=== PATIENT | male | born 1970 | race Caucasian/White ===

== ENCOUNTER 2018-02-18 22:33 | Emergency (ER) | payer OTHER ==
--- NOTE | 2018-02-18 22:45 | PDOC ---
History of Present Illness - General Stated Complaint: SEIZURE Time Seen by Provider: 02/18/18 22:42 - History of Present Illness Initial Comments: 02/18/18 22:45 Mr. Harrington is a 47 yo male w/ pmh of mental retardation, infantile cerebral palsy and diplegia who presents after seizure earlier today. Per staff patient was previously in his normal state of health when they observed him to be "foaming at the mouth" with left eye deviation. This episode lasted over five minutes and prompted evaluation at ER. Patient is no longer on anti-epileptics however has diazepam ordered PRN. Past History - Past Medical History Allergies/Adverse Reactions: Allergies Allergy/AdvReac Type Severity Reaction Status Date / Time No Known Allergies Allergy Verified 02/18/18 23:04 Home Medications: Ambulatory Orders Acetaminophen Oral Solution [Tylenol 160mg/5mL Oral Solution -] 650 mg PO Q4H PRN 05/11/12 Baclofen 15 mg PO BID 05/11/12 Bisacodyl Suppository [Dulcolax Suppository -] 10 mg RC PRN PRN 05/11/12 Calcium Carbonate/Vitamin D3 [Oyster Shell 500-Vit D3 200 Tb] 1 each PO TID 10/16 Carbamazepine [Carbatrol] 400 mg PO HS 05/11/12 Carbamazepine [Carbatrol] 500 mg PO DAILY 05/11/12 Diazepam *Pediatric Rectal* [Diastat *Pediatric Rectal Gel* -] 10 mg RC PRN PRN 05/11/12 Diazepam [Valium] 5 mg PO TID 05/11/12 Na Phos,M-B/Na Phos,Di-Ba [Fleet Enema] ml RC PRN PRN 05/11/12 Polyethylene Glycol 3350 [Miralax 255 gm Btl -] 17 gm PO DAILY 05/11/12 Ranitidine HCl [Zantac] 150 mg PO HS 05/11/12 Simethicone Liquid [Mylicon Liquid -] 80 mg PO QID PRN 05/11/12 Talc/Cellulos/Chloroxy/Aldioxa [Zeasorb Powder] 312 gm TP 05/11/12 Tizanidine HCl [Zanaflex] 2 mg PO TID 05/11/12 Amox-Tr/K Cl [Augmentin 500Mg Tablet] 1 tab PO BID #1 tablet 03/14/13 GI Disorders: Yes (GERD/GT/ESOPHAGITIS) Seizures: Yes (EPILEPSY) - Surgical History Abdominal Surgery: Yes (GT) - Immunization History Immunization Up to Date: Yes - Suicide/Smoking/Psychosocial Hx Smoking Status: No Smoking History: Unknown if ever smoked Have you smoked in the past 12 months: No Number of Cigarettes Smoked Daily: 0 Hx Alcohol Use: No Drug/Substance Use Hx: No Substance Use Type: None Review of Systems - Review of Systems Comments:: 02/18/18 22:52 Unable to obtain further. *Physical Exam - Physical Exam Comments: 02/18/18 22:53 GENERAL: Patient non-verbal, at baseline per aid from [facility]. Awake, in no acute distress HEAD: No signs of trauma, normocephalic, atraumatic EYES: PERRLA, EOMI, sclera anicteric, conjunctiva clear ENT: Auricles normal inspection, nares patent, oropharynx clear without exudates. Moist mucosa NECK: Normal ROM, supple, no lymphadenopathy, JVD, or masses LUNGS: No distress, clear to auscultation bilaterally HEART: Regular rate and rhythm, normal S1 and S2, no murmurs, rubs or gallops, peripheral pulses normal and equal bilaterally. ABDOMEN: Soft, nontender, normoactive bowel sounds. No guarding, no rebound. No masses EXTREMITIES: Normal range of motion, no edema. No clubbing or cyanosis. NEUROLOGICAL: +Unable to assess further. SKIN: Warm, Dry, normal turgor, no rashes or lesions noted. ED Treatment Course - LABORATORY CBC & Chemistry Diagram: 02/18/18 23:25 02/18/18 23:25 Medical Decision Making - Medical Decision Making 02/18/18 23:02 Mr. Harrington is a 47 yo male w/ pmh as described who presents for evaluation of seizure. Patient reportedly had not had seizure since 2012; prompting presentation. Patient was not given any anti-seizure medication following seizure. PCP paged for more information regarding goals of ER evaluation. 02/18/18 23:29 Discussed patient with PCP who reports STAT medications fell off of chart and patient had no ordered anti-seizure medication available. PCP requests r/o seizure trigger and d/c back to facility if not acute findings. Will comply with request. 02/18/18 23:58 Labs grossly wnl as below. CXR negative for acute process. Discharging to home. *DC/Admit/Observation/Transfer Diagnosis at time of Disposition: Seizure - Discharge Dispostion Disposition: HOME - Referrals - Patient Instructions Printed Discharge Instructions: DI for Seizure Disorder -- Adult Additional Instructions: Mr. Harrington was evaluated today in the ER for his seizure. No concerning findings were found on chest xray or laboratory evaluation at this time. Please follow- up with primary care physician for further evaluation. Return to ER if any further seizure, fever, chills, or other concerning symptoms. - Post Discharge Activity
[2018-02-18 23:02] VITALS: BP 119/75; PULSE 80; TEMP 99.5; BMI 21.7
[2018-02-18] MEDS ORDERED: SODIUM CHLORIDE 1,000 ML IV STA (23:05)
--- NOTE | 2018-02-18 23:26 | PDOC ---
Attending Attestation - Resident Resident Name: Owen Gutierrez - ED Attending Attestation I have performed the following: I have examined & evaluated the patient, The case was reviewed & discussed with the resident, I agree w/resident's findings & plan, Exceptions are as noted - HPI HPI: 02/18/18 23:22 I did speak with a physician from [facility] , Dr Rawls and the pt was sent to look for any signs of infection that might have triggered a seizure -the seizure was self limiting and he was at baseline upon arrival -he said there was no stat anti epileptic meds listed but Dr Rawls will placed an order for diastat -his rectal temp was done and he does not have a fever -he takes diazepam 5 mg via G-tube 3 times a day and also Tegretol 400 mg via G- tube every morning to prevent seizures 02/18/18 23:26 - Physicial Exam PE: 02/18/18 23:34 47 yo male presents with arm flapping and bruxism that the attendant states is his baseline head no lacerations,no abrasions oropharynx extensive wear on front teeth no lip injury lungs cta b/l cvs [id number] abd soft ext contracted limbs neuro alert,nonverbal, nonambulatory at baseline skin warm and dry 02/18/18 23:40 - Medical Decision Making 02/18/18 23:[address] Rawls , ([phone]) 02/19/18 00:12 labs reviewed and the cbc and comp are unremarkable pt is afebrile and at baseline imp epilepsy -pt will be discharged back to his facility 02/19/18 00:51
[2018-02-18 23:32] LABS: BASO % 0.5 % (0-2.0); EOS % 0.6 % (0-4.5); HEMATOCRIT 40.8 % (35.4-49); HEMOGLOBIN 14.6 GM/dL (11.7-16.9); LYMPH % 29.3 % (8-40); MCH 34.3 pg (25.7-33.7); MCHC 35.8 g/dl (32.0-35.9); MEAN PLT VOLUME 8.2 fl (7.5-11.1); MONO % 10.2 % (3.8-10.2); NEUT % 59.4 % (42.8-82.8); PLATELET COUNT 260 K/MM3 (134-434); RBC 4.25 M/mm3 (4.00-5.60); RDW 12.5 % (11.9-15.9); WHITE BLOOD COUNT 7.2 K/mm3 (4.0-10.0)
[2018-02-18 23:55] LABS: ALK PHOS 123 U/L (45-117); ANION GAP 8 MMOL/L (8-16); BILIRUBIN,TOTAL 0.4 mg/dL (0.2-1); BLOOD UREA NITROGEN 20 mg/dL (7-18); CHLORIDE 104 mmol/L (98-107); CO2 29 mmol/L (21-32); CREATININE 0.6 mg/dL (0.55-1.3); GLUCOSE,RANDOM 88 mg/dL (74-106); POTASSIUM 3.9 mmol/L (3.5-5.1); SGOT/AST 32 U/L (15-37); SGPT/ALT 38 U/L (13-61); SODIUM 142 mmol/L (136-145); TOT PROT 7.9 g/dl (6.4-8.2)
== END 2018-02-19 01:35 | disposition home or self-care (01) ==
LOC: JER 22:33
PROC: 3E0337Z Introduction of Electrolytic and Water Balance Substance into Peripheral Vein, Percutaneous Approach (ICD-10-PCS; principal; 2018-02-18)
DX: D56.9 Thalassemia, unspecified (principal); F79 Unspecified intellectual disabilities; G80.9 Cerebral palsy, unspecified
CPT/HCPCS: 36415; 71045-TC-FY; 80053; 85025; 99281-25; J7030

== ENCOUNTER 2018-06-29 13:43 | Emergency (ER) | payer OTHER ==
[2018-06-29 13:56] VITALS: BMI 49.4
--- NOTE | 2018-06-29 18:28 | PDOC ---
History of Present Illness - General Chief Complaint: Pain, Acute Stated Complaint: ABD PAIN Time Seen by Provider: 06/29/18 15:53 History Source: Patient Exam Limitations: No Limitations - History of Present Illness Travel History: No Initial Comments: 06/29/18 18:23 47 y/o male brought in by staff for evaluation of no BM x 2 days. As per report when the ENGINE TURNER pushed on his abdomen, pt had winced. Pt otherwise with no vomiting , abd distention, fever, decreased GT or po feeding, irritability or change in urine pattern. pt with hx of CP, spasms, GT, and is wheelchair bound. Pt resides at [facility]. Timing/Duration: reports: other Quality: reports: other Abdominal Pain Onset Location: reports: other Activities at Onset: reports: none Aggravating Factors: improves with: None Alleviating Factors: improves with: None Past History - Travel Traveled outside of the country in the last 30 days: No - Past Medical History Allergies/Adverse Reactions: Allergies Allergy/AdvReac Type Severity Reaction Status Date / Time No Known Allergies Allergy Verified 02/18/18 23:04 Home Medications: Ambulatory Orders Acetaminophen Oral Solution [Tylenol 160mg/5mL Oral Solution -] 650 mg PO Q4H PRN 05/11/12 Baclofen 15 mg PO TID 05/11/12 Bisacodyl Suppository [Dulcolax Suppository -] 10 mg RC PRN PRN 05/11/12 Calcium Carbonate/Vitamin D3 [Oyster Shell 500-Vit D3 200 Tb] 1 each PO TID 10/16 Carbamazepine [Carbatrol] 400 mg PO AM 05/11/12 Carbamazepine [Carbatrol] 600 mg PO HS 05/11/12 Diazepam *Pediatric Rectal* [Diastat *Pediatric Rectal Gel* -] 10 mg RC PRN PRN 05/11/12 Diazepam [Valium] 5 mg PO TID 05/11/12 Na Phos,M-B/Na Phos,Di-Ba [Fleet Enema] 118 ml RC PRN PRN 05/11/12 Polyethylene Glycol 3350 [Miralax 255 gm Btl -] 17 gm PO DAILY 05/11/12 Ranitidine HCl [Zantac] 150 mg PO HS 05/11/12 Simethicone Liquid [Mylicon Liquid -] 80 mg PO QID PRN 05/11/12 Talc/Cellulos/Chloroxy/Aldioxa [Zeasorb Powder] 312 gm TP DAILY 05/11/12 Tizanidine HCl [Zanaflex] 4 mg PO BID 05/11/12 Miconazole Nitrate [Desenex] 45 gm TP BID 02/19/18 Selenium Sulfide/Aloe Vera [Selsun Blue Moist 1% Shampoo] 207 ml TP HS 02/19/18 COPD: No GI Disorders: Yes (GERD/GT/ESOPHAGITIS) Psychiatric Problems: Yes (MR) Seizures: Yes (EPILEPSY) Other medical history: CERBRRAL PALSY - Surgical History Abdominal Surgery: Yes (GT) - Immunization History Immunization Up to Date: Yes - Suicide/Smoking/Psychosocial Hx Smoking Status: No Smoking History: Never smoked Have you smoked in the past 12 months: No Number of Cigarettes Smoked Daily: 0 Hx Alcohol Use: No Drug/Substance Use Hx: No Substance Use Type: None Patient Lives Alone: No Lives with/in: jail Abd/GI Specific PMHX - Complaint Specific PMHX Other History: gt Review of Systems - Review of Systems Able to Perform ROS?: Yes Constitutional: No: Symptoms Reported Respiratory: No: Shortness of Breath ABD/GI: Yes: Constipated (no BM x 2 days). No: Abdominal Distended, Diarrhea, Poor Appetite, Poor Fluid Intake, Vomiting Integumentary: No: Symptoms Reported Neurological: No: Weakness *Physical Exam - Vital Signs Last Vital Signs Temp Pulse Resp BP Pulse Ox 98.1 F 75 20 0/0 L 98 06/29/18 13:45 06/29/18 13:45 06/29/18 13:45 06/29/18 13:45 06/29/18 13:45 - Physical Exam General Appearance: Yes: Nourished, Appropriately Dressed. No: Apparent Distress Respiratory/Chest: positive: Lungs Clear, Normal Breath Sounds. negative: Respiratory Distress, Accessory Muscle Use Cardiovascular: positive: Regular Rhythm, Regular Rate. negative: Murmur Gastrointestinal/Abdominal: positive: Normal Bowel Sounds, Soft, Other (gt to left upper abd intact, ). negative: Distended, Tenderness Integumentary: positive: Normal Color, Warm, Moist Neurologic: positive: Motor Strength 5/5 (ambulatory) ED Treatment Course - RADIOLOGY Radiology Studies Ordered: Category Date Time Status ABDOMEN FLAT & UPRIGHT [RAD] Stat Radiology 04/26/19 16:37 Completed Medical Decision Making - Medical Decision Making 06/29/18 18:29 CC: r/o obstruction, constipation, lbm formed and soft 2 days ago, normally goes daily in am, report states grimacing with abd palpation Exam: no abd distention, no noted discomfort, vss, gt site intact, no feeding aspirated w/ TUMI syringe from GT Plan: Abd FU 06/29/18 18:36 Xray shows minimal stool in distal colon, no acute findings suggestive of obstruction. Will send back to [facility] with staff *DC/Admit/Observation/Transfer Diagnosis at time of Disposition: Decreased frequency of bowel movements - Discharge Dispostion Disposition: HOME Condition at time of disposition: Good - Referrals - Patient Instructions Printed Discharge Instructions: DI for Constipation Additional Instructions: Please continue to monitor bowel movements and if no BM in 48 hrs, may consider enema since stool is seen on xray in distal colon - Post Discharge Activity
[2018-06-29 19:38] VITALS: BP 110/76; PULSE 70; TEMP 97.8
== END 2018-06-29 19:38 | disposition home or self-care (01) ==
LOC: JER 13:43
DX: K59.00 Constipation, unspecified (principal); G80.8 Other cerebral palsy; F79 Unspecified intellectual disabilities; G40.909 Epilepsy, unspecified, not intractable, without status epilepticus; Z93.1 Gastrostomy status
CPT/HCPCS: 74019-TC-FY; 99281-25

== ENCOUNTER 2018-09-04 02:16 | Inpatient (IN) | payer OTHER ==
[2018-09-04] MEDS ORDERED: RAPID SEQUENCE INTUBATION KIT NR ONE (02:27)
[2018-09-04] MEDS ORDERED: MIDAZOLAM HCL 2 MG/2 ML SINGLE DOSE VIAL ONE ×2 (02:27→02:41)
[2018-09-04] MEDS ORDERED: MIDAZOLAM HCL 5 MG/1 ML Single Dose Vial IVPUSH ONE ×2 (03:19)
[2018-09-04] MEDS ORDERED: ACETAMINOPHEN 1000 MG/100 ML VIAL (NON FORMULARY) IVPB ONE (03:29)
[2018-09-04] MEDS ORDERED: PIPERACILLIN/TAZOB 4.5 GM 4.5 GM in DEXTROSE 5%-WATER 100 ML IVPB ONE (03:30)
[2018-09-04] MEDS: VANCOMYCIN 1 GM in D5W (PRE-DOCKED) 1,000 MG/250 ML IVPB ONE ×2 (03:30→03:50)
[2018-09-04] MEDS: MIDAZOLAM IN 0.9 % SOD.CHLORID 100 MG/100 ML PLAST..BAG IVPB SCH ×2 (03:38→14:03)
[2018-09-04 03:44] LABS: BASO % 0.2 % (0-2.0); EOS % 0.1 % (0-4.5); HEMATOCRIT 45.4 % (35.4-49); HEMOGLOBIN 14.8 GM/dL (11.7-16.9); LYMPH % 10.2 % (8-40); MCH 32.7 pg (25.7-33.7); MCHC 32.6 g/dl (32.0-35.9); MEAN CELL VOLUME 100.4 fl (80-96); MONO % 6.2 % (3.8-10.2); NEUT % 83.3 % (42.8-82.8); PLATELET COUNT 365 K/MM3 (134-434); RBC 4.53 M/mm3 (4.00-5.60); RDW 13.1 % (11.9-15.9); WHITE BLOOD COUNT 22.4 K/mm3 (4.0-10.0)
--- NOTE | 2018-09-04 03:49 | PDOC ---
History of Present Illness - General Chief Complaint: Respiratory Distress Stated Complaint: VOMITING History Source: Old Records - History of Present Illness Initial Comments: 09/04/18 03:22 47 year old male with a significant PMH of mental retardation, seizure disorder and infantile cerebral palpasy/diplegia BIBA from [place] for likely aspiration pneumonia. EMS report on route to hospital sig for severely agitated patient vomiting blood and unable to attain vital signs. Pt reported to be completely altered from baseline according to ems. On arrival to the ED, pt found to be very agitated, punching and kicking with noted blood around the mouth and on the sheets. Continue to have difficulty attaining vitals (HR and O2 saturation, BP WNL) while in the ED due to severe agitation with gargling and crackles. Pt not protecting his airway along with vomiting and agitation, decision made to intubate. Multiple attempts to attain IV access failed, place femoral line on the right side. Past History - Past Medical History Allergies/Adverse Reactions: Allergies Allergy/AdvReac Type Severity Reaction Status Date / Time No Known Allergies Allergy Verified 09/04/18 02:53 Home Medications: Ambulatory Orders Acetaminophen Oral Solution [Tylenol 160mg/5mL Oral Solution -] 650 mg PO Q4H PRN 05/11/12 Baclofen 15 mg PO TID 05/11/12 Bisacodyl Suppository [Dulcolax Suppository -] 10 mg RC PRN PRN 05/11/12 Calcium Carbonate/Vitamin D3 [Oyster Shell 500-Vit D3 200 Tb] 1 each PO TID 10/16 Carbamazepine [Carbatrol] 400 mg PO AM 05/11/12 Carbamazepine [Carbatrol] 600 mg PO HS 05/11/12 Diazepam *Pediatric Rectal* [Diastat *Pediatric Rectal Gel* -] 10 mg RC PRN PRN 05/11/12 Diazepam [Valium] 5 mg PO TID 05/11/12 Na Phos,M-B/Na Phos,Di-Ba [Fleet Enema] 118 ml RC PRN PRN 05/11/12 Polyethylene Glycol 3350 [Miralax 255 gm Btl -] 17 gm PO DAILY 05/11/12 Ranitidine HCl [Zantac] 150 mg PO HS 05/11/12 Simethicone Liquid [Mylicon Liquid -] 80 mg PO QID PRN 05/11/12 Talc/Cellulos/Chloroxy/Aldioxa [Zeasorb Powder] 312 gm TP DAILY 05/11/12 Tizanidine HCl [Zanaflex] 4 mg PO BID 05/11/12 Miconazole Nitrate [Desenex] 45 gm TP BID 02/19/18 Selenium Sulfide/Aloe Vera [Selsun Blue Moist 1% Shampoo] 207 ml TP HS 02/19/18 COPD: No GI Disorders: Yes (GERD/GT/ESOPHAGITIS) Psychiatric Problems: Yes (MR) Seizures: Yes (EPILEPSY) - Surgical History Abdominal Surgery: Yes (GT) - Immunization History Immunization Up to Date: Yes - Suicide/Smoking/Psychosocial Hx Smoking Status: No Smoking History: Never smoked Have you smoked in the past 12 months: No Number of Cigarettes Smoked Daily: 0 Hx Alcohol Use: No Drug/Substance Use Hx: No Substance Use Type: None Review of Systems - Review of Systems Able to Perform ROS?: No (altered and agitated) *Physical Exam - Vital Signs Last Vital Signs Temp Pulse Resp BP Pulse Ox 103.6 F H 131 H 20 152/84 74 L 09/04/18 03:09 09/04/18 02:16 09/04/18 02:40 09/04/18 02:16 09/04/18 02:16 - Physical Exam General Appearance: Yes: Nourished, Appropriately Dressed, Apparent Distress HEENT: positive: EOMI, NATALIE, Other (blood and vomit around mouth). negative: Normal Voice (non verbal), Lesions, Paz Neck: positive: Supple. negative: Carotid bruit Respiratory/Chest: positive: Rapid RR, Crackles. negative: Accessory Muscle Use Cardiovascular: positive: Regular Rhythm, S1, S2, Tachycardia. negative: Edema , JVD, Murmur Vascular Pulses: Dorsalis-Pedis (R): 4+, Doralis-Pedis (L): 4+ Gastrointestinal/Abdominal: positive: Flat, Soft. negative: Pulsatile Mass, Distended, Guarding, Rebound Extremity: positive: Normal Capillary Refill. negative: Pedal Edema Integumentary: positive: Normal Color, Dry, Warm Neurologic: positive: Motor Strength 5/5, Confused, Disoriented, Other ( agitated ) Procedures - Central Line Central Line Lumen: triple Central Line Position: femoral (R) Anesthesia: other (4 mg versed) Complications: none Post Central Line Insertion: sutured, good blood return - Intubation Intubation Method: orotracheal Blade used: Mac Tube Size (Fr): 7.0 Medications: Rocuronium, Versed Tube position @ lip (cm): 22 Tube position confirmed by: Direct visualization, CO2 detector, Chest x-ray ( chest CT), Breath sounds Breath Sounds after Intubation: equal Intubation Complications: no complications Post Intubation Xray: Yes (CT) ED Treatment Course - LABORATORY CBC & Chemistry Diagram: 09/04/18 03:15 09/04/18 03:15 Medical Decision Making - Medical Decision Making 09/04/18 06:21 47 year old male with a significant PMH of mental retardation, seizure disorder and infantile cerebral palpasy/diplegia BIBA from [place] for likely aspiration pneumonia. EMS report on route to hospital sig for severely agitated patient vomiting blood and unable to attain vital signs. Pt reported to be completely altered from baseline according to ems. On arrival to the ED, pt found to be very agitated, punching and kicking with noted blood around the mouth and on the sheets. Continue to have difficulty attaining vitals (HR and O2 saturation, BP WNL) while in the ED due to severe agitation with gargling and crackles. Pt not protecting his airway along with vomiting and agitation, decision made to intubate. Multiple attempts to attain IV access failed, place femoral line on the right side. See procedure note for femoral line and intubation Vitals significant for elevated temp, elevated RR and tachycardia Sepsis workup ordered for likely infection Head CT for AMS and agitation Chest/abd/pel CT ordered for fever of unknown cause and likely aspiration PNA Pt given midazolam and jose f for intubation, placed on versed drip Pt required more rocuronium prior to CT due to continued agitation while on full dose versed drip DDX INLT: aspiration pna, infection, seritonin syndrome, seizure, delirium tremens/neuroleptic malignant syndrome Discussed case with ICU and hospitalist, pt accepted to ICU and bed reported available Pt transported to ICU from CT scan *DC/Admit/Observation/Transfer Diagnosis at time of Disposition: Aspiration pneumonia, Altered mental status, Agitation - Discharge Dispostion Condition at time of disposition: Guarded Decision to Admit order: Yes - Referrals - Patient Instructions - Post Discharge Activity
[2018-09-04 03:52] LABS: VENOUS PC02 54.3 mmHg (41-51); VENOUS PH 7.26 (7.31-7.41)
[2018-09-04] MEDS ORDERED: ROCURONIUM BROMIDE 50 MG/5 ML VIAL IVPUSH ONE ×2 (03:56)
[2018-09-04 04:01] LABS: INR 1.23 (0.83-1.09); PROTHROMBIN TIME (PATIENT) 14.6 SEC (9.7-13.0)
[2018-09-04 04:04] LABS: ACTIVATED PTT 33.3 SECONDS (25.2-36.5)
[2018-09-04 04:10] LABS: ALBUMIN 4.4 g/dl (3.4-5.0); BILIRUBIN,TOTAL 0.5 mg/dL (0.2-1); CALCIUM 9.3 mg/dL (8.5-10.1); CREATININE 1.3 mg/dL (0.55-1.3); POTASSIUM 4.2 mmol/L (3.5-5.1); TOT PROT 8.8 g/dl (6.4-8.2)
--- NOTE | 2018-09-04 04:12 | CONSULT ---
Consultation: REQUESTING PROVIDER: Dr. Otero CONSULT REQUEST: We have been asked to medically evaluate this patient for sepsis HISTORY OF PRESENT ILLNESS: 47 year old male with a significant PMH of mental retardation, infantile cerebral palpasy/diplegia, constipation, and seizure disorder was brought to the hospital by ambulance from [facility] for agitation and alleged aspiration pneumonia. Per ED report, patient was extremely agitated on his way from [place] and "vomited blood" from the report given by the EMS. In the ED, patient was found to be febrile to >103 and tachycardic. Because the patient had reportedly vomited blood and was extremely agitated, he was intubated for airway protection and sedated on versed. There was no family or nursing aid at bedside to answer my questions. Patient is not alert or oriented and cannot answer questions about his history. REVIEW OF SYSTEMS: Unable to assess due to mental status PHYSICAL EXAMINATION Vital Signs - 24 hr 09/04/18 09/04/18 09/04/18 02:16 02:40 03:09 Temperature 103.6 F H Pulse Rate 131 H Respiratory 32 H 20 Rate Blood Pressure 152/84 O2 Sat by Pulse 74 L Oximetry (%) GENERAL: A&Ox0, intubated and sedated EYES: pupils equal, reactive to light ENT: dried blood noted around the mouth, no blood noted in the oropharynx NECK: No JVD LUNGS: course breath sounds, no crackles HEART: tachycardic, no murmurs appreciated ABDOMEN: Soft, nontender, BS present, G tube in place, mild erythema noted around the tube without any purulent drainage EXTREMITIES: 2+ pulses, no edema. NEUROLOGICAL: Unable to assess due to mental status Laboratory Results - last 24 hr 09/04/18 09/04/18 09/04/18 03:15 03:15 03:15 WBC 22.4 H RBC 4.53 Hgb 14.8 Hct 45.4 MCV 100.4 H MCH 32.7 MCHC 32.6 RDW 13.1 Plt Count 365 D MPV 9.0 Absolute Neuts (auto) 18.7 H Neutrophils % 83.3 H D Lymphocytes % 10.2 D Monocytes % 6.2 Eosinophils % 0.1 D Basophils % 0.2 Nucleated RBC % 0 PT with INR 14.60 H INR 1.23 H PTT (Actin FS) 33.3 VBG pH 7.26 L POC VBG pCO2 54.3 H POC VBG pO2 108 H VBG HCO3 23.9 VBG O2 Sat (Martha) 96 H VBG Base Excess -3.5 L Sodium Potassium Chloride Carbon Dioxide Anion Gap BUN Creatinine Est GFR (CKD-EPI)AfAm Est GFR (CKD-EPI)NonAf Random Glucose Calcium Total Bilirubin AST ALT Alkaline Phosphatase Total Protein Albumin 09/04/18 03:15 WBC RBC Hgb Hct MCV MCH MCHC RDW Plt Count MPV Absolute Neuts (auto) Neutrophils % Lymphocytes % Monocytes % Eosinophils % Basophils % Nucleated RBC % PT with INR INR PTT (Actin FS) VBG pH POC VBG pCO2 POC VBG pO2 VBG HCO3 VBG O2 Sat (Martha) VBG Base Excess Sodium 146 H Potassium 4.2 Chloride 107 Carbon Dioxide 27 Anion Gap 13 BUN 27.0 H Creatinine 1.3 Est GFR (CKD-EPI)AfAm 75.84 Est GFR (CKD-EPI)NonAf 65.43 Random Glucose 93 Calcium 9.3 Total Bilirubin 0.5 AST 38 H ALT 38 Alkaline Phosphatase 146 H Total Protein 8.8 H Albumin 4.4 Active Medications Current Medications Midazolam HCl (Midazolam 100mg/100ml-0.9%Nacl) 100 mg in 100 mls @ 1 mls/hr IVPB TITR RASHAUN; Protocol Stop: 09/05/18 03:29 Last Admin: 09/04/18 03:38 Dose: 1 mg/hr, 1 mls/hr Lactated Ringer's (Lactated Ringers Solution) 1,000 ml in 1,000 mls @ 125 mls/ hr IV ASDIR RASHAUN Sodium Chloride (Normal Saline -) 1,000 mls @ 1,000 mls/hr IV ASDIR STA Stop: 09/04/18 05:22 Sodium Chloride (Normal Saline -) 1,000 mls @ 1,000 mls/hr IV ASDIR STA Stop: 09/04/18 05:22 Propofol (Diprivan -) 1,000,000 mcg in 100 mls @ 1.837 mls/hr IVPB TITR RASHAUN; Protocol ASSESSMENT/PLAN: 47 year old male with a significant PMH of mental retardation, infantile cerebral palpasy/diplegia, constipation, and seizure disorder was brought to the hospital by ambulance from [facility] for agitation and alleged aspiration pneumonia. Neurologic -patient was brought from ED sedated on versed -will add propofol and watch pressures -continue antiepileptic medications without change -head CT without acute pathology, per prelim report - possible mild sinusitis Cardiovascular -currently hemodynamically stable with a MAP of 94 -not requiring pressors -tachycardic on admission >130, now 92 likely due to sepsis -continue to monitor vitals -troponinemia 0.07 is likely demand ischemia related from sepsis, will repeat troponin until it peaks -EKG noted Pulmonary -Currently intubated and sedated -Chest CT shows atelectasis vs pneumonia in the left lower lobe, could be related to the alleged aspiration -will start vancomycin/zosyn from currently undifferentiated sepsis -ID consulted -ABG showed respiratory acidosis with hypercarbia -will repeat ABG Gastrointestinal -CT abdomen/pelvis diarrheal illness and/or chronic ileus with diffuse small/ large bowel gas, unclear if patient could have GI source causing his sepsis -blood/urine cultures taken -doubt patient has GI bleed given history of "vomiting" per EMS, patient did not have recurrent symptoms. possible patient has bitten tongue -will continue to monitor H&H and vital signs -will likely need suppository to assist with diffuse gaseous dilation of bowel Renal -elevated BUN likely from dehydration Heme/Onc -leukocytosis with a left shift from sepsis/infection Infectious Diseases -patient has sepsis with currently unclear etiology, differentials include aspiration pneumonia (infiltrates on CT), enteritis, UTI -will obtain UA, blood and urine cultures -empirically treat with vancomycin/zosyn -fluid hydration, ordered 2L NS bolus followed by lactated ringers at 125cc/hr -monitor fluid status -ID consultation -CT head/chest/abd/pelvis as described above -Lactic acid elevated to 8, trend lactate FEN -NS boluses followed by LR @ 125cc/hr -replete lytes as necessary in AM -NPO while intubated/sedated Prophylaxis -SCDs Dispo: We will continue to follow the patient. Thank you for this consultative opportunity. Visit type - Emergency Visit Emergency Visit: Yes ED Registration Date: 09/04/18 Care time: The patient presented to the Emergency Department on the above date and was hospitalized for further evaluation of their emergent condition. - New Patient This patient is new to me today: Yes Date on this admission: 09/04/18 - Critical Care Critical Care patient: Yes Total Critical Care Time (in minutes): 35 Critical Care Statement: The care of this patient involved high complexity decision making to prevent further life threatening deterioration of the patient 's condition and/or to evaluate & treat vital organ system(s) failure or risk of failure.
[2018-09-04] MEDS ORDERED: SODIUM CHLORIDE 1,000 ML IV STA ×2 (04:23)
--- NOTE | 2018-09-04 04:23 | PN ---
Teaching Attending Note Name of Resident: Mely Perkins ATTENDING PHYSICIAN STATEMENT I saw and evaluated the patient. I reviewed the resident's note and discussed the case with the resident. I agree with the resident's findings and plan as documented. SUBJECTIVE: Seen and examined; please refer to resident note for further historical information. Briefly, this is a 47 y/o male with a PMH as dscribed presenting from [facility] with sepsis. He is hemodynamically unstable but not requiring pressors and was intubated for suspected hemetemesis. Hb normal, lactate is 8. UA pending, CT with possible atelectesis vs. PNA. Intubated in the ER and CVC inserted and admitted to the ICU. No gastric contents saved for occult blood. No documented GIB in the past; is on zantac a home. No anticoagulation documented. Resident team to update medications. 10 sys ROS couldn't be obtained due to clinical status PMH, PSH, FH, SH reviewed Home Medications Medication Instructions Recorded Acetaminophen Oral Solution 650 mg PO Q4H PRN 05/11/12 [Tylenol 160mg/5mL Oral Solution -] Baclofen 15 mg PO TID 05/11/12 Bisacodyl Suppository [Dulcolax 10 mg RC PRN PRN 05/11/12 Suppository -] Calcium Carbonate/Vitamin D3 1 each PO TID 05/11/12 [Oyster Shell 500-Vit D3 200 Tb] Carbamazepine [Carbatrol] 400 mg PO AM 05/11/12 Carbamazepine [Carbatrol] 600 mg PO HS 05/11/12 Diazepam *Pediatric Rectal* 10 mg RC PRN PRN 05/11/12 [Diastat *Pediatric Rectal Gel* -] Diazepam [Valium] 5 mg PO TID 05/11/12 Na Phos,M-B/Na Phos,Di-Ba [Fleet 118 ml RC PRN PRN 05/11/12 Enema] Polyethylene Glycol 3350 [Miralax 17 gm PO DAILY 05/11/12 255 gm Btl -] Ranitidine HCl [Zantac] 150 mg PO HS 05/11/12 Simethicone Liquid [Mylicon Liquid 80 mg PO QID PRN 05/11/12 -] Talc/Cellulos/Chloroxy/Aldioxa 312 gm TP DAILY 05/11/12 [Zeasorb Powder] Tizanidine HCl [Zanaflex] 4 mg PO BID 05/11/12 Miconazole Nitrate [Desenex] 45 gm TP BID 02/19/18 Selenium Sulfide/Aloe Vera [Selsun 207 ml TP HS 02/19/18 Blue Moist 1% Shampoo] OBJECTIVE: VS, labs, imaging reviewed Moderate distress, intubated and sedated, frail and contorted Tachycardic with regular rhythm, s1/2 Lungs with vent associated breath sounds, w/ sym exp NT ND +BS Responds to painful stimuli, RASS 4 PERRLA, EOMI Not agitated, doesn't appear in pain EKG reviewed CXR reviewed ASSESSMENT AND PLAN: Patient is a 47 y/o male presenting to the ER with hemetemesis, sepsis with unknown source, intubated to protect airway 1) Sepsis of ? origin -VS, lactate, WBC reviewed. UA pending, ? PNA. Given broad spectrum abx. We will start him on fluids and monitor him in ICU. Defer management to critical care team. Consult ID for abx management given choice of agents. Followup CT read. If no source found can check stool, etc. -Not requiring pressors 2) S/p intubation -No recorded desaturation; ABG pending post inutbation. Monitor in unit. Wean from vent per pulmonary 3) Troponemia -Likely subendocardial ischemia 2/2 demand. Checking echo to r/o wma's and trend troponin. Nonspecific changes on EKG; can consider repeating. 4) Suspected hematemesis -NPO and hold feeds; consult GI and PPI push with drip. Q8H h/h. Defer further management to GI. SCDs for DVT px. Normal Hb and no further bleeding. FOBT ordered. Is documented as being agitated; should examine oral cavity once done being set up in ICU for any bites, etc. that may explain this. Type and screen but we don't need blood on hold at this point. 5) Seizures -Continue home medications; seizure precautions. 6) Hx MR/CP -[facility] resident; Full Code.
[2018-09-04] MEDS ORDERED: LACTATED RINGERS SOLUTION 1,000 ML/1,000 ML INFUS.BAG IV SCH ×3 (04:30→18:00)
[2018-09-04 04:43] LABS: MAGNESIUM 3.3 mg/dL (1.8-2.4); PHOSPHOROUS 6.9 mg/dL (2.5-4.9)
[2018-09-04 05:19] LABS: ANISOCYTOSIS 2+; MACROCYTOSIS 0; PLATELET ESTIMATE NORMAL
[2018-09-04] MEDS: PROPOFOL 1,000,000 MCG/100 ML VIAL IVPB SCH ×3 (05:40→20:43)
[2018-09-04] MEDS ORDERED: PANTOPRAZOLE SODIUM 80 MG in SODIUM CHLORIDE 100 ML IVPB SCH (05:45)
[2018-09-04] MEDS ORDERED: PANTOPRAZOLE SODIUM 40 MG VIAL IVPUSH ONE (06:09)
--- NOTE | 2018-09-04 06:23 | HP ---
<CristineMely herring - Last Filed: 09/04/18 07:45> CHIEF COMPLAINT: Febrile with suspected pneumonia PCP: [facility] patient. HISTORY OF PRESENT ILLNESS: Patient is currently sedated and on ventilator. Patient is a 47 M with PMH of infantile cerebral palsy, diplegia, and seizure disorder, was sent from [facility] for fever. Patient was agitated during transport and was reported to have an episode of hematemesis. He was found to be febrile at 103 degrees, tachycardic and tachypneic. Femoral line was placed on the right. He was given 12 mg Midazolam, 4 mg lorazepam and started on midazolam drip before being sent to CT scan. Patient was not alert or oriented. CT scan results showed that patient had atelectasis in lungs, with pneumonia not ruled out, and gas in the small and large bowels with possible diarrheal illness. Recent Travel:None PAST MEDICAL HISTORY: Mental retardation, cerebral palsy/diplegia, seizure disorder PAST SURGICAL HISTORY: Unable to obtain Social History: Unable to obtain Family History: Unable to obtain Allergies No Known Allergies Allergy (Verified 09/04/18 02:53) HOME MEDICATIONS: Home Medications Medication Instructions Recorded Acetaminophen Oral Solution 650 mg PO Q4H PRN 05/11/12 [Tylenol 160mg/5mL Oral Solution -] Baclofen 15 mg PO TID 05/11/12 Bisacodyl Suppository [Dulcolax 10 mg RC PRN PRN 05/11/12 Suppository -] Calcium Carbonate/Vitamin D3 1 each PO TID 05/11/12 [Oyster Shell 500-Vit D3 200 Tb] Carbamazepine [Carbatrol] 400 mg PO AM 05/11/12 Carbamazepine [Carbatrol] 600 mg PO HS 05/11/12 Diazepam *Pediatric Rectal* 10 mg RC PRN PRN 05/11/12 [Diastat *Pediatric Rectal Gel* -] Diazepam [Valium] 5 mg PO TID 05/11/12 Na Phos,M-B/Na Phos,Di-Ba [Fleet 118 ml RC PRN PRN 05/11/12 Enema] Polyethylene Glycol 3350 [Miralax 17 gm PO DAILY 05/11/12 255 gm Btl -] Ranitidine HCl [Zantac] 150 mg PO HS 05/11/12 Simethicone Liquid [Mylicon Liquid 80 mg PO QID PRN 05/11/12 -] Talc/Cellulos/Chloroxy/Aldioxa 312 gm TP DAILY 05/11/12 [Zeasorb Powder] Tizanidine HCl [Zanaflex] 4 mg PO BID 05/11/12 Miconazole Nitrate [Desenex] 45 gm TP BID 02/19/18 Selenium Sulfide/Aloe Vera [Selsun 207 ml TP HS 02/19/18 Blue Moist 1% Shampoo] REVIEW OF SYSTEMS Unable to review systems due to the patient's sedated mental status. PHYSICAL EXAMINATION Vital Signs - 24 hr 09/04/18 09/04/18 09/04/18 02:16 02:40 02:55 Temperature 101 F H Pulse Rate 131 H Pulse Rate [ Left] Respiratory 32 H 20 Rate Blood Pressure 152/84 Blood Pressure [Left Arm] O2 Sat by Pulse 74 L Oximetry (%) 09/04/18 09/04/18 09/04/18 03:00 03:09 03:35 Temperature 103.6 F H Pulse Rate Pulse Rate [ Left] Respiratory Rate Blood Pressure Blood Pressure 152/84 158/84 [Left Arm] O2 Sat by Pulse Oximetry (%) 09/04/18 09/04/18 09/04/18 04:25 04:30 04:49 Temperature Pulse Rate Pulse Rate [ 72 Left] Respiratory 18 17 20 Rate Blood Pressure Blood Pressure 158/82 [Left Arm] O2 Sat by Pulse 98 100 Oximetry (%) 09/04/18 09/04/18 04:50 05:35 Temperature Pulse Rate 98 H 89 Pulse Rate [ Left] Respiratory 17 17 Rate Blood Pressure 126/80 109/73 Blood Pressure [Left Arm] O2 Sat by Pulse Oximetry (%) GENERAL: Sedated. HEAD: Evidence of hematemsis near mouth. No signs of trauma visible on face. LUNGS: Bilateral ronchi heard HEART: Regular rate and rhythm, normal S1 and S2 without murmur, rub or gallop. ABDOMEN: Soft, nontender,normoactive to hypoactive bowel sounds. LOWER EXTREMITIES: 2+ pulses, warm, well-perfused. No peripheral edema. Laboratory Results - last 24 hr 09/04/18 09/04/18 09/04/18 03:15 03:15 03:15 WBC 22.4 H RBC 4.53 Hgb 14.8 Hct 45.4 MCV 100.4 H MCH 32.7 MCHC 32.6 RDW 13.1 Plt Count 365 D MPV 9.0 Absolute Neuts (auto) 18.7 H Neutrophils % 83.3 H D Neutrophils % (Manual) 58.0 Band Neutrophils % 28.0 Lymphocytes % 10.2 D Lymphocytes % (Manual) 10.0 Monocytes % 6.2 Monocytes % (Manual) 3 L Eosinophils % 0.1 D Eosinophils % (Manual) 0.0 Basophils % 0.2 Basophils % (Manual) 0.0 Myelocytes % (Man) 0 Promyelocytes % (Man) 0 Blast Cells % (Manual) 0 Nucleated RBC % 0 Metamyelocytes 0 Hypochromia 0 Platelet Estimate Normal Platelet Comment Present Polychromasia 0 Poikilocytosis 0 Anisocytosis 2+ Microcytosis 1+ Macrocytosis 0 PT with INR 14.60 H INR 1.23 H PTT (Actin FS) 33.3 VBG pH 7.26 L POC VBG pCO2 54.3 H POC VBG pO2 108 H VBG HCO3 23.9 VBG O2 Sat (Martha) 96 H VBG Base Excess -3.5 L Sodium Potassium Chloride Carbon Dioxide Anion Gap BUN Creatinine Est GFR (CKD-EPI)AfAm Est GFR (CKD-EPI)NonAf Random Glucose Lactic Acid Calcium Phosphorus Magnesium Total Bilirubin AST ALT Alkaline Phosphatase Troponin I Total Protein Albumin 09/04/18 09/04/18 09/04/18 03:15 03:15 03:15 WBC RBC Hgb Hct MCV MCH MCHC RDW Plt Count MPV Absolute Neuts (auto) Neutrophils % Neutrophils % (Manual) Band Neutrophils % Lymphocytes % Lymphocytes % (Manual) Monocytes % Monocytes % (Manual) Eosinophils % Eosinophils % (Manual) Basophils % Basophils % (Manual) Myelocytes % (Man) Promyelocytes % (Man) Blast Cells % (Manual) Nucleated RBC % Metamyelocytes Hypochromia Platelet Estimate Platelet Comment Polychromasia Poikilocytosis Anisocytosis Microcytosis Macrocytosis PT with INR INR PTT (Actin FS) VBG pH POC VBG pCO2 POC VBG pO2 VBG HCO3 VBG O2 Sat (Martha) VBG Base Excess Sodium 146 H Potassium 4.2 Chloride 107 Carbon Dioxide 27 Anion Gap 13 BUN 27.0 H Creatinine 1.3 Est GFR (CKD-EPI)AfAm 75.84 Est GFR (CKD-EPI)NonAf 65.43 Random Glucose 93 Lactic Acid 8.6 H* Calcium 9.3 Phosphorus Magnesium Total Bilirubin 0.5 AST 38 H ALT 38 Alkaline Phosphatase 146 H Troponin I 0.07 H Total Protein 8.8 H Albumin 4.4 09/04/18 03:55 WBC RBC Hgb Hct MCV MCH MCHC RDW Plt Count MPV Absolute Neuts (auto) Neutrophils % Neutrophils % (Manual) Band Neutrophils % Lymphocytes % Lymphocytes % (Manual) Monocytes % Monocytes % (Manual) Eosinophils % Eosinophils % (Manual) Basophils % Basophils % (Manual) Myelocytes % (Man) Promyelocytes % (Man) Blast Cells % (Manual) Nucleated RBC % Metamyelocytes Hypochromia Platelet Estimate Platelet Comment Polychromasia Poikilocytosis Anisocytosis Microcytosis Macrocytosis PT with INR INR PTT (Actin FS) VBG pH POC VBG pCO2 POC VBG pO2 VBG HCO3 VBG O2 Sat (Martha) VBG Base Excess Sodium Potassium Chloride Carbon Dioxide Anion Gap BUN Creatinine Est GFR (CKD-EPI)AfAm Est GFR (CKD-EPI)NonAf Random Glucose Lactic Acid Calcium Phosphorus 6.9 H Magnesium 3.3 H Total Bilirubin AST ALT Alkaline Phosphatase Troponin I Total Protein Albumin ASSESSMENT/PLAN: 47 year old M presented to ED agitated and febrile with suspected sepsis of unknown origin. 1) Sepsis Follow up blood, urine cultures, stool culture, sputum culture, U/A Monitor CBC, lactate, CMP Started on zosyn and vancomycin, narrow with culture results LR @100 ml/hr Monitor hemodynamics, access is available if pressors needed in shock. Consult ID ICU rn team leader 2) Suspected hematemsis NPO Hold feeds Protonix Drip at 80 ml/hr Consult GI FOBT 3) S/p Intubation Follow up ABG Continue sedation until decision is made to wean off vent. 4) Troponinemia Check previous echo and follow troponin. Echo ordered 5) Seizure disorder Continue Carbamazepine 600 mg PO HS Continue Carbamazepine 400 mg PO AM Continue Diazepam 5 mg PO TID Continue Diazepam 10 mg RC PRN F: LR @100 ml/hr E: Monitor electrolytes N: NPO Dispo: Admit to ICU, patient is full code. Visit type - Emergency Visit Emergency Visit: Yes ED Registration Date: 09/04/18 Care time: The patient presented to the Emergency Department on the above date and was hospitalized for further evaluation of their emergent condition. - New Patient This patient is new to me today: Yes Date on this admission: 09/04/18 - Critical Care Critical Care patient: Yes Total Critical Care Time (in minutes): 200 Critical Care Statement: The care of this patient involved high complexity decision making to prevent further life threatening deterioration of the patient 's condition and/or to evaluate & treat vital organ system(s) failure or risk of failure. <Kyle Quezada - Last Filed: 10/07/18 21:00> Patient seen and examined; agree with above. Independently verified all vital parts of history and physical and interpreted all labs, etc. Please see my documentation for further discussion. ATTENDING PHYSICIAN STATEMENT I saw and evaluated the patient. I reviewed the resident's note and discussed the case with the resident. I agree with the resident's findings and plan as documented. SUBJECTIVE: OBJECTIVE: ASSESSMENT AND PLAN:
[2018-09-04 06:52] LABS: ARTERIAL BLD GAS O2 SATURATION 99.6 % (95-98); ARTERIAL BLOOD GAS BASE EXCESS -0.1 meq/l (-2-2); ARTERIAL BLOOD GAS PCO2 44.1 mmHg (35-45); ARTERIAL BLOOD GAS PO2 199 mmHg (80-105); ARTERIAL BLOOD GAS pH 7.37 (7.35-7.45)
[2018-09-04 06:56] LABS: ALLENS TEST POSITIVE
--- NOTE | 2018-09-04 07:11 | PDOC ---
Attending Attestation - Resident Resident Name: Amol Otero - ED Attending Attestation I have performed the following: I have examined & evaluated the patient, The case was reviewed & discussed with the resident, I agree w/resident's findings & plan - HPI HPI: The patient is a 47 year old male, with a significant PMH of mental retardation , seizure disorder, and infantile cerebral palsy/diplegia, who presents to the ED [facility] for evaluation of possible aspiration pneumonia. As per EMS, patient was agitated, vomiting blood, and was altered. While in the ED, patient remains agitated, punching and kicking staff. Patient presents with blood on his mouth, and vitals unable to be obtained secondary to patients severe agitation. IV access is unable to be attained. Patient presents risk for aspiration, will intubate. Allergies: NKA, NKDA Surgical History: GT Social History: mental retardation 09/04/18 19:30 - Physicial Exam PE: Agree with resident exam. 09/04/18 19:30 - Critical Care Time Total Critical Care Time: 90 Critical Care Statement: The care of this patient involved high complexity decision making to prevent further life threatening deterioration of the patient 's condition and/or to evaluate & treat vital organ system(s) failure or risk of failure. - Medical Decision Making 09/04/18 19:53 47-year-old male with history of severe cognitive deficit sent in from a [facility] facility with fever and altered mental status Patient was actively aspirating on arrival Central line access established and patient intubated for airway protection CT scan of the brain chest abdomen and pelvis ordered Sepsis protocol initiated in the emergency department Patient transferred to the ICU
[2018-09-04] MEDS ORDERED: PT OWN MED DRAWER 7, Y5N ONE ×2 (07:40→13:59)
[2018-09-04] MEDS ORDERED: PIPERACILLIN/TAZOB 3.375 GM 3.375 GM in DEXTROSE 5%-WATER - 50 ML IVPB SCH ×2 (09:00→10:45)
[2018-09-04] MEDS ORDERED: PIPERACILLIN/TAZOBACTAM 3.375 GM VIAL IVPB ONE ×2 (09:36→17:18)
[2018-09-04] MEDS ORDERED: DEXTROSE 5%-WATER - 50 ML IVPB ONE ×2 (09:36→17:18)
[2018-09-04] MEDS: MUPIROCIN 2% TOPICAL OINTMENT FOR DECOLONIZATION NS SCH ×2 (09:40→21:27)
--- NOTE | 2018-09-04 09:54 | CON.GI ---
Consult Consult Specialty:: GI Referred by:: Dr Mely Naik Reason for Consultation:: Hematemesis - History of Present Illness Chief Complaint: agitation , seizure activity History of Present Illness: 47 year old male with a significant PMH of mental retardation, infantile cerebral palpasy/diplegia, constipation, and seizure disorder was brought to the hospital by ambulance from [facility] for agitation and alleged aspiration pneumonia. Per ED report, patient was extremely agitated on his way from [place] and "vomited blood" from the report given by the EMS. In the ED, patient was found to be febrile to >103 and tachycardic. Because the patient had reportedly vomited blood and was extremely agitated, he was intubated for airway protection and sedated on versed. There was no family or nursing aid at bedside to answer my questions. Patient is not alert or oriented and cannot answer questions about his history. 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 , diplegia , mental retardation ) Pulmonary: Yes: Pneumonia, Other (possible aspirartion PNA ) Gastrointestinal: Yes: Constipation, Gastritis, GERD, GI Bleed (hematemesis ), Other (PEG tube ) Musculoskeletal: Yes: Other (Diplesia) - Alcohol/Substance Use Hx Alcohol Use: No History of Substance Use: reports: None - Smoking History Smoking history: Never smoked Have you smoked in the past 12 months: No Aproximately how many cigarettes per day: 0 - Social History Usual Living Arrangement: Other ([facility]) History of Recent Travel: No <Merritt Beasley - Last Filed: 09/04/18 10:22> Home Medications <Merritt Beasley - Last Filed: 09/04/18 10:22> <Nicole Hernandez - Last Filed: 09/04/18 21:54> - Allergies Allergies/Adverse Reactions: Allergies Allergy/AdvReac Type Severity Reaction Status Date / Time No Known Allergies Allergy Verified 09/04/18 02:53 - Home Medications Home Medications: Ambulatory Orders Acetaminophen Oral Solution [Tylenol 160mg/5mL Oral Solution -] 650 mg PO Q4H PRN 05/11/12 Baclofen 15 mg PO TID 05/11/12 Bisacodyl Suppository [Dulcolax Suppository -] 10 mg RC PRN PRN 05/11/12 Calcium Carbonate/Vitamin D3 [Oyster Shell 500-Vit D3 200 Tb] 1 each PO TID 10/16 Carbamazepine [Carbatrol] 400 mg PO AM 05/11/12 Carbamazepine [Carbatrol] 600 mg PO HS 05/11/12 Diazepam *Pediatric Rectal* [Diastat *Pediatric Rectal Gel* -] 10 mg RC PRN PRN 05/11/12 Diazepam [Valium] 5 mg PO TID 05/11/12 Na Phos,M-B/Na Phos,Di-Ba [Fleet Enema] 118 ml RC PRN PRN 05/11/12 Polyethylene Glycol 3350 [Miralax 255 gm Btl -] 17 gm PO DAILY 05/11/12 Ranitidine HCl [Zantac] 150 mg PO HS 05/11/12 Simethicone Liquid [Mylicon Liquid -] 80 mg PO QID PRN 05/11/12 Talc/Cellulos/Chloroxy/Aldioxa [Zeasorb Powder] 312 gm TP DAILY 05/11/12 Tizanidine HCl [Zanaflex] 4 mg PO BID 05/11/12 Miconazole Nitrate [Desenex] 45 gm TP BID 02/19/18 Selenium Sulfide/Aloe Vera [Selsun Blue Moist 1% Shampoo] 207 ml TP HS 02/19/18 Lactose-Reduced Food/Fiber [Jevity 1.5 Blue Liquid] 1,000 ml PEG ASDIR 09/04/18 Hugoton-3/Dha/Epa/Fish Oil [Fish Oil 1,600 mg/5 ml Liquid] 1,000 mg PEG ASDIR 04/24 Sennosides [Senna] 10 ml PEG ASDIR 09/04/18 Review of Systems - Review of Systems Constitutional: reports: Fever, Lethargy, Loss of Appetite (not able to obtain) <Merritt Beasley - Last Filed: 09/04/18 10:22> Physical Exam-GI Vital Signs: Vital Signs Temperature 98.8 F 07/02/19 07:00 Pulse Rate 85 09/04/18 07:00 Respiratory Rate 17 09/04/18 07:00 Blood Pressure 121/89 09/04/18 07:00 O2 Sat by Pulse Oximetry (%) 98 09/04/18 06:00 Constitutional: Yes: Thin, Other (intubated sedated ,) Eyes: Yes: Conjunctiva Clear HENT: Yes: Atraumatic, Normocephalic, Other (coffe ground blood on lips) Neck: Yes: Supple Cardiovascular: Yes: Regular Rate and Rhythm Respiratory: Yes: CTA Bilaterally Gastrointestinal Inspection: Yes: Scars (epigastric surgical scar). No: Ascites , Distention ...Auscultate: Yes: Normoactive Bowel Sounds ...Palpate: Yes: Soft. No: Firm/Rigid, Guarding ...Rectal Exam: Yes: Sphincter Tone Normal. No: Hemorrhoids/External, Mass Musculoskeletal: Yes: Other (contracted) Edema: No Peripheral Pulses WNL: Yes Neurological: Yes: Unresponsive (intubated sedated) Labs: CBC, [facility] 09/04/18 03:15 09/04/18 03:15 INR, PTT INR 1.23 (0.83-1.09) H 09/04/18 03:15 <Merritt Beasley - Last Filed: 09/04/18 10:22> Vital Signs: Vital Signs Temperature 100.4 F H 09/04/18 21:46 Pulse Rate 89 09/04/18 21:46 Respiratory Rate 19 09/04/18 21:46 Blood Pressure 143/75 09/04/18 21:46 O2 Sat by Pulse Oximetry (%) 100 09/04/18 21:21 Labs: CBC, [facility] 09/04/18 09:40 09/04/18 09:40 INR, PTT INR 1.23 (0.83-1.09) H 09/04/18 03:15 <Nicole Hernandez - Last Filed: 09/04/18 21:54> Imaging - Results Chest X-ray: Report Reviewed (LLL consolidation) Cat Scan: Report Reviewed (Abdomen Pelciv CT scan with Gaseous colon , liquid frederic , no colon wall thickining) EKG: Report Reviewed (Sinus tachy) <Merritt Beasley - Last Filed: 09/04/18 10:22> Problem List - Problems (1) Sepsis Code(s): A41.9 - SEPSIS, UNSPECIFIED ORGANISM (2) PNA (pneumonia) Code(s): J18.9 - PNEUMONIA, UNSPECIFIED ORGANISM (3) Seizure Code(s): R56.9 - UNSPECIFIED CONVULSIONS <Merritt Beasley - Last Filed: 09/04/18 10:22> Assessment/Plan 47 year old male with h/o seizure , mental retardation , presented from [facility] to agitation and seizure activity admitted to ICU for sepsis 2/2 PNA we were consulted due to coffee ground emesis # Coffee ground hematemesis un known etiology for now likely Upper GI bleed as BUN/Cr > 20: 1 , gastritis vs esophagitis , * no history of alcohol or tobacco or NSAIDS abuse * NPO * PPI 40 BID * Monitor H/H * FOBT * rectal exam normal sphincter tone , empty vault, no external hemorrhoids * possible EGD when is hemodynamically stable * 2 Large IV bores * transfusion threshold below 7 #Lactulose intolarance # GE esophagitis #S/P agstrostomy : PEG in place with no signs of infection # constipation : on Dulcolax as needed # GERD : on PPI 40 BID fro now <Merritt Beasley - Last Filed: 09/04/18 10:22> AGREE WITH ABOVE ASSESSMENT AND PLAN PER DR. BEASLEY. - NPO / IVF'S - ABX - SERIAL H/H Q12 - PPI INFUSION - MONITOR ABDOMINAL EXAM - XRAY REVIEWED (NO SIGN OF OBSTRUCTION ) MAY NEED INTERMITTENT RECTAL TUBE FOR DECOMPRESSION. - MICU CARE - NO PLAN FOR ENDOSCOPIC EVALUATION AT THIS TIME - THERE IS NO SIGN OF AN OVERT GI BLEED. <Nicole Hernandez - Last Filed: 09/04/18 21:54>
[2018-09-04] MEDS ORDERED: SODIUM CHLORIDE 1,000 ML IV SCH (10:00)
[2018-09-04] MEDS ORDERED: levETIRAcetam 500 MG/5 ML INJECTION VIAL IVPB SCH (10:00)
[2018-09-04 10:04] LABS: HEMATOCRIT 36.8 % (35.4-49); HEMOGLOBIN 12.4 GM/dL (11.7-16.9); MCH 32.9 pg (25.7-33.7); MCHC 33.6 g/dl (32.0-35.9); MEAN CELL VOLUME 97.7 fl (80-96); PLATELET COUNT 215 K/MM3 (134-434); RBC 3.77 M/mm3 (4.00-5.60); RDW 12.9 % (11.9-15.9)
--- NOTE | 2018-09-04 10:21 | PN ---
Progress Note (short form) - Note Progress Note: ID CONSULT DICTATED RESPIRATORY FAILURE PROBABLE ASP PNEUMONIA R/O SEPSIS SECONDARY TO PNEUMONIA CP/MR PENDING C/S EMPIRIC ZOSYN
[2018-09-04 10:38] LABS: BLOOD UREA NITROGEN 26.1 mg/dL (7-18); CALCIUM 7.8 mg/dL (8.5-10.1); CREATININE 0.9 mg/dL (0.55-1.3); POTASSIUM 3.6 mmol/L (3.5-5.1)
[2018-09-04 10:56] LABS: EPI CELLS 1.7 /HPF (0-5/HPF); HYALINE CASTS 33 /lpf (0-8); PH,URINE 5.5 (5.0-8.0); URINE APPEARANCE CLOUDY; URINE BACTERIA 1.7 /hpf (NEGATIVE); URINE BILIRUBIN NEGATIVE (NEGATIVE); URINE COLOR DK YELLOW; URINE GLUCOSE (UA) NEGATIVE (NEGATIVE); URINE KETONE TRACE (NEGATIVE); URINE LEUK ESTERASE NEGATIVE (NEGATIVE); URINE NITRITE NEGATIVE (NEGATIVE); URINE PROTEIN 1+ (NEGATIVE); URINE RBC 2 /hpf (0-4); URINE UROBILINOGEN 0.2 mg/dL (0.2-1.0); URINE WBC 1 /hpf (0-5)
--- NOTE | 2018-09-04 11:03 | CONS ---
INFECTIOUS DISEASE CONSULTATION DATE OF CONSULTATION: DATE OF DICTATION: 09/04/2018 HISTORY: The patient is a 47-year-old male resident of [facility] who was evaluated for pneumonia. History was obtained from the chart as he cannot give a history. He was admitted to the hospital on September 04, 2018 with altered mental status. According to the notes, the patient had been agitated at the facility and had been vomiting blood. He was brought to the emergency room where he was noted to be agitated. He was in acute respiratory distress with shortness of breath and tachycardia. He was noted to have fever to 103. Patient required intubation. He was transferred to the intensive care unit. A CAT scan of the abdomen and pelvis was performed that showed a left lower lobe consolidation as well as dilated loops of bowel. He was empirically treated with vancomycin and Zosyn. His course was significant for fever to 103.6 and white blood cell count 22,000. At the present time, he is intubated in the intensive care unit. He is in no acute respiratory distress. Cultures are pending. The patient has had no recent hospital admissions, no documented history of resistant respiratory tract pathogens. PAST MEDICAL HISTORY: Positive for mental retardation, cerebral palsy, seizure disorder, gastroesophageal reflux. PAST SURGICAL HISTORY: Status post feeding gastrostomy. ALLERGIES: No known allergies. MEDICATIONS: Include Tylenol, baclofen, Tegretol, Valium, Protonix, vancomycin, Zosyn. SOCIAL HISTORY: As per HPI. He is a resident of [facility]. Dependent in activities of daily living. No active tobacco or alcohol use. SYSTEMS REVIEW: Neurologic: Positive for cerebral palsy, mental retardation, seizure disorder. Cardiac: Negative chest pain or palpitations. Respiratory: As per HPI. Gastrointestinal: As per HPI. Genitourinary: Negative for urinary tract infection. LABORATORY DATA: White count 22.4 with left shift, hematocrit 45.4, platelets 365, BUN 27, creatinine 1.3, lactic acid 8.6. Cultures pending. PHYSICAL EXAMINATION: General: He is lethargic on the ventilator. Vital Signs: Temperature 98.8, blood pressure 121/89, pulse 85 regular, respirations 17 per minute. HEENT: Sclerae anicteric. Patient is orally intubated. Heart: Sounds S1, S2. Lungs: Air entry bilaterally. Abdomen: Soft. No tenderness elicited. Feeding gastrostomy tube is in place. Extremities: Edema 1+. IMPRESSION: 1. Respiratory failure. 2. Probable aspiration left lower lobe pneumonia. 3. Rule out sepsis secondary to pneumonia. 4. Marked leukocytosis. 5. Lactic acidosis. 6. Cerebral palsy, mental retardation. PLAN: Await sepsis workup. Obtain suction sputum culture and sensitivity, Legionella antigen. Empiric antibiotic coverage for presumed aspiration in the setting of long-term facility with Zosyn 3.375 g IV piggyback every 8 hours. Supportive measures. We will follow. Thank you for the kind referral. SANIYA DUGGAN M.D. [id number]
--- NOTE | 2018-09-04 12:34 | PN ---
Physical Exam: SUBJECTIVE: Patient seen and examined. No acute events since admission. OBJECTIVE: Vital Signs Period Temp Pulse Resp BP Sys/Jansen Pulse Ox Last 24 Hr 98.4 F-103.6 F 72-131 16-32 99-158/67-89 74-100 GENERAL: The patient is intubated and sedated . HEAD: Normal with no signs of trauma. EYES: PERRL, sclera anicteric, conjunctiva clear. No ptosis. ENT: Ears normal, nares patent, oropharynx clear without exudates, moist mucous membranes, dried blood at the lips. NECK: Trachea midline, supple, right soft mass, tender to palpation?. LUNGS: Pt. mechanically ventilated, no crackles, or wheezing HEART: Regular rate and rhythm, S1, S2 without murmur ABDOMEN: Soft, nontender, nondistended, normoactive bowel sounds, no guarding EXTREMITIES: 2+ radial pulses, warm, well-perfused, no edema. NEUROLOGICAL: Gait not observed. PSYCH: Agitated SKIN: Warm, dry, normal turgor Laboratory Results - last 24 hr 09/04/18 09/04/18 09/04/18 03:15 03:15 03:15 WBC 22.4 H RBC 4.53 Hgb 14.8 Hct 45.4 MCV 100.4 H MCH 32.7 MCHC 32.6 RDW 13.1 Plt Count 365 D MPV 9.0 Absolute Neuts (auto) 18.7 H Neutrophils % 83.3 H D Neutrophils % (Manual) 58.0 Band Neutrophils % 28.0 Lymphocytes % 10.2 D Lymphocytes % (Manual) 10.0 Monocytes % 6.2 Monocytes % (Manual) 3 L Eosinophils % 0.1 D Eosinophils % (Manual) 0.0 Basophils % 0.2 Basophils % (Manual) 0.0 Myelocytes % (Man) 0 Promyelocytes % (Man) 0 Blast Cells % (Manual) 0 Nucleated RBC % 0 Metamyelocytes 0 Hypochromia 0 Platelet Estimate Normal Platelet Comment Present Polychromasia 0 Poikilocytosis 0 Anisocytosis 2+ Microcytosis 1+ Macrocytosis 0 PT with INR 14.60 H INR 1.23 H PTT (Actin FS) 33.3 Anticoagulation Therapy Puncture Site ABG pH ABG pCO2 at Pt Temp ABG pO2 at Pt Temp ABG HCO3 ABG O2 Sat (Measured) ABG O2 Content ABG Base Excess Jhony Test VBG pH 7.26 L POC VBG pCO2 54.3 H POC VBG pO2 108 H VBG HCO3 23.9 VBG O2 Sat (Martha) 96 H VBG Base Excess -3.5 L O2 Delivery Device Oxygen Flow Rate Vent Mode Vent Rate Mechanical Rate PEEP Pressure Support Vent Sodium Potassium Chloride Carbon Dioxide Anion Gap BUN Creatinine Est GFR (CKD-EPI)AfAm Est GFR (CKD-EPI)NonAf Random Glucose Lactic Acid Calcium Phosphorus Magnesium Total Bilirubin AST ALT Alkaline Phosphatase Troponin I Total Protein Albumin Urine Color Urine Appearance Urine pH Ur Specific [place] Urine Protein Urine Glucose (UA) Urine Ketones Urine Blood Urine Nitrite Urine Bilirubin Urine Urobilinogen Ur Leukocyte Esterase Urine WBC (Auto) Urine RBC (Auto) Urine Casts (Auto) U Pathogenic Cast Auto U Epithel Cells (Auto) Urine Bacteria (Auto) Stool Occult Blood Blood Type Antibody Screen 09/04/18 09/04/18 09/04/18 03:15 03:15 03:15 WBC RBC Hgb Hct MCV MCH MCHC RDW Plt Count MPV Absolute Neuts (auto) Neutrophils % Neutrophils % (Manual) Band Neutrophils % Lymphocytes % Lymphocytes % (Manual) Monocytes % Monocytes % (Manual) Eosinophils % Eosinophils % (Manual) Basophils % Basophils % (Manual) Myelocytes % (Man) Promyelocytes % (Man) Blast Cells % (Manual) Nucleated RBC % Metamyelocytes Hypochromia Platelet Estimate Platelet Comment Polychromasia Poikilocytosis Anisocytosis Microcytosis Macrocytosis PT with INR INR PTT (Actin FS) Anticoagulation Therapy Puncture Site ABG pH ABG pCO2 at Pt Temp ABG pO2 at Pt Temp ABG HCO3 ABG O2 Sat (Measured) ABG O2 Content ABG Base Excess Jhony Test VBG pH POC VBG pCO2 POC VBG pO2 VBG HCO3 VBG O2 Sat (Martha) VBG Base Excess O2 Delivery Device Oxygen Flow Rate Vent Mode Vent Rate Mechanical Rate PEEP Pressure Support Vent Sodium 146 H Potassium 4.2 Chloride 107 Carbon Dioxide 27 Anion Gap 13 BUN 27.0 H Creatinine 1.3 Est GFR (CKD-EPI)AfAm 75.84 Est GFR (CKD-EPI)NonAf 65.43 Random Glucose 93 Lactic Acid 8.6 H* Calcium 9.3 Phosphorus Magnesium Total Bilirubin 0.5 AST 38 H ALT 38 Alkaline Phosphatase 146 H Troponin I 0.07 H Total Protein 8.8 H Albumin 4.4 Urine Color Urine Appearance Urine pH Ur Specific [place] Urine Protein Urine Glucose (UA) Urine Ketones Urine Blood Urine Nitrite Urine Bilirubin Urine Urobilinogen Ur Leukocyte Esterase Urine WBC (Auto) Urine RBC (Auto) Urine Casts (Auto) U Pathogenic Cast Auto U Epithel Cells (Auto) Urine Bacteria (Auto) Stool Occult Blood Blood Type Antibody Screen 09/04/18 09/04/18 09/04/18 03:15 03:55 05:30 WBC RBC Hgb Hct MCV MCH MCHC RDW Plt Count MPV Absolute Neuts (auto) Neutrophils % Neutrophils % (Manual) Band Neutrophils % Lymphocytes % Lymphocytes % (Manual) Monocytes % Monocytes % (Manual) Eosinophils % Eosinophils % (Manual) Basophils % Basophils % (Manual) Myelocytes % (Man) Promyelocytes % (Man) Blast Cells % (Manual) Nucleated RBC % Metamyelocytes Hypochromia Platelet Estimate Platelet Comment Polychromasia Poikilocytosis Anisocytosis Microcytosis Macrocytosis PT with INR INR PTT (Actin FS) Anticoagulation Therapy Puncture Site ABG pH ABG pCO2 at Pt Temp ABG pO2 at Pt Temp ABG HCO3 ABG O2 Sat (Measured) ABG O2 Content ABG Base Excess Jhony Test VBG pH POC VBG pCO2 POC VBG pO2 VBG HCO3 VBG O2 Sat (Martha) VBG Base Excess O2 Delivery Device Oxygen Flow Rate Vent Mode Vent Rate Mechanical Rate PEEP Pressure Support Vent Sodium Potassium Chloride Carbon Dioxide Anion Gap BUN Creatinine Est GFR (CKD-EPI)AfAm Est GFR (CKD-EPI)NonAf Random Glucose Lactic Acid Calcium Phosphorus 6.9 H Magnesium 3.3 H Total Bilirubin AST ALT Alkaline Phosphatase Troponin I Total Protein Albumin Urine Color Dk yellow Urine Appearance Cloudy Urine pH 5.5 Ur Specific [place] 1.035 Urine Protein 1+ H Urine Glucose (UA) Negative Urine Ketones Trace H Urine Blood Negative Urine Nitrite Negative Urine Bilirubin Negative Urine Urobilinogen 0.2 Ur Leukocyte Esterase Negative Urine WBC (Auto) 1 Urine RBC (Auto) 2 Urine Casts (Auto) 33 U Pathogenic Cast Auto None seen U Epithel Cells (Auto) 1.7 Urine Bacteria (Auto) 1.7 Stool Occult Blood Blood Type O POSITIVE Antibody Screen 09/04/18 09/04/18 09/04/18 06:30 09:40 09:40 WBC 11.0 H RBC 3.77 L Hgb 12.4 Hct 36.8 D MCV 97.7 H MCH 32.9 MCHC 33.6 RDW 12.9 Plt Count 215 D MPV 8.0 D Absolute Neuts (auto) Neutrophils % Neutrophils % (Manual) Band Neutrophils % Lymphocytes % Lymphocytes % (Manual) Monocytes % Monocytes % (Manual) Eosinophils % Eosinophils % (Manual) Basophils % Basophils % (Manual) Myelocytes % (Man) Promyelocytes % (Man) Blast Cells % (Manual) Nucleated RBC % Metamyelocytes Hypochromia Platelet Estimate Platelet Comment Polychromasia Poikilocytosis Anisocytosis Microcytosis Macrocytosis PT with INR INR PTT (Actin FS) Anticoagulation Therapy No Result Required. Puncture Site Right radial ABG pH 7.37 ABG pCO2 at Pt Temp 44.1 ABG pO2 at Pt Temp 199 H ABG HCO3 24.8 ABG O2 Sat (Measured) 99.6 H ABG O2 Content 17.8 ABG Base Excess -0.1 Jhony Test Positive VBG pH POC VBG pCO2 POC VBG pO2 VBG HCO3 VBG O2 Sat (Martha) VBG Base Excess O2 Delivery Device Vent Oxygen Flow Rate 50% Vent Mode No Result Required. Vent Rate 14 Mechanical Rate No Result Required. PEEP 5.0 Pressure Support Vent 400 Sodium Potassium Chloride Carbon Dioxide Anion Gap BUN Creatinine Est GFR (CKD-EPI)AfAm Est GFR (CKD-EPI)NonAf Random Glucose Lactic Acid 0.8 Calcium Phosphorus Magnesium Total Bilirubin AST ALT Alkaline Phosphatase Troponin I Total Protein Albumin Urine Color Urine Appearance Urine pH Ur Specific [place] Urine Protein Urine Glucose (UA) Urine Ketones Urine Blood Urine Nitrite Urine Bilirubin Urine Urobilinogen Ur Leukocyte Esterase Urine WBC (Auto) Urine RBC (Auto) Urine Casts (Auto) U Pathogenic Cast Auto U Epithel Cells (Auto) Urine Bacteria (Auto) Stool Occult Blood Blood Type Antibody Screen 09/04/18 09/04/18 09/04/18 09:40 09:40 10:00 WBC RBC Hgb Hct MCV MCH MCHC RDW Plt Count MPV Absolute Neuts (auto) Neutrophils % Neutrophils % (Manual) Band Neutrophils % Lymphocytes % Lymphocytes % (Manual) Monocytes % Monocytes % (Manual) Eosinophils % Eosinophils % (Manual) Basophils % Basophils % (Manual) Myelocytes % (Man) Promyelocytes % (Man) Blast Cells % (Manual) Nucleated RBC % Metamyelocytes Hypochromia Platelet Estimate Platelet Comment Polychromasia Poikilocytosis Anisocytosis Microcytosis Macrocytosis PT with INR INR PTT (Actin FS) Anticoagulation Therapy Puncture Site ABG pH ABG pCO2 at Pt Temp ABG pO2 at Pt Temp ABG HCO3 ABG O2 Sat (Measured) ABG O2 Content ABG Base Excess Jhony Test VBG pH POC VBG pCO2 POC VBG pO2 VBG HCO3 VBG O2 Sat (Martha) VBG Base Excess O2 Delivery Device Oxygen Flow Rate Vent Mode Vent Rate Mechanical Rate PEEP Pressure Support Vent Sodium 146 H Potassium 3.6 Chloride 114 H Carbon Dioxide 26 Anion Gap 7 L BUN 26.1 H Creatinine 0.9 Est GFR (CKD-EPI)AfAm 118.30 Est GFR (CKD-EPI)NonAf 102.07 Random Glucose 99 Lactic Acid Calcium 7.8 L Phosphorus Magnesium Total Bilirubin AST ALT Alkaline Phosphatase Troponin I 0.48 H Total Protein Albumin Urine Color Urine Appearance Urine pH Ur Specific [place] Urine Protein Urine Glucose (UA) Urine Ketones Urine Blood Urine Nitrite Urine Bilirubin Urine Urobilinogen Ur Leukocyte Esterase Urine WBC (Auto) Urine RBC (Auto) Urine Casts (Auto) U Pathogenic Cast Auto U Epithel Cells (Auto) Urine Bacteria (Auto) Stool Occult Blood Positive Blood Type O POSITIVE Antibody Screen Negative Active Medications Current Medications Baclofen (Lioresal -) 15 mg PO TID RASHAUN Carbamazepine (Tegretol -) 400 mg PEG AM RASHAUN Carbamazepine (Tegretol -) 600 mg PEG HS RASHAUN Chlorhexidine Gluconate (Hibiclens For Decolonization -) 1 applic TP HS RASHAUN Diazepam (Valium -) 5 mg PO TID RASHAUN Midazolam HCl (Midazolam 100mg/100ml-0.9%Nacl) 100 mg in 100 mls @ 1 mls/hr IVPB TITR RASHAUN; Protocol Stop: 09/05/18 03:29 Last Infusion: 09/04/18 08:36 Dose: 8 mg/hr, 8 mls/hr Propofol (Diprivan -) 1,000,000 mcg in 100 mls @ 1.837 mls/hr IVPB TITR RASHAUN; Protocol Last Titration: 09/04/18 08:36 Dose: 20 mcg/kg/min, 7.348 mls/hr Sodium Chloride (Normal Saline -) 1,000 mls @ 100 mls/hr IV ASDIR RASHAUN Piperacillin Sod/Tazobactam (Sod 3.375 gm/ Dextrose) 50 mls @ 100 mls/hr IVPB Q8H-IV RASHAUN; Protocol Mupirocin (Bactroban Ointment (For Decolonization) -) 1 applic NS BID [facility] Stop: 09/09/18 09:59 Last Admin: 09/04/18 09:40 Dose: 1 applic Pantoprazole Sodium (Protonix Iv) 80 mg IVPUSH BID [facility] ASSESSMENT/PLAN: Pt. is a 47 y.o. M w/ PMHx. of MR, infantile cerebral palpasy/diplegia, constipation, and seizure disorder was brought to the hospital by ambulance from [facility] for agitation and fever 2/2 alleged aspiration pneumonia. #Neurology patient was brought from ED sedated on versed--> will c/w Versed and Propofol for agitation because patient is intubated continue antiepileptic medications without change: Continue Carbamazepine 600 mg GT HS Continue Carbamazepine 400 mg GT AM Continue Diazepam 5 mg PO TID Continue Diazepam 10 mg RC PRN head CT without acute pathology- possible mild sinusitis #Cardiovascular currently hemodynamically stable with a MAP of 94 not requiring pressors tachycardic on admission >130, now 92 likely due to sepsis continue to monitor vitals troponinemia 0.07-->0.48-->0.7 is likely demand ischemia related from sepsis and from rhabdomyolisis will repeat troponin until it peaks EKG noted c/w IVF trend CK #Pulmonology Currently intubated and sedated Chest CT shows atelectasis vs pneumonia in the left lower lobe, could be related to the alleged aspiration c/w vancomycin/zosyn from currently undifferentiated sepsis ID consulted (Dr. Muniz) ABG showed respiratory acidosis with hypercarbia repeat ABG shows resolution of hypoxia and hypercapnea #Gastrointestinal CT abdomen/pelvis diarrheal illness and/or chronic ileus with diffuse small/ large bowel gas, unclear if patient could have GI source causing his sepsis. 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 does not have focal source of obstruction. This psuedoobstruction likely has caused the aspiration event. f/u BCx. doubt patient has GI bleed given history of "vomiting" per EMS, patient did not have recurrent symptoms. possible patient has bitten tongue will continue to monitor H&H and vital signs Given Protonix, will c/w Protonix 80mg BID f/u FOBT May need suppository to assist with diffuse gaseous dilation of bowel GI Consult (Dr. Bauer) appreciated --> Can place rectal tube 1-2x/ week #Renal Elevated BUN and Cr. is likely due to rhabdomyolisis Cr.: 1.3--> 0.9, last known was 0.8 CK: 9000+ c/w trend of BMP and CK #Heme/Onc Leukocytosis to 22k with a left shift from sepsis/infection #Infectious Diseases patient has sepsis with currently unclear etiology, differentials include aspiration pneumonia (infiltrates on CT), enteritis, UTI will obtain UA, blood and urine cultures empirically treat with vancomycin/zosyn until speciation Given 2L NS bolus followed by NS at 100cc/hr monitor fluid status ID consultation (Dr. Muniz) CT head/chest/abd/pelvis as described above LA: 8.0--> 0.8 #FEN NS boluses followed by NS @ 100cc/hr replete lytes as necessary in AM NPO while intubated/sedated DVT Ppx. SCDs Dispo: We will continue to follow the patient. Thank you for this consultative opportunity. Visit type - Emergency Visit Emergency Visit: Yes ED Registration Date: 09/04/18 Care time: The patient presented to the Emergency Department on the above date and was hospitalized for further evaluation of their emergent condition. - New Patient This patient is new to me today: Yes Date on this admission: 09/04/18 - Critical Care Critical Care patient: Yes Total Critical Care Time (in minutes): 45 Critical Care Statement: The care of this patient involved high complexity decision making to prevent further life threatening deterioration of the patient 's condition and/or to evaluate & treat vital organ system(s) failure or risk of failure. - Discharge Referral Referred to [facility] Med [facility] No
--- NOTE | 2018-09-04 13:10 | PN ---
Teaching Attending Note Name of Resident: Joel Schrader ATTENDING PHYSICIAN STATEMENT I saw and evaluated the patient. I reviewed the resident's note and discussed the case with the resident. I agree with the resident's findings and plan as documented. SUBJECTIVE: Patient seen and examined in the ICU. Intubated and sedated. No pressors. Intake & Output 09/01/18 09/02/18 09/03/18 09/04/18 23:59 23:59 23:59 23:59 Intake Total 2433.6 Output Total 600 Balance 1833.6 Weight 116 lb Last Vital Signs Temp Pulse Resp BP Pulse Ox 98.4 F 70 18 124/89 98 09/04/18 09:58 09/04/18 12:00 09/04/18 12:11 09/04/18 12:00 09/04/18 06:00 Active Medications Baclofen (Lioresal -) 15 mg PO TID RASHAUN Carbamazepine (Tegretol -) 400 mg PEG AM RASHAUN Carbamazepine (Tegretol -) 600 mg PEG HS RASHAUN Chlorhexidine Gluconate (Hibiclens For Decolonization -) 1 applic TP HS RASHAUN Diazepam (Valium -) 5 mg PO TID RASHAUN Midazolam HCl (Midazolam 100mg/100ml-0.9%Nacl) 100 mg in 100 mls @ 1 mls/hr IVPB TITR RASHAUN; Protocol Stop: 09/05/18 03:29 Last Infusion: 09/04/18 08:36 Dose: 8 mg/hr, 8 mls/hr Propofol (Diprivan -) 1,000,000 mcg in 100 mls @ 1.837 mls/hr IVPB TITR RASHAUN; Protocol Last Titration: 09/04/18 08:36 Dose: 20 mcg/kg/min, 7.348 mls/hr Sodium Chloride (Normal Saline -) 1,000 mls @ 100 mls/hr IV ASDIR ARSHAUN Piperacillin Sod/Tazobactam (Sod 3.375 gm/ Dextrose) 50 mls @ 100 mls/hr IVPB Q8H-IV RASHAUN; Protocol Mupirocin (Bactroban Ointment (For Decolonization) -) 1 applic NS BID RASHAUN Stop: 09/09/18 09:59 Last Admin: 09/04/18 09:40 Dose: 1 applic Pantoprazole Sodium (Protonix Iv) 80 mg IVPUSH BID RASHAUN GENERAL: Intubated and sedated EYES: pupils equal, reactive to light ENT: no blood noted in the oropharynx NECK: No JVD LUNGS: bibasilar rhonchi HEART: S1S2, no murmurs appreciated ABDOMEN: Soft, nontender, BS present, G tube in place, mild erythema noted around the tube without any purulent drainage EXTREMITIES: 2+ pulses, no edema. NEUROLOGICAL: sedated, non-focal Laboratory Results - last 24 hr 09/04/18 09/04/18 09/04/18 03:15 03:15 03:15 WBC 22.4 H RBC 4.53 Hgb 14.8 Hct 45.4 MCV 100.4 H MCH 32.7 MCHC 32.6 RDW 13.1 Plt Count 365 D MPV 9.0 Absolute Neuts (auto) 18.7 H Neutrophils % 83.3 H D Lymphocytes % 10.2 D Monocytes % 6.2 Eosinophils % 0.1 D Basophils % 0.2 Nucleated RBC % 0 PT with INR 14.60 H INR 1.23 H PTT (Actin FS) 33.3 VBG pH 7.26 L POC VBG pCO2 54.3 H POC VBG pO2 108 H VBG HCO3 23.9 VBG O2 Sat (Martha) 96 H VBG Base Excess -3.5 L Sodium Potassium Chloride Carbon Dioxide Anion Gap BUN Creatinine Est GFR (CKD-EPI)AfAm Est GFR (CKD-EPI)NonAf Random Glucose Calcium Total Bilirubin AST ALT Alkaline Phosphatase Total Protein Albumin 09/04/18 03:15 WBC RBC Hgb Hct MCV MCH MCHC RDW Plt Count MPV Absolute Neuts (auto) Neutrophils % Lymphocytes % Monocytes % Eosinophils % Basophils % Nucleated RBC % PT with INR INR PTT (Actin FS) VBG pH POC VBG pCO2 POC VBG pO2 VBG HCO3 VBG O2 Sat (Martha) VBG Base Excess Sodium 146 H Potassium 4.2 Chloride 107 Carbon Dioxide 27 Anion Gap 13 BUN 27.0 H Creatinine 1.3 Est GFR (CKD-EPI)AfAm 75.84 Est GFR (CKD-EPI)NonAf 65.43 Random Glucose 93 Calcium 9.3 Total Bilirubin 0.5 AST 38 H ALT 38 Alkaline Phosphatase 146 H Total Protein 8.8 H Albumin 4.4 ASSESSMENT/PLAN: Acute Respiratory Failure LLL PNA: R/O aspiration Mental retardation Infantile cerebral palpasy/diplegia Constipation Seizure disorder ABX per ID Wean trials as tolerated AEDs Remove femoral access and insert peripheral access Follow cultures IVF Flush GT for assess for further bleeding Normal transfusion thresholds Need to discuss with GI if endoscopic evaluation is anticipated Requires ICU monitoring Dr Peralta Critical care time spent in reviewing chart, evaluating patient and formulating plan - 36 minutes.
--- NOTE | 2018-09-04 13:42 | PN ---
Teaching Attending Note Name of Resident: Nicole Veloz ATTENDING PHYSICIAN STATEMENT I saw and evaluated the patient. I reviewed the resident's note and discussed the case with the resident. I agree with the resident's findings and plan as documented. SUBJECTIVE: unable to obtain hx. OBJECTIVE: NAD, intubated, comfortable. round pupils, 1 mm, sluggish reaction to light. dry blood on lips, edematous bruised lower lip and bruised tongue R neck soft tissue bulge, with no bruising. CV: RRr Lungs: rales anteriorly Abd: soft, NL BS, does not wince with palpation Ext : no edema or erythema ASSESSMENT AND PLAN: 47 y/o man with h/o MR, cerebral palsy, diplegia and seizures, who presented with fever. He was found to have severe sepsis due to LLL PNA. 1- Acute resp failure. - vent management 2- Severe sepsis due to LL PNA. possible aspiration - cont zosyn - lactic acid normalized. - check urine legionella - follow blood cx - IVF 3- blood on oral mucosa: suspect trauma to tongue and lips or hemoptysis with PNA . Doubt hematemesis. stool was brown with neg OB - monitor HB - if no witnessed bleeding by tomorrow , might dc PPI gtt, also pending GI opinion 4- Colon dilation: monitor , might be chronic. no previous CT to compare to. bowel regimen . serial abd exam. 5- Elevated trop: possible demand ischemia. EKG with inferior Q waves, but no other signs of ischemia. repeat trop at 3 pm 6- DVT PX: SCDS for now, until actual bleed is r/o. Critical Care Total Critical Care Time (in minutes): 45 Critical Care Statement: The care of this patient involved high complexity decision making to prevent further life threatening deterioration of the patient 's condition and/or to evaluate & treat vital organ system(s) failure or risk of failure.
--- NOTE | 2018-09-04 13:53 | EKG ---
Test Reason : Blood Pressure : / mmHG Vent. Rate : 117 BPM Atrial Rate : 117 BPM P-R Int : 126 ms QRS Dur : 078 ms QT Int : 320 ms P-R-T Axes : 076 055 061 degrees QTc Int : 446 ms SINUS TACHYCARDIA POSSIBLE LEFT ATRIAL ENLARGEMENT LOW VOLTAGE QRS INFERIOR INFARCT , AGE UNDETERMINED ABNORMAL ECG WHEN COMPARED WITH ECG OF 31-JAN-2012 10:54, INFERIOR INFARCT IS NOW PRESENT NONSPECIFIC T WAVE ABNORMALITY HAS REPLACED INVERTED T WAVES IN INFERIOR LEADS Confirmed by MD SONIA, JA ([id number] on 09/04/2018 1:53:13 PM Referred By: Confirmed By:JA SCOTT MD
[2018-09-04] MEDS ORDERED: diazePAM 2.5 MG PEDIATRIC RECTAL APP GEL RC SCH (14:00)
[2018-09-04] MEDS ORDERED: diazePAM 5 MG TABLET PO SCH (14:00)
[2018-09-04] MEDS ORDERED: BACLOFEN 10 MG TABLET (FP) PO SCH (14:00)
--- NOTE | 2018-09-04 14:30 | PN ---
Physical Exam: SUBJECTIVE: Patient seen and examined at bedside. No acute events since admission. Unable to obtain hx as pt is nonverbal and no family was present at bedside. OBJECTIVE: Vital Signs Period Temp Pulse Resp BP Sys/Jansen Pulse Ox Last 24 Hr 98.4 F-103.6 F 70-131 16-32 99-158/67-89 74-100 GENERAL: The patient is intubated and sedated. HEAD: Normal with no signs of trauma. EYES: PERRL, sclera anicteric, conjunctiva clear. No ptosis. ENT: Dried blood around the mouth, no gross bloos noted in the oropharynx. Bruise noted on tongue. membranes. NECK: Trachea midline, supple, soft mass on the right (possible hematoma) LUNGS: Pt mechanically ventilated, no crackles, or wheezes. HEART: Regular rate and rhythm, S1, S2 without murmur, rub or gallop. ABDOMEN: Soft, nontender, nondistended, hypoactive bowel sounds, no guarding, no rebound, no hepatosplenomegaly, no masses. EXTREMITIES: 2+ pulses, warm, well-perfused, no edema. NEUROLOGICAL: Unable to assess due to mental status. PSYCH: Agitated SKIN: Warm, dry, normal turgor Laboratory Results - last 24 hr CBC,CMP WBC 11.0 K/mm3 (4.0-10.0) H 09/04/18 09:40 RBC 3.77 M/mm3 (4.00-5.60) L 09/04/18 09:40 Hgb 12.4 GM/dL (11.7-16.9) 09/04/18 09:40 Hct 36.8 % (35.4-49) D 09/04/18 09:40 MCV 97.7 fl (80-96) H 09/04/18 09:40 MCH 32.9 pg (25.7-33.7) 09/04/18 09:40 MCHC 33.6 g/dl (32.0-35.9) 09/04/18 09:40 RDW 12.9 % (11.9-15.9) 09/04/18 09:40 Plt Count 215 K/MM3 (134-434) D 09/04/18 09:40 MPV 8.0 fl (7.5-11.1) D 09/04/18 09:40 Absolute Neuts (auto) 18.7 K/mm3 (1.5-8.0) H 09/04/18 03:15 Neutrophils % 83.3 % (42.8-82.8) H D 09/04/18 03:15 Neutrophils % (Manual) 58.0 % (42.8-82.8) 09/04/18 03:15 Band Neutrophils % 28.0 % 09/04/18 03:15 Lymphocytes % 10.2 % (8-40) D 09/04/18 03:15 Lymphocytes % (Manual) 10.0 % (8-40) 09/04/18 03:15 Monocytes % 6.2 % (3.8-10.2) 09/04/18 03:15 Monocytes % (Manual) 3 % (3.8-10.2) L 09/04/18 03:15 Eosinophils % 0.1 % (0-4.5) D 09/04/18 03:15 Eosinophils % (Manual) 0.0 % (0-4.5) 09/04/18 03:15 Basophils % 0.2 % (0-2.0) 09/04/18 03:15 Basophils % (Manual) 0.0 % (0-2.0) 09/04/18 03:15 Myelocytes % (Man) 0 % (0-2) 09/04/18 03:15 Promyelocytes % (Man) 0 % (0-2) 09/04/18 03:15 Blast Cells % (Manual) 0 % (0-0) 09/04/18 03:15 Nucleated RBC % 0 % (0-0) 09/04/18 03:15 Metamyelocytes 0 % (0-2) 09/04/18 03:15 Hypochromia 0 09/04/18 03:15 Platelet Estimate Normal 09/04/18 03:15 Platelet Comment Present 09/04/18 03:15 Polychromasia 0 09/04/18 03:15 Poikilocytosis 0 09/04/18 03:15 Anisocytosis 2+ 09/04/18 03:15 Microcytosis 1+ 09/04/18 03:15 Macrocytosis 0 09/04/18 03:15 Sodium 146 mmol/L (136-145) H 09/04/18 09:40 Potassium 3.6 mmol/L (3.5-5.1) 09/04/18 09:40 Chloride 114 mmol/L (98-107) H 09/04/18 09:40 Carbon Dioxide 26 mmol/L (21-32) 09/04/18 09:40 Anion Gap 7 MMOL/L (8-16) L 09/04/18 09:40 BUN 26.1 mg/dL (7-18) H 09/04/18 09:40 Creatinine 0.9 mg/dL (0.55-1.3) 09/04/18 09:40 Est GFR (CKD-EPI)AfAm 118.30 09/04/18 09:40 Est GFR (CKD-EPI)NonAf 102.07 09/04/18 09:40 Random Glucose 99 mg/dL (74-106) 09/04/18 09:40 Lactic Acid 0.8 mmol/L (0.4-2.0) 09/04/18 09:40 Calcium 7.8 mg/dL (8.5-10.1) L 09/04/18 09:40 Phosphorus 6.9 mg/dL (2.5-4.9) H 09/04/18 03:55 Magnesium 3.3 mg/dL (1.8-2.4) H 09/04/18 03:55 Total Bilirubin 0.5 mg/dL (0.2-1) 09/04/18 03:15 AST 38 U/L (15-37) H 09/04/18 03:15 ALT 38 U/L (13-61) 09/04/18 03:15 Alkaline Phosphatase 146 U/L (45-117) H 09/04/18 03:15 Troponin I 0.48 ng/ml (0.00-0.05) H 09/04/18 09:40 Total Protein 8.8 g/dl (6.4-8.2) H 09/04/18 03:15 Albumin 4.4 g/dl (3.4-5.0) 09/04/18 03:15 Active Medications Baclofen (Lioresal -) 15 mg PO TID RASHAUN Carbamazepine (Tegretol -) 400 mg PEG AM RASHAUN Carbamazepine (Tegretol -) 600 mg PEG HS RASHAUN Chlorhexidine Gluconate (Hibiclens For Decolonization -) 1 applic TP HS RASHAUN Diazepam (Valium -) 5 mg PO TID RASHAUN Last Admin: 09/04/18 13:59 Dose: 5 mg Midazolam HCl (Midazolam 100mg/100ml-0.9%Nacl) 100 mg in 100 mls @ 1 mls/hr IVPB TITR RASHAUN; Protocol Stop: 09/05/18 03:29 Last Infusion: 09/04/18 08:36 Dose: 8 mg/hr, 8 mls/hr Propofol (Diprivan -) 1,000,000 mcg in 100 mls @ 1.837 mls/hr IVPB TITR RASHAUN; Protocol Last Titration: 09/04/18 08:36 Dose: 20 mcg/kg/min, 7.348 mls/hr Sodium Chloride (Normal Saline -) 1,000 mls @ 100 mls/hr IV ASDIR RASHAUN Last Admin: 09/04/18 13:57 Dose: 100 mls/hr Piperacillin Sod/Tazobactam (Sod 3.375 gm/ Dextrose) 50 mls @ 100 mls/hr IVPB Q8H-IV RASHAUN; Protocol Mupirocin (Bactroban Ointment (For Decolonization) -) 1 applic NS BID RASHAUN Stop: 09/09/18 09:59 Last Admin: 09/04/18 09:40 Dose: 1 applic Pantoprazole Sodium (Protonix Iv) 80 mg IVPUSH BID [facility] ASSESSMENT/PLAN: 47 year old M presented to ED agitated and febrile with suspected sepsis of unknown origin. #Severe sepsis 2/2 LLL pneumonia and possible aspiration Per ID, empiric Zosyn (day 1) pending culture results Follow up blood, urine cultures, stool culture, sputum culture, U/A, legionella antigen Lactate normalized; continue to monitor CBC, CMP Change LR to NS @100 ml/hr due to acidosis CXR results showed LLL consolidation #Suspected hematemsis (suspect trauma to tongue or hemoptysis with pna) NPO Monitor hemoglobin (12.4) Protonix Drip switched to protonix push FOBT positive GI consult pending #Acute respiratory failure Pt is s/p intubation Monitor ABG and vent management Continue sedation until decision is made to wean off vent. #Troponinemia Possibly due to demand ischemia Serial troponin levels continue to rise (0.07, 0.48, 0.70); if fourth is high , consult cardio EKG with inferior Q waves but no other signs of ischemia #Seizure disorder Continue Carbamazepine 600 mg PO HS Continue Carbamazepine 400 mg PO AM Continue Diazepam 5 mg PO TID Continue Diazepam 10 mg RC PRN #Colonic distension Possibly chronic Monitor with serial abd exams #FEN NS boluses followed by NS @ 100cc/hr Replete electrolytes as necessary in AM NPO while intubated/sedated #DVT Ppx SCDs until actual bleed is ruled out #Dispo We will continue to follow the patient Pt is admitted to ICU and in full code. Visit type - Emergency Visit Emergency Visit: No - New Patient This patient is new to me today: Yes Date on this admission: 09/04/18 - Critical Care Critical Care patient: Yes Total Critical Care Time (in minutes): 35 Critical Care Statement: The care of this patient involved high complexity decision making to prevent further life threatening deterioration of the patient 's condition and/or to evaluate & treat vital organ system(s) failure or risk of failure.
[2018-09-04] MEDS ORDERED: VANCOMYCIN 1 GRAM (PRE-DOCKED) 1,000 MG/250 ML BAG IVPB SCH (15:00)
[2018-09-04] MEDS ORDERED: SIMETHICONE 40 MG/0.6 ML BOTTLE PO PRN (15:41)
[2018-09-04] MEDS ORDERED: SODIUM PHOSPHATE/NA BIPHOS 133 ML ENEMA RC PRN (15:41)
[2018-09-04] MEDS ORDERED: ACETAMINOPHEN 650 MG/20.3 ML ORAL SOLUTION (CUPS) PO PRN (15:41)
[2018-09-04] MEDS ORDERED: BISACODYL 10 MG SUPP.RECT RC PRN (15:41)
[2018-09-04] MEDS ORDERED: EPA PEG SCH (15:45)
[2018-09-04] MEDS ORDERED: [UNRECOGNIZED DRUG - OTHER] PEG SCH (15:45)
[2018-09-04] MEDS ORDERED: OMEGA PEG SCH (15:45)
[2018-09-04] MEDS ORDERED: SENNOSIDES 8.8 MG/5 ML BULK BOTTLE PEG SCH (15:45)
[2018-09-04] MEDS ORDERED: DHA PEG SCH (15:45)
[2018-09-04] MEDS ORDERED: FISH OIL PEG SCH (15:45)
--- NOTE | 2018-09-04 16:12 | ECHO ---
Name: KRET, TIAGO Exam:Adult Echocardiogram Study Date: 09/04/2018 03:14 PM Age: 47 yrs Reason For Study: TROPONEMIA Height: 59 in Weight: 116 lb BSA: 1.5 m2 Procedure Distended gaseous bowel loops blocked all echo windows. Cardiac dimension and function can not be ass essed at this time. Interpretation Summary MD Li Abdi 09/04/2018 04:12 PM
[2018-09-04] MEDS ORDERED: SENNOSIDES 8.8 MG/5 ML BULK BOTTLE PEG PRN (16:23)
[2018-09-04] MEDS ORDERED: SIMETHICONE 40 MG/0.6 ML BOTTLE PEG PRN (16:50)
[2018-09-04] MEDS: PIPERACILLIN/TAZOB 3.375 GM 3.375 GM in DEXTROSE 5%-WATER - 50 ML IVPB SCH (17:20)
[2018-09-04] MEDS: ACETAMINOPHEN 650 MG/20.3 ML ORAL SOLUTION (CUPS) PEG PRN (18:12)
[2018-09-04] MEDS ORDERED: ACETAMINOPHEN 650 MG/20.3 ML ORAL SOLUTION (CUPS) PO ONE (20:23)
[2018-09-04] MEDS: BACLOFEN 10 MG TABLET (FP) PEG SCH (21:25)
[2018-09-04] MEDS: CALCIUM 500MG/VIT-D 200 UNITS COMBO TABLET (FP) PEG SCH (21:25)
[2018-09-04] MEDS: diazePAM 5 MG TABLET PEG SCH (21:25)
[2018-09-04] MEDS: TIZANIDINE HCL 4 MG TABLET NR SCH (21:25)
[2018-09-04] MEDS: RANITIDINE HCL 150 MG/10 ML UNIT-DOSE PEG SCH (21:25)
[2018-09-04] MEDS: CHLORHEXIDINE GLUCONATE 4% CLEANSER FOR DECOLONIZATION TP SCH (21:27)
[2018-09-04] MEDS: carBAMazepine 200 MG TABLET PEG SCH (21:49)
[2018-09-04] MEDS ORDERED: carBAMazepine 200 MG TABLET PO SCH (22:00)
[2018-09-04] MEDS ORDERED: MICONAZOLE NITRATE TP SCH (22:00)
[2018-09-04] MEDS ORDERED: PANTOPRAZOLE SODIUM 40 MG VIAL IVPUSH SCH (22:00)
[2018-09-05 00:38] LABS: HEMOGLOBIN 11.4 GM/dL (11.7-16.9); MCH 33.1 pg (25.7-33.7); MCHC 33.6 g/dl (32.0-35.9); MEAN CELL VOLUME 98.6 fl (80-96); MEAN PLT VOLUME 8.1 fl (7.5-11.1); PLATELET COUNT 213 K/MM3 (134-434); RBC 3.45 M/mm3 (4.00-5.60); RDW 12.8 % (11.9-15.9); WHITE BLOOD COUNT 7.8 K/mm3 (4.0-10.0)
[2018-09-05] MEDS ORDERED: LACTATED RINGERS SOLUTION 1,000 ML/1,000 ML INFUS.BAG IV SCH (01:07)
[2018-09-05] MEDS ORDERED: DEXTROSE 5%-WATER - 50 ML IVPB ONE ×3 (01:12→17:28)
[2018-09-05] MEDS ORDERED: PIPERACILLIN/TAZOBACTAM 3.375 GM VIAL IVPB ONE ×3 (01:12→17:27)
[2018-09-05] MEDS: PIPERACILLIN/TAZOB 3.375 GM 3.375 GM in DEXTROSE 5%-WATER - 50 ML IVPB SCH ×3 (01:23→17:30)
[2018-09-05] MEDS: PROPOFOL 1,000,000 MCG/100 ML VIAL IVPB SCH ×3 (01:30→09:32)
[2018-09-05] MEDS: ACETAMINOPHEN 650 MG/20.3 ML ORAL SOLUTION (CUPS) PEG PRN ×4 (02:32→17:30)
[2018-09-05] MEDS: CALCIUM 500MG/VIT-D 200 UNITS COMBO TABLET (FP) PEG SCH ×3 (05:46→21:07)
[2018-09-05] MEDS: diazePAM 5 MG TABLET PEG SCH ×3 (05:46→21:07)
[2018-09-05] MEDS: BACLOFEN 10 MG TABLET (FP) PEG SCH ×3 (05:48→21:12)
[2018-09-05 06:15] LABS: HEMATOCRIT 32.7 % (35.4-49); MCH 33.3 pg (25.7-33.7); MCHC 33.7 g/dl (32.0-35.9); MEAN PLT VOLUME 8.3 fl (7.5-11.1); PLATELET COUNT 201 K/MM3 (134-434); RDW 13.3 % (11.9-15.9); WHITE BLOOD COUNT 7.5 K/mm3 (4.0-10.0)
[2018-09-05] MEDS: carBAMazepine 200 MG TABLET PEG SCH ×2 (06:23→21:07)
[2018-09-05 06:36] LABS: ALBUMIN 2.8 g/dl (3.4-5.0); BILIRUBIN,TOTAL 0.4 mg/dL (0.2-1); BLOOD UREA NITROGEN 22.8 mg/dL (7-18); CALCIUM 7.8 mg/dL (8.5-10.1); CREATININE 0.7 mg/dL (0.55-1.3); MAGNESIUM 3.5 mg/dL (1.8-2.4); PHOSPHOROUS 3.5 mg/dL (2.5-4.9); POTASSIUM 3.6 mmol/L (3.5-5.1)
[2018-09-05] MEDS ORDERED: carBAMazepine 200 MG TABLET PO SCH (07:00)
[2018-09-05] MEDS: D5-1/2NS+20 MEQ KCL - 20 MEQ/1,000 ML INFUS.BAG IV SCH (08:01)
--- NOTE | 2018-09-05 08:11 | PN ---
Teaching Attending Note Name of Resident: Mei Castro ATTENDING PHYSICIAN STATEMENT I saw and evaluated the patient. I reviewed the resident's note and discussed the case with the resident. I agree with the resident's findings and plan as documented. SUBJECTIVE: Patient is in ICU, intubated & sedated. OBJECTIVE: Vital Signs Temperature 101 F H 09/05/18 06:00 Pulse Rate 68 09/05/18 06:03 Respiratory Rate 16 09/05/18 06:03 Blood Pressure 117/68 09/05/18 06:00 O2 Sat by Pulse Oximetry (%) 99 09/05/18 06:03 GENERAL: The patient is intubated and sedated. HEAD: Normal with no signs of trauma. EYES: PERRL, sclera anicteric, conjunctiva clear. ENT: Dried blood around the mouth, no gross blood noted, Bruise noted on tongue membranes. NECK: Trachea midline, supple, soft mass on the right (possible hematoma) LUNGS: Pt mechanically ventilated, no crackles, or wheezes. HEART: Regular rate and rhythm, S1, S2 without murmur, rub or gallop. ABDOMEN: Soft, ND,NT, hypoactive bowel sounds, no guarding, no rebound, no hepatosplenomegaly. EXTREMITIES: 2+ pulses, warm, well-perfused, no edema. NEUROLOGICAL: Unable to assess due to mental status. PSYCH: unable to access SKIN: Warm, dry, normal turgor CBCD WBC 7.5 K/mm3 (4.0-10.0) 09/05/18 05:15 RBC 3.30 M/mm3 (4.00-5.60) L 09/05/18 05:15 Hgb 11.0 GM/dL (11.7-16.9) L 09/05/18 05:15 Hct 32.7 % (35.4-49) L 09/05/18 05:15 MCV 99.0 fl (80-96) H 09/05/18 05:15 MCHC 33.7 g/dl (32.0-35.9) 09/05/18 05:15 RDW 13.3 % (11.9-15.9) 09/05/18 05:15 Plt Count 201 K/MM3 (134-434) 09/05/18 05:15 MPV 8.3 fl (7.5-11.1) 09/05/18 05:15 CMP Sodium 148 mmol/L (136-145) H 09/05/18 05:15 Potassium 3.6 mmol/L (3.5-5.1) 09/05/18 05:15 Chloride 116 mmol/L (98-107) H 09/05/18 05:15 Carbon Dioxide 27 mmol/L (21-32) 09/05/18 05:15 Anion Gap 6 MMOL/L (8-16) L 09/05/18 05:15 BUN 22.8 mg/dL (7-18) H 09/05/18 05:15 Creatinine 0.7 mg/dL (0.55-1.3) 09/05/18 05:15 Random Glucose 73 mg/dL (74-106) L 09/05/18 05:15 Calcium 7.8 mg/dL (8.5-10.1) L 09/05/18 05:15 Total Bilirubin 0.4 mg/dL (0.2-1) 09/05/18 05:15 AST 230 U/L (15-37) H 09/05/18 05:15 ALT 65 U/L (13-61) H 09/05/18 05:15 Alkaline Phosphatase 77 U/L (45-117) 09/05/18 05:15 Total Protein 6.0 g/dl (6.4-8.2) L 09/05/18 05:15 Albumin 2.8 g/dl (3.4-5.0) L 09/05/18 05:15 CARDIAC ENZYMES Creatine Kinase > 40363 U/L (26-308) H 09/05/18 01:00 Troponin I 0.74 ng/ml (0.00-0.05) H* 09/05/18 01:00 Current Medications Generic Name Dose Route Start Last Admin Trade Name Freq PRN Reason Stop Dose Admin Acetaminophen 650 mg 09/04/18 16:45 09/05/18 06:23 Tylenol Oral Solution - PEG 650 mg Q4H PRN Administration FEVER Baclofen 15 mg 09/04/18 16:46 09/05/18 05:48 Lioresal - PEG 15 mg TID RASHAUN Administration Bisacodyl 10 mg 09/04/18 15:41 Dulcolax Suppository - RC PRN PRN CONSTIPATION Calcium Carbonate/Cholecalciferol 1 tab 07/02/19 22:00 09/05/18 05:46 Os-Blue 500+D - PEG 1 tab TID RASHAUN Administration Carbamazepine 400 mg 09/05/18 07:00 09/05/18 06:23 Tegretol - PEG 400 mg AM RASHAUN Administration Carbamazepine 600 mg 09/04/18 22:00 09/04/18 21:49 Tegretol - PEG 600 mg HS RASHAUN Administration Chlorhexidine Gluconate 1 applic 09/04/18 22:00 09/04/18 21:27 Hibiclens For Decolonization - TP 1 applic HS RASHAUN Administration Diazepam 5 mg 09/04/18 16:47 09/05/18 05:46 Valium - PEG 5 mg TID RASHAUN Administration Propofol 1,000,000 mcg in 100 mls @ 1.837 mls/hr 09/04/18 05:00 09/05/18 03: 20 Diprivan - IVPB 40 mcg/kg/min TITR RASHAUN 14.696 mls/hr Administration Protocol 5 MCG/KG/MIN Piperacillin Sod/Tazobactam 50 mls @ 100 mls/hr 09/04/18 18:00 09/05/18 01:23 Sod 3.375 gm/ Dextrose IVPB 100 mls/hr Q8H-IV RASHAUN Administration Protocol Potassium Chloride 10 meq in 100 mls @ 100 mls/hr 09/05/18 07:30 Potassium Chloride 10 Meq Premix Ivpb - IVPB 09/05/18 10:29 Q60M RASHAUN Potassium Chloride/Dextrose/Sod Cl 20 meq in 1,000 mls @ 100 mls/hr 09/05/18 07:45 09/05/18 08:01 D5-1/2ns+20 Meq Kcl - IV 100 mls/hr ASDIR RASHAUN Administration Mupirocin 1 applic 09/04/18 10:00 09/04/18 21:27 Bactroban Ointment (For Decolonization) - NS 09/09/18 09:59 1 applic BID RASHAUN Administration Bzhze-9-Mmls Ethyl Esters 1 gm 09/05/18 10:00 Lovaza - PO DAILY RASHAUN Pantoprazole Sodium 40 mg 09/04/18 23:59 Protonix Iv IVPUSH BID RASHAUN Polyethylene Glycol 17 gm 09/05/18 10:00 Miralax (For Bowel Prep) - PO DAILY RASHAUN Ranitidine HCl 150 mg 09/04/18 22:00 09/04/18 21:25 Zantac Oral Solution - PEG 150 mg HS [facility] Administration Senna 17.6 mg 09/04/18 16:23 Senna Oral Solution - PEG TID PRN CONSTIPATION Simethicone 80 mg 09/04/18 16:50 Mylicon Liquid - PEG QID PRN gas Sodium Phosphate 118 ml 09/04/18 15:41 Fleet Adult Rectal Enema - RC PRN PRN CONSTIPATION Tizanidine HCl 4 mg 09/04/18 22:00 09/04/18 21:25 Tizanidine Hcl NR 4 mg BID [facility] Administration Home Medications Medication Instructions Recorded Acetaminophen Oral Solution 650 mg PO Q4H PRN 05/11/12 [Tylenol 160mg/5mL Oral Solution -] Baclofen 15 mg PO TID 05/11/12 Bisacodyl Suppository [Dulcolax 10 mg RC PRN PRN 05/11/12 Suppository -] Calcium Carbonate/Vitamin D3 1 each PO TID 05/11/12 [Oyster Shell 500-Vit D3 200 Tb] Carbamazepine [Carbatrol] 400 mg PO AM 05/11/12 Carbamazepine [Carbatrol] 600 mg PO HS 05/11/12 Diazepam *Pediatric Rectal* 10 mg RC PRN PRN 05/11/12 [Diastat *Pediatric Rectal Gel* -] Diazepam [Valium] 5 mg PO TID 05/11/12 Na Phos,M-B/Na Phos,Di-Ba [Fleet 118 ml RC PRN PRN 05/11/12 Enema] Polyethylene Glycol 3350 [Miralax 17 gm PO DAILY 05/11/12 255 gm Btl -] Ranitidine HCl [Zantac] 150 mg PO HS 05/11/12 Simethicone Liquid [Mylicon Liquid 80 mg PO QID PRN 05/11/12 -] Talc/Cellulos/Chloroxy/Aldioxa 312 gm TP DAILY 05/11/12 [Zeasorb Powder] Tizanidine HCl [Zanaflex] 4 mg PO BID 05/11/12 Miconazole Nitrate [Desenex] 45 gm TP BID 02/19/18 Selenium Sulfide/Aloe Vera [Selsun 207 ml TP HS 02/19/18 Blue Moist 1% Shampoo] Lactose-Reduced Food/Fiber [Jevity 1,000 ml PEG ASDIR 09/04/18 1.5 Blue Liquid] [place]-3/Dha/Epa/Fish Oil [Fish Oil 1,000 mg PEG ASDIR 09/04/18 1,600 mg/5 ml Liquid] Sennosides [Senna] 10 ml PEG ASDIR 09/04/18 Microbiology 09/04/18 14:29 Sputum - Endotrachea Suction/Ventilator Gram Stain - Final 09/04/18 14:29 Sputum - Endotrachea Suction/Ventilator Sputum Culture - Preliminary Yeast Like Organism 09/04/18 03:15 Blood - Peripheral Venous Blood Culture - Preliminary NO GROWTH OBTAINED AFTER 48 HOURS, INCUBATION TO CONTINUE FOR 3 DAYS. 09/04/18 03:15 Blood - Peripheral Venous Blood Culture - Preliminary NO GROWTH OBTAINED AFTER 48 HOURS, INCUBATION TO CONTINUE FOR 3 DAYS. 09/04/18 14:29 Urine For Antigen Detection Legionella Antigen - Final 09/04/18 14:29 Urine For Antigen Detection Streptococcus pneumoniae Antigen (M - Final 09/04/18 05:30 Urine - Urine Mckee Urine Culture - Final NO GROWTH OBTAINED ASSESSMENT AND PLAN: Patient is a 47yo male with PMhx of MR, cerebral palsy, diplegia and seizures, who presented with fever. He was found to have severe sepsis due to LLL PNA. # Acute respirTORY failure s/p intubation , further managment per ICU team. # Severe sepsis due to LL PNA. possible aspiration on Zosyn continue #Colon dilation: monitor , might be chronic. no previous CT to compare to. bowel regimen . serial abd exam. # Elevated trop: due to demand ischemia. EKG with inferior Q waves, but no other signs of ischemia. DVT PX: SCDS for now, until actual bleed is r/o.
[2018-09-05] MEDS ORDERED: PIPERACILLIN/TAZOB 3.375 GM 3.375 GM in DEXTROSE 5%-WATER - 50 ML IVPB SCH (09:00)
[2018-09-05] MEDS ORDERED: PT OWN MED DRAWER 7, Y5N ONE (09:30)
[2018-09-05] MEDS: KCL 10 MEQ IVPB 10 MEQ/100 ML INFUS.BAG IVPB SCH ×3 (09:32→13:18)
[2018-09-05] MEDS: OMEGA-3 ACID ETHYL ESTERS (FATTY-ACIDS) 1 GM CAPSULE (FP) PO SCH (09:34)
[2018-09-05] MEDS: PANTOPRAZOLE SODIUM 40 MG VIAL IVPUSH SCH ×2 (09:34→21:07)
[2018-09-05] MEDS: POLYETHYLENE GLYCOL 3350 255 GM BTL PO SCH (09:35)
[2018-09-05] MEDS: MUPIROCIN 2% TOPICAL OINTMENT FOR DECOLONIZATION NS SCH ×2 (09:35→21:06)
[2018-09-05] MEDS: TIZANIDINE HCL 4 MG TABLET NR SCH ×2 (09:36→21:13)
--- NOTE | 2018-09-05 10:43 | EKG ---
Test Reason : Blood Pressure : / mmHG Vent. Rate : 077 BPM Atrial Rate : 077 BPM P-R Int : 120 ms QRS Dur : 072 ms QT Int : 374 ms P-R-T Axes : 071 -15 061 degrees QTc Int : 423 ms NORMAL SINUS RHYTHM INFERIOR INFARCT (CITED ON OR BEFORE 04-SEP-2018) ABNORMAL ECG WHEN COMPARED WITH ECG OF 04-SEP-2018 03:25, VENT. RATE HAS DECREASED BY 40 BPM QUESTIONABLE CHANGE IN QRS AXIS Confirmed by CATIE MORELAND, ROCCO ([id number]) on 09/05/2018 10:42:31 AM Referred By: Confirmed By:ROCCO HADDAD MD
--- NOTE | 2018-09-05 10:53 | PN ---
Progress Note (short form) - Note Progress Note: Sunbjective : still intubated sedated , no more GI bleed , fever over night PE CBC, BMP 09/05/18 05:15 09/05/18 05:15 intubated sedated supple NSR decrease breath sounds at the bases abdomen , soft , GT in place with no erythema or signs of infection # Hematemesis , no more bleeding likely traumatized , unlikely GI source , monitor H/H . 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 Beasley. No overt bleeding, Hb stable. Abdomen exam soft/benign. No urgency for endoscopic intervention. Recommend PPI BID. Continue miralax and enemas if needed. Infectious workup/management per primary team. <Sudha Mcmillan - Last Filed: 09/05/18 16:31> Problem List - Problems (1) Sepsis Code(s): A41.9 - SEPSIS, UNSPECIFIED ORGANISM (2) PNA (pneumonia) Code(s): J18.9 - PNEUMONIA, UNSPECIFIED ORGANISM (3) Seizure Code(s): R56.9 - UNSPECIFIED CONVULSIONS <Merritt Beasley - Last Filed: 09/05/18 13:52>
[2018-09-05 10:57] VITALS: BMI 24.0
--- NOTE | 2018-09-05 12:06 | PN ---
Teaching Attending Note Name of Resident: Natalia Lyons ATTENDING PHYSICIAN STATEMENT I saw and evaluated the patient. I reviewed the resident's note and discussed the case with the resident. I agree with the resident's findings and plan as documented. SUBJECTIVE: Pt seen and examined in the ICU. Remains intubated, sedated. No further bleeding noted. H/H has been stable. Continues to be febrile. OBJECTIVE: Vital Signs Period Temp Pulse Resp BP Sys/Jansen Pulse Ox Last 24 Hr 98.8 F-102.2 F 68-100 16-24 85-129/44-89 99-100 Intake & Output 09/02/18 09/03/18 09/04/18 09/05/18 23:59 23:59 23:59 23:59 Intake Total 3935.6 1747 Output Total 2450 600 Balance 1485.6 1147 Weight 52.617 kg 53.977 kg Gen: intubated, sedated Heart: RRR Lung: decreased breath sounds at the bases Abd: soft, nontender Ext: no edema CBC, BMP 09/05/18 05:15 09/05/18 05:15 Active Medications Acetaminophen (Tylenol Oral Solution -) 650 mg PEG Q4H PRN PRN Reason: FEVER Last Admin: 09/05/18 11:20 Dose: 650 mg Baclofen (Lioresal -) 15 mg PEG TID [facility] Last Admin: 09/05/18 05:48 Dose: 15 mg Bisacodyl (Dulcolax Suppository -) 10 mg RC PRN PRN PRN Reason: CONSTIPATION Calcium Carbonate/Cholecalciferol (Os-Blue 500+D -) 1 tab PEG TID [facility] Last Admin: 09/05/18 05:46 Dose: 1 tab Carbamazepine (Tegretol -) 400 mg PEG AM [facility] Last Admin: 09/05/18 06:23 Dose: 400 mg Carbamazepine (Tegretol -) 600 mg PEG HS [facility] Last Admin: 09/04/18 21:49 Dose: 600 mg Chlorhexidine Gluconate (Hibiclens For Decolonization -) 1 applic TP HS [facility] Last Admin: 09/04/18 21:27 Dose: 1 applic Diazepam (Valium -) 5 mg PEG TID [facility] Last Admin: 09/05/18 05:46 Dose: 5 mg Propofol (Diprivan -) 1,000,000 mcg in 100 mls @ 1.837 mls/hr IVPB TITR RASHAUN; Protocol Last Admin: 09/05/18 09:32 Dose: 40 mcg/kg/min, 14.696 mls/hr Piperacillin Sod/Tazobactam (Sod 3.375 gm/ Dextrose) 50 mls @ 100 mls/hr IVPB Q8H-IV RASHAUN; Protocol Last Admin: 09/05/18 09:31 Dose: 100 mls/hr Potassium Chloride/Dextrose/Sod Cl (D5-1/2ns+20 Meq Kcl -) 20 meq in 1,000 mls @ 100 mls/hr IV ASDIR [facility] Last Admin: 09/05/18 08:01 Dose: 100 mls/hr Mupirocin (Bactroban Ointment (For Decolonization) -) 1 applic NS BID [facility] Stop: 09/09/18 09:59 Last Admin: 09/05/18 09:35 Dose: 1 applic [id number] Ethyl Esters (Lovaza -) 1 gm PO DAILY [facility] Last Admin: 09/05/18 09:34 Dose: 1 gm Pantoprazole Sodium (Protonix Iv) 40 mg IVPUSH BID [facility] Last Admin: 09/05/18 09:34 Dose: 40 mg Polyethylene Glycol (Miralax (For Bowel Prep) -) 17 gm PO DAILY [facility] Last Admin: 09/05/18 09:35 Dose: 17 grams Ranitidine HCl (Zantac Oral Solution -) 150 mg PEG HS [facility] Last Admin: 09/04/18 21:25 Dose: 150 mg Senna (Senna Oral Solution -) 17.6 mg PEG TID PRN PRN Reason: CONSTIPATION Simethicone (Mylicon Liquid -) 80 mg PEG QID PRN PRN Reason: gas Sodium Phosphate (Fleet Adult Rectal Enema -) 118 ml RC PRN PRN PRN Reason: CONSTIPATION Tizanidine HCl (Tizanidine Hcl) 4 mg NR BID [facility] Last Admin: 09/05/18 09:36 Dose: 4 mg ASSESSMENT AND PLAN: Acute Respiratory Failure Pneumonia likely Aspiration Sepsis Rhabdomyolysis Mental retardation Cerebral Palsy Seizure disorder r/o GI Bleed - continue antibiotics - f/u cultures - check urine myoglobin, pH - IVF, add bicarb - monitor CPK, lytes - wean to extubate - aspiration precautions - protonix - monitor H/H - DVT/GI prophylaxis - continue ICU monitoring critical care time spent in reviewing chart, evaluating patient and formulating plan 35 min
--- NOTE | 2018-09-05 12:32 | PN ---
Physical Exam: SUBJECTIVE: Patient seen and examined. No acute events overnight. No family was present at bedside. OBJECTIVE: Vital Signs Period Temp Pulse Resp BP Sys/Jansen Pulse Ox Last 24 Hr 98.8 F-102.2 F 68-100 16-24 85-129/44-72 99-100 GENERAL: The patient is intubated and sedated. HEAD: Normal with no signs of trauma. EYES: PERRL, sclera anicteric, conjunctiva clear. No ptosis. ENT: Dried blood around lips, no gross blood noted in the oropharynx. Bruise noted on tongue. Mucous membranes NECK: Trachea midline, supple, soft mass on the right (possible hematoma). LUNGS: Pt mechanically ventilated, no crackles, or wheezes. Decreased breath sounds. HEART: Regular rate and rhythm, S1, S2 without murmur, rub or gallop. ABDOMEN: Soft, nontender, nondistended, hypoactive bowel sounds, no guarding, no rebound, no hepatosplenomegaly, no masses. G tube in place, no erythema or purulent discharge noted around tube EXTREMITIES: 2+ pulses, warm, well-perfused, no edema. Femoral line in place with no erythema or purulent discharge. NEUROLOGICAL: Unable to assess due to mental status. Gait not observed. PSYCH: Agitated SKIN: Warm, dry, normal turgor CBC, BMP 09/05/18 05:15 09/05/18 05:15 Active Medications Acetaminophen (Tylenol Oral Solution -) 650 mg PEG Q4H PRN PRN Reason: FEVER Last Admin: 09/05/18 11:20 Dose: 650 mg Baclofen (Lioresal -) 15 mg PEG TID [facility] Last Admin: 09/05/18 05:48 Dose: 15 mg Bisacodyl (Dulcolax Suppository -) 10 mg RC PRN PRN PRN Reason: CONSTIPATION Calcium Carbonate/Cholecalciferol (Os-Blue 500+D -) 1 tab PEG TID [facility] Last Admin: 09/05/18 05:46 Dose: 1 tab Carbamazepine (Tegretol -) 400 mg PEG AM [facility] Last Admin: 09/05/18 06:23 Dose: 400 mg Carbamazepine (Tegretol -) 600 mg PEG HS [facility] Last Admin: 09/04/18 21:49 Dose: 600 mg Chlorhexidine Gluconate (Hibiclens For Decolonization -) 1 applic TP HS [facility] Last Admin: 09/04/18 21:27 Dose: 1 applic Diazepam (Valium -) 5 mg PEG TID [facility] Last Admin: 09/05/18 05:46 Dose: 5 mg Propofol (Diprivan -) 1,000,000 mcg in 100 mls @ 1.837 mls/hr IVPB TITR [facility]; Protocol Last Admin: 09/05/18 09:32 Dose: 40 mcg/kg/min, 14.696 mls/hr Piperacillin Sod/Tazobactam (Sod 3.375 gm/ Dextrose) 50 mls @ 100 mls/hr IVPB Q8H-IV [facility]; Protocol Last Admin: 09/05/18 09:31 Dose: 100 mls/hr Potassium Chloride/Dextrose/Sod Cl (D5-1/2ns+20 Meq Kcl -) 20 meq in 1,000 mls @ 100 mls/hr IV ASDIR [facility] Last Admin: 09/05/18 08:01 Dose: 100 mls/hr Mupirocin (Bactroban Ointment (For Decolonization) -) 1 applic NS BID [facility] Stop: 09/09/18 09:59 Last Admin: 09/05/18 09:35 Dose: 1 applic Piohl-8-Vulm Ethyl Esters (Lovaza -) 1 gm PO DAILY [facility] Last Admin: 09/05/18 09:34 Dose: 1 gm Pantoprazole Sodium (Protonix Iv) 40 mg IVPUSH BID [facility] Last Admin: 09/05/18 09:34 Dose: 40 mg Polyethylene Glycol (Miralax (For Bowel Prep) -) 17 gm PO DAILY [facility] Last Admin: 09/05/18 09:35 Dose: 17 grams Ranitidine HCl (Zantac Oral Solution -) [address] [facility] Last Admin: 09/04/18 21:25 Dose: 150 mg Senna (Senna Oral Solution -) 17.6 mg PEG TID PRN PRN Reason: CONSTIPATION Simethicone (Mylicon Liquid -) 80 mg PEG QID PRN PRN Reason: gas Sodium Phosphate (Fleet Adult Rectal Enema -) 118 ml RC PRN PRN PRN Reason: CONSTIPATION Tizanidine HCl (Tizanidine Hcl) 4 mg NR BID [facility] Last Admin: 09/05/18 09:36 Dose: 4 mg ASSESSMENT/PLAN: 47 year old M presented to ED agitated and febrile with suspected sepsis of unknown origin. #Severe sepsis 2/2 LLL pneumonia and possible aspiration Per ID, empiric Zosyn (day 2), pending culture results Follow up blood, urine cultures, stool culture, sputum culture, U/A, legionella antigen Lactate normalized; continue to monitor CBC, CMP CXR results showed LLL consolidation Fem line removed today #Suspected hematemsis (suspect trauma to tongue or hemoptysis with pna) Per GI, advance diet as tolerated, and suggest order KUB. Will consider but difficult with pts status Cont to monitor H&H (.) Protonix push 40mg BID Aspiration precautions, keep head of bed elevated #Acute respiratory failure Pt extubated today as he is protecting own airway, does not appear to be at risk of aspirating at this time #Troponinemia Possibly due to demand ischemia Serial troponin levels plateaued (0.07, 0.48, 0.70, 0.79, 0.74) EKG with inferior Q waves, but no other signs of ischemia #Seizure disorder Continue Carbamazepine 600 mg PO HS Continue Carbamazepine 400 mg PO AM Continue Diazepam 5 mg PO TID Continue Diazepam 10 mg RC PRN #Colonic distension Possibly chronic Per GI recommendation, rectal tubes 1-2 per week. Will consider for constipation. Monitor with serial abd exams #FEN Per ICU, change LR to D5-1/2 NS + 20meq KCl @100 ml/hr due to water deficit Replete electrolytes as necessary in AM Per RD, initiate enteral feeds Jevity 1.5 vol at 1000ml/day. Will titrate these feeds. #DVT Ppx SCDs until actual bleed is ruled out #Dispo We will continue to follow the patient Pt is admitted to ICU and in full code. Visit type - Emergency Visit Emergency Visit: No - New Patient This patient is new to me today: No - Critical Care Critical Care patient: Yes Total Critical Care Time (in minutes): 35 Critical Care Statement: The care of this patient involved high complexity decision making to prevent further life threatening deterioration of the patient 's condition and/or to evaluate & treat vital organ system(s) failure or risk of failure.
[2018-09-05] MEDS ORDERED: VANCOMYCIN 1,000 MG in DEXTROSE 5%-WATER - 250 ML IVPB SCH (15:00)
--- NOTE | 2018-09-05 16:03 | PN ---
Physical Exam: SUBJECTIVE: Patient seen and examined by me on 09/05/2018. No acute events reported overnight. Spoke to patient's mother and father today to update about hospital course. OBJECTIVE: Vital Signs Period Temp Pulse Resp BP Sys/Jansen Pulse Ox Last 24 Hr 98.5 F-102.2 F 68-100 16-24 85-129/44-72 99-100 GENERAL: The patient is intubated and sedated . HEAD: Normal with no signs of trauma. EYES: PERRL, sclera anicteric, conjunctiva clear. ENT: Ears normal, nares patent, oropharynx clear without exudates, moist mucous membranes. NECK: Trachea midline, supple. LUNGS: Pt. mechanically ventilated, no crackles, or wheezing HEART: Regular rate and rhythm, S1, S2 without murmur ABDOMEN: Soft, nontender, nondistended, normoactive bowel sounds, no guarding EXTREMITIES: 2+ radial pulses, warm, well-perfused, no edema. NEUROLOGICAL: Gait not observed. PSYCH: Agitated SKIN: Warm, dry, normal turgor Laboratory Results - last 24 hr 09/04/18 09/04/18 09/04/18 15:40 15:40 21:15 WBC RBC Hgb Hct MCV MCH MCHC RDW Plt Count MPV Sodium Potassium Chloride Carbon Dioxide Anion Gap BUN Creatinine Est GFR (CKD-EPI)AfAm Est GFR (CKD-EPI)NonAf Random Glucose Calcium Phosphorus Magnesium Total Bilirubin AST ALT Alkaline Phosphatase Creatine Kinase 9686 H 55481 H Creatine Kinase Index 0.2 0.1 CK-MB (CK-2) 21.6 H 15.1 H Troponin I 0.73 H* 0.70 H* 0.79 H* Total Protein Albumin 09/05/18 09/05/18 09/05/18 00:20 01:00 05:15 WBC 7.8 7.5 RBC 3.45 L 3.30 L Hgb 11.4 L 11.0 L Hct 34.0 L 32.7 L MCV 98.6 H 99.0 H MCH 33.1 33.3 MCHC 33.6 33.7 RDW 12.8 13.3 Plt Count 213 201 MPV 8.1 8.3 Sodium Potassium Chloride Carbon Dioxide Anion Gap BUN Creatinine Est GFR (CKD-EPI)AfAm Est GFR (CKD-EPI)NonAf Random Glucose Calcium Phosphorus Magnesium Total Bilirubin AST ALT Alkaline Phosphatase Creatine Kinase > 89774 H Creatine Kinase Index 0.0 CK-MB (CK-2) 11.2 H Troponin I 0.74 H* Total Protein Albumin 09/05/18 05:15 WBC RBC Hgb Hct MCV MCH MCHC RDW Plt Count MPV Sodium 148 H Potassium 3.6 Chloride 116 H Carbon Dioxide 27 Anion Gap 6 L BUN 22.8 H Creatinine 0.7 Est GFR (CKD-EPI)AfAm 131.17 Est GFR (CKD-EPI)NonAf 113.17 Random Glucose 73 L Calcium 7.8 L Phosphorus 3.5 Magnesium 3.5 H Total Bilirubin 0.4 AST 230 H ALT 65 H Alkaline Phosphatase 77 Creatine Kinase Creatine Kinase Index CK-MB (CK-2) Troponin I Total Protein 6.0 L Albumin 2.8 L Active Medications Generic Name Dose Route Start Last Admin Trade Name Freq PRN Reason Stop Dose Admin Acetaminophen 650 mg 09/04/18 16:45 09/05/18 11:20 Tylenol Oral Solution - PEG 650 mg Q4H PRN Administration FEVER Baclofen 15 mg 09/04/18 16:46 09/05/18 13:20 Lioresal - PEG 15 mg TID [facility] Administration Bisacodyl 10 mg 09/04/18 15:41 Dulcolax Suppository - RC PRN PRN CONSTIPATION Calcium Carbonate/Cholecalciferol 1 tab 09/04/18 22:00 09/05/18 13:18 Os-Blue 500+D - PEG 1 tab TID [facility] Administration Carbamazepine 400 mg 09/05/18 07:00 09/05/18 06:23 Tegretol - PEG 400 mg AM [facility] Administration Carbamazepine 600 mg 09/04/18 22:00 09/04/18 21:49 Tegretol - PEG 600 mg HS [facility] Administration Chlorhexidine Gluconate 1 applic 09/04/18 22:00 09/04/18 21:27 Hibiclens For Decolonization - TP 1 applic HS [facility] Administration Diazepam 5 mg 09/04/18 16:47 09/05/18 13:18 Valium - PEG 5 mg TID [facility] Administration Enoxaparin Sodium 40 mg 09/06/18 10:00 Lovenox - SQ DAILY [facility] Propofol 1,000,000 mcg in 100 mls @ 1.837 mls/hr 09/04/18 05:00 09/05/18 09: 32 Diprivan - IVPB 40 mcg/kg/min TITR [facility] 14.696 mls/hr Administration Protocol 5 MCG/KG/MIN Piperacillin Sod/Tazobactam 50 mls @ 100 mls/hr 09/04/18 18:00 09/05/18 09:31 Sod 3.375 gm/ Dextrose IVPB 100 mls/hr Q8H-IV [facility] Administration Protocol Potassium Chloride/Dextrose/Sod Cl 20 meq in 1,000 mls @ 100 mls/hr 09/05/18 07:45 09/05/18 08:01 D5-1/2ns+20 Meq Kcl - IV 100 mls/hr ASDIR [facility] Administration Mupirocin 1 applic 09/04/18 10:00 09/05/18 09:35 Bactroban Ointment (For Decolonization) - NS 09/09/18 09:59 1 applic BID [facility] Administration [id number]-[id number] Ethyl Esters 1 gm 09/05/18 10:00 09/05/18 09:34 Lovaza - PO 1 gm DAILY [facility] Administration Pantoprazole Sodium 40 mg 09/04/18 23:59 09/05/18 09:34 Protonix Iv IVPUSH 40 mg BID [facility] Administration Polyethylene Glycol 17 gm 09/05/18 10:00 09/05/18 09:35 Miralax (For Bowel Prep) - PO 17 grams DAILY [facility] Administration Ranitidine HCl 150 mg 09/04/18 22:00 09/04/18 21:25 Zantac Oral Solution - PEG 150 mg HS [facility] Administration Senna 17.6 mg 09/04/18 16:23 Senna Oral Solution - PEG TID PRN CONSTIPATION Simethicone 80 mg 09/04/18 16:50 Mylicon Liquid - PEG QID PRN gas Sodium Phosphate 118 ml 09/04/18 15:41 Fleet Adult Rectal Enema - RC PRN PRN CONSTIPATION Tizanidine HCl 4 mg 09/04/18 22:00 09/05/18 09:36 Tizanidine Hcl NR 4 mg BID [facility] Administration ASSESSMENT/PLAN: Pt. is a 47 y.o. M w/ PMHx. of MR, infantile cerebral palpasy/diplegia, constipation, and seizure disorder was brought to the hospital by ambulance from [facility] for agitation and fever 2/2 alleged aspiration pneumonia. Neurology patient was brought from ED sedated on versed--> will c/w Versed and Propofol for agitation because patient is intubated continue antiepileptic medications without change: Continue Carbamazepine 600 mg GT HS Continue Carbamazepine 400 mg GT AM Continue Diazepam 5 mg PO TID Continue Diazepam 10 mg RC PRN head CT without acute pathology- possible mild sinusitis Cardiovascular currently hemodynamically stable not requiring pressors continue to monitor vitals troponinemia 0.07-->0.48-->0.7 is likely demand ischemia related from sepsis and from rhabdomyolisis, now plateaued @ 0.7, will no longer follow EKG noted Change fluids to D5-1/2 NS + 20meq KCl @100 ml/hr due to water deficit trend CK Pulmonology Currently intubated and sedated Plan to extubate today as patient is protecting their own airway and does not appear to be at risk of aspirating at this time Aspiration precautions Chest CT shows atelectasis vs pneumonia in the left lower lobe, could be related to the alleged aspiration c/w vancomycin/zosyn from currently undifferentiated sepsis F/u cultures Appreciate ID recommendations Gastrointestinal CT abdomen/pelvis diarrheal illness and/or chronic ileus with diffuse small/ large bowel gas, unclear if patient could have GI source causing his sepsis. 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 does not have focal source of obstruction. This psuedoobstruction likely has caused the aspiration event. f/u BCx. continue to monitor H&H and vital signs Given Protonix, will c/w Protonix 80mg BID FOBT positive May need suppository to assist with diffuse gaseous dilation of bowel GI Consult appreciated --> Will place rectal tube 1-2x/ week Renal Elevated BUN and Cr. is likely due to rhabdomyolisis Cr.: 1.3--> 0.9-->0.7 CK: [address]+ c/w trend of BMP and CK F/u urine myoglobin and pH Monitor electrolytes Heme/Onc Leukocytosis to 22k with a left shift from sepsis/infection Infectious Diseases patient has sepsis with currently unclear etiology, differentials include aspiration pneumonia (infiltrates on CT), enteritis, UTI will obtain UA, blood and urine cultures empirically treat with vancomycin/zosyn until speciation F/U cultures Given 2L NS bolus followed by NS at 100cc/hr monitor fluid status ID consultation (Dr. Muniz) CT head/chest/abd/pelvis as described above LA: 8.0--> 0.8 #FEN D5-1/2 NS + 20meq KCl @100 ml/hr replete lytes as necessary in AM NPO while intubated/sedated DVT Ppx. SCDs Dispo: We will continue to follow the patient. Thank you for this consultative opportunity. Visit type - Emergency Visit Emergency Visit: No - New Patient This patient is new to me today: Yes Date on this admission: 09/05/18 - Critical Care Critical Care patient: Yes Total Critical Care Time (in minutes): 36 Critical Care Statement: The care of this patient involved high complexity decision making to prevent further life threatening deterioration of the patient 's condition and/or to evaluate & treat vital organ system(s) failure or risk of failure.
[2018-09-05] MEDS: CHLORHEXIDINE GLUCONATE 4% CLEANSER FOR DECOLONIZATION TP SCH (21:06)
[2018-09-05] MEDS: RANITIDINE HCL 150 MG/10 ML UNIT-DOSE PEG SCH (21:06)
[2018-09-06] MEDS ORDERED: DEXTROSE 5%-WATER - 50 ML IVPB ONE ×3 (01:17→17:27)
[2018-09-06] MEDS ORDERED: PIPERACILLIN/TAZOBACTAM 3.375 GM VIAL IVPB ONE ×3 (01:17→17:27)
[2018-09-06] MEDS: PIPERACILLIN/TAZOB 3.375 GM 3.375 GM in DEXTROSE 5%-WATER - 50 ML IVPB SCH ×3 (01:28→17:31)
[2018-09-06] MEDS: PROPOFOL 1,000,000 MCG/100 ML VIAL IVPB SCH (05:26)
[2018-09-06] MEDS: BACLOFEN 10 MG TABLET (FP) PEG SCH ×3 (05:27→22:27)
[2018-09-06] MEDS: CALCIUM 500MG/VIT-D 200 UNITS COMBO TABLET (FP) PEG SCH ×3 (05:28→22:27)
[2018-09-06] MEDS: diazePAM 5 MG TABLET PEG SCH ×3 (05:28→22:30)
[2018-09-06 05:59] LABS: HEMATOCRIT 35.7 % (35.4-49); MCH 32.9 pg (25.7-33.7); MCHC 33.7 g/dl (32.0-35.9); MEAN CELL VOLUME 97.9 fl (80-96); MEAN PLT VOLUME 7.8 fl (7.5-11.1); PLATELET COUNT 207 K/MM3 (134-434); RBC 3.64 M/mm3 (4.00-5.60); RDW 12.7 % (11.9-15.9); WHITE BLOOD COUNT 8.1 K/mm3 (4.0-10.0)
[2018-09-06] MEDS: carBAMazepine 200 MG TABLET PEG SCH (06:24)
[2018-09-06 07:14] LABS: ANION GAP 2 MMOL/L (8-16); BLOOD UREA NITROGEN 13.6 mg/dL (7-18); CHLORIDE 114 mmol/L (98-107); CO2 29 mmol/L (21-32); CREATININE 0.6 mg/dL (0.55-1.3); GLUCOSE,RANDOM 124 mg/dL (74-106); POTASSIUM 4.2 mmol/L (3.5-5.1); SODIUM 145 mmol/L (136-145)
[2018-09-06] MEDS: D5-1/2NS+20 MEQ KCL - 20 MEQ/1,000 ML INFUS.BAG IV SCH (07:45)
[2018-09-06] MEDS ORDERED: SODIUM CHLORIDE IV SCH (09:00)
[2018-09-06] MEDS ORDERED: SODIUM CHLORIDE 0.45% 1,000 ML with SODIUM BICARBONATE 8.4% - 50 MEQ IV SCH (09:00)
[2018-09-06] MEDS ORDERED: SODIUM BICARBONATE IV SCH (09:00)
--- NOTE | 2018-09-06 09:37 | PN ---
Progress Note, Physician History of Present Illness: AWAKE , NON VERBAL REMAINS EXTUBATED BREATHING NON LABORED TEMPS DOWN AFEBRILE WBC IMPROVED WNL BC (-) SPUTUM C/S YEAST - Current Medication List Current Medications: Active Medications Acetaminophen (Tylenol Oral Solution -) 650 mg PEG Q4H PRN PRN Reason: FEVER Last Admin: 09/05/18 17:30 Dose: 650 mg Baclofen (Lioresal -) 15 mg PEG TID [facility] Last Admin: 09/06/18 05:27 Dose: 15 mg Bisacodyl (Dulcolax Suppository -) 10 mg RC PRN PRN PRN Reason: CONSTIPATION Calcium Carbonate/Cholecalciferol (Os-Blue 500+D -) 1 tab PEG TID [facility] Last Admin: 09/06/18 05:28 Dose: 1 tab Carbamazepine (Tegretol -) 400 mg PEG AM [facility] Last Admin: 09/06/18 06:24 Dose: 400 mg Carbamazepine (Tegretol -) 600 mg PEG HS [facility] Last Admin: 09/05/18 21:07 Dose: 600 mg Chlorhexidine Gluconate (Hibiclens For Decolonization -) 1 applic TP HS [facility] Last Admin: 09/05/18 21:06 Dose: 1 applic Diazepam (Valium -) 5 mg PEG TID [facility] Last Admin: 09/06/18 05:28 Dose: 5 mg Enoxaparin Sodium (Lovenox -) 40 mg SQ DAILY [facility] Piperacillin Sod/Tazobactam (Sod 3.375 gm/ Dextrose) 50 mls @ 100 mls/hr IVPB Q8H-IV [facility]; Protocol Last Admin: 09/06/18 09:10 Dose: 100 mls/hr Potassium Chloride/Dextrose/Sod Cl (D5-1/2ns+20 Meq Kcl -) 20 meq in 1,000 mls @ 100 mls/hr IV ASDIR [facility] Last Admin: 09/06/18 07:45 Dose: 100 mls/hr Sodium Bicarbonate 50 meq/ (Sodium Chloride) 1,050 mls @ 100 mls/hr IV Q10H [facility] Mupirocin (Bactroban Ointment (For Decolonization) -) 1 applic NS BID [facility] Stop: 09/09/18 09:59 Last Admin: 09/05/18 21:06 Dose: 1 applic Vxvby-7-Gfeh Ethyl Esters (Lovaza -) 1 gm PO DAILY [facility] Last Admin: 09/05/18 09:34 Dose: 1 gm Pantoprazole Sodium (Protonix Iv) 40 mg IVPUSH BID [facility] Last Admin: 09/05/18 21:07 Dose: 40 mg Polyethylene Glycol (Miralax (For Bowel Prep) -) 17 gm PO DAILY [facility] Last Admin: 09/05/18 09:35 Dose: 17 grams Ranitidine HCl (Zantac Oral Solution -) 150 mg PEG HS [facility] Last Admin: 09/05/18 21:06 Dose: 150 mg Senna (Senna Oral Solution -) 17.6 mg PEG TID PRN PRN Reason: CONSTIPATION Simethicone (Mylicon Liquid -) 80 mg PEG QID PRN PRN Reason: gas Sodium Phosphate (Fleet Adult Rectal Enema -) 118 ml RC PRN PRN PRN Reason: CONSTIPATION Tizanidine HCl (Tizanidine Hcl) 4 mg NR BID [facility] Last Admin: 09/05/18 21:13 Dose: 4 mg - Objective Vital Signs: Vital Signs Temperature 98.9 F 09/06/18 08:00 Pulse Rate 74 09/06/18 08:00 Respiratory Rate 17 09/06/18 08:00 Blood Pressure 119/84 09/06/18 08:00 O2 Sat by Pulse Oximetry (%) 100 09/06/18 08:00 Constitutional: Yes: No Distress Eyes: Yes: Conjunctiva Clear Cardiovascular: Yes: Regular Rate and Rhythm, S1, S2 Respiratory: Yes: Diminished Gastrointestinal: Yes: Normal Bowel Sounds, Soft. No: Tenderness Edema: No Labs: CBC, BMP 09/06/18 05:41 09/06/18 05:41 INR, PTT INR 1.23 (0.83-1.09) H 09/04/18 03:15 Assessment/Plan S/P RESP FAILURE LLL PNEUMONIA SEIZURE DISORDER LEUKOCYTOSIS RESOLVED LACTIC ACIDOSIS RESOLVED CONTINUE EMPIRIC ZOSYN ASP PRECAUTIONS
[2018-09-06] MEDS ORDERED: PT OWN MED DRAWER 7, Y5N ONE ×6 (09:50→22:59)
[2018-09-06] MEDS: ENOXAPARIN NA (PORCINE) 40 MG/0.4 ML DISP.SYRIN SQ SCH (09:51)
[2018-09-06] MEDS: MUPIROCIN 2% TOPICAL OINTMENT FOR DECOLONIZATION NS SCH ×2 (09:51→22:25)
[2018-09-06] MEDS: PANTOPRAZOLE SODIUM 40 MG VIAL IVPUSH SCH ×2 (09:52→22:27)
--- NOTE | 2018-09-06 10:00 | PN ---
Physical Exam: SUBJECTIVE: Patient seen and examined by me on 09/06/2018. No acute events reported overnight. Patient extubated yesterday and enteral feeds resumed per nutrition's recommendations. OBJECTIVE: Vital Signs Period Temp Pulse Resp BP Sys/Jansen Pulse Ox Last 24 Hr 98.5 F-101.1 F 69-93 16-25 104-144/58-94 97-100 GENERAL: The patient is asleep and comfortable HEAD: Normal with no signs of trauma. EYES: PERRL, sclera anicteric, conjunctiva clear. ENT: Ears normal, nares patent, oropharynx clear without exudates, moist mucous membranes. NECK: Trachea midline, supple. LUNGS: Pt on nasal cannula, lungs CTABL, no wheezes or ronchi noted HEART: Regular rate and rhythm, S1, S2 without murmur ABDOMEN: Soft, nontender, nondistended, normoactive bowel sounds, no guarding EXTREMITIES: 2+ radial pulses, warm, well-perfused, no edema. NEUROLOGICAL: Gait not observed. PSYCH: Not assessed SKIN: Warm, dry, normal turgor Laboratory Results - last 24 hr 09/06/18 09/06/18 05:41 05:41 WBC 8.1 RBC 3.64 L Hgb 12.0 Hct 35.7 MCV 97.9 H MCH 32.9 MCHC 33.7 RDW 12.7 Plt Count 207 MPV 7.8 Sodium 145 Potassium 4.2 Chloride 114 H Carbon Dioxide 29 Anion Gap 2 L BUN 13.6 Creatinine 0.6 Est GFR (CKD-EPI)AfAm 139.75 Est GFR (CKD-EPI)NonAf 120.58 Random Glucose 124 H Calcium 8.0 L Creatine Kinase > 92437 H Creatine Kinase Index 0.0 CK-MB (CK-2) 24.6 H Active Medications Generic Name Dose Route Start Last Admin Trade Name Freq PRN Reason Stop Dose Admin Acetaminophen 650 mg 09/04/18 16:45 09/05/18 17:30 Tylenol Oral Solution - PEG 650 mg Q4H PRN Administration FEVER Baclofen 15 mg 09/04/18 16:46 09/06/18 05:27 Lioresal - PEG 15 mg TID [facility] Administration Bisacodyl 10 mg 09/04/18 15:41 Dulcolax Suppository - RC PRN PRN CONSTIPATION Calcium Carbonate/Cholecalciferol 1 tab 09/04/18 22:00 09/06/18 05:28 Os-Blue 500+D - PEG 1 tab TID [facility] Administration Carbamazepine 400 mg 09/05/18 07:00 09/06/18 06:24 Tegretol - PEG 400 mg AM [facility] Administration Carbamazepine 600 mg 09/04/18 22:00 09/05/18 21:07 Tegretol - PEG 600 mg HS [facility] Administration Chlorhexidine Gluconate 1 applic 09/04/18 22:00 09/05/18 21:06 Hibiclens For Decolonization - TP 1 applic HS [facility] Administration Diazepam 5 mg 09/04/18 16:47 09/06/18 05:28 Valium - PEG 5 mg TID [facility] Administration Enoxaparin Sodium 40 mg 09/06/18 10:00 09/06/18 09:51 Lovenox - SQ 40 mg DAILY [facility] Administration Piperacillin Sod/Tazobactam 50 mls @ 100 mls/hr 09/04/18 18:00 09/06/18 09:10 Sod 3.375 gm/ Dextrose IVPB 100 mls/hr Q8H-IV [facility] Administration Protocol Potassium Chloride/Dextrose/Sod Cl 20 meq in 1,000 mls @ 100 mls/hr 09/05/18 07:45 09/06/18 07:45 D5-1/2ns+20 Meq Kcl - IV 100 mls/hr ASDIR [facility] Administration Sodium Bicarbonate 50 meq/ 1,050 mls @ 100 mls/hr 09/06/18 09:01 Sodium Chloride IV Q10H [facility] Mupirocin 1 applic 09/04/18 10:00 09/06/18 09:51 Bactroban Ointment (For Decolonization) - NS 09/09/18 09:59 1 applic BID [facility] Administration Mvpas-3-Tunn Ethyl Esters 1 gm 09/05/18 10:00 09/05/18 09:34 Lovaza - PO 1 gm DAILY [facility] Administration Pantoprazole Sodium 40 mg 09/04/18 23:59 09/06/18 09:52 Protonix Iv IVPUSH 40 mg BID [facility] Administration Polyethylene Glycol 17 gm 09/05/18 10:00 09/05/18 09:35 Miralax (For Bowel Prep) - PO 17 grams DAILY [facility] Administration Ranitidine HCl 150 mg 09/04/18 22:00 09/05/18 21:06 Zantac Oral Solution - PEG 150 mg HS [facility] Administration Senna 17.6 mg 09/04/18 16:23 Senna Oral Solution - PEG TID PRN CONSTIPATION Simethicone 80 mg 09/04/18 16:50 Mylicon Liquid - PEG QID PRN gas Sodium Phosphate 118 ml 09/04/18 15:41 Fleet Adult Rectal Enema - RC PRN PRN CONSTIPATION Tizanidine HCl 4 mg 09/04/18 22:00 09/05/18 21:13 Tizanidine Hcl NR 4 mg BID [facility] Administration ASSESSMENT/PLAN: Pt. is a 47 y.o. M w/ PMHx. of MR, infantile cerebral palpasy/diplegia, constipation, and seizure disorder was brought to the hospital by ambulance from [facility] for agitation and fever 2/2 alleged aspiration pneumonia. Neurology continue antiepileptic medications without change: Continue Carbamazepine 600 mg GT HS Continue Carbamazepine 400 mg GT AM Continue Diazepam 5 mg PO TID Continue Diazepam 10 mg RC PRN head CT without acute pathology- possible mild sinusitis Cardiovascular currently hemodynamically stable not requiring pressors continue to monitor vitals troponinemia 0.07-->0.48-->0.7 is likely demand ischemia related from sepsis and from rhabdomyolisis, now plateaued @ 0.7, will no longer follow EKG noted Change fluids to sodium bicarb 8.4% 50meq in 1L of 1/2 normal saline trend CK Pulmonology Extubated on 09/05/18, on 2L NC satting well Aspiration precautions Chest CT shows atelectasis vs pneumonia in the left lower lobe, could be related to the alleged aspiration c/w vancomycin/zosyn from currently undifferentiated sepsis F/u cultures Appreciate ID recommendations Gastrointestinal CT abdomen/pelvis diarrheal illness and/or chronic ileus with diffuse small/ large bowel gas, unclear if patient could have GI source causing his sepsis. 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 does not have focal source of obstruction. This psuedoobstruction likely has caused the aspiration event. f/u BCx. continue to monitor H&H and vital signs Given Protonix, will c/w Protonix 80mg BID FOBT positive May need suppository to assist with diffuse gaseous dilation of bowel GI Consult appreciated --> Will place rectal tube 1-2x/ week Renal Elevated BUN and Cr. is likely due to rhabdomyolisis Cr.: 1.3--> 0.9-->0.7 CK: [address]+ c/w trend of BMP and CK F/u urine myoglobin and pH Monitor electrolytes Heme/Onc Leukocytosis to 22k with a left shift from sepsis/infection Infectious Diseases patient has sepsis with currently unclear etiology, differentials include aspiration pneumonia (infiltrates on CT), enteritis, UTI empirically treat with vancomycin/zosyn until speciation Blood and urine cultures currently NGTD monitor fluid status ID consultation (Dr. Muniz) CT head/chest/abd/pelvis as described above LA: 8.0--> 0.8 #FEN sodium bicarb 8.4% 50meq in 1L of 1/2 normal saline @100mls/hr replete lytes as necessary in AM NPO while intubated/sedated DVT Ppx. SCDs Dispo: Patient stable to be transferred to [facility]-surg floor Visit type - Emergency Visit Emergency Visit: Yes ED Registration Date: 09/04/18 Care time: The patient presented to the Emergency Department on the above date and was hospitalized for further evaluation of their emergent condition. - New Patient This patient is new to me today: Yes Date on this admission: 09/06/18 - Critical Care Critical Care patient: Yes Total Critical Care Time (in minutes): 36 Critical Care Statement: The care of this patient involved high complexity decision making to prevent further life threatening deterioration of the patient 's condition and/or to evaluate & treat vital organ system(s) failure or risk of failure.
--- NOTE | 2018-09-06 10:09 | PN ---
Teaching Attending Note Name of Resident: Natalia Lyons ATTENDING PHYSICIAN STATEMENT I saw and evaluated the patient. I reviewed the resident's note and discussed the case with the resident. I agree with the resident's findings and plan as documented. SUBJECTIVE: Patient seen and examined in the ICU. Remains extubated. Awake in NAD. No occult bleeding noted overnight. No pressors. Intake & Output 09/03/18 09/04/18 09/05/18 09/06/18 23:59 23:59 23:59 23:59 Intake Total 3935.6 3247 1300 Output Total 2450 1250 800 Balance 1485.6 1997 500 Weight 116 lb 119 lb 119 lb 9.6 oz Last Vital Signs Temp Pulse Resp BP Pulse Ox 98.9 F 74 17 119/84 100 09/06/18 08:00 09/06/18 08:00 09/06/18 08:00 09/06/18 08:00 09/06/18 08:00 Active Medications Acetaminophen (Tylenol Oral Solution -) 650 mg PEG Q4H PRN PRN Reason: FEVER Last Admin: 09/05/18 17:30 Dose: 650 mg Baclofen (Lioresal -) 15 mg PEG TID [facility] Last Admin: 09/06/18 05:27 Dose: 15 mg Bisacodyl (Dulcolax Suppository -) 10 mg RC PRN PRN PRN Reason: CONSTIPATION Calcium Carbonate/Cholecalciferol (Os-Blue 500+D -) 1 tab PEG TID [facility] Last Admin: 09/06/18 05:28 Dose: 1 tab Carbamazepine (Tegretol -) 400 mg PEG AM [facility] Last Admin: 09/06/18 06:24 Dose: 400 mg Carbamazepine (Tegretol -) 600 mg PEG HS [facility] Last Admin: 09/05/18 21:07 Dose: 600 mg Chlorhexidine Gluconate (Hibiclens For Decolonization -) 1 applic TP HS [facility] Last Admin: 09/05/18 21:06 Dose: 1 applic Diazepam (Valium -) 5 mg PEG TID [facility] Last Admin: 09/06/18 05:28 Dose: 5 mg Enoxaparin Sodium (Lovenox -) 40 mg SQ DAILY [facility] Last Admin: 09/06/18 09:51 Dose: 40 mg Piperacillin Sod/Tazobactam (Sod 3.375 gm/ Dextrose) 50 mls @ 100 mls/hr IVPB Q8H-IV [facility]; Protocol Last Admin: 09/06/18 09:10 Dose: 100 mls/hr Potassium Chloride/Dextrose/Sod Cl (D5-1/2ns+20 Meq Kcl -) 20 meq in 1,000 mls @ 100 mls/hr IV ASDIR [facility] Last Admin: 09/06/18 07:45 Dose: 100 mls/hr Sodium Bicarbonate 50 meq/ (Sodium Chloride) 1,050 mls @ 100 mls/hr IV Q10H [facility] Mupirocin (Bactroban Ointment (For Decolonization) -) 1 applic NS BID [facility] Stop: 09/09/18 09:59 Last Admin: 09/06/18 09:51 Dose: 1 applic [id number]-[id number] Ethyl Esters (Lovaza -) 1 gm PO DAILY [facility] Last Admin: 09/05/18 09:34 Dose: 1 gm Pantoprazole Sodium (Protonix Iv) 40 mg IVPUSH BID [facility] Last Admin: 09/06/18 09:52 Dose: 40 mg Polyethylene Glycol (Miralax (For Bowel Prep) -) 17 gm PO DAILY [facility] Last Admin: 09/05/18 09:35 Dose: 17 grams Ranitidine HCl (Zantac Oral Solution -) 150 mg PEG HS [facility] Last Admin: 09/05/18 21:06 Dose: 150 mg Senna (Senna Oral Solution -) 17.6 mg PEG TID PRN PRN Reason: CONSTIPATION Simethicone (Mylicon Liquid -) 80 mg PEG QID PRN PRN Reason: gas Sodium Phosphate (Fleet Adult Rectal Enema -) 118 ml RC PRN PRN PRN Reason: CONSTIPATION Tizanidine HCl (Tizanidine Hcl) 4 mg NR BID [facility] Last Admin: 09/05/18 21:13 Dose: 4 mg GENERAL: Extubated, NAD EYES: pupils equal, reactive to light ENT: no blood noted in the oropharynx NECK: No JVD LUNGS: Few scattered rhonchi HEART: S1S2, no murmurs appreciated ABDOMEN: Soft, nontender, BS present EXTREMITIES: 2+ pulses, no edema. NEUROLOGICAL: Awake, non-focal Laboratory Results - last 24 hr 09/06/18 09/06/18 05:41 05:41 WBC 8.1 RBC 3.64 L Hgb 12.0 Hct 35.7 MCV 97.9 H MCH 32.9 MCHC 33.7 RDW 12.7 Plt Count 207 MPV 7.8 Sodium 145 Potassium 4.2 Chloride 114 H Carbon Dioxide 29 Anion Gap 2 L BUN 13.6 Creatinine 0.6 Est GFR (CKD-EPI)AfAm 139.75 Est GFR (CKD-EPI)NonAf 120.58 Random Glucose 124 H Calcium 8.0 L Creatine Kinase > 86593 H Creatine Kinase Index 0.0 CK-MB (CK-2) 24.6 H ASSESSMENT/PLAN: Acute Respiratory Failure LLL PNA: suspected aspiration Mental retardation Infantile cerebral palsy/diplegia Constipation Seizure disorder Rhabdomyolysis ABX per ID O2 as needed to maintain saturation AEDs as ordered IVF / Bicarbonate Enteral feeds as tolerated Floor Dr Peralta
[2018-09-06] MEDS: OMEGA-3 ACID ETHYL ESTERS (FATTY-ACIDS) 1 GM CAPSULE (FP) PO SCH (10:29)
[2018-09-06] MEDS ORDERED: carBAMazepine 200 MG/10 ML UNIT-DOSE CUP PEG SCH (10:31)
[2018-09-06] MEDS: POLYETHYLENE GLYCOL 3350 255 GM BTL PO SCH (10:42)
[2018-09-06] MEDS: TIZANIDINE HCL 4 MG TABLET NR SCH ×2 (10:44→22:29)
[2018-09-06] MEDS: SODIUM BICARBONATE 8.4% - 50 MEQ in SODIUM CHLORIDE 0.45% 1,000 ML IV SCH ×2 (10:57→23:16)
--- NOTE | 2018-09-06 18:55 | PN ---
Progress Note (short form) - Note Progress Note: Patient is comfortable, extubated with no acute distress. Vital Signs Temperature 98.1 F 09/06/18 18:00 Pulse Rate 74 09/06/18 18:00 Respiratory Rate 19 09/06/18 18:00 Blood Pressure 126/92 09/06/18 18:00 O2 Sat by Pulse Oximetry (%) 100 09/06/18 08:00 GENERAL: The patient is extubated, NAD. HEAD: Normal with no signs of trauma. ENT: no blood noted in the oropharynx EYES: PERRL, sclera anicteric, conjunctiva clear. NECK: Trachea midline, supple, soft mass on the right (possible hematoma) LUNGS: decreased BS at basis , no crackles, or wheezes. HEART: Regular rate and rhythm, S1, S2 without murmur, rub or gallop. ABDOMEN: Soft, ND,NT, hypoactive bowel sounds, no guarding, no rebound, no hepatosplenomegaly. EXTREMITIES: 2+ pulses, warm, well-perfused, no edema. NEUROLOGICAL: Unable to assess due to mental status. PSYCH: unable to access SKIN: Warm, dry, normal turgor CBCD WBC 8.1 K/mm3 (4.0-10.0) 09/06/18 05:41 RBC 3.64 M/mm3 (4.00-5.60) L 09/06/18 05:41 Hgb 12.0 GM/dL (11.7-16.9) 09/06/18 05:41 Hct 35.7 % (35.4-49) 09/06/18 05:41 MCV 97.9 fl (80-96) H 09/06/18 05:41 MCHC 33.7 g/dl (32.0-35.9) 09/06/18 05:41 RDW 12.7 % (11.9-15.9) 09/06/18 05:41 Plt Count 207 K/MM3 (134-434) 09/06/18 05:41 MPV 7.8 fl (7.5-11.1) 09/06/18 05:41 CMP Sodium 145 mmol/L (136-145) 09/06/18 05:41 Potassium 4.2 mmol/L (3.5-5.1) 09/06/18 05:41 Chloride 114 mmol/L (98-107) H 09/06/18 05:41 Carbon Dioxide 29 mmol/L (21-32) 09/06/18 05:41 Anion Gap 2 MMOL/L (8-16) L 09/06/18 05:41 BUN 13.6 mg/dL (7-18) 09/06/18 05:41 Creatinine 0.6 mg/dL (0.55-1.3) 09/06/18 05:41 Random Glucose 124 mg/dL (74-106) H 09/06/18 05:41 Calcium 8.0 mg/dL (8.5-10.1) L 09/06/18 05:41 Total Bilirubin 0.4 mg/dL (0.2-1) 09/05/18 05:15 AST 230 U/L (15-37) H 09/05/18 05:15 ALT 65 U/L (13-61) H 09/05/18 05:15 Alkaline Phosphatase 77 U/L (45-117) 09/05/18 05:15 Total Protein 6.0 g/dl (6.4-8.2) L 09/05/18 05:15 Albumin 2.8 g/dl (3.4-5.0) L 09/05/18 05:15 CARDIAC ENZYMES Creatine Kinase > 16352 U/L (26-308) H 09/06/18 05:41 Troponin I 0.74 ng/ml (0.00-0.05) H* 09/05/18 01:00 Current Medications Generic Name Dose Route Start Last Admin Trade Name Freq PRN Reason Stop Dose Admin Acetaminophen 650 mg 09/04/18 16:45 09/05/18 17:30 Tylenol Oral Solution - PEG 650 mg Q4H PRN Administration FEVER Baclofen 15 mg 09/04/18 16:46 09/06/18 14:14 Lioresal - PEG 15 mg TID [facility] Administration Bisacodyl 10 mg 09/04/18 15:41 Dulcolax Suppository - RC PRN PRN CONSTIPATION Calcium Carbonate/Cholecalciferol 1 tab 09/04/18 22:00 09/06/18 14:15 Os-Blue 500+D - PEG 1 tab TID [facility] Administration Carbamazepine 600 mg 09/06/18 22:00 Tegretol Oral Suspension - PEG HS [facility] Carbamazepine 400 mg 09/07/18 07:00 Tegretol Oral Suspension - PEG AM [facility] Chlorhexidine Gluconate 1 applic 09/04/18 22:00 09/05/18 21:06 Hibiclens For Decolonization - TP 1 applic HS [facility] Administration Diazepam 5 mg 09/04/18 16:47 09/06/18 14:13 Valium - PEG 5 mg TID [facility] Administration Enoxaparin Sodium 40 mg 09/06/18 10:00 09/06/18 09:51 Lovenox - SQ 40 mg DAILY [facility] Administration Piperacillin Sod/Tazobactam 50 mls @ 100 mls/hr 09/04/18 18:00 09/06/18 17:31 Sod 3.375 gm/ Dextrose IVPB 100 mls/hr Q8H-IV [facility] Administration Protocol Sodium Bicarbonate 50 meq/ 1,050 mls @ 100 mls/hr 09/06/18 09:01 09/06/18 10: 57 Sodium Chloride IV 100 mls/hr Q10H [facility] Administration Mupirocin 1 applic 09/04/18 10:00 09/06/18 09:51 Bactroban Ointment (For Decolonization) - NS 09/09/18 09:59 1 applic BID [facility] Administration [id number]-[id number] Ethyl Esters 1 gm 09/05/18 10:00 09/06/18 10:29 Lovaza - PO Not Given DAILY [facility] Pantoprazole Sodium 40 mg 09/04/18 23:59 09/06/18 09:52 Protonix Iv IVPUSH 40 mg BID [facility] Administration Polyethylene Glycol 17 gm 09/05/18 10:00 09/06/18 10:42 Miralax (For Bowel Prep) - PO 17 grams DAILY [facility] Administration Ranitidine HCl 150 mg 09/04/18 22:00 09/05/18 21:06 Zantac Oral Solution - PEG 150 mg HS [facility] Administration Senna 17.6 mg 09/04/18 16:23 Senna Oral Solution - PEG TID PRN CONSTIPATION Simethicone 80 mg 09/04/18 16:50 Mylicon Liquid - PEG QID PRN gas Sodium Phosphate 118 ml 09/04/18 15:41 Fleet Adult Rectal Enema - RC PRN PRN CONSTIPATION Tizanidine HCl 4 mg 09/04/18 22:00 09/06/18 10:44 Tizanidine Hcl NR 4 mg BID [facility] Administration Home Medications Medication Instructions Recorded Acetaminophen Oral Solution 650 mg PO Q4H PRN 05/11/12 [Tylenol 160mg/5mL Oral Solution -] Baclofen 15 mg PO TID 05/11/12 Bisacodyl Suppository [Dulcolax 10 mg RC PRN PRN 05/11/12 Suppository -] Calcium Carbonate/Vitamin D3 1 each PO TID 05/11/12 [Oyster Shell 500-Vit D3 200 Tb] Carbamazepine [Carbatrol] 400 mg PO AM 05/11/12 Carbamazepine [Carbatrol] 600 mg PO HS 05/11/12 Diazepam *Pediatric Rectal* 10 mg RC PRN PRN 05/11/12 [Diastat *Pediatric Rectal Gel* -] Diazepam [Valium] 5 mg PO TID 05/11/12 Na Phos,M-B/Na Phos,Di-Ba [Fleet 118 ml RC PRN PRN 05/11/12 Enema] Polyethylene Glycol 3350 [Miralax 17 gm PO DAILY 05/11/12 255 gm Btl -] Ranitidine HCl [Zantac] 150 mg PO HS 05/11/12 Simethicone Liquid [Mylicon Liquid 80 mg PO QID PRN 05/11/12 -] Talc/Cellulos/Chloroxy/Aldioxa 312 gm TP DAILY 05/11/12 [Zeasorb Powder] Tizanidine HCl [Zanaflex] 4 mg PO BID 05/11/12 Miconazole Nitrate [Desenex] 45 gm TP BID 02/19/18 Selenium Sulfide/Aloe Vera [Selsun 207 ml TP HS 02/19/18 Blue Moist 1% Shampoo] Lactose-Reduced Food/Fiber [Jevity 1,000 ml PEG ASDIR 09/04/18 1.5 Blue Liquid] Delancey-3/Dha/Epa/Fish Oil [Fish Oil 1,000 mg PEG ASDIR 09/04/18 1,600 mg/5 ml Liquid] Sennosides [Senna] 10 ml PEG ASDIR 09/04/18 Assessment and Plan: Patient is a 47yo male with PMhx of MR, cerebral palsy, diplegia and seizures, who presented with fever. He was found to have severe sepsis due to LLL PNA. # Acute respirTORY failure s/p extubation , no new events overnight, further managment per ICU team. # s/p sepsis due to LL PNA due to aspiration on Zosyn continue #Colon dilation: monitor , might be chronic. no previous CT to compare to. bowel regimen . serial abd exam. # Elevated trop: due to demand ischemia. EKG with inferior Q waves, but no other signs of ischemia. # Mental retardation #Hx of cerebral palsy/diplegia #Seizure disorder continue meds. # Rhabdomyolysis :IVF DVT PX: SCDS for now, until actual bleed is r/o. Visit type - Emergency Visit Emergency Visit: Yes ED Registration Date: 09/04/18 Care time: The patient presented to the Emergency Department on the above date and was hospitalized for further evaluation of their emergent condition. - New Patient This patient is new to me today: No - Critical Care Critical Care patient: No - Discharge Referral Referred to [facility] Med P.C.: No
[2018-09-06] MEDS: ACETAMINOPHEN 650 MG/20.3 ML ORAL SOLUTION (CUPS) PEG PRN (22:08)
[2018-09-06] MEDS: CHLORHEXIDINE GLUCONATE 4% CLEANSER FOR DECOLONIZATION TP SCH (22:25)
[2018-09-06] MEDS: carBAMazepine 200 MG/10 ML UNIT-DOSE CUP PEG SCH (22:29)
[2018-09-06] MEDS: RANITIDINE HCL 150 MG/10 ML UNIT-DOSE PEG SCH (22:30)
[2018-09-07] MEDS ORDERED: PIPERACILLIN/TAZOBACTAM 3.375 GM VIAL IVPB ONE ×3 (01:14→17:33)
[2018-09-07] MEDS ORDERED: DEXTROSE 5%-WATER - 50 ML IVPB ONE ×3 (01:14→17:33)
[2018-09-07] MEDS: PIPERACILLIN/TAZOB 3.375 GM 3.375 GM in DEXTROSE 5%-WATER - 50 ML IVPB SCH ×3 (01:19→17:49)
[2018-09-07] MEDS ORDERED: PT OWN MED DRAWER 7, Y5N ONE ×2 (06:17→09:40)
[2018-09-07] MEDS: BACLOFEN 10 MG TABLET (FP) PEG SCH ×3 (06:18→21:49)
[2018-09-07] MEDS: SODIUM BICARBONATE 8.4% - 50 MEQ in SODIUM CHLORIDE 0.45% 1,000 ML IV SCH (06:18)
[2018-09-07] MEDS: CALCIUM 500MG/VIT-D 200 UNITS COMBO TABLET (FP) PEG SCH ×3 (06:19→21:50)
[2018-09-07] MEDS: diazePAM 5 MG TABLET PEG SCH ×3 (06:19→21:50)
[2018-09-07 08:27] LABS: HEMATOCRIT 34.4 % (35.4-49); HEMOGLOBIN 11.7 GM/dL (11.7-16.9); MCH 33.2 pg (25.7-33.7); MCHC 34.1 g/dl (32.0-35.9); MEAN CELL VOLUME 97.3 fl (80-96); MEAN PLT VOLUME 8.2 fl (7.5-11.1); PLATELET COUNT 199 K/MM3 (134-434); RBC 3.53 M/mm3 (4.00-5.60); RDW 12.5 % (11.9-15.9); WHITE BLOOD COUNT 6.5 K/mm3 (4.0-10.0)
[2018-09-07] MEDS: PANTOPRAZOLE SODIUM 40 MG VIAL IVPUSH SCH (09:43)
[2018-09-07] MEDS: ENOXAPARIN NA (PORCINE) 40 MG/0.4 ML DISP.SYRIN SQ SCH (09:44)
[2018-09-07] MEDS: OMEGA-3 ACID ETHYL ESTERS (FATTY-ACIDS) 1 GM CAPSULE (FP) PO SCH (09:45)
[2018-09-07] MEDS: MUPIROCIN 2% TOPICAL OINTMENT FOR DECOLONIZATION NS SCH ×2 (09:45→21:39)
[2018-09-07] MEDS: carBAMazepine 200 MG/10 ML UNIT-DOSE CUP PEG SCH ×2 (09:46→21:40)
[2018-09-07] MEDS: TIZANIDINE HCL 4 MG TABLET NR SCH ×2 (09:47→21:44)
[2018-09-07] MEDS: POLYETHYLENE GLYCOL 3350 255 GM BTL PO SCH (09:48)
[2018-09-07 09:59] LABS: ALBUMIN 2.8 g/dl (3.4-5.0); BILIRUBIN,TOTAL 0.5 mg/dL (0.2-1); BLOOD UREA NITROGEN 12.6 mg/dL (7-18); CALCIUM 7.8 mg/dL (8.5-10.1); CREATININE 0.4 mg/dL (0.55-1.3); POTASSIUM 3.6 mmol/L (3.5-5.1); TOT PROT 6.3 g/dl (6.4-8.2)
--- NOTE | 2018-09-07 10:14 | PN ---
Physical Exam: SUBJECTIVE: Patient seen and examined. No acute events overnight. Pt noted to have 4 stools with rectal tube. Pt has had low grade temp, TMax: 100.8. No family was present at bedside. OBJECTIVE: Vital Signs Period Temp Pulse Resp BP Sys/Jansen Pulse Ox Last 24 Hr 98.1 F-100.8 F 59-89 13-23 87-133/57-92 98-100 GENERAL: The patient is awake, alert, and in no acute distress. Pt is nonverbal. HEAD: Normal with no signs of trauma. EYES: PERRL, sclera anicteric, conjunctiva clear. No ptosis. ENT: Ears normal, nares patent, oropharynx clear without exudates, moist mucous membranes. NECK: Trachea midline, soft nontender mass on right, possible hematoma LUNGS: Coarse breath sounds diffusely. No wheezes, no crackles, no accessory muscle use. HEART: Regular rate and rhythm, S1, S2 without murmur, rub or gallop. ABDOMEN: Soft, nontender, nondistended, hypoactive bowel sounds, no guarding, no rebound, no hepatosplenomegaly, no masses. EXTREMITIES: 2+ pulses, warm, well-perfused, no edema. NEUROLOGICAL: Muscle tremors. Gait not observed. PSYCH: Calm. Unable to further assess due to mental status SKIN: Warm, dry, normal turgor, no rashes or lesions noted Laboratory Results - last 24 hr 09/07/18 09/07/18 07:40 07:40 WBC 6.5 RBC 3.53 L Hgb 11.7 Hct 34.4 L MCV 97.3 H MCH 33.2 MCHC 34.1 RDW 12.5 Plt Count 199 MPV 8.2 Sodium 140 Potassium 3.6 Chloride 105 Carbon Dioxide 26 Anion Gap 10 BUN 12.6 Creatinine 0.4 L Est GFR (CKD-EPI)AfAm 163.93 Est GFR (CKD-EPI)NonAf 141.44 Random Glucose 114 H Calcium 7.8 L Total Bilirubin 0.5 AST 527 H ALT 168 H Alkaline Phosphatase 77 Total Protein 6.3 L Albumin 2.8 L Active Medications Acetaminophen (Tylenol Oral Solution -) 650 mg PEG Q4H PRN PRN Reason: FEVER Last Admin: 09/06/18 22:08 Dose: 650 mg Baclofen (Lioresal -) 15 mg PEG TID [facility] Last Admin: 09/07/18 06:18 Dose: 15 mg Bisacodyl (Dulcolax Suppository -) 10 mg RC PRN PRN PRN Reason: CONSTIPATION Calcium Carbonate/Cholecalciferol (Os-Blue 500+D -) 1 tab PEG TID [facility] Last Admin: 09/07/18 06:19 Dose: 1 tab Carbamazepine (Tegretol Oral Suspension -) 600 mg PEG HS [facility] Last Admin: 09/06/18 22:29 Dose: 600 mg Carbamazepine (Tegretol Oral Suspension -) 400 mg PEG DAILY [facility] Last Admin: 09/07/18 09:46 Dose: 400 mg Chlorhexidine Gluconate (Hibiclens For Decolonization -) 1 applic TP HS [facility] Last Admin: 09/06/18 22:25 Dose: 1 applic Diazepam (Valium -) 5 mg PEG TID [facility] Last Admin: 09/07/18 06:19 Dose: 5 mg Enoxaparin Sodium (Lovenox -) 40 mg SQ DAILY [facility] Last Admin: 09/07/18 09:44 Dose: 40 mg Piperacillin Sod/Tazobactam (Sod 3.375 gm/ Dextrose) 50 mls @ 100 mls/hr IVPB Q8H-IV [facility]; Protocol Last Admin: 09/07/18 09:43 Dose: 100 mls/hr Sodium Bicarbonate 50 meq/ (Sodium Chloride) 1,050 mls @ 100 mls/hr IV Q10H [facility] Last Admin: 09/07/18 06:18 Dose: Not Given Sodium Bicarbonate 150 meq/ (Dextrose) 1,150 mls @ 100 mls/hr IV .Q10H [facility] Mupirocin (Bactroban Ointment (For Decolonization) -) 1 applic NS BID [facility] Stop: 09/09/18 09:59 Last Admin: 09/07/18 09:45 Dose: 1 applic Ciskn-1-Npis Ethyl Esters (Lovaza -) 1 gm PO DAILY [facility] Last Admin: 09/07/18 09:45 Dose: 1 gm Pantoprazole Sodium (Protonix Iv) 40 mg IVPUSH BID [facility] Last Admin: 09/07/18 09:43 Dose: 40 mg Polyethylene Glycol (Miralax (For Bowel Prep) -) 17 gm PO DAILY [facility] Last Admin: 09/07/18 09:48 Dose: 17 grams Ranitidine HCl (Zantac Oral Solution -) 150 mg PEG HS [facility] Last Admin: 09/06/18 22:30 Dose: 150 mg Senna (Senna Oral Solution -) 17.6 mg PEG TID PRN PRN Reason: CONSTIPATION Simethicone (Mylicon Liquid -) 80 mg PEG QID PRN PRN Reason: gas Sodium Phosphate (Fleet Adult Rectal Enema -) 118 ml RC PRN PRN PRN Reason: CONSTIPATION Tizanidine HCl (Tizanidine Hcl) 4 mg NR BID [facility] Last Admin: 09/07/18 09:47 Dose: 4 mg ASSESSMENT/PLAN: 47 year old M presented to ED agitated and febrile with suspected sepsis of unknown origin. #Severe sepsis 2/2 LLL pneumonia and possible aspiration Sputum cx show some yeasts, however, likely contaminated and will NOT treat at this time Per ID, empiric Zosyn (day 4), pending further culture results Urine culture and legionella antigen negative. 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 Pseudoobstruction likely caused aspiration event. Unlikely pt has GI bleed given hx of vomiting per EMS, pt did not have recurrent symptoms. Possible pt bit tongue Cont to monitor H&H (12, 35.7) Protonix push 40mg BID Protonix push 40mg BID Per GI consult (Dr. Bauer), cont with rectal tube 1-2x/week Consider suppository to assist with diffuse gaseous dilation of bowel Serial abd exams #Acute respiratory failure Pt s/p extubation 2 days ago and is protecting own airway, does not appear to be at risk of aspirating at this time #Troponinemia Likely due to demand ischemia, now resolved #Rhabdomyolysis CK > 14,000 Elevated BUN and Cr likely 2/2 to rhabdo (Cr 1.3-->0.9-->0.6). Last admission was 0.8 Change IVF to D5% and sodium bicarb 8.4% with goal to alkanilize urine Follow BMP, CK, UA, and ABG #Seizure disorder Continue Carbamazepine 600 mg PO HS Continue Carbamazepine 400 mg PO AM Continue Diazepam 5 mg PO TID Continue Diazepam 10 mg RC PRN #FEN Per ICU, change IVF to D5% and sodium bicarb 8.4% to protect kidneys Replete electrolytes as necessary Per RD, initiate enteral feeds Jevity 1.5 vol at 1000ml/day. Will titrate these feeds. #DVT Ppx SCDs until actual bleed is ruled out #Dispo We will continue to follow the patient Pt is admitted to ICU and in full code. Visit type - Emergency Visit Emergency Visit: No - New Patient This patient is new to me today: No - Critical Care Critical Care patient: Yes Total Critical Care Time (in minutes): 35 Critical Care Statement: The care of this patient involved high complexity decision making to prevent further life threatening deterioration of the patient 's condition and/or to evaluate & treat vital organ system(s) failure or risk of failure.
[2018-09-07] MEDS ORDERED: DEXTROSE 5%-WATER - 1,000 ML with SODIUM BICARBONATE 8.4% - 150 MEQ IV SCH (10:15)
[2018-09-07] MEDS ORDERED: SODIUM BICARBONATE 8.4% - 150 MEQ in DEXTROSE 5%-WATER - 1,000 ML IV SCH (10:20)
--- NOTE | 2018-09-07 10:33 | PN ---
Teaching Attending Note Name of Resident: Joel Schrader ATTENDING PHYSICIAN STATEMENT I saw and evaluated the patient. I reviewed the resident's note and discussed the case with the resident. I agree with the resident's findings and plan as documented. SUBJECTIVE: Pt seen and examined in the ICU. Awake, nonverbal. No events overnight. Good urine output. OBJECTIVE: Vital Signs Period Temp Pulse Resp BP Sys/Jansen Pulse Ox Last 24 Hr 98.1 F-100.8 F 59-89 13-23 87-133/57-92 98-100 Intake & Output 09/04/18 09/05/18 09/06/18 09/07/18 23:59 23:59 23:59 23:59 Intake Total 3935.6 3247 2550 1955 Output Total 2450 1250 1750 350 Balance 1485.6 5093 773 5949 Weight 52.617 kg 53.977 kg 54.25 kg 54.114 kg Gen: NAD at rest Heart: RRR Lung: decreased breath sounds at the bases Abd: soft, nontender Ext: no edema CBC, BMP 09/07/18 07:40 09/07/18 07:40 Active Medications Acetaminophen (Tylenol Oral Solution -) 650 mg PEG Q4H PRN PRN Reason: FEVER Last Admin: 09/06/18 22:08 Dose: 650 mg Baclofen (Lioresal -) 15 mg PEG TID [facility] Last Admin: 09/07/18 06:18 Dose: 15 mg Bisacodyl (Dulcolax Suppository -) 10 mg RC PRN PRN PRN Reason: CONSTIPATION Calcium Carbonate/Cholecalciferol (Os-Blue 500+D -) 1 tab PEG TID [facility] Last Admin: 09/07/18 06:19 Dose: 1 tab Carbamazepine (Tegretol Oral Suspension -) 600 mg PEG HS [facility] Last Admin: 09/06/18 22:29 Dose: 600 mg Carbamazepine (Tegretol Oral Suspension -) 400 mg PEG DAILY [facility] Last Admin: 09/07/18 09:46 Dose: 400 mg Chlorhexidine Gluconate (Hibiclens For Decolonization -) 1 applic TP HS [facility] Last Admin: 09/06/18 22:25 Dose: 1 applic Diazepam (Valium -) 5 mg PEG TID [facility] Last Admin: 09/07/18 06:19 Dose: 5 mg Enoxaparin Sodium (Lovenox -) 40 mg SQ DAILY [facility] Last Admin: 09/07/18 09:44 Dose: 40 mg Piperacillin Sod/Tazobactam (Sod 3.375 gm/ Dextrose) 50 mls @ 100 mls/hr IVPB Q8H-IV [facility]; Protocol Last Admin: 09/07/18 09:43 Dose: 100 mls/hr Sodium Bicarbonate 150 meq/ (Dextrose) 1,150 mls @ 100 mls/hr IV .Q10H [facility] Mupirocin (Bactroban Ointment (For Decolonization) -) 1 applic NS BID [facility] Stop: 09/09/18 09:59 Last Admin: 09/07/18 09:45 Dose: 1 applic Wxhzf-8-Fooy Ethyl Esters (Lovaza -) 1 gm PO DAILY [facility] Last Admin: 09/07/18 09:45 Dose: 1 gm Pantoprazole Sodium (Protonix Iv) 40 mg IVPUSH BID [facility] Last Admin: 09/07/18 09:43 Dose: 40 mg Polyethylene Glycol (Miralax (For Bowel Prep) -) 17 gm PO DAILY [facility] Last Admin: 09/07/18 09:48 Dose: 17 grams Ranitidine HCl (Zantac Oral Solution -) 150 mg PEG HS [facility] Last Admin: 09/06/18 22:30 Dose: 150 mg Senna (Senna Oral Solution -) 17.6 mg PEG TID PRN PRN Reason: CONSTIPATION Simethicone (Mylicon Liquid -) 80 mg PEG QID PRN PRN Reason: gas Sodium Phosphate (Fleet Adult Rectal Enema -) 118 ml RC PRN PRN PRN Reason: CONSTIPATION Tizanidine HCl (Tizanidine Hcl) 4 mg NR BID [facility] Last Admin: 09/07/18 09:47 Dose: 4 mg ASSESSMENT AND PLAN: s/p Acute Respiratory Failure Pneumonia likely Aspiration Sepsis Rhabdomyolysis Mental retardation Cerebral Palsy Seizure disorder r/o GI Bleed - continue antibiotics - f/u cultures - f/u urine myoglobin, pH - continue bicarb gtt - monitor CPK, lytes - enteral feeds - aspiration precautions - DVT/GI prophylaxis - can monitor on floor
--- NOTE | 2018-09-07 10:40 | PN ---
Physical Exam: SUBJECTIVE: Patient seen and examined. Pt. noted to have loose stool overnight. Rectal tube inserted in the AM. Pt. continues to have low grade temperature, TMax: 100.8. OBJECTIVE: Vital Signs Period Temp Pulse Resp BP Sys/Jansen Pulse Ox Last 24 Hr 98.1 F-100.8 F 59-89 13-23 87-133/57-92 98-100 GENERAL: The patient is alert and awake, non verbal. HEAD: Normal with no signs of trauma. EYES: PERRL, sclera anicteric, conjunctiva clear. No ptosis. ENT: Ears normal, nares patent, oropharynx clear without exudates, moist mucous membranes NECK: Trachea midline, supple, right soft mass, tender to palpation?. LUNGS: Coarse breath sounds, no crackles, or wheezing HEART: Regular rate and rhythm, S1, S2 without murmur ABDOMEN: Soft, nontender, nondistended, normoactive bowel sounds, no guarding, rectal tube and klein present EXTREMITIES: 2+ radial pulses, warm, well-perfused, no edema. NEUROLOGICAL: Teeth grinding, muscle tremors. PSYCH: Calm SKIN: Warm, dry, normal turgor Laboratory Results - last 24 hr 09/07/18 09/07/18 07:40 07:40 WBC 6.5 RBC 3.53 L Hgb 11.7 Hct 34.4 L MCV 97.3 H MCH 33.2 MCHC 34.1 RDW 12.5 Plt Count 199 MPV 8.2 Sodium 140 Potassium 3.6 Chloride 105 Carbon Dioxide 26 Anion Gap 10 BUN 12.6 Creatinine 0.4 L Est GFR (CKD-EPI)AfAm 163.93 Est GFR (CKD-EPI)NonAf 141.44 Random Glucose 114 H Calcium 7.8 L Total Bilirubin 0.5 AST 527 H ALT 168 H Alkaline Phosphatase 77 Total Protein 6.3 L Albumin 2.8 L Active Medications Current Medications Acetaminophen (Tylenol Oral Solution -) 650 mg PEG Q4H PRN PRN Reason: FEVER Last Admin: 09/06/18 22:08 Dose: 650 mg Baclofen (Lioresal -) 15 mg PEG TID [facility] Last Admin: 09/07/18 06:18 Dose: 15 mg Bisacodyl (Dulcolax Suppository -) 10 mg RC PRN PRN PRN Reason: CONSTIPATION Calcium Carbonate/Cholecalciferol (Os-Blue 500+D -) 1 tab PEG TID [facility] Last Admin: 09/07/18 06:19 Dose: 1 tab Carbamazepine (Tegretol Oral Suspension -) 600 mg PEG HS [facility] Last Admin: 09/06/18 22:29 Dose: 600 mg Carbamazepine (Tegretol Oral Suspension -) 400 mg PEG DAILY [facility] Last Admin: 09/07/18 09:46 Dose: 400 mg Chlorhexidine Gluconate (Hibiclens For Decolonization -) 1 applic TP HS [facility] Last Admin: 09/06/18 22:25 Dose: 1 applic Diazepam (Valium -) 5 mg PEG TID [facility] Last Admin: 09/07/18 06:19 Dose: 5 mg Enoxaparin Sodium (Lovenox -) 40 mg SQ DAILY [facility] Last Admin: 09/07/18 09:44 Dose: 40 mg Piperacillin Sod/Tazobactam (Sod 3.375 gm/ Dextrose) 50 mls @ 100 mls/hr IVPB Q8H-IV [facility]; Protocol Last Admin: 09/07/18 09:43 Dose: 100 mls/hr Sodium Bicarbonate 150 meq/ (Dextrose) 1,150 mls @ 100 mls/hr IV .Q10H [facility] Mupirocin (Bactroban Ointment (For Decolonization) -) 1 applic NS BID [facility] Stop: 09/09/18 09:59 Last Admin: 09/07/18 09:45 Dose: 1 applic Pbvlj-8-Hyox Ethyl Esters (Lovaza -) 1 gm PO DAILY [facility] Last Admin: 09/07/18 09:45 Dose: 1 gm Pantoprazole Sodium (Protonix Iv) 40 mg IVPUSH BID [facility] Last Admin: 09/07/18 09:43 Dose: 40 mg Polyethylene Glycol (Miralax (For Bowel Prep) -) 17 gm PO DAILY [facility] Last Admin: 09/07/18 09:48 Dose: 17 grams Ranitidine HCl (Zantac Oral Solution -) 150 mg PEG [facility] Last Admin: 09/06/18 22:30 Dose: 150 mg Senna (Senna Oral Solution -) 17.6 mg PEG TID PRN PRN Reason: CONSTIPATION Simethicone (Mylicon Liquid -) 80 mg PEG QID PRN PRN Reason: gas Sodium Phosphate (Fleet Adult Rectal Enema -) 118 ml RC PRN PRN PRN Reason: CONSTIPATION Tizanidine HCl (Tizanidine Hcl) 4 mg NR BID [facility] Last Admin: 09/07/18 09:47 Dose: 4 mg ASSESSMENT/PLAN: Pt. is a 47 y.o. M w/ PMHx. of MR, infantile cerebral palpasy/diplegia, constipation, and seizure disorder was brought to the hospital by ambulance from [facility] for agitation and fever 2/2 alleged aspiration pneumonia. #Neurology patient was brought from ED sedated on versed--> will c/w Versed and Propofol for agitation because patient is intubated continue antiepileptic medications without change: Continue Carbamazepine 600 mg GT HS Continue Carbamazepine 400 mg GT AM Continue Diazepam 5 mg PO TID Continue Diazepam 10 mg RC PRN head CT without acute pathology- possible mild sinusitis #Cardiovascular currently hemodynamically stable with a MAP of 89 not requiring pressors tachycardic on admission >130, now 84 continue to monitor vitals troponinemia 0.07-->0.48-->0.7 is likely demand ischemia related from sepsis and from rhabdomyolisis. Troponin plateaued in 0.7's c/w IVF trend CK #Pulmonology Currently intubated and sedated Chest CT shows atelectasis vs pneumonia in the left lower lobe, could be related to the alleged aspiration c/w zosyn from currently undifferentiated sepsis d/c vancomycin ID consulted (Dr. Muniz) ABG showed respiratory acidosis with hypercarbia repeat ABG shows resolution of hypoxia and hypercapnea #Gastrointestinal CT abdomen/pelvis diarrheal illness and/or chronic ileus with diffuse small/ large bowel gas, unclear if patient could have GI source causing his sepsis. 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 does not have focal source of obstruction. This psuedoobstruction likely has caused the aspiration event. f/u BCx. doubt patient has GI bleed given history of "vomiting" per EMS, patient did not have recurrent symptoms. possible patient has bitten tongue will continue to monitor H&H and vital signs Given Protonix, will c/w Protonix 80mg BID FOBT +, however HgB has been stable throughout hospital stay. May need suppository to assist with diffuse gaseous dilation of bowel GI Consult (Dr. Bauer) appreciated --> c/w rectal tube 1-2x/ week Transaminitis likely 2/2 to Rhabo as there is isolate elevations in AST and ALT without elevations in TBili or ALP; will continue to trend #Renal Elevated BUN and Cr. is likely due to rhabdomyolisis Cr.: 1.3--> 0.9---- Now: 0.4, On last admission was 0.8 CK: 14,000+ c/w trend of BMP and CK f/u urine myoglobin and urine pH #Heme/Onc Leukocytosis to 22k with a left shift from sepsis/infection on admission WBCs-6.5k Today-resolved #Infectious Diseases patient has sepsis with currently unclear etiology, differentials include aspiration pneumonia (infiltrates on CT), enteritis, UTI will obtain UA, blood and urine cultures SCx. show some yeasts however likely contaminated, will NOT treat at this time empirically treat with zosyn until speciation c/w IVF monitor fluid status ID consultation (Dr. Muniz) CT head/chest/abd/pelvis as described above LA: 8.0--> 0.8 #FEN Started D5W w/ 3 amps of Bicarb @ 100cc/hr replete lytes as necessary in AM c/w Tube Feeds DVT Ppx. c/w Lovenox 40mg SQ SCDs Dispo: We will continue to follow the patient. Thank you for this consultative opportunity. Visit type - Emergency Visit Emergency Visit: Yes ED Registration Date: 09/04/18 Care time: The patient presented to the Emergency Department on the above date and was hospitalized for further evaluation of their emergent condition. - New Patient This patient is new to me today: No - Critical Care Critical Care patient: Yes Total Critical Care Time (in minutes): 45 Critical Care Statement: The care of this patient involved high complexity decision making to prevent further life threatening deterioration of the patient 's condition and/or to evaluate & treat vital organ system(s) failure or risk of failure. - Discharge Referral Referred to [facility] Med P.C[facility] No
--- NOTE | 2018-09-07 10:52 | PN ---
Progress Note, Physician History of Present Illness: AWAKE , NON VERBAL REMAINS EXTUBATED BREATHING NON LABORED TEMPS LOW GRADE WBC IMPROVED WNL ELEVATED TRANSAMINASES BC (-) SPUTUM C/S YEAST - Current Medication List Current Medications: Active Medications Acetaminophen (Tylenol Oral Solution -) 650 mg PEG Q4H PRN PRN Reason: FEVER Last Admin: 09/06/18 22:08 Dose: 650 mg Baclofen (Lioresal -) 15 mg PEG TID [facility] Last Admin: 09/07/18 06:18 Dose: 15 mg Bisacodyl (Dulcolax Suppository -) 10 mg RC PRN PRN PRN Reason: CONSTIPATION Calcium Carbonate/Cholecalciferol (Os-Blue 500+D -) 1 tab PEG TID [facility] Last Admin: 09/07/18 06:19 Dose: 1 tab Carbamazepine (Tegretol Oral Suspension -) 600 mg PEG HS [facility] Last Admin: 09/06/18 22:29 Dose: 600 mg Carbamazepine (Tegretol Oral Suspension -) 400 mg PEG DAILY [facility] Last Admin: 09/07/18 09:46 Dose: 400 mg Chlorhexidine Gluconate (Hibiclens For Decolonization -) 1 applic TP HS [facility] Last Admin: 09/06/18 22:25 Dose: 1 applic Diazepam (Valium -) 5 mg PEG TID [facility] Last Admin: 09/07/18 06:19 Dose: 5 mg Enoxaparin Sodium (Lovenox -) 40 mg SQ DAILY [facility] Last Admin: 09/07/18 09:44 Dose: 40 mg Piperacillin Sod/Tazobactam (Sod 3.375 gm/ Dextrose) 50 mls @ 100 mls/hr IVPB Q8H-IV [facility]; Protocol Last Admin: 09/07/18 09:43 Dose: 100 mls/hr Sodium Bicarbonate 150 meq/ (Dextrose) 1,150 mls @ 100 mls/hr IV .Q10H [facility] Mupirocin (Bactroban Ointment (For Decolonization) -) 1 applic NS BID [facility] Stop: 09/09/18 09:59 Last Admin: 09/07/18 09:45 Dose: 1 applic Dmkfe-2-Zhar Ethyl Esters (Lovaza -) 1 gm PO DAILY [facility] Last Admin: 09/07/18 09:45 Dose: 1 gm Pantoprazole Sodium (Protonix Iv) 40 mg IVPUSH BID [facility] Last Admin: 09/07/18 09:43 Dose: 40 mg Polyethylene Glycol (Miralax (For Bowel Prep) -) 17 gm PO DAILY [facility] Last Admin: 09/07/18 09:48 Dose: 17 grams Ranitidine HCl (Zantac Oral Solution -) 150 mg PEG HS [facility] Last Admin: 09/06/18 22:30 Dose: 150 mg Senna (Senna Oral Solution -) 17.6 mg PEG TID PRN PRN Reason: CONSTIPATION Simethicone (Mylicon Liquid -) 80 mg PEG QID PRN PRN Reason: gas Sodium Phosphate (Fleet Adult Rectal Enema -) 118 ml RC PRN PRN PRN Reason: CONSTIPATION Tizanidine HCl (Tizanidine Hcl) 4 mg NR BID [facility] Last Admin: 09/07/18 09:47 Dose: 4 mg - Objective Vital Signs: Vital Signs Temperature 99.0 F 09/07/18 10:00 Pulse Rate 88 09/07/18 10:00 Respiratory Rate 15 09/07/18 10:00 Blood Pressure 127/75 09/07/18 10:00 O2 Sat by Pulse Oximetry (%) 98 09/07/18 09:00 Constitutional: Yes: No Distress Eyes: Yes: Conjunctiva Clear Cardiovascular: Yes: Regular Rate and Rhythm, S1, S2 Respiratory: Yes: Diminished Gastrointestinal: Yes: Normal Bowel Sounds, Soft. No: Tenderness Edema: No Labs: CBC, BMP 09/07/18 07:40 09/07/18 07:40 INR, PTT INR 1.23 (0.83-1.09) H 09/04/18 03:15 Assessment/Plan S/P RESP FAILURE LLL PNEUMONIA SEIZURE DISORDER LEUKOCYTOSIS RESOLVED LACTIC ACIDOSIS RESOLVED ELEVATED TRANSAMINASES CONTINUE EMPIRIC ZOSYN DAY#4 ASP PRECAUTIONS
[2018-09-07 11:36] LABS: EPI CELLS 2.4 /HPF (0-5/HPF); HYALINE CASTS 18 /lpf (0-8); PH,URINE 8.5 (5.0-8.0); URINE APPEARANCE CLEAR; URINE BACTERIA 1.2 /hpf (NEGATIVE); URINE BILIRUBIN NEGATIVE (NEGATIVE); URINE COLOR DK YELLOW; URINE GLUCOSE (UA) NEGATIVE (NEGATIVE); URINE KETONE NEGATIVE (NEGATIVE); URINE LEUK ESTERASE 1+ (NEGATIVE); URINE NITRITE NEGATIVE (NEGATIVE); URINE PROTEIN 2+ (NEGATIVE); URINE RBC 332 /hpf (0-4); URINE WBC 7 /hpf (0-5)
[2018-09-07 12:21] LABS: ALLENS TEST POSITIVE; ARTERIAL BLD GAS O2 SATURATION 99.4 % (95-98); ARTERIAL BLOOD GAS BASE EXCESS 7.2 meq/l (-2-2); ARTERIAL BLOOD GAS PCO2 42.4 mmHg (35-45); ARTERIAL BLOOD GAS PO2 150 mmHg (80-105); ARTERIAL BLOOD GAS pH 7.48 (7.35-7.45)
--- NOTE | 2018-09-07 19:00 | PN ---
Teaching Attending Note Name of Resident: Mei Castro ATTENDING PHYSICIAN STATEMENT I saw and evaluated the patient. I reviewed the resident's note and discussed the case with the resident. I agree with the resident's findings and plan as documented. SUBJECTIVE: Patient is in ICU comfortable with no new events overnight. OBJECTIVE: Vital Signs Temperature 98.7 F 09/07/18 18:00 Pulse Rate 90 09/07/18 18:00 Respiratory Rate 14 09/07/18 18:00 Blood Pressure 120/72 09/07/18 16:00 O2 Sat by Pulse Oximetry (%) 98 09/07/18 10:00 GENERAL: The patient is extubated, NAD. HEAD: Normal with no signs of trauma. ENT: no blood noted in the oropharynx EYES: PERRL, sclera anicteric, conjunctiva clear. NECK: Trachea midline, supple LUNGS: decreased BS at basis , no crackles, or wheezes. HEART: Regular rate and rhythm, S1, S2 without murmur, rub or gallop. ABDOMEN: Soft, ND,NT, hypoactive bowel sounds, no guarding, no rebound, no hepatosplenomegaly. EXTREMITIES: 2+ pulses, warm, well-perfused, no edema. NEUROLOGICAL: Unable to assess due to mental status. PSYCH: unable to access SKIN: Warm, dry, normal turgor CBCD WBC 6.5 K/mm3 (4.0-10.0) 09/07/18 07:40 RBC 3.53 M/mm3 (4.00-5.60) L 09/07/18 07:40 Hgb 11.7 GM/dL (11.7-16.9) 09/07/18 07:40 Hct 34.4 % (35.4-49) L 09/07/18 07:40 MCV 97.3 fl (80-96) H 09/07/18 07:40 MCHC 34.1 g/dl (32.0-35.9) 09/07/18 07:40 RDW 12.5 % (11.9-15.9) 09/07/18 07:40 Plt Count 199 K/MM3 (134-434) 09/07/18 07:40 MPV 8.2 fl (7.5-11.1) 09/07/18 07:40 CMP Sodium 140 mmol/L (136-145) 09/07/18 07:40 Potassium 3.6 mmol/L (3.5-5.1) 09/07/18 07:40 Chloride 105 mmol/L (98-107) 09/07/18 07:40 Carbon Dioxide 26 mmol/L (21-32) 09/07/18 07:40 Anion Gap 10 MMOL/L (8-16) 09/07/18 07:40 BUN 12.6 mg/dL (7-18) 09/07/18 07:40 Creatinine 0.4 mg/dL (0.55-1.3) L 09/07/18 07:40 Random Glucose 114 mg/dL (74-106) H 09/07/18 07:40 Calcium 7.8 mg/dL (8.5-10.1) L 09/07/18 07:40 Total Bilirubin 0.5 mg/dL (0.2-1) 09/07/18 07:40 AST 527 U/L (15-37) H 09/07/18 07:40 ALT 168 U/L (13-61) H 09/07/18 07:40 Alkaline Phosphatase 77 U/L (45-117) 09/07/18 07:40 Total Protein 6.3 g/dl (6.4-8.2) L 09/07/18 07:40 Albumin 2.8 g/dl (3.4-5.0) L 09/07/18 07:40 CARDIAC ENZYMES Creatine Kinase > 02080 U/L (26-308) H 09/06/18 05:41 Troponin I 0.74 ng/ml (0.00-0.05) H* 09/05/18 01:00 Current Medications Generic Name Dose Route Start Last Admin Trade Name Freq PRN Reason Stop Dose Admin Acetaminophen 650 mg 09/04/18 16:45 09/06/18 22:08 Tylenol Oral Solution - PEG 650 mg Q4H PRN Administration FEVER Baclofen 15 mg 09/04/18 16:46 09/07/18 13:22 Lioresal - PEG 15 mg TID [facility] Administration Bisacodyl 10 mg 09/04/18 15:41 Dulcolax Suppository - RC PRN PRN CONSTIPATION Calcium Carbonate/Cholecalciferol 1 tab 09/04/18 22:00 09/07/18 13:32 Os-Blue 500+D - PEG 1 tab TID [facility] Administration Carbamazepine 600 mg 09/06/18 22:00 09/06/18 22:29 Tegretol Oral Suspension - PEG 600 mg HS [facility] Administration Carbamazepine 400 mg 09/07/18 10:00 09/07/18 09:46 Tegretol Oral Suspension - PEG 400 mg DAILY [facility] Administration Chlorhexidine Gluconate 1 applic 09/04/18 22:00 09/06/18 22:25 Hibiclens For Decolonization - TP 1 applic HS [facility] Administration Diazepam 5 mg 09/04/18 16:47 09/07/18 13:25 Valium - PEG 5 mg TID [facility] Administration Enoxaparin Sodium 40 mg 09/06/18 10:00 09/07/18 09:44 Lovenox - SQ 40 mg DAILY [facility] Administration Piperacillin Sod/Tazobactam 50 mls @ 100 mls/hr 09/04/18 18:00 09/07/18 17:49 Sod 3.375 gm/ Dextrose IVPB 100 mls/hr Q8H-IV [facility] Administration Protocol Sodium Bicarbonate 150 meq/ 1,150 mls @ 100 mls/hr 09/07/18 10:20 Dextrose IV .Q10H [facility] Mupirocin 1 applic 09/04/18 10:00 09/07/18 09:45 Bactroban Ointment (For Decolonization) - NS 09/09/18 09:59 1 applic BID [facility] Administration Mczjz-1-Mggq Ethyl Esters 1 gm 09/05/18 10:00 09/07/18 09:45 Lovaza - PO 1 gm DAILY [facility] Administration Pantoprazole Sodium 40 mg 09/04/18 23:59 09/07/18 09:43 Protonix Iv IVPUSH 40 mg BID [facility] Administration Polyethylene Glycol 17 gm 09/05/18 10:00 09/07/18 09:48 Miralax (For Bowel Prep) - PO 17 grams DAILY [facility] Administration Ranitidine HCl 150 mg 09/04/18 22:00 09/06/18 22:30 Zantac Oral Solution - PEG 150 mg HS [facility] Administration Senna 17.6 mg 09/04/18 16:23 Senna Oral Solution - PEG TID PRN CONSTIPATION Simethicone 80 mg 09/04/18 16:50 Mylicon Liquid - PEG QID PRN gas Sodium Phosphate 118 ml 09/04/18 15:41 Fleet Adult Rectal Enema - RC PRN PRN CONSTIPATION Tizanidine HCl 4 mg 09/04/18 22:00 09/07/18 09:47 Tizanidine Hcl NR 4 mg BID [facility] Administration Home Medications Medication Instructions Recorded Acetaminophen Oral Solution 650 mg PO Q4H PRN 05/11/12 [Tylenol 160mg/5mL Oral Solution -] Baclofen 15 mg PO TID 05/11/12 Bisacodyl Suppository [Dulcolax 10 mg RC PRN PRN 05/11/12 Suppository -] Calcium Carbonate/Vitamin D3 1 each PO TID 05/11/12 [Oyster Shell 500-Vit D3 200 Tb] Carbamazepine [Carbatrol] 400 mg PO AM 05/11/12 Carbamazepine [Carbatrol] 600 mg PO HS 05/11/12 Diazepam *Pediatric Rectal* 10 mg RC PRN PRN 05/11/12 [Diastat *Pediatric Rectal Gel* -] Diazepam [Valium] 5 mg PO TID 05/11/12 Na Phos,M-B/Na Phos,Di-Ba [Fleet 118 ml RC PRN PRN 05/11/12 Enema] Polyethylene Glycol 3350 [Miralax 17 gm PO DAILY 05/11/12 255 gm Btl -] Ranitidine HCl [Zantac] 150 mg PO HS 05/11/12 Simethicone Liquid [Mylicon Liquid 80 mg PO QID PRN 05/11/12 -] Talc/Cellulos/Chloroxy/Aldioxa 312 gm TP DAILY 05/11/12 [Zeasorb Powder] Tizanidine HCl [Zanaflex] 4 mg PO BID 05/11/12 Miconazole Nitrate [Desenex] 45 gm TP BID 02/19/18 Selenium Sulfide/Aloe Vera [Selsun 207 ml TP HS 02/19/18 Blue Moist 1% Shampoo] Lactose-Reduced Food/Fiber [Jevity 1,000 ml PEG ASDIR 09/04/18 1.5 Blue Liquid] [place]-3/Dha/Epa/Fish Oil [Fish Oil 1,000 mg PEG ASDIR 09/04/18 1,600 mg/5 ml Liquid] Sennosides [Senna] 10 ml PEG ASDIR 09/04/18 Laboratory Tests 09/05/18 09/06/18 01:00 05:41 Creatine Kinase > 05568 H > 95195 H ASSESSMENT AND PLAN: Patient is a 47yo male with PMhx of MR, cerebral palsy, diplegia and seizures, who presented with fever. He was found to have severe sepsis due to LLL PNA. # Acute respirTORY failure s/p extubation , no new events overnight, further managment per ICU team. will tx the patient to the floor # s/p sepsis due to LL PNA due to aspiration on Zosyn continue # Rhabdomyolysis :IVF cpk is 14K , continue IVF #Colon dilation: monitor , might be chronic. no previous CT to compare to. bowel regimen . serial abd exam. # Elevated trop: due to demand ischemia. EKG with inferior Q waves, but no other signs of ischemia. # Mental retardation #Hx of cerebral palsy/diplegia #Seizure disorder continue meds. DVT PX: SCDS for now.
--- NOTE | 2018-09-07 19:25 | PN.GI ---
GI Progress Note Subjective: No acute events CPK remains elevated No overt bleeding - Objective Vital Signs: Vital Signs Temperature 98.7 F 09/07/18 18:00 Pulse Rate 90 09/07/18 18:00 Respiratory Rate 14 09/07/18 18:00 Blood Pressure 120/72 09/07/18 16:00 O2 Sat by Pulse Oximetry (%) 98 09/07/18 10:00 Constitutional: Calm Eyes: No: Sclera Icterus Cardiovascular: Yes: Tachycardia Respiratory: Yes: Diminished (at bases however with poor insp effort) Gastrointestinal Inspection: Yes: Scars (mideline vertical surgical scar in upper abdomen.), Other (G Tube in LUQ). No: Distention ...Auscultate: Yes: Normoactive Bowel Sounds ...Palpate: Yes: Soft. No: Tenderness (No grimacing upon palpation) Edema: No (No LE edema) Neurological: Yes: Alert Labs: CBC, BMP 09/07/18 07:40 09/07/18 07:40 INR, PTT INR 1.23 (0.83-1.09) H 09/04/18 03:15 Hepatic Panel Total Bilirubin 0.5 mg/dL (0.2-1) 09/07/18 07:40 AST 527 U/L (15-37) H 09/07/18 07:40 ALT 168 U/L (13-61) H 09/07/18 07:40 Alkaline Phosphatase 77 U/L (45-117) 09/07/18 07:40 Albumin 2.8 g/dl (3.4-5.0) L 09/07/18 07:40 Problem List - Problems (1) GI bleed Assessment/Plan: No overt bleeding Monitor Ranitidine 150mg HS Protonix 40mg IV daily Code(s): K92.2 - GASTROINTESTINAL HEMORRHAGE, UNSPECIFIED (2) Abnormal liver function tests Assessment/Plan: Transaminitis suspect secondary to rhabdo Treatment of rhabdo Code(s): R94.5 - ABNORMAL RESULTS OF LIVER FUNCTION STUDIES
[2018-09-07] MEDS ORDERED: SENNOSIDES 8.8 MG/5 ML BULK BOTTLE PEG PRN (20:30)
[2018-09-07] MEDS ORDERED: SIMETHICONE 40 MG/0.6 ML BOTTLE PEG PRN (20:30)
[2018-09-07] MEDS ORDERED: SODIUM PHOSPHATE/NA BIPHOS 133 ML ENEMA RC PRN (20:30)
[2018-09-07] MEDS ORDERED: BISACODYL 10 MG SUPP.RECT RC PRN (20:30)
[2018-09-07] MEDS ORDERED: ACETAMINOPHEN 650 MG/20.3 ML ORAL SOLUTION (CUPS) PEG PRN (20:30)
[2018-09-07] MEDS ORDERED: PIPERACILLIN/TAZOB 3.375 GM 3.375 GM in DEXTROSE 5%-WATER - 50 ML IVPB SCH (21:00)
[2018-09-07] MEDS: CHLORHEXIDINE GLUCONATE 4% CLEANSER FOR DECOLONIZATION TP SCH (21:39)
[2018-09-07] MEDS: RANITIDINE HCL 150 MG/10 ML UNIT-DOSE PEG SCH (21:50)
[2018-09-08] MEDS ORDERED: PIPERACILLIN/TAZOBACTAM 3.375 GM VIAL IVPB ONE ×3 (00:14→16:54)
[2018-09-08] MEDS ORDERED: DEXTROSE 5%-WATER - 50 ML IVPB ONE ×3 (00:14→16:54)
[2018-09-08] MEDS: PIPERACILLIN/TAZOB 3.375 GM 3.375 GM in DEXTROSE 5%-WATER - 50 ML IVPB SCH ×3 (01:32→17:01)
[2018-09-08] MEDS: CALCIUM 500MG/VIT-D 200 UNITS COMBO TABLET (FP) PEG SCH ×3 (06:00→21:31)
[2018-09-08] MEDS: BACLOFEN 10 MG TABLET (FP) PEG SCH ×3 (06:00→21:29)
[2018-09-08] MEDS: diazePAM 5 MG TABLET PEG SCH ×3 (06:00→21:31)
--- NOTE | 2018-09-08 09:57 | PN ---
Progress Note (short form) - Note Progress Note: PULMONARY Chart reviewed Gen: NAD at rest Heart: RRR Lung: decreased breath sounds at the bases Abd: soft, nontender Ext: no edema Active Medications noted ASSESSMENT AND PLAN: s/p Acute Respiratory Failure Pneumonia likely Aspiration Sepsis Rhabdomyolysis Mental retardation Cerebral Palsy Seizure disorder r/o GI Bleed - continue antibiotics - f/u cultures - f/u urine myoglobin, pH - continue bicarb gtt - monitor CPK, lytes - enteral feeds - aspiration precautions - DVT/GI prophylaxis Netta CELESTIN MD
[2018-09-08] MEDS ORDERED: PT OWN MED DRAWER 7, Y5N ONE ×2 (11:11→20:58)
[2018-09-08] MEDS: PANTOPRAZOLE SODIUM 40 MG VIAL IVPUSH SCH (11:16)
[2018-09-08] MEDS: TIZANIDINE HCL 4 MG TABLET NR SCH ×2 (11:16→21:31)
[2018-09-08] MEDS: carBAMazepine 200 MG/10 ML UNIT-DOSE CUP PEG SCH ×2 (11:16→21:29)
[2018-09-08] MEDS: ENOXAPARIN NA (PORCINE) 40 MG/0.4 ML DISP.SYRIN SQ SCH (11:17)
[2018-09-08] MEDS: MUPIROCIN 2% TOPICAL OINTMENT FOR DECOLONIZATION NS SCH ×2 (11:17→22:30)
[2018-09-08] MEDS: OMEGA-3 ACID ETHYL ESTERS (FATTY-ACIDS) 1 GM CAPSULE (FP) PO SCH (11:17)
[2018-09-08] MEDS: POLYETHYLENE GLYCOL 3350 255 GM BTL PO SCH ×2 (11:47→12:07)
[2018-09-08] MEDS ORDERED: SODIUM BICARBONATE 8.4% - 150 MEQ in DEXTROSE 5%-WATER - 1,000 ML IV SCH (14:00)
--- NOTE | 2018-09-08 17:00 | PN ---
Progress Note (short form) - Note Progress Note: Patient is comfortable with no acute distress. Vital Signs Temperature 97.7 F 09/08/18 14:00 Pulse Rate 87 09/08/18 14:00 Respiratory Rate 20 09/08/18 14:00 Blood Pressure 131/73 09/08/18 14:00 O2 Sat by Pulse Oximetry (%) 98 09/08/18 09:00 GENERAL: The patient is extubated, NAD. HEAD: Normal with no signs of trauma. ENT: no blood noted in the oropharynx EYES: PERRL, sclera anicteric, conjunctiva clear. NECK: Trachea midline, supple, soft mass on the right (possible hematoma) LUNGS: decreased BS at basis , no crackles, or wheezes. HEART: Regular rate and rhythm, S1, S2 without murmur, rub or gallop. ABDOMEN: Soft, ND,NT, hypoactive bowel sounds, no guarding, no rebound, no hepatosplenomegaly. EXTREMITIES: 2+ pulses, warm, well-perfused, no edema. NEUROLOGICAL: Unable to assess due to mental status. PSYCH: unable to access SKIN: Warm, dry, normal turgor Current Medications Generic Name Dose Route Start Last Admin Trade Name Freq PRN Reason Stop Dose Admin Acetaminophen 650 mg 09/07/18 20:30 Tylenol Oral Solution - PEG Q4H PRN FEVER Baclofen 15 mg 09/07/18 22:00 09/08/18 13:41 Lioresal - PEG 15 mg TID [facility] Administration Bisacodyl 10 mg 09/07/18 20:30 Dulcolax Suppository - RC PRN PRN CONSTIPATION Calcium Carbonate/Cholecalciferol 1 tab 09/07/18 22:00 09/08/18 13:42 Os-Blue 500+D - PEG 1 tab TID [facility] Administration Carbamazepine 600 mg 09/06/18 22:00 09/07/18 21:40 Tegretol Oral Suspension - PEG 600 mg HS [facility] Administration Carbamazepine 400 mg 09/07/18 10:00 09/08/18 11:16 Tegretol Oral Suspension - PEG 400 mg DAILY [facility] Administration Chlorhexidine Gluconate 1 applic 09/07/18 22:00 09/07/18 21:39 Hibiclens For Decolonization - TP Not Given HS [facility] Diazepam 5 mg 09/07/18 22:00 09/08/18 13:42 Valium - PEG 5 mg TID [facility] Administration Enoxaparin Sodium 40 mg 09/08/18 10:00 09/08/18 11:17 Lovenox - SQ 40 mg DAILY [facility] Administration Piperacillin Sod/Tazobactam 50 mls @ 100 mls/hr 09/08/18 02:00 09/08/18 11:16 Sod 3.375 gm/ Dextrose IVPB 100 mls/hr Q8H-IV [facility] Administration Protocol Sodium Bicarbonate 150 meq/ 1,150 mls @ 100 mls/hr 09/08/18 14:00 Dextrose IV 09/09/18 00:59 Q11H [facility] Mupirocin 1 applic 09/07/18 22:00 09/08/18 11:17 Bactroban Ointment (For Decolonization) - NS 09/09/18 09:59 Not Given BID [facility] Kysdw-9-Trtu Ethyl Esters 1 gm 09/08/18 10:00 09/08/18 11:17 Lovaza - PO Not Given DAILY [facility] Pantoprazole Sodium 40 mg 09/08/18 10:00 09/08/18 11:16 Protonix Iv IVPUSH 40 mg DAILY [facility] Administration Polyethylene Glycol 17 gm 09/08/18 10:00 09/08/18 12:07 Miralax (For Bowel Prep) - PO Not Given DAILY [facility] Ranitidine HCl 150 mg 09/07/18 22:00 09/07/18 21:50 Zantac Oral Solution - PEG 150 mg HS [facility] Administration Senna 17.6 mg 09/07/18 20:30 Senna Oral Solution - PEG TID PRN CONSTIPATION Simethicone 80 mg 09/07/18 20:30 Mylicon Liquid - PEG QID PRN gas Sodium Phosphate 118 ml 09/07/18 20:30 Fleet Adult Rectal Enema - RC PRN PRN CONSTIPATION Tizanidine HCl 4 mg 09/07/18 22:00 09/08/18 11:16 Tizanidine Hcl NR 4 mg BID [facility] Administration Laboratory Tests 09/05/18 09/06/18 01:00 05:41 Creatine Kinase > 01925 H > 31054 H Assessment and plan: Patient is a 47yo male with PMhx of MR, cerebral palsy, diplegia and seizures, who presented with fever. He was found to have severe sepsis due to LLL PNA. # Acute respirTORY failure s/p extubation , no new events overnight, further management per ICU team. # s/p sepsis due to LL PNA due to aspiration on Zosyn continue #Colon dilation: monitor, no previous CT to compare to bowel regimen . serial abd exam. # Elevated trop: due to demand ischemia. EKG with inferior Q waves, but no other signs of ischemia. # Mental retardation #Hx of cerebral palsy/diplegia #Seizure disorder continue meds. # Rhabdomyolysis :IVF cpk over 140K DVT PX: SCDS for now. Visit type - Emergency Visit Emergency Visit: Yes ED Registration Date: 09/04/18 Care time: The patient presented to the Emergency Department on the above date and was hospitalized for further evaluation of their emergent condition. - New Patient This patient is new to me today: No - Critical Care Critical Care patient: No - Discharge Referral Referred to [facility] Med [facility] No
[2018-09-08] MEDS: RANITIDINE HCL 150 MG/10 ML UNIT-DOSE PEG SCH (21:32)
[2018-09-08] MEDS: CHLORHEXIDINE GLUCONATE 4% CLEANSER FOR DECOLONIZATION TP SCH (22:35)
[2018-09-09] MEDS ORDERED: DEXTROSE 5%-WATER - 50 ML IVPB ONE ×3 (01:05→17:21)
[2018-09-09] MEDS ORDERED: PIPERACILLIN/TAZOBACTAM 3.375 GM VIAL IVPB ONE ×3 (01:05→17:20)
[2018-09-09] MEDS: PIPERACILLIN/TAZOB 3.375 GM 3.375 GM in DEXTROSE 5%-WATER - 50 ML IVPB SCH ×3 (01:24→18:11)
[2018-09-09] MEDS: BACLOFEN 10 MG TABLET (FP) PEG SCH ×3 (05:48→22:10)
[2018-09-09] MEDS: CALCIUM 500MG/VIT-D 200 UNITS COMBO TABLET (FP) PEG SCH ×3 (05:49→22:10)
[2018-09-09] MEDS: diazePAM 5 MG TABLET PEG SCH ×3 (05:50→22:11)
[2018-09-09 06:46] LABS: BASO % 0.4 % (0-2.0); EOS % 2.5 % (0-4.5); HEMATOCRIT 37.7 % (35.4-49); HEMOGLOBIN 12.7 GM/dL (11.7-16.9); MCH 32.7 pg (25.7-33.7); MCHC 33.7 g/dl (32.0-35.9); MEAN CELL VOLUME 97.1 fl (80-96); MEAN PLT VOLUME 8.5 fl (7.5-11.1); MONO % 8.5 % (3.8-10.2); NEUT % 54.6 % (42.8-82.8); PLATELET COUNT 236 K/MM3 (134-434); RBC 3.88 M/mm3 (4.00-5.60); RDW 12.2 % (11.9-15.9); WHITE BLOOD COUNT 4.7 K/mm3 (4.0-10.0)
[2018-09-09 07:09] LABS: ALBUMIN 2.9 g/dl (3.4-5.0); BILIRUBIN,TOTAL 0.4 mg/dL (0.2-1); BLOOD UREA NITROGEN 10.3 mg/dL (7-18); CALCIUM 8.6 mg/dL (8.5-10.1); CREATININE 0.5 mg/dL (0.55-1.3); POTASSIUM 3.8 mmol/L (3.5-5.1); TOT PROT 6.4 g/dl (6.4-8.2)
[2018-09-09] MEDS ORDERED: SODIUM CHLORIDE 1,000 ML IV SCH (10:15)
--- NOTE | 2018-09-09 10:16 | PN ---
Progress Note (short form) - Note Progress Note: PULMONARY Chart reviewed Gen: NAD at rest Heart: RRR Lung: decreased breath sounds at the bases Abd: soft, nontender Ext: no edema Active Medications noted ASSESSMENT AND PLAN: s/p Acute Respiratory Failure Pneumonia likely Aspiration Sepsis Rhabdomyolysis Mental retardation Cerebral Palsy Seizure disorder r/o GI Bleed - continue antibiotics/o2 supplementation - enteral feeds - aspiration precautions - DVT/GI prophylaxis Netta CELESTIN MD
[2018-09-09] MEDS ORDERED: PT OWN MED DRAWER 7, Y5N ONE ×2 (11:11→20:53)
[2018-09-09] MEDS: PANTOPRAZOLE SODIUM 40 MG VIAL IVPUSH SCH (11:15)
[2018-09-09] MEDS: ENOXAPARIN NA (PORCINE) 40 MG/0.4 ML DISP.SYRIN SQ SCH (11:15)
[2018-09-09] MEDS: POLYETHYLENE GLYCOL 3350 255 GM BTL PO SCH (11:16)
[2018-09-09] MEDS: carBAMazepine 200 MG/10 ML UNIT-DOSE CUP PEG SCH ×2 (11:17→22:11)
[2018-09-09] MEDS: TIZANIDINE HCL 4 MG TABLET NR SCH ×2 (11:18→22:11)
[2018-09-09] MEDS: OMEGA-3 ACID ETHYL ESTERS (FATTY-ACIDS) 1 GM CAPSULE (FP) PO SCH (11:57)
--- NOTE | 2018-09-09 12:37 | PN ---
Physical Exam: SUBJECTIVE: Patient seen this morning, no acute events overnight. OBJECTIVE: Vital Signs Temperature 98.1 F 09/09/18 06:00 Pulse Rate 66 09/09/18 06:00 Respiratory Rate 20 09/09/18 06:00 Blood Pressure 106/57 L 09/09/18 06:00 O2 Sat by Pulse Oximetry (%) 98 09/08/18 21:00 GENERAL: The patient is awake, alert, and fully oriented, in no acute distress. HEAD: Normal with no signs of trauma. EYES: PERRL, extraocular movements intact, ENT: moist mucous membranes. LUNGS: Breath sounds equal, clear to auscultation bilaterally HEART: Regular rate and rhythm, S1, S2 without murmur, rub or gallop. ABDOMEN: Soft, nontender, nondistended, normoactive bowel sounds EXTREMITIES: arms and legs contracted SKIN: Warm, dry, normal turgor, no rashes or lesions noted CBC, BMP 09/09/18 05:48 09/09/18 05:48 Active Medications Acetaminophen (Tylenol Oral Solution -) 650 mg PEG Q4H PRN PRN Reason: FEVER Baclofen (Lioresal -) 15 mg PEG TID [facility] Last Admin: 09/09/18 05:48 Dose: 15 mg Bisacodyl (Dulcolax Suppository -) 10 mg RC PRN PRN PRN Reason: CONSTIPATION Calcium Carbonate/Cholecalciferol (Os-Blue 500+D -) 1 tab PEG TID [facility] Last Admin: 09/09/18 05:49 Dose: 1 tab Carbamazepine (Tegretol Oral Suspension -) 600 mg PEG HS [facility] Last Admin: 09/08/18 21:29 Dose: 600 mg Carbamazepine (Tegretol Oral Suspension -) 400 mg PEG DAILY [facility] Last Admin: 09/09/18 11:17 Dose: 400 mg Chlorhexidine Gluconate (Hibiclens For Decolonization -) 1 applic TP HS [facility] Last Admin: 09/08/18 22:35 Dose: Not Given Diazepam (Valium -) 5 mg PEG TID [facility] Last Admin: 09/09/18 05:50 Dose: 5 mg Enoxaparin Sodium (Lovenox -) 40 mg SQ DAILY [facility] Last Admin: 09/09/18 11:15 Dose: 40 mg Piperacillin Sod/Tazobactam (Sod 3.375 gm/ Dextrose) 50 mls @ 100 mls/hr IVPB Q8H-IV RASHA[facility]; Protocol Last Admin: 09/09/18 11:18 Dose: 100 mls/hr Sodium Chloride (Normal Saline -) 1,000 mls @ 75 mls/hr IV ASDIR [facility] Last Admin: 09/09/18 11:58 Dose: 75 mls/hr Mjyyw-2-Yoyo Ethyl Esters (Lovaza -) 1 gm PO DAILY [facility] Last Admin: 09/09/18 11:57 Dose: Not Given Pantoprazole Sodium (Protonix Iv) 40 mg IVPUSH DAILY [facility] Last Admin: 09/09/18 11:15 Dose: 40 mg Polyethylene Glycol (Miralax (For Bowel Prep) -) 17 gm PO DAILY [facility] Last Admin: 09/09/18 11:16 Dose: 17 gm Ranitidine HCl (Zantac Oral Solution -) 150 mg PEG HS [facility] Last Admin: 09/08/18 21:32 Dose: 150 mg Senna (Senna Oral Solution -) 17.6 mg PEG TID PRN PRN Reason: CONSTIPATION Simethicone (Mylicon Liquid -) 80 mg PEG QID PRN PRN Reason: gas Sodium Phosphate (Fleet Adult Rectal Enema -) 118 ml RC PRN PRN PRN Reason: CONSTIPATION Tizanidine HCl (Tizanidine Hcl) 4 mg NR BID [facility] Last Admin: 09/09/18 11:18 Dose: 4 mg ASSESSMENT/PLAN: Patient is a 47 y/o male with a history of cerebral palsy, diplegia, and seizures who is admitted for PNA and rhabdomyolysis. #PNA - likely 2/2 to aspiration PNA, keep head of bed elevate above 45 - patient completed abx treatment - afebrile, no evidence of leukocytosis - monitor off O2, keep saturation > 90 #rhabdomyolysis - CPK down to 5000 - will continue fluids - UA 3+ blood - repeat CPK tomorrow - transaminitis 2/2 to rhabdo, continue to trend #? GI bleed, likely blood from orophyarynx - no evidence of bleeding since admission - continue protonix 40 sq as per GI, ranitidine 150 hs - continue to monitor H/H #seizure hx - continue home medications #DVT ppx - lovenox 40 sq daily FEN - NS @ 75 - Vital tube feeds Dispo: monitor on med surg, once CPK resolved can go back to [place] Visit type - Emergency Visit Emergency Visit: No - New Patient This patient is new to me today: No - Critical Care Critical Care patient: No
--- NOTE | 2018-09-09 18:51 | PN ---
Teaching Attending Note Name of Resident: Nicole Veloz ATTENDING PHYSICIAN STATEMENT I saw and evaluated the patient. I reviewed the resident's note and discussed the case with the resident. I agree with the resident's findings and plan as documented. SUBJECTIVE: Patient is comfortable with no acute distress. OBJECTIVE: Vital Signs Temperature 99.5 F 09/09/18 15:03 Pulse Rate 90 09/09/18 15:03 Respiratory Rate 18 09/09/18 15:03 Blood Pressure 141/70 09/09/18 15:03 O2 Sat by Pulse Oximetry (%) 98 09/08/18 21:00 GENERAL: The patient is extubated, NAD. HEAD: Normal with no signs of trauma. ENT: no blood noted in the oropharynx EYES: PERRL, sclera anicteric, conjunctiva clear. NECK: Trachea midline, supple. LUNGS: decreased BS at basis , no crackles, or wheezes. HEART: Regular rate and rhythm, S1, S2 without murmur, rub or gallop. ABDOMEN: Soft, ND,NT, hypoactive bowel sounds, no guarding, no rebound, no hepatosplenomegaly. EXTREMITIES: 2+ pulses, warm, well-perfused, no edema. NEUROLOGICAL: Unable to assess due to mental status. PSYCH: unable to access SKIN: Warm, dry, normal turgor CBCD WBC 4.7 K/mm3 (4.0-10.0) 09/09/18 05:48 RBC 3.88 M/mm3 (4.00-5.60) L 09/09/18 05:48 Hgb 12.7 GM/dL (11.7-16.9) 09/09/18 05:48 Hct 37.7 % (35.4-49) 09/09/18 05:48 MCV 97.1 fl (80-96) H 09/09/18 05:48 MCHC 33.7 g/dl (32.0-35.9) 09/09/18 05:48 RDW 12.2 % (11.9-15.9) 09/09/18 05:48 Plt Count 236 K/MM3 (134-434) 09/09/18 05:48 MPV 8.5 fl (7.5-11.1) 09/09/18 05:48 CMP Sodium 139 mmol/L (136-145) 09/09/18 05:48 Potassium 3.8 mmol/L (3.5-5.1) 09/09/18 05:48 Chloride 100 mmol/L (98-107) 09/09/18 05:48 Carbon Dioxide 35 mmol/L (21-32) H 09/09/18 05:48 Anion Gap 4 MMOL/L (8-16) L 09/09/18 05:48 BUN 10.3 mg/dL (7-18) 09/09/18 05:48 Creatinine 0.5 mg/dL (0.55-1.3) L 09/09/18 05:48 Random Glucose 101 mg/dL (74-106) 09/09/18 05:48 Calcium 8.6 mg/dL (8.5-10.1) 09/09/18 05:48 Total Bilirubin 0.4 mg/dL (0.2-1) 09/09/18 05:48 AST 419 U/L (15-37) H 09/09/18 05:48 ALT 270 U/L (13-61) H 09/09/18 05:48 Alkaline Phosphatase 83 U/L (45-117) 09/09/18 05:48 Total Protein 6.4 g/dl (6.4-8.2) 09/09/18 05:48 Albumin 2.9 g/dl (3.4-5.0) L 09/09/18 05:48 CARDIAC ENZYMES Creatine Kinase 5076 U/L (26-308) H 09/09/18 05:48 Troponin I 0.74 ng/ml (0.00-0.05) H* 09/05/18 01:00 Current Medications Generic Name Dose Route Start Last Admin Trade Name Freq PRN Reason Stop Dose Admin Acetaminophen 650 mg 09/07/18 20:30 Tylenol Oral Solution - PEG Q4H PRN FEVER Baclofen 15 mg 09/07/18 22:00 09/09/18 13:48 Lioresal - PEG 15 mg TID RASHAUN Administration Bisacodyl 10 mg 09/07/18 20:30 Dulcolax Suppository - RC PRN PRN CONSTIPATION Calcium Carbonate/Cholecalciferol 1 tab 09/07/18 22:00 09/09/18 13:51 Os-Blue 500+D - PEG 1 tab TID RASHAUN Administration Carbamazepine 600 mg 09/06/18 22:00 09/08/18 21:29 Tegretol Oral Suspension - PEG 600 mg HS [facility] Administration Carbamazepine 400 mg 09/07/18 10:00 09/09/18 11:17 Tegretol Oral Suspension - PEG 400 mg DAILY [facility] Administration Chlorhexidine Gluconate 1 applic 09/07/18 22:00 09/08/18 22:35 Hibiclens For Decolonization - TP Not Given HS RASHA[facility] Diazepam 5 mg 09/07/18 22:00 09/09/18 13:51 Valium - PEG 5 mg TID [facility] Administration Enoxaparin Sodium 40 mg 09/08/18 10:00 09/09/18 11:15 Lovenox - SQ 40 mg DAILY [facility] Administration Piperacillin Sod/Tazobactam 50 mls @ 100 mls/hr 09/08/18 02:00 09/09/18 18:11 Sod 3.375 gm/ Dextrose IVPB 100 mls/hr Q8H-IV RASHA[facility] Administration Protocol Sodium Chloride 1,000 mls @ 75 mls/hr 09/09/18 10:15 09/09/18 11:58 Normal Saline - IV 75 mls/hr ASDIR RASHA[facility] Administration [id number]-[id number] Ethyl Esters 1 gm 09/08/18 10:00 09/09/18 11:57 Lovaza - PO Not Given DAILY [facility] Pantoprazole Sodium 40 mg 09/08/18 10:00 09/09/18 11:15 Protonix Iv IVPUSH 40 mg DAILY [facility] Administration Polyethylene Glycol 17 gm 09/08/18 10:00 09/09/18 11:16 Miralax (For Bowel Prep) - PO 17 gm DAILY [facility] Administration Ranitidine HCl 150 mg 09/07/18 22:00 09/08/18 21:32 Zantac Oral Solution - PEG 150 mg HS [facility] Administration Senna 17.6 mg 09/07/18 20:30 Senna Oral Solution - PEG TID PRN CONSTIPATION Simethicone 80 mg 09/07/18 20:30 Mylicon Liquid - PEG QID PRN gas Sodium Phosphate 118 ml 09/07/18 20:30 Fleet Adult Rectal Enema - RC PRN PRN CONSTIPATION Tizanidine HCl 4 mg 09/07/18 22:00 09/09/18 11:18 Tizanidine Hcl NR 4 mg BID [facility] Administration Home Medications Medication Instructions Recorded Acetaminophen Oral Solution 650 mg PO Q4H PRN 05/11/12 [Tylenol 160mg/5mL Oral Solution -] Baclofen 15 mg PO TID 05/11/12 Bisacodyl Suppository [Dulcolax 10 mg RC PRN PRN 05/11/12 Suppository -] Calcium Carbonate/Vitamin D3 1 each PO TID 05/11/12 [Oyster Shell 500-Vit D3 200 Tb] Carbamazepine [Carbatrol] 400 mg PO AM 05/11/12 Carbamazepine [Carbatrol] 600 mg PO HS 05/11/12 Diazepam *Pediatric Rectal* 10 mg RC PRN PRN 05/11/12 [Diastat *Pediatric Rectal Gel* -] Diazepam [Valium] 5 mg PO TID 05/11/12 Na Phos,M-B/Na Phos,Di-Ba [Fleet 118 ml RC PRN PRN 05/11/12 Enema] Polyethylene Glycol 3350 [Miralax 17 gm PO DAILY 05/11/12 255 gm Btl -] Ranitidine HCl [Zantac] 150 mg PO HS 05/11/12 Simethicone Liquid [Mylicon Liquid 80 mg PO QID PRN 05/11/12 -] Talc/Cellulos/Chloroxy/Aldioxa 312 gm TP DAILY 05/11/12 [Zeasorb Powder] Tizanidine HCl [Zanaflex] 4 mg PO BID 05/11/12 Miconazole Nitrate [Desenex] 45 gm TP BID 02/19/18 Selenium Sulfide/Aloe Vera [Selsun 207 ml TP HS 02/19/18 Blue Moist 1% Shampoo] Lactose-Reduced Food/Fiber [Jevity 1,000 ml PEG ASDIR 09/04/18 1.5 Blue Liquid] [place]-3/Dha/Epa/Fish Oil [Fish Oil 1,000 mg PEG ASDIR 09/04/18 1,600 mg/5 ml Liquid] Sennosides [Senna] 10 ml PEG ASDIR 09/04/18 Laboratory Tests 09/05/18 09/06/18 09/09/18 01:00 05:41 05:48 Creatine Kinase > 23624 H > 00652 H 5076 H ASSESSMENT AND PLAN: Patient is a 47yo male with PMhx of MR, cerebral palsy, diplegia and seizures, who presented with fever. He was found to have severe sepsis due to LLL PNA. # Acute respirTORY failure s/p extubation , no new events overnight, further managment per ICU team. # s/p sepsis due to LL PNA due to aspiration on Zosyn continue #Colon dilation: monitor. no previous CT to compare to bowel regimen . serial abd exam. # Elevated trop: due to demand ischemia. EKG with inferior Q waves, but no other signs of ischemia. # Mental retardation #Hx of cerebral palsy/diplegia #Seizure disorder continue meds. # Rhabdomyolysis :IVF CPK is 5k will monitor DVT PX: SCDS for now.
[2018-09-09] MEDS: CHLORHEXIDINE GLUCONATE 4% CLEANSER FOR DECOLONIZATION TP SCH (22:09)
[2018-09-09] MEDS: RANITIDINE HCL 150 MG/10 ML UNIT-DOSE PEG SCH (22:11)
[2018-09-10] MEDS ORDERED: PIPERACILLIN/TAZOBACTAM 3.375 GM VIAL IVPB ONE ×2 (03:06→09:24)
[2018-09-10] MEDS ORDERED: DEXTROSE 5%-WATER - 50 ML IVPB ONE ×2 (03:06→09:24)
[2018-09-10] MEDS: PIPERACILLIN/TAZOB 3.375 GM 3.375 GM in DEXTROSE 5%-WATER - 50 ML IVPB SCH ×2 (03:18→11:37)
[2018-09-10] MEDS: BACLOFEN 10 MG TABLET (FP) PEG SCH ×3 (06:05→21:10)
[2018-09-10] MEDS: diazePAM 5 MG TABLET PEG SCH ×3 (06:05→21:10)
[2018-09-10] MEDS: CALCIUM 500MG/VIT-D 200 UNITS COMBO TABLET (FP) PEG SCH ×3 (06:05→21:09)
[2018-09-10 07:45] LABS: HEMATOCRIT 37.3 % (35.4-49); HEMOGLOBIN 12.7 GM/dL (11.7-16.9); MCH 33.1 pg (25.7-33.7); MCHC 34.1 g/dl (32.0-35.9); MEAN CELL VOLUME 97.1 fl (80-96); MEAN PLT VOLUME 9.2 fl (7.5-11.1); PLATELET COUNT 208 K/MM3 (134-434); RBC 3.84 M/mm3 (4.00-5.60); RDW 12.4 % (11.9-15.9); WHITE BLOOD COUNT 6.9 K/mm3 (4.0-10.0)
[2018-09-10 08:08] LABS: BILIRUBIN,TOTAL 0.4 mg/dL (0.2-1); BLOOD UREA NITROGEN 13.1 mg/dL (7-18); CALCIUM 8.4 mg/dL (8.5-10.1); CREATININE 0.5 mg/dL (0.55-1.3); TOT PROT 6.8 g/dl (6.4-8.2)
[2018-09-10] MEDS: SODIUM CHLORIDE 1,000 ML IV SCH (10:00)
--- NOTE | 2018-09-10 10:14 | PN ---
Physical Exam: SUBJECTIVE: Patient seen and examined this morning and at baseline. No acute events overnight. OBJECTIVE: Vital Signs Period Temp Pulse Resp BP Sys/Jansen Pulse Ox Last 24 Hr 97.8 F-99.5 F 72-90 16-18 106-141/61-76 96 GENERAL: The patient is awake, alert, and in no acute distress. Pt is nonverbal. HEAD: Normal with no signs of trauma. EYES: PERRL, sclera anicteric, conjunctiva clear. No ptosis. ENT: Ears normal, nares patent, oropharynx clear without exudates, moist mucous membranes. NECK: Trachea midline, soft nontender mass on right, possible hematoma LUNGS: Coarse breath sounds diffusely. No wheezes, no crackles, no accessory muscle use. HEART: Regular rate and rhythm, S1, S2 without murmur, rub or gallop. ABDOMEN: Soft, nontender, nondistended, hypoactive bowel sounds, no guarding, no rebound, no hepatosplenomegaly, no masses. EXTREMITIES: 2+ pulses, warm, well-perfused, no edema. NEUROLOGICAL: Muscle tremors. Gait not observed. PSYCH: Calm. Unable to further assess due to mental status SKIN: Warm, dry, normal turgor, no rashes or lesions noted Laboratory Results - last 24 hr CBC, BMP 09/10/18 06:36 09/10/18 06:36 Active Medications Acetaminophen (Tylenol Oral Solution -) 650 mg PEG Q4H PRN PRN Reason: FEVER Baclofen (Lioresal -) 15 mg PEG TID [facility] Last Admin: 09/10/18 06:05 Dose: 15 mg Bisacodyl (Dulcolax Suppository -) 10 mg RC PRN PRN PRN Reason: CONSTIPATION Calcium Carbonate/Cholecalciferol (Os-Blue 500+D -) 1 tab PEG TID [facility] Last Admin: 09/10/18 06:05 Dose: 1 tab Carbamazepine (Tegretol Oral Suspension -) 600 mg PEG HS [facility] Last Admin: 09/09/18 22:11 Dose: 600 mg Carbamazepine (Tegretol Oral Suspension -) 400 mg PEG DAILY [facility] Last Admin: 09/10/18 11:39 Dose: 400 mg Chlorhexidine Gluconate (Hibiclens For Decolonization -) 1 applic TP [facility] Last Admin: 09/09/18 22:09 Dose: Not Given Diazepam (Valium -) 5 mg PEG TID [facility] Last Admin: 09/10/18 06:05 Dose: 5 mg Enoxaparin Sodium (Lovenox -) 40 mg SQ DAILY [facility] Last Admin: 09/10/18 11:08 Dose: 40 mg Piperacillin Sod/Tazobactam (Sod 3.375 gm/ Dextrose) 50 mls @ 100 mls/hr IVPB Q8H-IV [facility]; Protocol Last Admin: 09/10/18 11:37 Dose: 100 mls/hr Sodium Chloride (Normal Saline -) 1,000 mls @ 100 mls/hr IV ASDIR [facility] Last Admin: 09/10/18 10:00 Dose: 100 mls/hr [id number]-[id number] Ethyl Esters (Lovaza -) 1 gm PO DAILY [facility] Last Admin: 09/10/18 11:32 Dose: Not Given Pantoprazole Sodium (Protonix Iv) 40 mg IVPUSH DAILY [facility] Last Admin: 09/10/18 11:40 Dose: 40 mg Polyethylene Glycol (Miralax (For Bowel Prep) -) 17 gm PO DAILY [facility] Last Admin: 09/10/18 11:59 Dose: 17 gm Ranitidine HCl (Zantac Oral Solution -) 150 mg PEG HS [facility] Last Admin: 09/09/18 22:11 Dose: 150 mg Senna (Senna Oral Solution -) 17.6 mg PEG TID PRN PRN Reason: CONSTIPATION Simethicone (Mylicon Liquid -) 80 mg PEG QID PRN PRN Reason: gas Sodium Phosphate (Fleet Adult Rectal Enema -) 118 ml RC PRN PRN PRN Reason: CONSTIPATION Tizanidine HCl (Tizanidine Hcl) 4 mg NR BID [facility] Last Admin: 09/10/18 11:39 Dose: 4 mg ASSESSMENT/PLAN: Patient is a 47 y/o male with a history of cerebral palsy, diplegia, and seizures who is admitted for PNA and rhabdomyolysis. #PNA - Likely 2/2 to aspiration PNA, keep head of bed elevate above 45, aspiration precautions - Patient completing Zosyn course (day 7) - Afebrile, no evidence of leukocytosis - Monitor off O2, keep saturation > 90 #rhabdomyolysis - CPK down to 2180 (14,000-->5,000-->2,180) - Increase fluid to NS 100 ml/hr - UA 3+ blood - Repeat CPK tomorrow - Transaminitis 2/2 to rhabdo plateauing, continue to trend #? GI bleed, likely blood from orophyarynx - No evidence of bleeding since admission - Continue protonix 40 sq as per GI, ranitidine 150 hs - Continue to monitor H/H #Seizure hx - Continue home medications #DVT ppx - Lovenox 40 sq daily #FEN - Increase NS to 100 ML/HR - Vital tube feeds Dispo: monitor on med surg, once CPK resolved can go back to [place] Visit type - Emergency Visit Emergency Visit: No - New Patient This patient is new to me today: No - Critical Care Critical Care patient: No ATTENDING PHYSICIAN STATEMENT I saw and evaluated the patient. I reviewed the resident's note and discussed the case with the resident. I agree with the resident's findings and plan as documented. SUBJECTIVE: OBJECTIVE: ASSESSMENT AND PLAN:
--- NOTE | 2018-09-10 10:30 | PN ---
Progress Note (short form) - Note Progress Note: Resting in NAD on RA. No reported acute events overnight. Intake & Output 09/07/18 09/08/18 09/09/18 09/10/18 23:59 23:59 23:59 23:59 Intake Total 4400 1640 100 575 Output Total 0135 413 0484 500 Balance 3150 940 -1000 75 Weight 119 lb 4.8 oz 121 lb 121 lb 8 oz Last Vital Signs Temp Pulse Resp BP Pulse Ox 98.8 F 89 18 130/76 96 09/10/18 05:44 09/10/18 05:44 09/10/18 05:44 09/10/18 05:44 09/09/18 21:00 Active Medications Acetaminophen (Tylenol Oral Solution -) 650 mg PEG Q4H PRN PRN Reason: FEVER Baclofen (Lioresal -) 15 mg PEG TID [facility] Last Admin: 09/10/18 06:05 Dose: 15 mg Bisacodyl (Dulcolax Suppository -) 10 mg RC PRN PRN PRN Reason: CONSTIPATION Calcium Carbonate/Cholecalciferol (Os-Blue 500+D -) 1 tab PEG TID [facility] Last Admin: 09/10/18 06:05 Dose: 1 tab Carbamazepine (Tegretol Oral Suspension -) 600 mg PEG HS [facility] Last Admin: 09/09/18 22:11 Dose: 600 mg Carbamazepine (Tegretol Oral Suspension -) 400 mg PEG DAILY [facility] Last Admin: 09/09/18 11:17 Dose: 400 mg Chlorhexidine Gluconate (Hibiclens For Decolonization -) 1 applic TP HS [facility] Last Admin: 09/09/18 22:09 Dose: Not Given Diazepam (Valium -) 5 mg PEG TID [facility] Last Admin: 09/10/18 06:05 Dose: 5 mg Enoxaparin Sodium (Lovenox -) 40 mg SQ DAILY [facility] Last Admin: 09/09/18 11:15 Dose: 40 mg Piperacillin Sod/Tazobactam (Sod 3.375 gm/ Dextrose) 50 mls @ 100 mls/hr IVPB Q8H-IV [facility]; Protocol Last Admin: 09/10/18 03:18 Dose: 100 mls/hr Sodium Chloride (Normal Saline -) 1,000 mls @ 100 mls/hr IV ASDIR RASHAUN [id number] Ethyl Esters (Lovaza -) 1 gm PO DAILY [facility] Last Admin: 09/09/18 11:57 Dose: Not Given Pantoprazole Sodium (Protonix Iv) 40 mg IVPUSH DAILY [facility] Last Admin: 09/09/18 11:15 Dose: 40 mg Polyethylene Glycol (Miralax (For Bowel Prep) -) 17 gm PO DAILY [facility] Last Admin: 09/09/18 11:16 Dose: 17 gm Ranitidine HCl (Zantac Oral Solution -) 150 mg PEG HS [facility] Last Admin: 09/09/18 22:11 Dose: 150 mg Senna (Senna Oral Solution -) 17.6 mg PEG TID PRN PRN Reason: CONSTIPATION Simethicone (Mylicon Liquid -) 80 mg PEG QID PRN PRN Reason: gas Sodium Phosphate (Fleet Adult Rectal Enema -) 118 ml RC PRN PRN PRN Reason: CONSTIPATION Tizanidine HCl (Tizanidine Hcl) 4 mg NR BID [facility] Last Admin: 09/09/18 22:11 Dose: 4 mg GENERAL: NAD EYES: (-) Icterus NECK: No JVD LUNGS: Few scattered rhonchi HEART: S1S2, no murmurs appreciated ABDOMEN: Soft, nontender, BS present EXTREMITIES: 2+ pulses, no edema. NEUROLOGICAL: Awake, non-focal Laboratory Results - last 24 hr 09/09/18 09/10/18 09/10/18 05:48 06:36 06:36 WBC 6.9 RBC 3.84 L Hgb 12.7 Hct 37.3 MCV 97.1 H MCH 33.1 MCHC 34.1 RDW 12.4 Plt Count 208 MPV 9.2 Sodium 139 139 Potassium 3.8 4.0 Chloride 100 103 Carbon Dioxide 35 H 31 Anion Gap 4 L 5 L BUN 10.3 13.1 Creatinine 0.5 L 0.5 L Est GFR (CKD-EPI)AfAm 149.57 149.57 Est GFR (CKD-EPI)NonAf 129.05 129.05 Random Glucose 101 114 H Calcium 8.6 8.4 L Total Bilirubin 0.4 0.4 AST 419 H 392 H ALT 270 H 353 H Alkaline Phosphatase 83 91 Creatine Kinase 5076 H 2180 H Creatine Kinase Index 0.1 0.1 CK-MB (CK-2) 6.1 H 3.6 Total Protein 6.4 6.8 Albumin 2.9 L 3.0 L ASSESSMENT/PLAN: Acute Respiratory Failure LLL PNA: suspected aspiration Mental retardation Infantile cerebral palsy/diplegia Constipation Seizure disorder Rhabdomyolysis ABX per ID: consider change to oral therapy O2 PRN AEDs as ordered Aspiration precautions Dr Peralta
[2018-09-10] MEDS: ENOXAPARIN NA (PORCINE) 40 MG/0.4 ML DISP.SYRIN SQ SCH (11:08)
[2018-09-10] MEDS: OMEGA-3 ACID ETHYL ESTERS (FATTY-ACIDS) 1 GM CAPSULE (FP) PO SCH (11:32)
[2018-09-10] MEDS: TIZANIDINE HCL 4 MG TABLET NR SCH ×2 (11:39→21:10)
[2018-09-10] MEDS: carBAMazepine 200 MG/10 ML UNIT-DOSE CUP PEG SCH ×2 (11:39→21:11)
[2018-09-10] MEDS: PANTOPRAZOLE SODIUM 40 MG VIAL IVPUSH SCH (11:40)
[2018-09-10] MEDS: POLYETHYLENE GLYCOL 3350 255 GM BTL PO SCH (11:59)
--- NOTE | 2018-09-10 16:11 | PN ---
Progress Note, Physician History of Present Illness: AWAKE , NON VERBAL BREATHING NON LABORED LOW GRADE TEMP NOTED WBC WNL BC (-) SPUTUM C/S YEAST - Current Medication List Current Medications: Active Medications Acetaminophen (Tylenol Oral Solution -) 650 mg PEG Q4H PRN PRN Reason: FEVER Baclofen (Lioresal -) 15 mg PEG TID [facility] Last Admin: 09/10/18 14:37 Dose: 15 mg Bisacodyl (Dulcolax Suppository -) 10 mg RC PRN PRN PRN Reason: CONSTIPATION Calcium Carbonate/Cholecalciferol (Os-Blue 500+D -) 1 tab PEG TID [facility] Last Admin: 09/10/18 14:38 Dose: 1 tab Carbamazepine (Tegretol Oral Suspension -) 600 mg PEG HS [facility] Last Admin: 09/09/18 22:11 Dose: 600 mg Carbamazepine (Tegretol Oral Suspension -) 400 mg PEG DAILY [facility] Last Admin: 09/10/18 11:39 Dose: 400 mg Chlorhexidine Gluconate (Hibiclens For Decolonization -) 1 applic TP [facility] Last Admin: 09/09/18 22:09 Dose: Not Given Diazepam (Valium -) 5 mg PEG TID [facility] Last Admin: 09/10/18 14:36 Dose: 5 mg Enoxaparin Sodium (Lovenox -) 40 mg SQ DAILY [facility] Last Admin: 09/10/18 11:08 Dose: 40 mg Piperacillin Sod/Tazobactam (Sod 3.375 gm/ Dextrose) 50 mls @ 100 mls/hr IVPB Q8H-IV [facility]; Protocol Last Admin: 09/10/18 11:37 Dose: 100 mls/hr Sodium Chloride (Normal Saline -) 1,000 mls @ 100 mls/hr IV ASDIR [facility] Last Admin: 09/10/18 10:00 Dose: 100 mls/hr [id number] Ethyl Esters (Lovaza -) 1 gm PO DAILY [facility] Last Admin: 09/10/18 11:32 Dose: Not Given Pantoprazole Sodium (Protonix Iv) 40 mg IVPUSH DAILY [facility] Last Admin: 09/10/18 11:40 Dose: 40 mg Polyethylene Glycol (Miralax (For Bowel Prep) -) 17 gm PO DAILY [facility] Last Admin: 09/10/18 11:59 Dose: 17 gm Ranitidine HCl (Zantac Oral Solution -) 150 mg PEG HS [facility] Last Admin: 09/09/18 22:11 Dose: 150 mg Senna (Senna Oral Solution -) 17.6 mg PEG TID PRN PRN Reason: CONSTIPATION Simethicone (Mylicon Liquid -) 80 mg PEG QID PRN PRN Reason: gas Sodium Phosphate (Fleet Adult Rectal Enema -) 118 ml RC PRN PRN PRN Reason: CONSTIPATION Tizanidine HCl (Tizanidine Hcl) 4 mg NR BID [facility] Last Admin: 09/10/18 11:39 Dose: 4 mg - Objective Vital Signs: Vital Signs Temperature 98.8 F 09/10/18 13:52 Pulse Rate 96 H 09/10/18 13:52 Respiratory Rate 20 09/10/18 13:52 Blood Pressure 165/77 09/10/18 13:52 O2 Sat by Pulse Oximetry (%) 96 09/10/18 09:00 Constitutional: Yes: No Distress Eyes: Yes: Conjunctiva Clear Cardiovascular: Yes: Regular Rate and Rhythm Respiratory: Yes: CTA Bilaterally Gastrointestinal: Yes: Normal Bowel Sounds, Soft. No: Tenderness Edema: No Labs: CBC, BMP 09/10/18 06:36 09/10/18 06:36 INR, PTT INR 1.23 (0.83-1.09) H 09/04/18 03:15 Assessment/Plan S/P RESP FAILURE LLL PNEUMONIA SEIZURE DISORDER LEUKOCYTOSIS RESOLVED LACTIC ACIDOSIS RESOLVED ELEVATED TRANSAMINASES SUBSTITUTE PO AUGMENTIN 3D ASP PRECAUTIONS
[2018-09-10] MEDS: AMOX TR/POTASSIUM CLAVULANATE 600 MG/5 ML PEG SCH (17:49)
--- NOTE | 2018-09-10 18:25 | PN ---
Teaching Attending Note Name of Resident: Mei Castro ATTENDING PHYSICIAN STATEMENT I saw and evaluated the patient. I reviewed the resident's note and discussed the case with the resident. I agree with the resident's findings and plan as documented. SUBJECTIVE: patient is comfortable with no acute distress. OBJECTIVE: Vital Signs Temperature 98.8 F 09/10/18 13:52 Pulse Rate 96 H 09/10/18 13:52 Respiratory Rate 20 09/10/18 13:52 Blood Pressure 165/77 09/10/18 13:52 O2 Sat by Pulse Oximetry (%) 96 09/10/18 09:00 GENERAL: The patient is extubated, NAD. HEAD: Normal with no signs of trauma. ENT: no blood noted in the oropharynx EYES: PERRL, sclera anicteric, conjunctiva clear. NECK: Trachea midline, supple, soft mass on the right (possible hematoma) LUNGS: decreased BS at basis , no crackles, or wheezes. HEART: Regular rate and rhythm, S1, S2 without murmur, rub or gallop. ABDOMEN: Soft, ND,NT, hypoactive bowel sounds, no guarding, no rebound, no hepatosplenomegaly. EXTREMITIES: 2+ pulses, warm, well-perfused, no edema. NEUROLOGICAL: Unable to assess due to mental status. PSYCH: unable to access SKIN: Warm, dry, normal turgor CBCD WBC 6.9 K/mm3 (4.0-10.0) 09/10/18 06:36 RBC 3.84 M/mm3 (4.00-5.60) L 09/10/18 06:36 Hgb 12.7 GM/dL (11.7-16.9) 09/10/18 06:36 Hct 37.3 % (35.4-49) 09/10/18 06:36 MCV 97.1 fl (80-96) H 09/10/18 06:36 MCHC 34.1 g/dl (32.0-35.9) 09/10/18 06:36 RDW 12.4 % (11.9-15.9) 09/10/18 06:36 Plt Count 208 K/MM3 (134-434) 09/10/18 06:36 MPV 9.2 fl (7.5-11.1) 09/10/18 06:36 CMP Sodium 139 mmol/L (136-145) 09/10/18 06:36 Potassium 4.0 mmol/L (3.5-5.1) 09/10/18 06:36 Chloride 103 mmol/L (98-107) 09/10/18 06:36 Carbon Dioxide 31 mmol/L (21-32) 09/10/18 06:36 Anion Gap 5 MMOL/L (8-16) L 09/10/18 06:36 BUN 13.1 mg/dL (7-18) 09/10/18 06:36 Creatinine 0.5 mg/dL (0.55-1.3) L 09/10/18 06:36 Random Glucose 114 mg/dL (74-106) H 09/10/18 06:36 Calcium 8.4 mg/dL (8.5-10.1) L 09/10/18 06:36 Total Bilirubin 0.4 mg/dL (0.2-1) 09/10/18 06:36 AST 392 U/L (15-37) H 09/10/18 06:36 ALT 353 U/L (13-61) H 09/10/18 06:36 Alkaline Phosphatase 91 U/L (45-117) 09/10/18 06:36 Total Protein 6.8 g/dl (6.4-8.2) 09/10/18 06:36 Albumin 3.0 g/dl (3.4-5.0) L 09/10/18 06:36 CARDIAC ENZYMES Creatine Kinase 2180 U/L (26-308) H 09/10/18 06:36 Troponin I 0.74 ng/ml (0.00-0.05) H* 09/05/18 01:00 Current Medications Generic Name Dose Route Start Last Admin Trade Name Freq PRN Reason Stop Dose Admin Acetaminophen 650 mg 09/07/18 20:30 Tylenol Oral Solution - PEG Q4H PRN FEVER Amoxicillin/Clavulanate Potassium 600 mg 09/10/18 17:30 09/10/18 17:49 Augmentin 600 Mg/5 Ml Oral Suspension - PEG 600 mg BID@0800,1730 RASHAUN Administration Baclofen 15 mg 09/07/18 22:00 09/10/18 14:37 Lioresal - PEG 15 mg TID RASHAUN Administration Bisacodyl 10 mg 09/07/18 20:30 Dulcolax Suppository - RC PRN PRN CONSTIPATION Calcium Carbonate/Cholecalciferol 1 tab 09/07/18 22:00 09/10/18 14:38 Os-Blue 500+D - PEG 1 tab TID RASHAUN Administration Carbamazepine 600 mg 09/06/18 22:00 09/09/18 22:11 Tegretol Oral Suspension - PEG 600 mg HS RASHAUN Administration Carbamazepine 400 mg 09/07/18 10:00 09/10/18 11:39 Tegretol Oral Suspension - PEG 400 mg DAILY RASHAUN Administration Chlorhexidine Gluconate 1 applic 09/07/18 22:00 09/09/18 22:09 Hibiclens For Decolonization - TP Not Given HS RASHAUN Diazepam 5 mg 09/07/18 22:00 09/10/18 14:36 Valium - PEG 5 mg TID RASHAUN Administration Enoxaparin Sodium 40 mg 09/08/18 10:00 09/10/18 11:08 Lovenox - SQ 40 mg DAILY RASHAUN Administration Sodium Chloride 1,000 mls @ 100 mls/hr 09/10/18 09:53 09/10/18 10:00 Normal Saline - IV 100 mls/hr ASDIR RASHAUN Administration Upiti-6-Ctbp Ethyl Esters 1 gm 09/08/18 10:00 09/10/18 11:32 Lovaza - PO Not Given DAILY RASHAUN Pantoprazole Sodium 40 mg 09/08/18 10:00 09/10/18 11:40 Protonix Iv IVPUSH 40 mg DAILY RASHAUN Administration Polyethylene Glycol 17 gm 09/08/18 10:00 09/10/18 11:59 Miralax (For Bowel Prep) - PO 17 gm DAILY RASHAUN Administration Ranitidine HCl 150 mg 09/07/18 22:00 09/09/18 22:11 Zantac Oral Solution - PEG 150 mg HS RASHAUN Administration Senna 17.6 mg 09/07/18 20:30 Senna Oral Solution - PEG TID PRN CONSTIPATION Simethicone 80 mg 09/07/18 20:30 Mylicon Liquid - PEG QID PRN gas Sodium Phosphate 118 ml 09/07/18 20:30 Fleet Adult Rectal Enema - RC PRN PRN CONSTIPATION Tizanidine HCl 4 mg 09/07/18 22:00 09/10/18 11:39 Tizanidine Hcl NR 4 mg BID RASHAUN Administration Home Medications Medication Instructions Recorded Acetaminophen Oral Solution 650 mg PO Q4H PRN 05/11/12 [Tylenol 160mg/5mL Oral Solution -] Baclofen 15 mg PO TID 05/11/12 Bisacodyl Suppository [Dulcolax 10 mg RC PRN PRN 05/11/12 Suppository -] Calcium Carbonate/Vitamin D3 1 each PO TID 05/11/12 [Oyster Shell 500-Vit D3 200 Tb] Carbamazepine [Carbatrol] 400 mg PO AM 05/11/12 Carbamazepine [Carbatrol] 600 mg PO HS 05/11/12 Diazepam *Pediatric Rectal* 10 mg RC PRN PRN 05/11/12 [Diastat *Pediatric Rectal Gel* -] Diazepam [Valium] 5 mg PO TID 05/11/12 Na Phos,M-B/Na Phos,Di-Ba [Fleet 118 ml RC PRN PRN 05/11/12 Enema] Polyethylene Glycol 3350 [Miralax 17 gm PO DAILY 05/11/12 255 gm Btl -] Ranitidine HCl [Zantac] 150 mg PO HS 05/11/12 Simethicone Liquid [Mylicon Liquid 80 mg PO QID PRN 05/11/12 -] Talc/Cellulos/Chloroxy/Aldioxa 312 gm TP DAILY 05/11/12 [Zeasorb Powder] Tizanidine HCl [Zanaflex] 4 mg PO BID 05/11/12 Miconazole Nitrate [Desenex] 45 gm TP BID 02/19/18 Selenium Sulfide/Aloe Vera [Selsun 207 ml TP HS 02/19/18 Blue Moist 1% Shampoo] Lactose-Reduced Food/Fiber [Jevity 1,000 ml PEG ASDIR 09/04/18 1.5 Blue Liquid] [place]-3/Dha/Epa/Fish Oil [Fish Oil 1,000 mg PEG ASDIR 09/04/18 1,600 mg/5 ml Liquid] Sennosides [Senna] 10 ml PEG ASDIR 09/04/18 ASSESSMENT AND PLAN: Patient is a 47yo male with PMhx of MR, cerebral palsy, diplegia and seizures, who presented with fever. He was found to have severe sepsis due to LLL PNA. # Acute respirTORY failure s/p extubation , no new events overnight. # s/p sepsis due to LL PNA due to aspiration ,s/p Zosyn . now on Augmentin orally . #Colon dilation: monitor , might be chronic. no previous CT to compare to. bowel regimen . serial abd exam. # Elevated trop: due to demand ischemia. EKG with inferior Q waves, but no other signs of ischemia. # Mental retardation #Hx of cerebral palsy/diplegia #Seizure disorder continue meds. # Rhabdomyolysis :continue IVF, Now around 2K DVT PX: SCDS for now. possible discharge in am
[2018-09-10] MEDS: CHLORHEXIDINE GLUCONATE 4% CLEANSER FOR DECOLONIZATION TP SCH (21:09)
[2018-09-10] MEDS: RANITIDINE HCL 150 MG/10 ML UNIT-DOSE PEG SCH (21:09)
[2018-09-11] MEDS: CALCIUM 500MG/VIT-D 200 UNITS COMBO TABLET (FP) PEG SCH (06:00)
[2018-09-11] MEDS: diazePAM 5 MG TABLET PEG SCH (06:00)
[2018-09-11] MEDS: BACLOFEN 10 MG TABLET (FP) PEG SCH (06:00)
--- NOTE | 2018-09-11 07:50 | PN ---
Physical Exam: SUBJECTIVE: Patient seen and examined this morning. No acute events overnight, pt at baseline. OBJECTIVE: Vital Signs Period Temp Pulse Resp BP Sys/Jansen Pulse Ox Last 24 Hr 97.9 F-98.8 F 85-100 20-20 108-165/67-90 95-96 GENERAL: The patient is awake, alert, and in no acute distress. Pt is nonverbal. HEAD: Normal with no signs of trauma. EYES: PERRL, sclera anicteric, conjunctiva clear. No ptosis. ENT: Ears normal, nares patent, oropharynx clear without exudates, moist mucous membranes. NECK: Trachea midline, soft nontender mass on right, possible hematoma LUNGS: Coarse breath sounds diffusely. No wheezes, no crackles, no accessory muscle use. HEART: Regular rate and rhythm, S1, S2 without murmur, rub or gallop. ABDOMEN: Soft, nontender, nondistended, hypoactive bowel sounds, no guarding, no rebound, no hepatosplenomegaly, no masses. EXTREMITIES: 2+ pulses, warm, well-perfused, no edema. NEUROLOGICAL: Muscle tremors. Gait not observed. PSYCH: Calm. Unable to further assess due to mental status SKIN: Warm, dry, normal turgor, no rashes or lesions noted Laboratory Results - last 24 hr CBC, BMP 09/11/18 08:08 09/11/18 08:08 Active Medications Acetaminophen (Tylenol Oral Solution -) 650 mg PEG Q4H PRN PRN Reason: FEVER Amoxicillin/Clavulanate Potassium (Augmentin 600 Mg/5 Ml Oral Suspension -) 600 mg PEG BID@0800,1730 [facility] Last Admin: 09/10/18 17:49 Dose: 600 mg Baclofen (Lioresal -) 15 mg PEG TID [facility] Last Admin: 09/11/18 06:00 Dose: 15 mg Bisacodyl (Dulcolax Suppository -) 10 mg RC PRN PRN PRN Reason: CONSTIPATION Calcium Carbonate/Cholecalciferol (Os-Blue 500+D -) 1 tab PEG TID [facility] Last Admin: 09/11/18 06:00 Dose: 1 tab Carbamazepine (Tegretol Oral Suspension -) 600 mg PEG HS [facility] Last Admin: 09/10/18 21:11 Dose: 600 mg Carbamazepine (Tegretol Oral Suspension -) 400 mg PEG DAILY [facility] Last Admin: 09/10/18 11:39 Dose: 400 mg Chlorhexidine Gluconate (Hibiclens For Decolonization -) 1 applic TP HS [facility] Last Admin: 09/10/18 21:09 Dose: Not Given Diazepam (Valium -) 5 mg PEG TID [facility] Last Admin: 09/11/18 06:00 Dose: 5 mg Enoxaparin Sodium (Lovenox -) 40 mg SQ DAILY [facility] Last Admin: 09/10/18 11:08 Dose: 40 mg Sodium Chloride (Normal Saline -) 1,000 mls @ 100 mls/hr IV ASDIR [facility] Last Admin: 09/10/18 10:00 Dose: 100 mls/hr Gblvw-2-Sieq Ethyl Esters (Lovaza -) 1 gm PO DAILY [facility] Last Admin: 09/10/18 11:32 Dose: Not Given Pantoprazole Sodium (Protonix Iv) 40 mg IVPUSH DAILY [facility] Last Admin: 09/10/18 11:40 Dose: 40 mg Polyethylene Glycol (Miralax (For Bowel Prep) -) 17 gm PO DAILY [facility] Last Admin: 09/10/18 11:59 Dose: 17 gm Ranitidine HCl (Zantac Oral Solution -) 150 mg PEG [facility] Last Admin: 09/10/18 21:09 Dose: 150 mg Senna (Senna Oral Solution -) 17.6 mg PEG TID PRN PRN Reason: CONSTIPATION Simethicone (Mylicon Liquid -) 80 mg PEG QID PRN PRN Reason: gas Sodium Phosphate (Fleet Adult Rectal Enema -) 118 ml RC PRN PRN PRN Reason: CONSTIPATION Tizanidine HCl (Tizanidine Hcl) 4 mg NR BID [facility] Last Admin: 09/10/18 21:10 Dose: 4 mg ASSESSMENT/PLAN: Patient is a 47 y/o male with a history of cerebral palsy, diplegia, and seizures who is admitted for PNA and rhabdomyolysis. #Aspiration PNA - Pt completed 7 day course of IV Zosyn, per ID change to 3 day po augmentin - Keep head of bed elevate above 45, aspiration precautions - Afebrile, no evidence of leukocytosis - Monitor off O2, keep saturation > 90 #Rhabdomyolysis - CPK down to 966 (14,000-->5,000-->2,180-->966) - Increase fluid to NS 100 ml/hr - UA 3+ blood - Transaminitis 2/2 to rhabdo plateauing, continue to trend #? GI bleed, likely blood from orophyarynx - No evidence of bleeding since admission - Continue protonix 40 sq as per GI, ranitidine 150 hs - Continue to monitor H/H #Seizure hx - Continue home medications #DVT ppx - Lovenox 40 sq daily #FEN - Increase NS to 100 ML/HR - Vital tube feeds, increase free water to 50ml/hr Dispo: monitor on med surg, CPK resolving, pt can go back to Chloride Visit type - Emergency Visit Emergency Visit: No - New Patient This patient is new to me today: No - Critical Care Critical Care patient: No ATTENDING PHYSICIAN STATEMENT I saw and evaluated the patient. I reviewed the resident's note and discussed the case with the resident. I agree with the resident's findings and plan as documented. SUBJECTIVE: OBJECTIVE: ASSESSMENT AND PLAN:
[2018-09-11 08:17] LABS: HEMATOCRIT 34.1 % (35.4-49); HEMOGLOBIN 11.4 GM/dL (11.7-16.9); MCH 32.7 pg (25.7-33.7); MCHC 33.5 g/dl (32.0-35.9); MEAN CELL VOLUME 97.4 fl (80-96); MEAN PLT VOLUME 8.1 fl (7.5-11.1); PLATELET COUNT 222 K/MM3 (134-434); RDW 12.6 % (11.9-15.9)
[2018-09-11 08:49] LABS: ALBUMIN 2.9 g/dl (3.4-5.0); BILIRUBIN,TOTAL 0.3 mg/dL (0.2-1); BLOOD UREA NITROGEN 11.3 mg/dL (7-18); CALCIUM 8.3 mg/dL (8.5-10.1); CREATININE 0.4 mg/dL (0.55-1.3); POTASSIUM 4.1 mmol/L (3.5-5.1); TOT PROT 6.4 g/dl (6.4-8.2)
[2018-09-11] MEDS: AMOX TR/POTASSIUM CLAVULANATE 600 MG/5 ML PEG SCH (09:59)
[2018-09-11] MEDS: SODIUM CHLORIDE 1,000 ML IV SCH (09:59)
--- NOTE | 2018-09-11 09:59 | PN ---
Teaching Attending Note Name of Resident: Mei Castro ATTENDING PHYSICIAN STATEMENT I saw and evaluated the patient. I reviewed the resident's note and discussed the case with the resident. I agree with the resident's findings and plan as documented. SUBJECTIVE: Patient is lying in bed with no acute distress. OBJECTIVE: Vital Signs Temperature 98.4 F 09/11/18 06:00 Pulse Rate 85 09/11/18 06:00 Respiratory Rate 20 09/11/18 06:00 Blood Pressure 108/69 09/11/18 06:00 O2 Sat by Pulse Oximetry (%) 95 09/10/18 21:00 GENERAL: The patient is extubated, NAD. HEAD: Normal with no signs of trauma. ENT: no blood noted in the oropharynx EYES: PERRL, sclera anicteric, conjunctiva clear. NECK: Trachea midline, supple, soft mass on the right (possible hematoma) LUNGS: decreased BS at basis , no crackles, or wheezes. HEART: Regular rate and rhythm, S1, S2 without murmur, rub or gallop. ABDOMEN: Soft, ND,NT, hypoactive bowel sounds, no guarding, no rebound, no hepatosplenomegaly. EXTREMITIES: 2+ pulses, warm, well-perfused, no edema. NEUROLOGICAL: Unable to assess due to mental status. PSYCH: unable to access SKIN: Warm, dry, normal turgor CBCD WBC 5.0 K/mm3 (4.0-10.0) 09/11/18 08:08 RBC 3.50 M/mm3 (4.00-5.60) L 09/11/18 08:08 Hgb 11.4 GM/dL (11.7-16.9) L 09/11/18 08:08 Hct 34.1 % (35.4-49) L 09/11/18 08:08 MCV 97.4 fl (80-96) H 09/11/18 08:08 MCHC 33.5 g/dl (32.0-35.9) 09/11/18 08:08 RDW 12.6 % (11.9-15.9) 09/11/18 08:08 Plt Count 222 K/MM3 (134-434) 09/11/18 08:08 MPV 8.1 fl (7.5-11.1) D 09/11/18 08:08 CMP Sodium 142 mmol/L (136-145) 09/11/18 08:08 Potassium 4.1 mmol/L (3.5-5.1) 09/11/18 08:08 Chloride 110 mmol/L (98-107) H 09/11/18 08:08 Carbon Dioxide 27 mmol/L (21-32) 09/11/18 08:08 Anion Gap 5 MMOL/L (8-16) L 09/11/18 08:08 BUN 11.3 mg/dL (7-18) 09/11/18 08:08 Creatinine 0.4 mg/dL (0.55-1.3) L 09/11/18 08:08 Random Glucose 90 mg/dL (74-106) 09/11/18 08:08 Calcium 8.3 mg/dL (8.5-10.1) L 09/11/18 08:08 Total Bilirubin 0.3 mg/dL (0.2-1) 09/11/18 08:08 AST 249 U/L (15-37) H 09/11/18 08:08 ALT 300 U/L (13-61) H 09/11/18 08:08 Alkaline Phosphatase 82 U/L (45-117) 09/11/18 08:08 Total Protein 6.4 g/dl (6.4-8.2) 09/11/18 08:08 Albumin 2.9 g/dl (3.4-5.0) L 09/11/18 08:08 CARDIAC ENZYMES Creatine Kinase 966 U/L (26-308) H 09/11/18 08:08 Troponin I 0.74 ng/ml (0.00-0.05) H* 09/05/18 01:00 Current Medications Generic Name Dose Route Start Last Admin Trade Name Freq PRN Reason Stop Dose Admin Acetaminophen 650 mg 09/07/18 20:30 Tylenol Oral Solution - PEG Q4H PRN FEVER Amoxicillin/Clavulanate Potassium 600 mg 09/10/18 17:30 09/10/18 17:49 Augmentin 600 Mg/5 Ml Oral Suspension - PEG 600 mg BID@0800,1730 [facility] Administration Baclofen 15 mg 09/07/18 22:00 09/11/18 06:00 Lioresal - PEG 15 mg TID RASHAUN Administration Bisacodyl 10 mg 09/07/18 20:30 Dulcolax Suppository - RC PRN PRN CONSTIPATION Calcium Carbonate/Cholecalciferol 1 tab 09/07/18 22:00 09/11/18 06:00 Os-Blue 500+D - PEG 1 tab TID RASHAUN Administration Carbamazepine 600 mg 09/06/18 22:00 09/10/18 21:11 Tegretol Oral Suspension - PEG 600 mg HS RASHAUN Administration Carbamazepine 400 mg 09/07/18 10:00 09/10/18 11:39 Tegretol Oral Suspension - PEG 400 mg DAILY RASHAUN Administration Chlorhexidine Gluconate 1 applic 09/07/18 22:00 09/10/18 21:09 Hibiclens For Decolonization - TP Not Given HS RASHAUN Diazepam 5 mg 09/07/18 22:00 09/11/18 06:00 Valium - PEG 5 mg TID RASHAUN Administration Enoxaparin Sodium 40 mg 09/08/18 10:00 09/10/18 11:08 Lovenox - SQ 40 mg DAILY RASHAUN Administration Sodium Chloride 1,000 mls @ 100 mls/hr 09/10/18 09:53 09/10/18 10:00 Normal Saline - IV 100 mls/hr ASDIR RASHAUN Administration Llozc-7-Neun Ethyl Esters 1 gm 09/08/18 10:00 09/10/18 11:32 Lovaza - PO Not Given DAILY RASHAUN Pantoprazole Sodium 40 mg 09/08/18 10:00 09/10/18 11:40 Protonix Iv IVPUSH 40 mg DAILY RASHAUN Administration Polyethylene Glycol 17 gm 09/08/18 10:00 09/10/18 11:59 Miralax (For Bowel Prep) - PO 17 gm DAILY RASHAUN Administration Ranitidine HCl 150 mg 09/07/18 22:00 09/10/18 21:09 Zantac Oral Solution - PEG 150 mg HS RASHAUN Administration Senna 17.6 mg 09/07/18 20:30 Senna Oral Solution - PEG TID PRN CONSTIPATION Simethicone 80 mg 09/07/18 20:30 Mylicon Liquid - PEG QID PRN gas Sodium Phosphate 118 ml 09/07/18 20:30 Fleet Adult Rectal Enema - RC PRN PRN CONSTIPATION Tizanidine HCl 4 mg 09/07/18 22:00 09/10/18 21:10 Tizanidine Hcl NR 4 mg BID RASHAUN Administration Home Medications Medication Instructions Recorded Acetaminophen Oral Solution 650 mg PO Q4H PRN 05/11/12 [Tylenol 160mg/5mL Oral Solution -] Baclofen 15 mg PO TID 05/11/12 Bisacodyl Suppository [Dulcolax 10 mg RC PRN PRN 05/11/12 Suppository -] Calcium Carbonate/Vitamin D3 1 each PO TID 05/11/12 [Oyster Shell 500-Vit D3 200 Tb] Carbamazepine [Carbatrol] 400 mg PO AM 05/11/12 Carbamazepine [Carbatrol] 600 mg PO HS 05/11/12 Diazepam *Pediatric Rectal* 10 mg RC PRN PRN 05/11/12 [Diastat *Pediatric Rectal Gel* -] Diazepam [Valium] 5 mg PO TID 05/11/12 Na Phos,M-B/Na Phos,Di-Ba [Fleet 118 ml RC PRN PRN 05/11/12 Enema] Polyethylene Glycol 3350 [Miralax 17 gm PO DAILY 05/11/12 255 gm Btl -] Ranitidine HCl [Zantac] 150 mg PO HS 05/11/12 Simethicone Liquid [Mylicon Liquid 80 mg PO QID PRN 05/11/12 -] Tizanidine HCl [Zanaflex] 4 mg PO BID 05/11/12 Selenium Sulfide/Aloe Vera [Selsun 207 ml TP HS 02/19/18 Blue Moist 1% Shampoo] Lactose-Reduced Food/Fiber [Jevity 1,000 ml PEG ASDIR 09/04/18 1.5 Blue Liquid] [place]-3/Dha/Epa/Fish Oil [Fish Oil 1,000 mg PEG ASDIR 09/04/18 1,600 mg/5 ml Liquid] Sennosides [Senna] 10 ml PEG ASDIR 09/04/18 Laboratory Tests 09/05/18 09/05/18 09/06/18 01:00 05:15 05:41 AST 230 H ALT 65 H Creatine Kinase > 64097 H > 40604 H 09/07/18 09/09/18 09/10/18 07:40 05:48 06:36 AST 527 H 419 H 392 H ALT 168 H 270 H 353 H Creatine Kinase 5076 H 2180 H 09/11/18 08:08 AST 249 H ALT 300 H Creatine Kinase 966 H ASSESSMENT AND PLAN: Patient is a 47yo male with PMhx of MR, cerebral palsy, diplegia and seizures, who presented with fever. He was found to have severe sepsis due to LLL PNA. # Rhabdomyolysis :will continue with Free water , will increase to 50cc/hr , Now around 2K-->966 today ,luci continue with free water and repeat the level in 2 days. # Acute transaminitis: improving, repeat the level in2 days. # Acute respirTORY failure s/p extubation , no new events overnight. # s/p sepsis due to LL PNA due to aspiration ,s/p Zosyn . now on Augmentin orallyx 2 more days . #Colon dilation: monitor , might be chronic. no previous CT to compare # Elevated trop: due to demand ischemia. EKG with inferior Q waves, but no other signs of ischemia. # Mental retardation #Hx of cerebral palsy/diplegia #Seizure disorder continue meds. DC klein catheter today discharge patient to [facility] [place].
[2018-09-11] MEDS: PANTOPRAZOLE SODIUM 40 MG VIAL IVPUSH SCH (10:00)
[2018-09-11] MEDS: ENOXAPARIN NA (PORCINE) 40 MG/0.4 ML DISP.SYRIN SQ SCH (10:00)
[2018-09-11] MEDS: OMEGA-3 ACID ETHYL ESTERS (FATTY-ACIDS) 1 GM CAPSULE (FP) PO SCH (10:00)
[2018-09-11] MEDS: carBAMazepine 200 MG/10 ML UNIT-DOSE CUP PEG SCH (10:04)
[2018-09-11] MEDS: TIZANIDINE HCL 4 MG TABLET NR SCH (10:04)
--- NOTE | 2018-09-11 10:15 | PN ---
Progress Note (short form) - Note Progress Note: Resting in NAD on RA. No reported acute events overnight. Intake & Output 09/08/18 09/09/18 09/10/18 09/11/18 23:59 23:59 23:59 23:59 Intake Total 4075 187 8739 Output Total 700 1100 2050 250 Balance 940 -1000 -915 -250 Weight 121 lb 121 lb 8 oz 122 lb 3.2 oz Last Vital Signs Temp Pulse Resp BP Pulse Ox 98.4 F 85 20 108/69 95 09/11/18 06:00 09/11/18 06:00 09/11/18 06:00 09/11/18 06:00 09/10/18 21:00 Active Medications Acetaminophen (Tylenol Oral Solution -) 650 mg PEG Q4H PRN PRN Reason: FEVER Amoxicillin/Clavulanate Potassium (Augmentin 600 Mg/5 Ml Oral Suspension -) 600 mg PEG BID@0800,1730 [facility] Last Admin: 09/11/18 09:59 Dose: 600 mg Baclofen (Lioresal -) 15 mg PEG TID [facility] Last Admin: 09/11/18 06:00 Dose: 15 mg Bisacodyl (Dulcolax Suppository -) 10 mg RC PRN PRN PRN Reason: CONSTIPATION Calcium Carbonate/Cholecalciferol (Os-Blue 500+D -) 1 tab PEG TID [facility] Last Admin: 09/11/18 06:00 Dose: 1 tab Carbamazepine (Tegretol Oral Suspension -) 600 mg PEG HS [facility] Last Admin: 09/10/18 21:11 Dose: 600 mg Carbamazepine (Tegretol Oral Suspension -) 400 mg PEG DAILY [facility] Last Admin: 09/11/18 10:04 Dose: 400 mg Chlorhexidine Gluconate (Hibiclens For Decolonization -) 1 applic TP HS [facility] Last Admin: 09/10/18 21:09 Dose: Not Given Diazepam (Valium -) 5 mg PEG TID [facility] Last Admin: 09/11/18 06:00 Dose: 5 mg Enoxaparin Sodium (Lovenox -) 40 mg SQ DAILY [facility] Last Admin: 09/11/18 10:00 Dose: 40 mg Sodium Chloride (Normal Saline -) 1,000 mls @ 100 mls/hr IV ASDIR [facility] Last Admin: 09/11/18 09:59 Dose: Not Given Cjohm-0-Gprq Ethyl Esters (Lovaza -) 1 gm PO DAILY [facility] Last Admin: 09/11/18 10:00 Dose: 1 gm Pantoprazole Sodium (Protonix Iv) 40 mg IVPUSH DAILY [facility] Last Admin: 09/11/18 10:00 Dose: 40 mg Polyethylene Glycol (Miralax (For Bowel Prep) -) 17 gm PO DAILY [facility] Last Admin: 09/10/18 11:59 Dose: 17 gm Ranitidine HCl (Zantac Oral Solution -) 150 mg PEG HS [facility] Last Admin: 09/10/18 21:09 Dose: 150 mg Senna (Senna Oral Solution -) 17.6 mg PEG TID PRN PRN Reason: CONSTIPATION Simethicone (Mylicon Liquid -) 80 mg PEG QID PRN PRN Reason: gas Sodium Phosphate (Fleet Adult Rectal Enema -) 118 ml RC PRN PRN PRN Reason: CONSTIPATION Tizanidine HCl (Tizanidine Hcl) 4 mg NR BID [facility] Last Admin: 09/11/18 10:04 Dose: 4 mg GENERAL: NAD EYES: (-) Icterus NECK: No JVD LUNGS: Few scattered rhonchi HEART: S1S2, no murmurs appreciated ABDOMEN: Soft, nontender, BS present EXTREMITIES: 2+ pulses, no edema. NEUROLOGICAL: Awake, non-focal Laboratory Results - last 24 hr 09/11/18 09/11/18 08:08 08:08 WBC 5.0 RBC 3.50 L Hgb 11.4 L Hct 34.1 L MCV 97.4 H MCH 32.7 MCHC 33.5 RDW 12.6 Plt Count 222 MPV 8.1 D Sodium 142 Potassium 4.1 Chloride 110 H Carbon Dioxide 27 Anion Gap 5 L BUN 11.3 Creatinine 0.4 L Est GFR (CKD-EPI)AfAm 163.93 Est GFR (CKD-EPI)NonAf 141.44 Random Glucose 90 Calcium 8.3 L Total Bilirubin 0.3 AST 249 H ALT 300 H Alkaline Phosphatase 82 Creatine Kinase 966 H Creatine Kinase Index 0.3 CK-MB (CK-2) 3.0 Total Protein 6.4 Albumin 2.9 L ASSESSMENT/PLAN: Acute Respiratory Failure LLL PNA: suspected aspiration Mental retardation Infantile cerebral palsy/diplegia Constipation Seizure disorder Rhabdomyolysis ABX per ID: Augmentin O2 PRN AEDs as ordered Aspiration precautions D/C planning Dr Peralta
[2018-09-11] MEDS: POLYETHYLENE GLYCOL 3350 255 GM BTL PO SCH (10:19)
--- NOTE | 2018-09-11 11:12 | DS ---
Physical Exam: SUBJECTIVE: Patient seen and examined this morning. No acute events overnight, pt at baseline. OBJECTIVE: Vital Signs Period Temp Pulse Resp BP Sys/Jansen Pulse Ox Last 24 Hr 97.9 F-98.8 F 85-96 20-20 108-165/67-77 95 PHYSICAL EXAM GENERAL: The patient is awake, alert, and in no acute distress. Pt is nonverbal. HEAD: Normal with no signs of trauma. EYES: PERRL, sclera anicteric, conjunctiva clear. No ptosis. ENT: Ears normal, nares patent, oropharynx clear without exudates, moist mucous membranes. NECK: Trachea midline, soft nontender mass on right, possible hematoma LUNGS: Coarse breath sounds diffusely. No wheezes, no crackles, no accessory muscle use. HEART: Regular rate and rhythm, S1, S2 without murmur, rub or gallop. ABDOMEN: Soft, nontender, nondistended, hypoactive bowel sounds, no guarding, no rebound, no hepatosplenomegaly, no masses. EXTREMITIES: 2+ pulses, warm, well-perfused, no edema. NEUROLOGICAL: Muscle tremors. Gait not observed. PSYCH: Calm. Unable to further assess due to mental status SKIN: Warm, dry, normal turgor, no rashes or lesions noted LABS Laboratory Results - last 24 hr 09/11/18 09/11/18 08:08 08:08 WBC 5.0 RBC 3.50 L Hgb 11.4 L Hct 34.1 L MCV 97.4 H MCH 32.7 MCHC 33.5 RDW 12.6 Plt Count 222 MPV 8.1 D Sodium 142 Potassium 4.1 Chloride 110 H Carbon Dioxide 27 Anion Gap 5 L BUN 11.3 Creatinine 0.4 L Est GFR (CKD-EPI)AfAm 163.93 Est GFR (CKD-EPI)NonAf 141.44 Random Glucose 90 Calcium 8.3 L Total Bilirubin 0.3 AST 249 H ALT 300 H Alkaline Phosphatase 82 Creatine Kinase 966 H Creatine Kinase Index 0.3 CK-MB (CK-2) 3.0 Total Protein 6.4 Albumin 2.9 L HOSPITAL COURSE: Date of Admission:09/04/18 The patient is a 48 y/o male who was admitted to the hospital for aspiration pneumonia. He was initially admitted to the ICU and intubated. Pt was successfully extubated after 48 hours. He was treated empirically with Zosyn and completed a 7 day course. During admission, pt was also diagnosed with rhabdomyolysis (CK >14,000). He was treated with IVF and his CK levels are resolving. Pt had troponinemia likely due to ischemic demand. Troponin levels trended and plateaued. Pt also had transaminitis 2/2 to rhabdomyolysis, levels trended and plateaued. Pt had extensive gaseous distension. Per GI, recommended rectal tubes 1-2x/week. Pt received rectal tubes, releasing multiple well- formed stools and his abd distension improved. Pt has been afebrile with normal WBC for >5 days. Vitals are all stable, pt has clinically improved to baseline and he is clinically stable to be discharged back to [place]. CT abd: gaseous distension, suggestive of colitis CT head: no signs of intracranial disease CT chest: LLL consolidation EKG: inferior Q waves, no other signs of ischemia CXR: LLL infintrate and atelectasis Abd CXR: scoliosis, abd distension, pelvic phlebolith Blood cx: neg Urine cx: neg Urine legionella antigen: neg Sputum cx: gram neg bacilli, gram pos cocci in clusters; yeast like organism ( per ID, determined to be a contamination) Date of Discharge: 09/11/18 Minutes to complete discharge: 45 Discharge Summary Reason For Visit: ASPIRATION PNEUMONIA, AGITATION, AMS Current Active Problems Agitation (Chronic) Altered mental status (Chronic) Condition: Improved - Instructions Diet, Activity, Other Instructions: You were admitted to the hospital and found to have a pneumonia. While you were here we treated you with antibiotics and the pneumonia resolved. You were also found to have a high levels of muscle breakdown ( rhabdomyolysis ) and we gave you fluids to treat this. Your muscle breakdown has been resolving. PLEASE repeat the level of CPK in 2 days and CMP in 2 days. You should complete your antibiotic medications at home as follows: - Augmentin 600mg twice a day for 3 days. You should increase the free water in your tube feeding to 50ml/hr Please resume all your home medications as ordered. Please follow up with Dr. Rawls. Return to the hospital if you have fever, chills, nausea, vomiting, chest pain, or shortness of breath. Referrals: Jose Eduardo Rawls Jr [Non Staff, Medical] - Disposition: HALF-WAY FACILITY - Home Medications Comprehensive Discharge Medication List: Ambulatory Orders Baclofen 15 mg PO TID 03/08/13 Bisacodyl Suppository [Dulcolax Suppository -] 10 mg RC PRN PRN 05/11/12 Calcium Carbonate/Vitamin D3 [Oyster Shell 500-Vit D3 200 Tb] 1 each PO TID 10/16 Carbamazepine [Carbatrol] 400 mg PO AM 05/11/12 Carbamazepine [Carbatrol] 600 mg PO HS 05/11/12 Diazepam *Pediatric Rectal* [Diastat *Pediatric Rectal Gel* -] 10 mg RC PRN PRN 05/11/12 Diazepam [Valium] 5 mg PO TID 05/11/12 Polyethylene Glycol 3350 [Miralax 255 gm Btl -] 17 gm PO DAILY 05/11/12 Ranitidine HCl [Zantac] 150 mg PO HS 05/11/12 Simethicone Liquid [Mylicon Liquid -] 80 mg PO QID PRN 05/11/12 Tizanidine HCl [Zanaflex] 4 mg PO BID 05/11/12 Selenium Sulfide/Aloe Vera [Selsun Blue Moist 1% Shampoo] 207 ml TP HS 02/19/18 Lactose-Reduced Food/Fiber [Jevity 1.5 Blue Liquid] 1,000 ml PEG ASDIR 09/04/18 [place]-3/Dha/Epa/Fish Oil [Fish Oil 1,600 mg/5 ml Liquid] 1,000 mg PEG ASDIR 04/24 Amoxicillin/Potassium Clav [Augmentin ES Suspension] 600 mg PO BID 3 Days #1 bottle 09/11/18 This patient is new to me today: No Emergency Visit: No Critical Care patient: No - Discharge Referral Referred to [facility] No ATTENDING PHYSICIAN STATEMENT I saw and evaluated the patient. I reviewed the resident's note and discussed the case with the resident. I agree with the resident's findings and plan as documented. SUBJECTIVE: OBJECTIVE: ASSESSMENT AND PLAN:
[2018-09-11 11:42] VITALS: BP 100/60; PULSE 77; TEMP 98
== END 2018-09-11 12:29 | disposition home or self-care (01) | DRG 871 ==
LOC: JER 02:16 → JERBED 03:52 → JICU 05:03 → J7W 09-07 21:01
PROVIDERS: ADMIT Internal Medicine; ATTEND Internal Medicine
PROC: 5A1945Z Respiratory Ventilation, 24-96 Consecutive Hours (ICD-10-PCS; principal; 2018-09-04)
PROC: 0BH17EZ Insertion of Endotracheal Airway into Trachea, Via Natural or Artificial Opening (ICD-10-PCS; 2018-09-04)
DX: A41.9 Sepsis, unspecified organism (principal); J69.0 Pneumonitis due to inhalation of food and vomit; J96.00 Acute respiratory failure, unspecified whether with hypoxia or hypercapnia; M62.82 Rhabdomyolysis; E87.2 Acidosis; R41.82 Altered mental status, unspecified; F79 Unspecified intellectual disabilities; K59.00 Constipation, unspecified; G40.909 Epilepsy, unspecified, not intractable, without status epilepticus; R74.0 Nonspecific elevation of levels of transaminase and lactic acid dehydrogenase [LDH]; G80.9 Cerebral palsy, unspecified; D72.829 Elevated white blood cell count, unspecified
CPT/HCPCS: 31500; 36415; 36600; 70450-TC; 71045-TC-FY; 71250-TC; 74018-TC-FY; 74176-TC; 80048; 80053; 81003; 82272; 82550; 82553; 82803; 83605; 83735; 83874; 83986; 84100; 84484; 85025; 85027; 85610; 85730; 86850; 86900; 86901; 87040; 87070; 87077; 87086; 87205; 87899; 93005; 93010; 93306-TC; 94002; 99285-25; J0131; J0475; J7030

== ENCOUNTER 2018-09-13 09:51 | Emergency (ER) | payer OTHER ==
[2018-09-13 10:04] VITALS: PULSE 62; TEMP 98.2; BMI 23.0
--- NOTE | 2018-09-13 10:26 | PDOC ---
History of Present Illness - General Chief Complaint: Revisit, Lab Variance Stated Complaint: SENT BY PCP Time Seen by Provider: 09/13/18 10:18 - History of Present Illness Initial Comments: 09/13/18 11:30 48yo M h/o epilepsy, spastic diplegic cerebral palsy, and intellectual disability on tube and mouth feeding sent from [place] to check CMP and CK as instructed when d/c from here 2 days ago. No new complaints. Pt is not verbal but aide denies any changes from baseline, fever, vomiting, D/C, SOB, or indications of pain. Pt was admitted on 09/04/18 for aspiration PNA and AMS, intubated for 2 days, dx w/rhabdomyolysis with CK>14k, troponinemia likely 2/2 ischemic demand, transaminitis 2/2 rhabdo, and gaseous distension. Pt given IVF and labs plateaued/improved. Pt d/c on 09/11 on Augmentin x3 days and tube feeding H2O 50ml/hr. 09/11 AST 249, ALT 300, CK 966. Past History - Past Medical History Allergies/Adverse Reactions: Allergies Allergy/AdvReac Type Severity Reaction Status Date / Time No Known Allergies Allergy Verified 09/13/18 10:04 Home Medications: Ambulatory Orders Baclofen 15 mg PO TID 05/11/12 Bisacodyl Suppository [Dulcolax Suppository -] 10 mg RC PRN PRN 05/11/12 Calcium Carbonate/Vitamin D3 [Oyster Shell 500-Vit D3 200 Tb] 1 each PO TID 10/16 Carbamazepine [Carbatrol] 400 mg PO AM 05/11/12 Carbamazepine [Carbatrol] 600 mg PO HS 05/11/12 Diazepam *Pediatric Rectal* [Diastat *Pediatric Rectal Gel* -] 10 mg RC PRN PRN 05/11/12 Diazepam [Valium] 5 mg PO TID 05/11/12 Polyethylene Glycol 3350 [Miralax 255 gm Btl -] 17 gm PO DAILY 05/11/12 Ranitidine HCl [Zantac] 150 mg PO HS 05/11/12 Simethicone Liquid [Mylicon Liquid -] 80 mg PO QID PRN 05/11/12 Tizanidine HCl [Zanaflex] 4 mg PO BID 05/11/12 Selenium Sulfide/Aloe Vera [Selsun Blue Moist 1% Shampoo] 207 ml TP HS 02/19/18 Lactose-Reduced Food/Fiber [Jevity 1.5 Blue Liquid] 1,000 ml PEG ASDIR 09/04/18 [place]-3/Dha/Epa/Fish Oil [Fish Oil 1,600 mg/5 ml Liquid] 1,000 mg PEG ASDIR 04/24 Amoxicillin/Potassium Clav [Augmentin ES Suspension] 600 mg PO BID 3 Days #1 bottle 09/11/18 COPD: No GI Disorders: Yes (GERD/GT/ESOPHAGITIS) Psychiatric Problems: Yes (MR) Seizures: Yes (EPILEPSY) Other medical history: non-verbal, non-ambulatory - Surgical History Abdominal Surgery: Yes (GT) - Immunization History Immunization Up to Date: Yes - Suicide/Smoking/Psychosocial Hx Smoking Status: No Smoking History: Never smoked Have you smoked in the past 12 months: No Number of Cigarettes Smoked Daily: 0 Information on smoking cessation initiated: No Hx Alcohol Use: No Drug/Substance Use Hx: No Substance Use Type: None Review of Systems - Review of Systems Able to Perform ROS?: No (Baseline unable to speak.) *Physical Exam - Vital Signs Last Vital Signs Temp Pulse Resp BP Pulse Ox 98.2 F 62 19 0/0 L 95 09/13/18 10:02 09/13/18 10:02 09/13/18 10:02 09/13/18 10:02 09/13/18 10:02 - Physical Exam Comments: 09/13/18 11:44 Gen: Alert, grunting but comfortable (baseline per aide) HEENT: PERRL, MMM, NCAT. No conjunctival pallor. Sclera are non-icteric. CV: Regular rate and rhythm. No murmurs, rubs, or gallops. PULM: No resp distress. CTAB, no wheezes, rales, or rhonchi. ABD: soft, NT/ND MSK: No bony deformities. 2+ pulses in all extremities. NEURO: Unable to speak, only grunting (baseline per aide). PERRL. Strength and sensation grossly intact throughout. EXTREMITIES: No cyanosis. No clubbing. No edema. PSYCH: Unable to communicate (baseline). SKIN: Warm and dry. Normal capillary refill. No rashes. No jaundice. ED Treatment Course - LABORATORY CBC & Chemistry Diagram: 09/13/18 11:10 09/13/18 11:10 Medical Decision Making - Medical Decision Making 09/13/18 11:35 48yo M h/o epilepsy, spastic diplegic cerebral palsy, and intellectual disability on tube and mouth feeding sent from [place] to check CMP and CK as instructed when d/c from here 2 days ago with aspiration pneumonia and rhabdomyolysis. No new complaints, hemodynamically stable. D/c 09/11 AST 249, ALT 300, CK 966. - CBC, CMP, cardiac panel - Call [facility] - Dispo: pending workup 09/13/18 11:51 Called and spoke with nurse Gray at [facility] [place], . Confirmed that there are no new complaints or changes and pt was just sent for follow-up labs as instructed. 09/13/18 12:12 Labs returned and improved since 09/13 09/11 AST 249, ALT 300, CK 966 Now AST 90, ALT 207, CK 433 Pt has no complaints. D/c back to [facility] [place] *DC/Admit/Observation/Transfer Diagnosis at time of Disposition: Alteration in lab values - Discharge Dispostion Disposition: LONG-TERM FACILITY Condition at time of disposition: Good Decision to Admit order: No - Referrals - Patient Instructions Additional Instructions: You have been seen in the ED for a lab check after your discharge on 09/11/18. Your labs have improved since discharge. AST 90, ALT 207, CK 433, Trop <0.02. Follow-up with your primary care doctor within 1 week. Return to the ED immediately if you experience chest pain, difficulty breathing, dizziness, seizures, or any other new or worsening symptom. - Post Discharge Activity
[2018-09-13 11:19] LABS: BASO % 0.6 % (0-2.0); EOS % 2.5 % (0-4.5); HEMATOCRIT 35.7 % (35.4-49); HEMOGLOBIN 12.2 GM/dL (11.7-16.9); LYMPH % 33.6 % (8-40); MCH 32.9 pg (25.7-33.7); MCHC 34.2 g/dl (32.0-35.9); MEAN CELL VOLUME 96.4 fl (80-96); MEAN PLT VOLUME 7.9 fl (7.5-11.1); NEUT % 53.3 % (42.8-82.8); RDW 12.9 % (11.9-15.9); WHITE BLOOD COUNT 6.8 K/mm3 (4.0-10.0)
[2018-09-13 11:28] LABS: PLATELET COUNT 322 K/MM3 (134-434)
[2018-09-13 11:59] LABS: ALBUMIN 3.3 g/dl (3.4-5.0); ALK PHOS 90 U/L (45-117); ANION GAP 7 MMOL/L (8-16); BILIRUBIN,TOTAL 0.2 mg/dL (0.2-1); BLOOD UREA NITROGEN 10.9 mg/dL (7-18); CALCIUM 8.6 mg/dL (8.5-10.1); CHLORIDE 104 mmol/L (98-107); CO2 28 mmol/L (21-32); CREATININE 0.4 mg/dL (0.55-1.3); GLUCOSE,RANDOM 64 mg/dL (74-106); POTASSIUM 4.6 mmol/L (3.5-5.1); SGOT/AST 90 U/L (15-37); SGPT/ALT 207 U/L (13-61); SODIUM 139 mmol/L (136-145)
[2018-09-13 12:06] VITALS: BP 98/73
--- NOTE | 2018-09-13 12:08 | PDOC ---
Documentation entered by Cody Felder SCRIBE, acting as scribe for Mary Price MD. Mary Price MD: This documentation has been prepared by the Emerita obrien Elijah, SCRIBE, under my direction and personally reviewed by me in its entirety. I confirm that the documentation accurately reflects all work, treatment, procedures, and medical decision making performed by me. Attending Attestation - Resident Resident Name: Jeanne Adhikari - ED Attending Attestation I have performed the following: I have examined & evaluated the patient, The case was reviewed & discussed with the resident, I agree w/resident's findings & plan - HPI HPI: 09/13/18 12:04 agree with resident HPI - Physicial Exam PE: 09/13/18 12:04 agree with resident exam - pt is well appearing, non verbal, non toxic - Medical Decision Making 09/13/18 12:05 48yo M presents to the ED from [facility] for rpt labs. Pt had recent admission for rhabdo with trop leak and LFT bump, improved, was discharged 2 days ago. He was sent to the ED today for repeat labs to ensure levels were trending down CPK, LFTs indeed are trending down Trop negative today Per aide at bedside and per staff at [facility], pt has been well at his baseline and was sent only for labs as they do not check labs at [facility]. Pt is clinically stable for OK home I discussed the physical exam findings, ancillary test results and final diagnoses with the patient. I answered all of the patient's questions. The patient was satisfied with the care received and felt comfortable with the discharge plan and treatment plan. The patient will call their primary care physician within 24 hours to arrange follow-up and will return to the Emergency Department with any new, persistent or worsening symptoms.
== END 2018-09-13 12:45 ==
LOC: JER 09:51
DX: R94.5 Abnormal results of liver function studies (principal); F79 Unspecified intellectual disabilities; G80.0 Spastic quadriplegic cerebral palsy; G40.909 Epilepsy, unspecified, not intractable, without status epilepticus; K21.0 Gastro-esophageal reflux disease with esophagitis; Z93.1 Gastrostomy status; Z74.01 Bed confinement status
CPT/HCPCS: 36415; 80053; 82550; 82553; 84484; 85025; 99281-25

== ENCOUNTER 2018-09-15 23:00 | Emergency (ER) | payer OTHER ==
[2018-09-15 23:30] VITALS: BMI 31.1
--- NOTE | 2018-09-16 01:05 | PDOC ---
History of Present Illness - General Chief Complaint: Nausea/Vomiting Stated Complaint: ASPERATION/GTUBE DISCOLORTATION Time Seen by Provider: 09/16/18 01:04 - History of Present Illness Initial Comments: 48yo M h/o epilepsy, spastic diplegic cerebral palsy, and intellectual disability on tube and mouth feeding sent from [place] for evaluation of vomiting brown which was also seen in the G tube. Patient unable to follow commands or contribute history. Aide at the bedside is not knowledgeable on patient's medical history or current status. Past History - Past Medical History Allergies/Adverse Reactions: Allergies Allergy/AdvReac Type Severity Reaction Status Date / Time No Known Allergies Allergy Verified 09/13/18 10:04 Home Medications: Ambulatory Orders Baclofen 15 mg PO TID 05/11/12 Bisacodyl Suppository [Dulcolax Suppository -] 10 mg RC PRN PRN 05/11/12 Calcium Carbonate/Vitamin D3 [Oyster Shell 500-Vit D3 200 Tb] 1 each PO TID 10/16 Carbamazepine [Carbatrol] 400 mg PO AM 05/11/12 Carbamazepine [Carbatrol] 600 mg PO HS 05/11/12 Diazepam *Pediatric Rectal* [Diastat *Pediatric Rectal Gel* -] 10 mg RC PRN PRN 05/11/12 Diazepam [Valium] 5 mg PO TID 05/11/12 Polyethylene Glycol 3350 [Miralax 255 gm Btl -] 17 gm PO DAILY 05/11/12 Ranitidine HCl [Zantac] 150 mg PO HS 05/11/12 Simethicone Liquid [Mylicon Liquid -] 80 mg PO QID PRN 05/11/12 Tizanidine HCl [Zanaflex] 4 mg PO BID 05/11/12 Selenium Sulfide/Aloe Vera [Selsun Blue Moist 1% Shampoo] 207 ml TP HS 02/19/18 Lactose-Reduced Food/Fiber [Jevity 1.5 Blue Liquid] 1,000 ml PEG ASDIR 09/04/18 [place]-3/Dha/Epa/Fish Oil [Fish Oil 1,600 mg/5 ml Liquid] 1,000 mg PEG ASDIR 04/24 Amoxicillin/Potassium Clav [Augmentin ES Suspension] 600 mg PO BID 3 Days #1 bottle 09/11/18 Amox-Tr/K Cl [Augmentin 250 mg/5 ml Oral Suspension -] 10 ml PO TID #300 ml Polyethylene Glycol 3350 [Miralax (For Daily Use) -] 17 gm PO DAILY 7 Days #1 bottle 09/16/18 COPD: No GI Disorders: Yes (GERD/GT/ESOPHAGITIS) Psychiatric Problems: Yes (MR) Seizures: Yes (EPILEPSY) - Surgical History Abdominal Surgery: Yes (GT) - Immunization History Immunization Up to Date: Yes - Suicide/Smoking/Psychosocial Hx Smoking Status: No Smoking History: Never smoked Have you smoked in the past 12 months: No Number of Cigarettes Smoked Daily: 0 Hx Alcohol Use: No Drug/Substance Use Hx: No Substance Use Type: None Review of Systems - Review of Systems Able to Perform ROS?: No (MR) *Physical Exam - Vital Signs Last Vital Signs Temp Pulse Resp BP Pulse Ox 0 F L 88 20 98/59 L 96 09/15/18 23:27 09/15/18 23:27 09/15/18 23:27 09/15/18 23:27 09/15/18 23:27 - Physical Exam Comments: General: Awake, alert, in no acute distress Head: No signs of trauma Eyes: EOMI, sclera anicteric ENT: Moist mucus membranes Neck: Normal ROM, supple Lungs: Lungs clear, Normal breath sounds Cardio: Regular rhythm, S1 and S2 present Abdomen: Distended and tympanic diffusely. G tube in place. No grimacing noted upon palpation. No guarding, no rebound, no masses Extremities: Contracted, Distal pulses present SKIN: Warm, Dry, normal turgor Neurologic: Unable to communicate or follow commands ED Treatment Course - LABORATORY CBC & Chemistry Diagram: 09/16/18 02:18 09/16/18 02:18 Medical Decision Making - Medical Decision Making 48yo M h/o epilepsy, spastic diplegic cerebral palsy, and intellectual disability on tube and mouth feeding sent from [place] for evaluation of vomiting brown which was also seen in the G tube. Patient unable to follow commands or contribute history. Aide at the bedside is not knowledgeable on patient's medical history or current status. T=100.1, other vitals WNL. Though patient is not clinically febrile, due to recent admission for aspiration pneumonia, will initiate septic workup CTAP for distended abdomen 09/16/18 01:05 Call to [facility]: went unanswered 09/16/18 01:21 CBC WBC 15.1 K/mm3 (4.0-10.0) H 09/16/18 02:18 RBC 3.71 M/mm3 (4.00-5.60) L 09/16/18 02:18 Hgb 12.4 GM/dL (11.7-16.9) 09/16/18 02:18 Hct 36.2 % (35.4-49) 09/16/18 02:18 MCV 97.7 fl (80-96) H 09/16/18 02:18 MCH 33.4 pg (25.7-33.7) 09/16/18 02:18 MCHC 34.2 g/dl (32.0-35.9) 09/16/18 02:18 RDW 13.3 % (11.9-15.9) 09/16/18 02:18 Plt Count 402 K/MM3 (134-434) D 09/16/18 02:18 MPV 8.0 fl (7.5-11.1) 09/16/18 02:18 Absolute Neuts (auto) 12.4 K/mm3 (1.5-8.0) H 09/16/18 02:18 Neutrophils % 82.5 % (42.8-82.8) D 09/16/18 02:18 Lymphocytes % 13.6 % (8-40) D 09/16/18 02:18 Monocytes % 3.1 % (3.8-10.2) L 09/16/18 02:18 Eosinophils % 0.5 % (0-4.5) 09/16/18 02:18 Basophils % 0.3 % (0-2.0) 09/16/18 02:18 Nucleated RBC % 0 % (0-0) 09/16/18 02:18 Leukocytosis No anemia CMP Sodium 140 mmol/L (136-145) 09/16/18 02:18 Potassium 4.2 mmol/L (3.5-5.1) 09/16/18 02:18 Chloride 102 mmol/L (98-107) 09/16/18 02:18 Carbon Dioxide 30 mmol/L (21-32) 09/16/18 02:18 Anion Gap 8 MMOL/L (8-16) 09/16/18 02:18 BUN 11.8 mg/dL (7-18) 09/16/18 02:18 Creatinine 0.6 mg/dL (0.55-1.3) 09/16/18 02:18 Est GFR (CKD-EPI)AfAm 138.77 09/16/18 02:18 Est GFR (CKD-EPI)NonAf 119.73 09/16/18 02:18 Random Glucose 93 mg/dL (74-106) 09/16/18 02:18 Lactic Acid 1.2 mmol/L (0.4-2.0) 09/16/18 01:35 Calcium 8.6 mg/dL (8.5-10.1) 09/16/18 02:18 Total Bilirubin 0.4 mg/dL (0.2-1) 09/16/18 02:18 AST 46 U/L (15-37) H 09/16/18 02:18 ALT 123 U/L (13-61) H 09/16/18 02:18 Alkaline Phosphatase 105 U/L (45-117) 09/16/18 02:18 Troponin I < 0.02 ng/ml (0.00-0.05) 09/16/18 02:18 Total Protein 7.6 g/dl (6.4-8.2) 09/16/18 02:18 Albumin 3.6 g/dl (3.4-5.0) 09/16/18 02:18 Electrolytes unremarkable Normal Lactate Liver enzymes at baseline Tpn undetectable CT: "Percutaneous gastrostomy tube in satisfactory position. Moderate to large feces colon. Redundant air-filled sigmoid colon extending into right upper quadrant. Top normal diameter small bowel left upper quadrant, suspect transient dilatation more likely than partial/early small bowel obstruction. No colitis, free fluid or free air. Normal appendix. Unremarkable pancreas, kidneys and gallbladder. Minimal splenomegaly. Small bilateral inguinal region hernias containing fat. Dextroscoliosis. Improved aeration left lower lobe compared to 09/04/18. Exam limited by motion artifact. One or more of the following dose reduction techniques were used: automated exposure control, adjustment of the mA and/or kV according to patient size, use of iterative reconstructive technique 09/16/18 05:54 Distended abdomen likely due to constipation at there is moderate to large feces seen on CT. Patient without any vomiting here. Unknown why he had the episode of vomiting at [place]. G tube is in appropriate position. Augmentin given for coverage given elevated WBC Plan for discharge Outpatient augmentin and miralax sent to pharmacy 09/16/18 06:12 Ezra Bustamante at [facility] He will arrange transport for the patient back to [facility] 09/16/18 06:17 *DC/Admit/Observation/Transfer Diagnosis at time of Disposition: Constipation Qualifiers: Constipation type: unspecified constipation type Qualified Code(s): K59.00 - Constipation, unspecified - Discharge Dispostion Disposition: HOME Condition at time of disposition: Improved - Prescriptions Prescriptions: Amox-Tr/K Cl [Augmentin 250 mg/5 ml Oral Suspension -] 10 ml PO TID #300 ml Polyethylene Glycol 3350 [Miralax (For Daily Use) -] 17 gm PO DAILY 7 Days #1 bottle - Referrals - Patient Instructions Printed Discharge Instructions: DI for Vomiting -- Adult Additional Instructions: You were sent to the ED for evaluation of vomiting. CT scan did show constipation, but no other acute pathology. While you were here we treated you with antibiotics. Prescription for antibiotics and miralax sent to your pharmacy. Follow-up with your primary care physician in the next 2-3 days to discuss this ED visit and to further evaluate your symptoms. Call and make an appointment. Your workup is not complete until you do so. RETURN if: pain persists or gets worse, your child has high fevers, persistent nausea, vomiting, or any new or concerning symptoms. - Post Discharge Activity
[2018-09-16] MEDS ORDERED: SODIUM CHLORIDE 2,000 ML IV STA (01:36)
[2018-09-16] MEDS ORDERED: ACETAMINOPHEN 1000 MG/100 ML VIAL (NON FORMULARY) IVPB ONE (01:39)
[2018-09-16] MEDS ORDERED: ACETAMINOPHEN INJECTION 100 ML IVPB ONE (01:46)
[2018-09-16 02:27] LABS: VENOUS PC02 51.1 mmHg (41-51); VENOUS PH 7.37 (7.31-7.41); VENOUS PO2 35.2 mmHg (30-40)
[2018-09-16 02:36] LABS: BASO % 0.3 % (0-2.0); EOS % 0.5 % (0-4.5); HEMATOCRIT 36.2 % (35.4-49); HEMOGLOBIN 12.4 GM/dL (11.7-16.9); LYMPH % 13.6 % (8-40); MCH 33.4 pg (25.7-33.7); MCHC 34.2 g/dl (32.0-35.9); MEAN CELL VOLUME 97.7 fl (80-96); MONO % 3.1 % (3.8-10.2); NEUT % 82.5 % (42.8-82.8); PLATELET COUNT 402 K/MM3 (134-434); RBC 3.71 M/mm3 (4.00-5.60); RDW 13.3 % (11.9-15.9); WHITE BLOOD COUNT 15.1 K/mm3 (4.0-10.0)
[2018-09-16 02:47] LABS: INR 1.12 (0.83-1.09); PROTHROMBIN TIME (PATIENT) 13.2 SEC (9.7-13.0)
[2018-09-16 02:50] LABS: ACTIVATED PTT 35.9 SECONDS (25.2-36.5)
--- NOTE | 2018-09-16 02:55 | PDOC ---
Attending Attestation - Resident Resident Name: Jeanne Cortez - ED Attending Attestation I have performed the following: I have examined & evaluated the patient, The case was reviewed & discussed with the resident, I agree w/resident's findings & plan - HPI HPI: 09/16/18 05:13 Pt was sent to the ER for brownish vomitus and brownish stuff from PEG tube. Pt is non-verbal and has developmental disorder. - Physicial Exam PE: 09/16/18 05:14 Agree with resident exam. Pt is afebrile. Pt has distended abdomen. He has no rashes and no focal site of infection. Pt has clear lung mcdonough.. Pt has no extremity swelling. Pt has non tender abdomen. - Medical Decision Making 09/16/18 05:16 Pt had labs which demonstrate elevated WBC count. Pt has abd distension. Pt has fever which is rising now. His pulsox is 97% on RA. We are awaiting CT scan result to make sure that pt has no colitis or obstruction. 09/16/18 05:23 Patient Name: TIAGO TAYLOR THIS IS A PRELIMINARY REPORT FROM [facility] DATE OF SERVICE: 2018-09-16 03:49:05 IMAGES: [id number] EXAM: CT ABDOMEN AND PELVIS WITH CONTRAST Percutaneous gastrostomy tube in satisfactory position. Moderate to large feces colon. Redundant air-filled sigmoid colon extending into right upper quadrant. Top normal diameter small bowel left upper quadrant, suspect transient dilatation more likely than partial/early small bowel obstruction. No colitis, free fluid or free air. Normal appendix. Unremarkable pancreas, kidneys and gallbladder. Minimal splenomegaly. Small bilateral inguinal region hernias containing fat. Dextroscoliosis. Improved aeration left lower lobe compared to 09/04/18. Exam limited by motion artifact 09/16/18 05:57 Pt will return to his assist[facility] facility
[2018-09-16 03:02] LABS: ALBUMIN 3.6 g/dl (3.4-5.0); BILIRUBIN,TOTAL 0.4 mg/dL (0.2-1); BLOOD UREA NITROGEN 11.8 mg/dL (7-18); CALCIUM 8.6 mg/dL (8.5-10.1); CREATININE 0.6 mg/dL (0.55-1.3); POTASSIUM 4.2 mmol/L (3.5-5.1); TOT PROT 7.6 g/dl (6.4-8.2)
[2018-09-16] MEDS ORDERED: POLYETHYLENE GLYCOL 3350 119 GM BTL PO ONE (03:25)
[2018-09-16 05:25] VITALS: TEMP 99.2
[2018-09-16 06:19] VITALS: BP 116/80; PULSE 93
--- NOTE | 2018-09-16 11:54 | EKG ---
Test Reason : Blood Pressure : / mmHG Vent. Rate : 109 BPM Atrial Rate : 102 BPM P-R Int : 128 ms QRS Dur : 060 ms QT Int : 356 ms P-R-T Axes : 058 021 049 degrees QTc Int : 479 ms POOR DATA QUALITY, INTERPRETATION MAY BE ADVERSELY AFFECTED NORMAL SINUS RHYTHM Confirmed by CATIE MORELAND, ROCCO ([id number]) on 09/16/2018 11:53:40 AM Referred By: Confirmed By:ROCCO HADDAD MD
== END 2018-09-16 06:47 | disposition home or self-care (01) ==
LOC: JER 23:00
DX: K59.00 Constipation, unspecified (principal); G40.909 Epilepsy, unspecified, not intractable, without status epilepticus; G80.1 Spastic diplegic cerebral palsy; F78 Other intellectual disabilities; Z93.1 Gastrostomy status
CPT/HCPCS: 36415; 71045-TC-FY; 74177-TC; 80053; 82803; 83605; 84484; 85025; 85610; 85730; 87040; 93005; 93010; 99283-25; J0131; J7030

== ENCOUNTER 2018-10-17 20:32 | Emergency (ER) | payer OTHER ==
--- NOTE | 2018-10-17 20:44 | PDOC ---
Rapid Medical Evaluation Time Seen by Provider: 10/17/18 20:42 Medical Evaluation: Allergies Allergy/AdvReac Type Severity Reaction Status Date / Time No Known Allergies Allergy Verified 09/13/18 10:04 10/17/18 20:43 HPI: Change in behavior from facility, pt became uncooperative PE: Pt in wheel chair grunting (grunting is normal as per care provider with pt) ORDERS: Nothing Discharge Disposition - Diagnosis Agitation - Referrals - Patient Instructions - Post Discharge Activity
[2018-10-17 21:13] VITALS: BP 00/00; PULSE 89; TEMP 98.9; BMI 22.2
--- NOTE | 2018-10-18 02:06 | PDOC ---
Attending Attestation - Resident Resident Name: Kerwin Bell - ED Attending Attestation I have performed the following: I have examined & evaluated the patient, The case was reviewed & discussed with the resident, I agree w/resident's findings & plan - HPI HPI: 10/18/18 02:26 48-year-old male sent in for an episode of agitation now resolved. [facility] and has a history of spastic quadriplegia. Is no associated trauma by history. - Physicial Exam PE: 10/18/18 02:27 agree with resident exam - Medical Decision Making 10/18/18 02:28 48-year-old male with an episode of agitation now resolved Patient is afebrile, they will be discharged back to his facility Call placed to the facility by the emergency department resident to confirm history
--- NOTE | 2018-10-18 02:20 | PDOC ---
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 halfway reports that he became upset at his home, grabbing at sheets and acting out. At baseline he is spastic. Patient now at baseline. Concern from longterm was patient had an infection for cause of agitation. Past History - Past Medical History Allergies/Adverse Reactions: Allergies Allergy/AdvReac Type Severity Reaction Status Date / Time No Known Allergies Allergy Verified 10/17/18 20:56 Home Medications: Ambulatory Orders Baclofen 15 mg PO TID 05/11/12 Bisacodyl Suppository [Dulcolax Suppository -] 10 mg RC PRN PRN 05/11/12 Calcium Carbonate/Vitamin D3 [Oyster Shell 500-Vit D3 200 Tb] 1 each PO TID 10/16 Carbamazepine [Carbatrol] 400 mg PO AM 05/11/12 Carbamazepine [Carbatrol] 600 mg PO HS 05/11/12 Diazepam *Pediatric Rectal* [Diastat *Pediatric Rectal Gel* -] 10 mg RC PRN PRN 05/11/12 Diazepam [Valium] 5 mg PO TID 05/11/12 Polyethylene Glycol 3350 [Miralax 255 gm Btl -] 17 gm PO DAILY 05/11/12 Ranitidine HCl [Zantac] 150 mg PO HS 05/11/12 Simethicone Liquid [Mylicon Liquid -] 80 mg PO QID PRN 05/11/12 Tizanidine HCl [Zanaflex] 4 mg PO BID 05/11/12 Selenium Sulfide/Aloe Vera [Selsun Blue Moist 1% Shampoo] 207 ml TP HS 02/19/18 Lactose-Reduced Food/Fiber [Jevity 1.5 Blue Liquid] 1,000 ml PEG ASDIR 09/04/18 [place]-3/Dha/Epa/Fish Oil [Fish Oil 1,600 mg/5 ml Liquid] 1,000 mg PEG ASDIR 04/24 Amoxicillin/Potassium Clav [Augmentin ES Suspension] 600 mg PO BID 3 Days #1 bottle 09/11/18 Amox-Tr/K Cl [Augmentin 250 mg/5 ml Oral Suspension -] 10 ml PO TID #300 ml Polyethylene Glycol 3350 [Miralax (For Daily Use) -] 17 gm PO DAILY 7 Days #1 bottle 09/16/18 COPD: No GI Disorders: Yes (GERD/GT/ESOPHAGITIS) Psychiatric Problems: Yes (MR) Seizures: Yes (EPILEPSY) - Surgical History Abdominal Surgery: Yes (GT) - Immunization History Immunization Up to Date: Yes - Suicide/Smoking/Psychosocial Hx Smoking Status: No Smoking History: Never smoked Have you smoked in the past 12 months: No Number of Cigarettes Smoked Daily: 0 Information on smoking cessation initiated: No Hx Alcohol Use: No Drug/Substance Use Hx: No Substance Use Type: None Review of Systems - Review of Systems Able to Perform ROS?: No (2/2 clinical condition) *Physical Exam - Vital Signs Last Vital Signs Temp Pulse Resp BP Pulse Ox 98.9 F 89 17 00/00 L 100 10/17/18 20:49 10/17/18 20:49 10/17/18 20:49 10/17/18 20:49 10/17/18 20:49 - Physical Exam Comments: 10/18/18 02:20 GENERAL: Awake, alert, in no acute distress HEAD: No signs of trauma, normocephalic, atraumatic EYES: PERRLA, EOMI, sclera anicteric, conjunctiva clear ENT: Auricles normal inspection, hearing grossly normal, nares patent, oropharynx clear without exudates. Moist mucosa NECK: Normal ROM, supple, no lymphadenopathy, JVD, or masses LUNGS: No distress, clear to auscultation bilaterally HEART: Regular rate and rhythm, normal S1 and S2, no murmurs, rubs or gallops, peripheral pulses normal and equal bilaterally. ABDOMEN: Soft, nontender, normoactive bowel sounds. No guarding, no rebound. No masses EXTREMITIES: Normal inspection, Normal range of motion, no edema. No clubbing or cyanosis. NEUROLOGICAL: Cranial nerves II through XII grossly intact. Several spasms, no hyperreflexia, does not respond to commands. Moving all extremities. SKIN: Warm, Dry, normal turgor, no rashes or lesions noted. Medical Decision Making - Medical Decision Making 10/18/18 02:24 Patient is 48M with history of spastic paralysis, CP, seizures here today with agitation. Vitals normal and stable. Patient observed for several hours, no signs of infection. At baseline. Do not believe further workup is necessary at this time. Vitals repeated, normal. Will discharge home. *DC/Admit/Observation/Transfer Diagnosis at time of Disposition: Agitation - Discharge Dispostion Disposition: HOME Condition at time of disposition: Good Decision to Admit order: No - Referrals - Patient Instructions Additional Instructions: Johann was seen in the ED today for agitation. It was resolved and does not seem to be caused by an infection. Please return to the ED if he has any new, worsening or concerning symptoms, especially fever, signs of pain and vomiting. - Post Discharge Activity
== END 2018-10-18 02:51 ==
LOC: JER 20:32 → JERFT 20:32 → JER 10-18 02:51
DX: R45.1 Restlessness and agitation (principal); F73 Profound intellectual disabilities; G40.909 Epilepsy, unspecified, not intractable, without status epilepticus; K21.9 Gastro-esophageal reflux disease without esophagitis
CPT/HCPCS: 99281-25

== ENCOUNTER 2019-12-09 06:27 | Inpatient (IN) | payer OTHER ==
[2019-12-09 07:30] LABS: INR 1.04 (0.83-1.09); PROTHROMBIN TIME (PATIENT) 12.3 SEC (9.7-13.0)
--- NOTE | 2019-12-09 07:32 | PDOC ---
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 At baseline he is spastic and nonverbal. Patient is currently at baseline. Aid states they decided to bring him in due to increased agitation and distended abdomen. 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, and profound mental disability Meds: In Chart Allergies: NKDA 12/09/19 07:40 12/09/19 10:38 Past History - Medical History Allergies/Adverse Reactions: Allergies Allergy/AdvReac Type Severity Reaction Status Date / Time No Known Allergies Allergy Verified 12/09/19 06:56 Home Medications: Ambulatory Orders Baclofen 15 mg PO TID 05/11/12 Bisacodyl Suppository [Dulcolax Suppository -] 10 mg RC PRN PRN 05/11/12 Calcium Carbonate/Vitamin D3 [Oyster Shell 500-Vit D3 200 Tb] 1 each PO TID 05/11/12 Carbamazepine [Carbatrol] 400 mg PO AM 05/11/12 Carbamazepine [Carbatrol] 600 mg PO HS 05/11/12 Diazepam *Pediatric Rectal* [Diastat *Pediatric Rectal Gel* -] 10 mg RC PRN PRN 05/11/12 Diazepam [Valium] 5 mg PO TID 05/11/12 Polyethylene Glycol 3350 [Miralax 255 gm Btl -] 17 gm PO DAILY 05/11/12 Ranitidine HCl [Zantac] 150 mg PO HS 05/11/12 Simethicone Liquid [Mylicon Liquid -] 80 mg PO QID PRN 05/11/12 Tizanidine HCl [Zanaflex] 4 mg PO BID 05/11/12 Selenium Sulfide/Aloe Vera [Selsun Blue Moist 1% Shampoo] 207 ml TP HS 02/19/18 Lactose-Reduced Food/Fiber [Jevity 1.5 Blue Liquid] 1,000 ml PEG ASDIR 09/04/18 [place]-3/Dha/Epa/Fish Oil [Fish Oil 1,600 mg/5 ml Liquid] 1,000 mg PEG ASDIR 09/04/18 Amoxicillin/Potassium Clav [Augmentin ES Suspension] 600 mg PO BID 3 Days #1 bottle 09/11/18 Amox-Tr/K Cl [Augmentin 250 mg/5 ml Oral Suspension -] 10 ml PO TID #300 ml 09/16/18 Polyethylene Glycol 3350 [Miralax (For Daily Use) -] 17 gm PO DAILY 7 Days #1 bottle 09/16/18 COPD: No GI Disorders: Yes (GERD/GT/ESOPHAGITIS) Psychiatric Problems: Yes (MR) Seizures: Yes (EPILEPSY) - Surgical History Abdominal Surgery: Yes (GT) - Immunization History Immunization Up to Date: Yes - Psycho-Social/Smoking History Smoking Status: No Smoking History: Never smoked Have you smoked in the past 12 months: No Number of Cigarettes Smoked Daily: 0 - Substance Abuse Hx (Audit-C & DAST Scrn) How often the patient has a drink containing alcohol: Never Score: In Men: 4 or > Positive; In Women: 3 or > Positive: 0 Screen Result (Pos requires Nsg. Audit-10AR): Negative Review of Systems - Review of Systems Able to Perform ROS?: No Is the patient limited Japanese proficient: Yes *Physical Exam - Vital Signs Last Vital Signs Temp Pulse Resp BP Pulse Ox 121 H 20 156/95 100 12/09/19 06:39 12/09/19 06:39 12/09/19 06:39 12/09/19 06:39 - Physical Exam General Appearance: Yes: Nourished. No: Appropriately Dressed, Apparent Distress Respiratory/Chest: positive: Lungs Clear, Normal Breath Sounds. negative: Chest Tender, Respiratory Distress, Accessory Muscle Use, Crackles, Rales, Stridor, Wh eezing Cardiovascular: positive: Regular Rhythm, Tachycardia. negative: Regular Rate, Edema, JVD, Murmur Gastrointestinal/Abdominal: positive: Normal Bowel Sounds, Protuberent, Distended. negative: Tender, Flat, Soft, Guarding, Rebound, Tenderness Musculoskeletal: positive: Normal Inspection. negative: CVA Tenderness Extremity: positive: Normal Inspection. negative: Tender, Swelling, Calf Tend erness Integumentary: positive: Normal Color, Dry, Warm Neurologic: positive: Alert, Normal Mood/Affect, Respond to painful stimul. 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 DDx: Volvulus, SBO Labs: WBC 13.7, Cr 0.6, Alk Phos 132 CT: Gaseous distension of the large intestine up to the mid sigmoid colon with dimished caliber distally. No evidence of free air. EKG: Sinus tachy, QTc 455ms, rate 128 UA: 1+ Blood, 1+ proteins, trace ketones - 5mg Halodol and 2mg versed given in the ED. - IV infiltrated during contrast injection, IV was removed and warm compress was applied. Dispo: Admission to Med/surg 12/09/19 10:26 Discharge - Discharge Information Problems reviewed: Yes Clinical Impression/Diagnosis: Volvulus - Admission Yes - Follow up/Referral - Patient Discharge Instructions - Post Discharge Activity
[2019-12-09] MEDS ORDERED: HALOPERIDOL LACTATE 5 MG/ML IM ONE (07:35)
[2019-12-09] MEDS ORDERED: HALOPERIDOL LACTATE 5 MG/ML ONE (07:38)
[2019-12-09 07:45] LABS: BASO % 0.1 % (0-2.0); HEMATOCRIT 41.1 % (35.4-49); HEMOGLOBIN 13.8 GM/dL (11.7-16.9); LYMPH % 5.5 % (8-40); MCH 32.8 pg (25.7-33.7); MCHC 33.6 g/dl (32.0-35.9); MEAN CELL VOLUME 97.5 fl (80-96); MEAN PLT VOLUME 8.5 fl (7.5-11.1); MONO % 4.6 % (3.8-10.2); NEUT % 89.8 % (42.8-82.8); PLATELET COUNT 314 K/MM3 (134-434); RBC 4.22 M/mm3 (4.00-5.60); RDW 12.9 % (11.9-15.9); WHITE BLOOD COUNT 13.7 K/mm3 (4.0-10.0)
[2019-12-09 08:03] LABS: ALBUMIN 4.3 g/dl (3.4-5.0); BILIRUBIN,TOTAL 0.3 mg/dL (0.2-1); CALCIUM 9.6 mg/dL (8.5-10.1); CREATININE 0.6 mg/dL (0.55-1.3); POTASSIUM 3.7 mmol/L (3.5-5.1); TOT PROT 8.6 g/dl (6.4-8.2)
[2019-12-09 08:30] LABS: EPI CELLS 19 /uL (0-25.1); HYALINE CASTS 6 /uL (0-3.1); PH,URINE 5.5 (5.0-8.0); URINE APPEARANCE CLEAR; URINE BACTERIA 13 /uL (0-1359); URINE BILIRUBIN NEGATIVE (NEGATIVE); URINE COLOR DK YELLOW; URINE GLUCOSE (UA) NEGATIVE (NEGATIVE); URINE KETONE TRACE (NEGATIVE); URINE LEUK ESTERASE NEGATIVE (NEGATIVE); URINE NITRITE NEGATIVE (NEGATIVE); URINE PROTEIN 1+ (NEGATIVE); URINE RBC 182 /uL (0-23.9); URINE WBC 8 /uL (0-25.8)
[2019-12-09] MEDS ORDERED: MIDAZOLAM HCL 2 MG/2 ML SINGLE DOSE VIAL IVPUSH ONE (08:36)
[2019-12-09] MEDS ORDERED: MIDAZOLAM HCL 2 MG/2 ML SINGLE DOSE VIAL ONE (08:39)
[2019-12-09] MEDS ORDERED: PIPERACILLIN/TAZOB 3.375 GM 3.375 GM in DEXTROSE 5%-WATER - 50 ML IVPB ONE (09:18)
--- NOTE | 2019-12-09 09:18 | PDOC ---
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 Patient has a midline abdominal scar per patient's parents who live in [place] his only abdominal surgery was the placement of a G-tube. History limited by profound mental disability. - Physicial Exam PE: 12/09/19 09:12 Vitals: Triage Vital signs reviewed General Appearance: Mild distress Cardiac: Tachycardic Lungs: Clear to auscultation bilateral, good air movement bilaterally, Abdomen: Firm distended tympanitic Extremities: Full range of motion to all extremities, no cyanosis, clubbing, or edema Skin: Warm and dry, no rashes or lesions, no rash, no petechiae Neuro: Moving all extremities - Critical Care Time Total Critical Care Time: 65 Critical Care Statement: The care of this patient involved high complexity decision making to prevent further life threatening deterioration of the patient's condition and/or to evaluate & treat vital organ system(s) failure or risk of failure. - Medical Decision Making 12/09/19 15:57 KUB concerning for volvulus CT ordered Patient agitated requiring medication for agitation EKG demonstrates normal QTC patient given Haldol prior to CAT scan Patient still agitated Versed given CT confirms volvulus Given low-grade temperature and elevated white blood cell count patient given Zosyn for possible aspiration pneumonia Surgery and gastroenterology have both been consulted Family has been informed of findings and results Patient to be admitted for surgical and GI management of acute sigmoid volvulus Discharge - Discharge Information Problems reviewed: Yes Clinical Impression/Diagnosis: Volvulus - Follow up/Referral - Patient Discharge Instructions - Post Discharge Activity
[2019-12-09] MEDS ORDERED: PIPERACILLIN/TAZOB 3.375 GM 3.375 GM/50 ML BAG IVPB ONE (09:25)
--- NOTE | 2019-12-09 10:36 | CONSULT ---
- Consultation REQUESTING PROVIDER: Perez MORELAND CONSULT REQUEST: We have been asked to surgically evaluate this patient for a bdominal distention. Hospitalist: HISTORY OF PRESENT ILLNESS: JERILYN who is a 49 y/o male who was xferred from [facility] for increased agitation and distended abdomen. At baseline he is spastic and nonverbal. PMHx: seizures/CP and spastic paralysis/profound mental delay PSHx: open G-tube Home Medications Medication Instructions Recorded Baclofen 15 mg PO TID 05/11/12 Bisacodyl Suppository [Dulcolax 10 mg RC PRN PRN 05/11/12 Suppository -] Calcium Carbonate/Vitamin D3 1 each PO TID 05/11/12 [Oyster Shell 500-Vit D3 200 Tb] Carbamazepine [Carbatrol] 400 mg PO AM 05/11/12 Carbamazepine [Carbatrol] 600 mg PO HS 05/11/12 Diazepam *Pediatric Rectal* 10 mg RC PRN PRN 05/11/12 [Diastat *Pediatric Rectal Gel* -] Diazepam [Valium] 5 mg PO TID 05/11/12 Polyethylene Glycol 3350 [Miralax 17 gm PO DAILY 05/11/12 255 gm Btl -] Ranitidine HCl [Zantac] 150 mg PO HS 05/11/12 Simethicone Liquid [Mylicon Liquid 80 mg PO QID PRN 05/11/12 -] Tizanidine HCl [Zanaflex] 4 mg PO BID 05/11/12 Selenium Sulfide/Aloe Vera [Selsun 207 ml TP HS 02/19/18 Blue Moist 1% Shampoo] Lactose-Reduced Food/Fiber [Jevity 1,000 ml PEG ASDIR 09/04/18 1.5 Blue Liquid] [place]-3/Dha/Epa/Fish Oil [Fish Oil 1,000 mg PEG ASDIR 09/04/18 1,600 mg/5 ml Liquid] Amoxicillin/Potassium Clav 600 mg PO BID 3 Days #1 bottle 09/11/18 [Augmentin ES Suspension] Amox-Tr/K Cl [Augmentin 250 mg/5 10 ml PO TID #300 ml 09/16/18 ml Oral Suspension -] Polyethylene Glycol 3350 [Miralax 17 gm PO DAILY 7 Days #1 bottle 09/16/18 (For Daily Use) -] Allergies Allergy/AdvReac Type Severity Reaction Status Date / Time No Known Allergies Allergy Verified 12/09/19 06:56 REVIEW OF SYSTEMS: not obtainable from the patient; all info from previous charts PHYSICAL EXAM: GENERAL: Awake, alert, and not fully oriented, in no acute distress. HEAD: Normal with no signs of trauma. EYES: sclera anicteric, conjunctiva clear. NECK: Normal ROM, supple without lymphadenopathy, JVD, or masses. ABDOMEN: Soft, nontender, distended, hypooactive bowel sounds, no guarding, no rebound, no masses. No organomegaly. No hernias MUSCULOSKELETAL: Contracted UPPER EXTREMITIES: 2+ pulses, warm, well-perfused. No cyanosis. Cap refill <2 seconds. No peripheral edema. LOWER EXTREMITIES: 2+ pulses, warm, well-perfused. No calf tenderness. No peripheral edema. NEUROLOGICAL: Non verbal and non ambulatory PSYCH: Uncooperative. SKIN: Warm, dry, normal turgor, no rashes or lesions noted. Vital Signs Temperature Pulse Rate 121 H 12/09/19 06:39 Respiratory Rate 20 12/09/19 06:39 Blood Pressure 156/95 12/09/19 06:39 O2 Sat by Pulse Oximetry (%) 100 12/09/19 06:39 Lab Results WBC 13.7 K/mm3 (4.0-10.0) H 12/09/19 07:00 RBC 4.22 M/mm3 (4.00-5.60) 12/09/19 07:00 Hgb 13.8 GM/dL (11.7-16.9) 12/09/19 07:00 Hct 41.1 % (35.4-49) 12/09/19 07:00 MCV 97.5 fl (80-96) H 12/09/19 07:00 MCHC 33.6 g/dl (32.0-35.9) 12/09/19 07:00 RDW 12.9 % (11.9-15.9) 12/09/19 07:00 Plt Count 314 K/MM3 (134-434) D 12/09/19 07:00 INR 1.04 (0.83-1.09) 12/09/19 07:00 Sodium 137 mmol/L (136-145) 12/09/19 06:59 Potassium 3.7 mmol/L (3.5-5.1) 12/09/19 06:59 Chloride 96 mmol/L (98-107) L 12/09/19 06:59 Carbon Dioxide 34 mmol/L (21-32) H 12/09/19 06:59 Anion Gap 8 MMOL/L (8-16) 12/09/19 06:59 BUN 18.0 mg/dL (7-18) 12/09/19 06:59 Creatinine 0.6 mg/dL (0.55-1.3) 12/09/19 06:59 Random Glucose 120 mg/dL (74-106) H 12/09/19 06:59 Calcium 9.6 mg/dL (8.5-10.1) 12/09/19 06:59 Blood Type O POSITIVE 12/09/19 07:00 Antibody Screen Negative 12/09/19 07:[address] scan a/p c/w sigmoid volvulus IMP: sigmoid volvulus PLAN: Suggest GI evaluation for flex sig and decompression and rectal tube placement; possible sigmoid resection if fails decompression and/or recurs. Betty Nieves MD FACS
[2019-12-09] MEDS ORDERED: ACETAMINOPHEN 1000 MG/100 ML VIAL (NON FORMULARY) IVPB ONE ×2 (10:37→23:23)
[2019-12-09] MEDS ORDERED: SODIUM CHLORIDE 0.9% 1000 ML INFUS.BAG IV ONE (10:54)
--- NOTE | 2019-12-09 10:54 | HP ---
CHIEF COMPLAINT: abdominal distension, agitation PCP: Dr. Rawls HISTORY OF PRESENT ILLNESS: Patient is a 49 year old male with history of cerebral palsy, spastic paralysis, seizure disorder, constipation, presents from [facility] for abdominal distention. Noted by the aid that patient had become more agitated, with increasing abdominal distension over the past day. Two episodes of vomiting reported, however without hematemesis per aide at bedside. Denies any recent changes in medications. Denies fevers, chills, shortness of breath, coughing, diarrhea, melena, hematochezia. Denies prior occurrence of these symptoms. ER course was notable for: (1) CT abdomen pelvis revealed sigmoid volvulus, without free air. (2) (3) Recent Travel: denies PAST MEDICAL HISTORY: cerebral palsy, spastic paralysis, seizure disorder, constipation, PAST SURGICAL HISTORY: G tube placement Social History: Resident of [facility]. Dependent on aide in activities of daily living. Smoking: Denies Alcohol: Denies Drugs: Denies FAMILY HISTORY: Noncontributory Allergies No Known Allergies Allergy (Verified 12/09/19 06:56) HOME MEDICATIONS: Home Medications Medication Instructions Recorded Baclofen 15 mg PO TID 05/11/12 Bisacodyl Suppository [Dulcolax 10 mg RC PRN PRN 05/11/12 Suppository -] Calcium Carbonate/Vitamin D3 1 each PO TID 05/11/12 [[place]yster [place] 500-Vit D3 200 Tb] Carbamazepine [Carbatrol] 400 mg PO AM 05/11/12 Carbamazepine [Carbatrol] 600 mg PO HS 05/11/12 Diazepam *Pediatric Rectal* 10 mg RC PRN PRN 05/11/12 [Diastat *Pediatric Rectal Gel* -] Diazepam [Valium] 5 mg PO TID 05/11/12 Polyethylene Glycol 3350 [Miralax 17 gm PO DAILY 05/11/12 255 gm Btl -] Ranitidine HCl [Zantac] 150 mg PO HS 05/11/12 Simethicone Liquid [Mylicon Liquid 80 mg PO QID PRN 05/11/12 -] Tizanidine HCl [Zanaflex] 4 mg PO BID 05/11/12 Selenium Sulfide/Aloe Vera [Selsun 207 ml TP HS 02/19/18 Blue Moist 1% Shampoo] Lactose-Reduced Food/Fiber [Jevity 1,000 ml PEG ASDIR 09/04/18 1.5 Blue Liquid] [place]-3/Dha/Epa/Fish Oil [Fish Oil 1,000 mg PEG ASDIR 09/04/18 1,600 mg/5 ml Liquid] Amoxicillin/Potassium Clav 600 mg PO BID 3 Days #1 bottle 09/11/18 [Augmentin ES Suspension] Amox-Tr/K Cl [Augmentin 250 mg/5 10 ml PO TID #300 ml 09/16/18 ml Oral Suspension -] Polyethylene Glycol 3350 [Miralax 17 gm PO DAILY 7 Days #1 bottle 09/16/18 (For Daily Use) -] REVIEW OF SYSTEMS As per HPI. Unable to obtain further given patient's clinical condition. PHYSICAL EXAMINATION Vital Signs - 24 hr 12/09/19 06:39 Pulse Rate 121 H Respiratory 20 Rate Blood Pressure 156/95 O2 Sat by Pulse 100 Oximetry (%) GENERAL: The patient is awake, alert, and agitated. HEAD: Normocephalic, atraumatic. EYES: PERRL, extraocular movements intact, sclera anicteric, conjunctiva clear. ENT: Oropharynx clear, without erythema or exudates. Moist mucous membranes. NECK: Trachea midline. Supple without lymphadenopathy. LUNGS: Breath sounds equal, clear to auscultation bilaterally. No wheezes, no crackles. No accessory muscle use. HEART: Regular rate and rhythm. S1, S2 without murmur, rub or gallop. ABDOMEN: Distended abdomen. No increased grimacing to palpation appreciated. Hypoactive bowel sounds x4 quadrants. Tympanic to percussion. G tube in situ, without erythema. Midline vertical surgical scar at upper abdomen well healed. RECTAL: Negative external or internal hemorrhids palpated. Negative stool in rectal vault. Light streak brown stool without nighat blood upon gloved finger. Sample sent for occult testing. EXTREMITIES: Contracted extremities. 2+ radial, dorsalis pedis pulses bilaterally. Warm, well-perfused. No lower extremity edema bilaterally. NEUROLOGICAL: Moving all four extremities equally. Unable to cooperate with full neurologic examination. SKIN: Warm, dry. Midline vertical surgical scar at upper abdomen, well healed. Laboratory Results - last 24 hr 12/09/19 12/09/19 12/09/19 06:59 07:00 07:00 WBC 13.7 H RBC 4.22 Hgb 13.8 Hct 41.1 MCV 97.5 H MCH 32.8 MCHC 33.6 RDW 12.9 Plt Count 314 D MPV 8.5 Absolute Neuts (auto) 12.3 H Neutrophils % 89.8 H Lymphocytes % 5.5 L D Monocytes % 4.6 Eosinophils % 0.0 D Basophils % 0.1 Nucleated RBC % 0 PT with INR 12.30 INR 1.04 Sodium 137 Potassium 3.7 Chloride 96 L Carbon Dioxide 34 H Anion Gap 8 BUN 18.0 Creatinine 0.6 Est GFR (CKD-EPI)AfAm 137.80 Est GFR (CKD-EPI)NonAf 118.89 Random Glucose 120 H Calcium 9.6 Total Bilirubin 0.3 AST 24 ALT 35 Alkaline Phosphatase 132 H Creatine Kinase 124 Total Protein 8.6 H Albumin 4.3 Urine Color Urine Appearance Urine pH Ur Specific [place] Urine Protein Urine Glucose (UA) Urine Ketones Urine Blood Urine Nitrite Urine Bilirubin Urine Urobilinogen Ur Leukocyte Esterase Urine WBC (Auto) Urine RBC (Auto) Urine Casts (Auto) U Epithel Cells (Auto) Urine Bacteria (Auto) Blood Type Antibody Screen 12/09/19 12/09/19 07:00 07:21 WBC RBC Hgb Hct MCV MCH MCHC RDW Plt Count MPV Absolute Neuts (auto) Neutrophils % Lymphocytes % Monocytes % Eosinophils % Basophils % Nucleated RBC % PT with INR INR Sodium Potassium Chloride Carbon Dioxide Anion Gap BUN Creatinine Est GFR (CKD-EPI)AfAm Est GFR (CKD-EPI)NonAf Random Glucose Calcium Total Bilirubin AST ALT Alkaline Phosphatase Creatine Kinase Total Protein Albumin Urine Color Dk yellow Urine Appearance Clear Urine pH 5.5 D Ur Specific [place] 1.037 H Urine Protein 1+ H Urine Glucose (UA) Negative Urine Ketones Trace H Urine Blood 1+ H Urine Nitrite Negative Urine Bilirubin Negative Urine Urobilinogen 1.0 Ur Leukocyte Esterase Negative Urine WBC (Auto) 8 Urine RBC (Auto) 182 Urine Casts (Auto) 6 U Epithel Cells (Auto) 19 Urine Bacteria (Auto) 13 Blood Type O POSITIVE Antibody Screen Negative ASSESSMENT/PLAN: Patient is a 49 year old male with history of cerebral palsy, spastic paralysis, seizure disorder, constipation, presents from [facility] for abdominal distention. Sigmoid volvulus -CT abdomen pelvis confirms sigmoid volvulus without free air. -Received Zosyn for anaerobic coverage. Will continue in setting of elevated WBC count. -Maintain NPO -NG tube with approx 1000nL drainage. Follow outputs -Gentle hydration while NPO -Gastroenterology evaluation (Dr. Lion) appreciated. Patient may require flexible sigmoidoscopy -General surgery evaluation (Dr. Nieves) appreciated -Obtain PT, PTT, type and cross History of cerebral palsy -Holding home Valium, Baclofen while NPO. -Fall precautions Seizure disorder - Will convent Carbamazepine to IV equivalents (Keppra 1000mg IV BID), while NPO. Dosed with Pharmacy. FEN -Gentle hydration with -Follow BMP -NPO Prophylaxis -Holding chemical anticoagulation in anticipation of GI/ General surgery procedure. SCDs bilateral lower extremities for now. Disposition -Admit to medical- surgical floor Case discussed with Father ([phone]) Family Medical History Family History: As Documented Visit type - Emergency Visit Emergency Visit: Yes ED Registration Date: 12/09/19 Care time: The patient presented to the Emergency Department on the above date and was hospitalized for further evaluation of their emergent condition. - New Patient This patient is new to me today: Yes Date on this admission: 12/09/19 - Critical Care Critical Care patient: No ATTENDING PHYSICIAN STATEMENT I saw and evaluated the patient. I reviewed the resident's note and discussed the case with the resident. I agree with the resident's findings and plan as documented. SUBJECTIVE: OBJECTIVE: ASSESSMENT AND PLAN:
[2019-12-09] MEDS ORDERED: ACETAMINOPHEN INJECTION 100 ML IVPB ONE (11:13)
[2019-12-09] MEDS ORDERED: diazePAM 2.5 MG PEDIATRIC RECTAL APP GEL RC PRN (11:39)
--- NOTE | 2019-12-09 11:47 | CON.GI ---
Consult Consult Specialty:: GI Referred by:: Hospitalist Service Reason for Consultation:: Sigmoid volvulus - History of Present Illness Chief Complaint: Abdominal distention History of Present Illness: 49M from [facility] admitted through ER for evaluation of abdominal distention and agitation. CT scan A/P revealed sigmoid volvulus. His health aid believes that he just noticed the distention this morning. 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 (cerebral palsy , diplegia , mental retardation ) Pulmonary: Yes: Pneumonia, Other (possible aspirartion PNA ) Gastrointestinal: Yes: Constipation, Gastritis, GERD, GI Bleed (hematemesis ), Other (PEG tube ) Musculoskeletal: Yes: Other (Diplesia) - Alcohol/Substance Use Hx Alcohol Use: No History of Substance Use: reports: None - Smoking History Smoking history: Never smoked Have you smoked in the past 12 months: No Aproximately how many cigarettes per day: 0 - Social History Usual Living Arrangement: Other ([facility]) ADL: Support Services History of Recent Travel: No Home Medications - Allergies Allergies/Adverse Reactions: Allergies Allergy/AdvReac Type Severity Reaction Status Date / Time No Known Allergies Allergy Verified 12/09/19 06:56 - Home Medications Home Medications: Ambulatory Orders Baclofen 15 mg PO TID 05/11/12 Bisacodyl Suppository [Dulcolax Suppository -] 10 mg RC PRN PRN 05/11/12 Calcium Carbonate/Vitamin D3 [Oyster Shell 500-Vit D3 200 Tb] 1 each PO TID 0 05/11/12 Carbamazepine [Carbatrol] 400 mg PO AM 05/11/12 Carbamazepine [Carbatrol] 600 mg PO HS 05/11/12 Diazepam *Pediatric Rectal* [Diastat *Pediatric Rectal Gel* -] 10 mg RC PRN PRN 05/11/12 Diazepam [Valium] 5 mg PO TID 05/11/12 Polyethylene Glycol 3350 [Miralax 255 gm Btl -] 17 gm PO DAILY 05/11/12 Ranitidine HCl [Zantac] 150 mg PO HS 05/11/12 Simethicone Liquid [Mylicon Liquid -] 80 mg PO QID PRN 05/11/12 Tizanidine HCl [Zanaflex] 4 mg PO BID 05/11/12 Selenium Sulfide/Aloe Vera [Selsun Blue Moist 1% Shampoo] 207 ml TP HS 02/19/18 Lactose-Reduced Food/Fiber [Jevity 1.5 Blue Liquid] 1,000 ml PEG ASDIR 09/04/18 [place]-3/Dha/Epa/Fish Oil [Fish Oil 1,600 mg/5 ml Liquid] 1,000 mg PEG ASDIR 09/04/18 Amoxicillin/Potassium Clav [Augmentin ES Suspension] 600 mg PO BID 3 Days #1 bottle 09/11/18 Amox-Tr/K Cl [Augmentin 250 mg/5 ml Oral Suspension -] 10 ml PO TID #300 ml 09/16/18 Polyethylene Glycol 3350 [Miralax (For Daily Use) -] 17 gm PO DAILY 7 Days #1 bottle 09/16/18 Review of Systems - Review of Systems Gastrointestinal: reports: Constipation Physical Exam-GI Vital Signs: Vital Signs Temperature 100.5 F H 12/09/19 11:40 Pulse Rate 106 H 12/09/19 11:40 Respiratory Rate 19 12/09/19 11:40 Blood Pressure 155/96 12/09/19 11:40 O2 Sat by Pulse Oximetry (%) 99 12/09/19 11:40 Constitutional: Yes: Calm Eyes: No: Sclera Icterus Cardiovascular: Yes: Regular Rate and Rhythm Respiratory: Yes: Diminished (at bases bilaterally) Gastrointestinal Inspection: Yes: Distention, Scars ...Auscultate: Yes: Hypoactive Bowel Sounds ...Palpate: Yes: Firm/Rigid ...Percussion: Yes: Tympanitic ...Rectal Exam: Yes: Other (red rubber rectal tube passed into colon with significant air released. The tube was flushed with sterile water and more air/liquid stool was released. Abdominal distention resolved and tympany improved.) Extremities: Yes: Other (contractures B/L UE/LE) Edema: No (No LE ederma) Neurological: Yes: Alert Labs: CBC, BMP 12/09/19 07:00 12/09/19 06:59 INR, PTT INR 1.04 (0.83-1.09) 12/09/19 07:00 Imaging - Results X-ray: Report Reviewed, Image Reviewed Problem List - Problems (1) Volvulus Assessment/Plan: By description, acute sigmoid volvulus Repeat AXR after rectal tube decompression was reviewed with Dr. Joya. The tube seemed to traverse the area of sigmoid torsion and there was improvement in colonic distention. Had discussed clinical situation with patient's parents via telephone today. Explained that colonic volvulus is a medical emergency with high risk of perforation of the colon. Explained that if decompression by rectal tube was unsuccessful, decompression via limited colonoscopy would be needed. Discussed potential risks of the procedure like but not limited to bleeding, perforation requiring surgery to repair, infection,sedation medication effects all of which could be potentially life threatening. Also explained that sigmoid volvulus has high risk of recurrence and that surgical correction following detorsion will need to be considered. Keep rectal tube in place. Flush with 30cc sterile water twice per shift IV hydration, monitor lytes Surgical follow-up. D/W Dr. Nieves regarding clinical improvement s/p rectal tube placement Code(s): K56.2 - VOLVULUS
[2019-12-09] MEDS: SODIUM CHLORIDE 1,000 ML IV SCH (11:51)
[2019-12-09] MEDS ORDERED: FLU VACCINE (FLULAVAL) PF 60 MCG/0.5 ML SYRINGE 2020-2021 IM ONE (12:30)
[2019-12-09] MEDS: levETIRAcetam 500 MG/5 ML INJECTION VIAL IVPB SCH ×2 (12:51→21:55)
--- NOTE | 2019-12-09 17:01 | EKG ---
Test Reason : Blood Pressure : / mmHG Vent. Rate : 128 BPM Atrial Rate : 128 BPM P-R Int : 126 ms QRS Dur : 082 ms QT Int : 312 ms P-R-T Axes : 045 043 004 degrees QTc Int : 455 ms SINUS TACHYCARDIA INFERIOR INFARCT , AGE UNDETERMINED POOR R WAVE PROGRESSION BASELINE ARTIFACT ABNORMAL ECG WHEN COMPARED WITH ECG OF 16-SEP-2018 01:47, LIKELY NO SIGNIFICANT CHANGES Confirmed by JOCY ADKINS MD ([id number]) on 12/09/2019 5:01:02 PM Referred By: Confirmed By:JOCY ADKINS MD
[2019-12-09] MEDS ORDERED: DEXTROSE 5%-WATER - 50 ML IVPB ONE (20:26)
[2019-12-09] MEDS ORDERED: PIPERACILLIN/TAZOBACTAM 3.375 GM VIAL IVPB ONE (20:26)
[2019-12-09] MEDS: PIPERACILLIN/TAZOB 3.375 GM 3.375 GM in DEXTROSE 5%-WATER - 50 ML IVPB SCH (20:41)
--- NOTE | 2019-12-09 21:21 | PN ---
Teaching Attending Note Name of Resident: Bon Cordero ATTENDING PHYSICIAN STATEMENT I saw and evaluated the patient. I reviewed the resident's note and discussed the case with the resident. I agree with the resident's findings and plan as documented. SUBJECTIVE: Patient seen and examined at bedside, admitted for sigmoid volvulous, GI will attempt to decompress in AM. VSS. OBJECTIVE: GA non-communicative, non-verbal, contracted, slightly tachypneic HEENT no gargling, protecting airways Chest decreased BS at bases, poor inspiratory effort Abd thin habitus, firm, no guarding, decreased BS Ext contracted ext., no le EDEMA Vital Signs (72 hours) 12/09/19 12/09/19 12/09/19 06:39 11:40 12:18 Temperature 100.5 F H 98.8 F Pulse Rate 121 H 100 H Pulse Rate [ 106 H Apical] Respiratory 20 19 18 Rate Blood Pressure 156/95 128/52 L Blood Pressure 155/96 [Right Arm] O2 Sat by Pulse 100 99 98 Oximetry (%) 12/09/19 12/09/19 13:36 18:56 Temperature 98.6 F 97.7 F Pulse Rate 118 H 123 H Pulse Rate [ Apical] Respiratory 18 Rate Blood Pressure 110/57 L 151/78 Blood Pressure [Right Arm] O2 Sat by Pulse 97 Oximetry (%) Laboratory Results - last 24 hr 12/09/19 12/09/19 12/09/19 06:59 07:00 07:00 WBC 13.7 H RBC 4.22 Hgb 13.8 Hct 41.1 MCV 97.5 H MCH 32.8 MCHC 33.6 RDW 12.9 Plt Count 314 D MPV 8.5 Absolute Neuts (auto) 12.3 H Neutrophils % 89.8 H Lymphocytes % 5.5 L D Monocytes % 4.6 Eosinophils % 0.0 D Basophils % 0.1 Nucleated RBC % 0 PT with INR 12.30 INR 1.04 PTT (Actin FS) Sodium 137 Potassium 3.7 Chloride 96 L Carbon Dioxide 34 H Anion Gap 8 BUN 18.0 Creatinine 0.6 Est GFR (CKD-EPI)AfAm 137.80 Est GFR (CKD-EPI)NonAf 118.89 Random Glucose 120 H Lactic Acid Calcium 9.6 Total Bilirubin 0.3 AST 24 ALT 35 Alkaline Phosphatase 132 H Creatine Kinase 124 Total Protein 8.6 H Albumin 4.3 Urine Color Urine Appearance Urine pH Ur Specific [place] Urine Protein Urine Glucose (UA) Urine Ketones Urine Blood Urine Nitrite Urine Bilirubin Urine Urobilinogen Ur Leukocyte Esterase Urine WBC (Auto) Urine RBC (Auto) Urine Casts (Auto) U Epithel Cells (Auto) Urine Bacteria (Auto) Stool Occult Blood COVID-19 (LEONEL) SARS-CoV-2 (PCR) Blood Type Antibody Screen 12/09/19 12/09/19 12/09/19 07:00 07:21 09:44 WBC RBC Hgb Hct MCV MCH MCHC RDW Plt Count MPV Absolute Neuts (auto) Neutrophils % Lymphocytes % Monocytes % Eosinophils % Basophils % Nucleated RBC % PT with INR INR PTT (Actin FS) Sodium Potassium Chloride Carbon Dioxide Anion Gap BUN Creatinine Est GFR (CKD-EPI)AfAm Est GFR (CKD-EPI)NonAf Random Glucose Lactic Acid 2.6 H* Calcium Total Bilirubin AST ALT Alkaline Phosphatase Creatine Kinase Total Protein Albumin Urine Color Dk yellow Urine Appearance Clear Urine pH 5.5 D Ur Specific [place] 1.037 H Urine Protein 1+ H Urine Glucose (UA) Negative Urine Ketones Trace H Urine Blood 1+ H Urine Nitrite Negative Urine Bilirubin Negative Urine Urobilinogen 1.0 Ur Leukocyte Esterase Negative Urine WBC (Auto) 8 Urine RBC (Auto) 182 Urine Casts (Auto) 6 U Epithel Cells (Auto) 19 Urine Bacteria (Auto) 13 Stool Occult Blood COVID-19 (LEONEL) SARS-CoV-2 (PCR) Blood Type O POSITIVE Antibody Screen Negative 12/09/19 12/09/19 12/09/19 09:44 09:44 10:40 WBC RBC Hgb Hct MCV MCH MCHC RDW Plt Count MPV Absolute Neuts (auto) Neutrophils % Lymphocytes % Monocytes % Eosinophils % Basophils % Nucleated RBC % PT with INR INR PTT (Actin FS) Sodium Potassium Chloride Carbon Dioxide Anion Gap BUN Creatinine Est GFR (CKD-EPI)AfAm Est GFR (CKD-EPI)NonAf Random Glucose Lactic Acid Calcium Total Bilirubin AST ALT Alkaline Phosphatase Creatine Kinase Total Protein Albumin Urine Color Urine Appearance Urine pH Ur Specific [place] Urine Protein Urine Glucose (UA) Urine Ketones Urine Blood Urine Nitrite Urine Bilirubin Urine Urobilinogen Ur Leukocyte Esterase Urine WBC (Auto) Urine RBC (Auto) Urine Casts (Auto) U Epithel Cells (Auto) Urine Bacteria (Auto) Stool Occult Blood Negative COVID-19 (LEONEL) Cancelled SARS-CoV-2 (PCR) Negative Blood Type Antibody Screen 12/09/19 15:40 WBC RBC Hgb Hct MCV MCH MCHC RDW Plt Count MPV Absolute Neuts (auto) Neutrophils % Lymphocytes % Monocytes % Eosinophils % Basophils % Nucleated RBC % PT with INR INR PTT (Actin FS) 27.9 Sodium Potassium Chloride Carbon Dioxide Anion Gap BUN Creatinine Est GFR (CKD-EPI)AfAm Est GFR (CKD-EPI)NonAf Random Glucose Lactic Acid Calcium Total Bilirubin AST ALT Alkaline Phosphatase Creatine Kinase Total Protein Albumin Urine Color Urine Appearance Urine pH Ur Specific [place] Urine Protein Urine Glucose (UA) Urine Ketones Urine Blood Urine Nitrite Urine Bilirubin Urine Urobilinogen Ur Leukocyte Esterase Urine WBC (Auto) Urine RBC (Auto) Urine Casts (Auto) U Epithel Cells (Auto) Urine Bacteria (Auto) Stool Occult Blood COVID-19 (LEONEL) SARS-CoV-2 (PCR) Blood Type Antibody Screen Home Medications Medication Instructions Recorded Baclofen 15 mg PO TID 05/11/12 Bisacodyl Suppository [Dulcolax 10 mg RC PRN PRN 05/11/12 Suppository -] Calcium Carbonate/Vitamin D3 1 each PO TID 05/11/12 [Oyster Shell 500-Vit D3 200 Tb] Carbamazepine [Carbatrol] 400 mg PO AM 05/11/12 Carbamazepine [Carbatrol] 600 mg PO HS 05/11/12 Diazepam *Pediatric Rectal* 10 mg RC PRN PRN 05/11/12 [Diastat *Pediatric Rectal Gel* -] Diazepam [Valium] 5 mg PO TID 05/11/12 Polyethylene Glycol 3350 [Miralax 17 gm PO DAILY 05/11/12 255 gm Btl -] Ranitidine HCl [Zantac] 150 mg PO HS 05/11/12 Simethicone Liquid [Mylicon Liquid 80 mg PO QID PRN 05/11/12 -] Tizanidine HCl [Zanaflex] 4 mg PO BID 05/11/12 Selenium Sulfide/Aloe Vera [Selsun 207 ml TP HS 02/19/18 Blue Moist 1% Shampoo] Lactose-Reduced Food/Fiber [Jevity 1,000 ml PEG ASDIR 09/04/18 1.5 Blue Liquid] [place]-3/Dha/Epa/Fish Oil [Fish Oil 1,000 mg PEG ASDIR 09/04/18 1,600 mg/5 ml Liquid] Amoxicillin/Potassium Clav 600 mg PO BID 3 Days #1 bottle 09/11/18 [Augmentin ES Suspension] Amox-Tr/K Cl [Augmentin 250 mg/5 10 ml PO TID #300 ml 09/16/18 ml Oral Suspension -] Polyethylene Glycol 3350 [Miralax 17 gm PO DAILY 7 Days #1 bottle 09/16/18 (For Daily Use) -] Current Medications Generic Name Dose Route Start Last Admin Trade Name Erinn PRN Reason Stop Dose Admin Sodium Chloride 1,000 mls @ 75 mls/hr 12/09/19 11:30 12/09/19 11:51 Normal Saline - IV 75 mls/hr ASDIR RASHAUN Administration Famotidine/Sodium Chloride 20 mg in 50 mls @ 100 mls/hr 12/09/19 22:00 Pepcid 20 Mg Premixed Ivpb - IVPB BID RASHAUN Piperacillin Sod/Tazobactam 50 mls @ 100 mls/hr 12/09/19 19:15 12/09/19 20:41 Sod 3.375 gm/ Dextrose IVPB 100 mls/hr Q8H-IV RASHAUN Administration Protocol Levetiracetam 1,000 mg 12/09/19 11:45 12/09/19 12:51 Keppra Injection - IVPB 1,000 mg BID RASHAUN Administration ASSESSMENT AND PLAN: 49 M Sigmoid volvulus Cerebral palsy Non-communicative Non-verbal MR Seizure disorder Plan: IV hydration, cont. Zosyn due to high WBC count Rectal tube placed by Surgery for decompression, if fail GI will attempt colonoscopy Restart seizure meds IV, obtain appropriate levels in AM DVT ppx: SCD Strict NPO/hold feeds, D5NS for hypoglycemia
[2019-12-09] MEDS: FAMOTIDINE 20 MG/50 ML IVPB 20 MG/50 ML MG IVPB SCH (21:54)
[2019-12-10] MEDS ORDERED: DEXTROSE 5%-WATER - 50 ML IVPB ONE ×3 (02:07→17:20)
[2019-12-10] MEDS ORDERED: PIPERACILLIN/TAZOBACTAM 3.375 GM VIAL IVPB ONE ×2 (02:07→10:16)
[2019-12-10] MEDS: PIPERACILLIN/TAZOB 3.375 GM 3.375 GM in DEXTROSE 5%-WATER - 50 ML IVPB SCH ×2 (02:52→10:47)
[2019-12-10 08:23] LABS: HEMATOCRIT 37.3 % (35.4-49); HEMOGLOBIN 12.9 GM/dL (11.7-16.9); MCHC 34.5 g/dl (32.0-35.9); MEAN CELL VOLUME 95.7 fl (80-96); MEAN PLT VOLUME 8.2 fl (7.5-11.1); PLATELET COUNT 229 K/MM3 (134-434); RBC 3.89 M/mm3 (4.00-5.60); RDW 12.7 % (11.9-15.9); WHITE BLOOD COUNT 6.7 K/mm3 (4.0-10.0)
[2019-12-10 08:38] LABS: ALBUMIN 3.7 g/dl (3.4-5.0); BILIRUBIN,TOTAL 0.7 mg/dL (0.2-1); BLOOD UREA NITROGEN 26.2 mg/dL (7-18); CALCIUM 8.6 mg/dL (8.5-10.1); CREATININE 0.6 mg/dL (0.55-1.3); MAGNESIUM 2.8 mg/dL (1.8-2.4); PHOSPHOROUS 4.2 mg/dL (2.5-4.9); POTASSIUM 3.7 mmol/L (3.5-5.1); TOT PROT 7.3 g/dl (6.4-8.2)
--- NOTE | 2019-12-10 09:05 | PN.GI ---
GI Progress Note Subjective: No acute events - Objective Vital Signs: Vital Signs Temperature 98.8 F 12/10/19 06:25 Pulse Rate 84 12/10/19 06:25 Respiratory Rate 18 12/10/19 06:25 Blood Pressure 135/74 12/10/19 06:25 O2 Sat by Pulse Oximetry (%) 98 12/10/19 06:25 Constitutional: Calm Cardiovascular: Yes: Regular Rate and Rhythm, Other (heart sounds obscured by his verbalization) Respiratory: Yes: Diminished (at bases) Gastrointestinal Inspection: Yes: Other (G-Tube in upper abdomen). No: Distention ...Auscultate: Yes: Normoactive Bowel Sounds ...Rectal Exam: Yes: Other (rectal tube in place, flushed) Edema: No (No LE edema) Neurological: Yes: Alert Labs: CBC, BMP 12/10/19 07:33 12/10/19 07:33 INR, PTT INR 1.04 (0.83-1.09) 12/09/19 07:00 Problem List - Problems (1) Volvulus Assessment/Plan: S/P rectal tube decompression - 1st episode acute sigmoid volvulus - Rectal tube - Repeat AXCR ordered - Surgery following - High risk for recurrence given limited mobility and neurologic regimen that can negatively impact GI motility Code(s): K56.2 - VOLVULUS
[2019-12-10] MEDS ORDERED: FAMOTIDINE 20 MG TABLET PO SCH (10:00)
--- NOTE | 2019-12-10 10:45 | PN ---
Progress Note (short form) - Note Progress Note: Pt seen and examined. Attending Dr Ellis adjusting rectal tube bedside. No issues overnight per RN. Had BM this morning. Vital Signs Temp 98.8 F 12/10/19 06:25 Pulse 84 12/10/19 06:25 Resp 18 12/10/19 06:25 BP 135/74 12/10/19 06:25 Pulse Ox 98 12/10/19 06:25 Intake & Output 12/09/19 12/09/19 12/10/19 11:59 23:59 11:59 Intake Total 1100 1075 Output Total 50 50 Balance 1050 1025 Weight 116 lb 111 lb 9.6 oz Intake: IV 1000 825 Normal Saline - 1,000 ml 1000 825 @ 75 mls/hr IV ASDIR RASHAUN Rx#:[id number] IVPB 100 250 Output: Gastric Drainage 50 50 Other: Voiding Method Incontinent Incontinent Bowel Movement No Yes Height 4 ft 4 in 4 ft 4 in Body Mass Index (BMI) 30.1 29.0 Weight Measurement Method Built in [facility] Weight Measurement Method Estimated by Staff CBC, BMP 12/10/19 07:33 12/10/19 07:33 Gen: awake, in nad Resp: unlabored on ra Abdo: soft, nd, does not appear to be tender A/P: 49 y/o M w/ PMHx of cerebral palsy, spastic paralysis, seizure disorder, constipation, sent from [facility] for abdominal distention found to have sigmoid volvulus (first episode), now s/p rectal tube decompression. -rectal tube/diet per GI -no plans for surgical intervention this admission -please call with questions/concerns d/w attending Dr Nieves <Eveline Ramos - Last Filed: 12/10/19 10:53> - Note Progress Note: Attending Surgeon: I personally saw and examined the patient. My examination reveals a patient with sigmoid volvulus. I discussed the case with the surgical PA and agree with their findings and plan of care with any exceptions as noted. ~ Bryant Nieves MD, FACS <Bryant Nieves - Last Filed: 12/13/19 16:16>
[2019-12-10] MEDS: FAMOTIDINE 20 MG/50 ML IVPB 20 MG/50 ML MG IVPB SCH ×2 (10:47→21:25)
[2019-12-10] MEDS: levETIRAcetam 500 MG/5 ML INJECTION VIAL IVPB SCH ×2 (10:47→21:12)
[2019-12-10] MEDS: SODIUM CHLORIDE 1,000 ML IV SCH (10:48)
[2019-12-10 12:20] VITALS: BMI 28.8
--- NOTE | 2019-12-10 13:06 | PN ---
Progress Note (short form) - Note Progress Note: Repeat AXR = Decompressed sigmoid volvulus. Will plan to D/C rectal tube in AM. Begin bowel regimen in the interim. As previous conversation, high risk for recurrence of the sigmoid volvulus. If so, may need sigmoidoscopy for decompression / evaluation of sigmoid mucosa and surgical intervention as rectal tube / sigmoidoscopy are only temporizing measures to this anatomical issue. Problem List - Problems (1) Volvulus Code(s): K56.2 - VOLVULUS
--- NOTE | 2019-12-10 13:07 | PN ---
Progress Note (short form) - Note Progress Note: ID CONSULT DICTATED SIGMOID VOLVULUS/ PARTIAL BOWEL OBSTRUCTION FEVER/LEUKOCYTOSIS R/O ASPIRATION IN SETTING OF VOMITING AWAIT C/S CONTINUE EMPIRIC ZOSYN
--- NOTE | 2019-12-10 14:09 | CONS ---
INFECTIOUS DISEASE CONSULTATION DATE OF CONSULTATION: DATE OF DICTATION: 12/10/2019 HISTORY: The patient is a 49-year-old male who is evaluated for fever, leukocytosis. History is obtained from the chart as he cannot give a history secondary to profound mental retardation. He is a resident of [facility]. He suffers from profound mental retardation, cerebral palsy, seizure disorder. He has a feeding gastrostomy. At the facility he had developed worsening abdominal distention and agitation 1 day prior to admission. He had apparently vomited on 2 occasions. He presented to the emergency room where he was noted to have a distended abdomen. CAT scan of the abdomen and pelvis shows a markedly distended sigmoid colon with some retained stool consistent with a sigmoid volvulus with partial bowel obstruction. An NG tube was placed as well as a rectal tube. His course was complicated by fever to 100.5 and white blood cell count 13.7. He was also noted to have a lactic acidosis. Cultures were obtained. He was empirically treated with Zosyn for possible aspiration. At the present time the NG tube has been removed and he has a rectal tube in place passing feces. PAST MEDICAL HISTORY: As above. PAST SURGICAL HISTORY: Status post feeding gastrostomy. ALLERGIES: No known allergies. MEDICATIONS: Include Zosyn, Keppra, Pepcid. SOCIAL HISTORY: Patient resides in a fdc facility, is totally dependent in activities of daily living. No active tobacco or alcohol use. SYSTEMS REVIEW: Neurologic: Positive for cerebral palsy, mental retardation, seizure disorder. Cardiac: Negative chest pain or palpitations. Respiratory: Possible aspiration pneumonia. Gastrointestinal: As per HPI. Genitourinary: Negative for urinary tract infection. LABORATORY DATA: White count on admission 13.7, presently 6.7; hematocrit 37.3, platelets 235. Creatinine 0.6. Urine analysis 8 white cells. Blood and urine cultures are pending. CAT scan of the abdomen and pelvis shows a markedly distended bowel. The lung bases show possible atelectasis versus early infiltrate. PHYSICAL EXAMINATION: General: He is awake. He is agitated. Vital Signs: Temperature 98, T-max 100.5, blood pressure 128/70, pulse 118 regular, respiration 18 per minute. HEENT: Sclerae are anicteric. Heart: Sounds S1, S2. Lungs: Clear. Abdomen: Slightly distended, soft. No tenderness elicited. Feeding gastrostomy tube is in place. Rectal: There is a rectal tube in place. Extremities: Negative for edema. IMPRESSION: 1. Sigmoid volvulus/partial bowel obstruction. 2. Fever, leukocytosis, rule out sepsis. 3. Rule out aspiration in the setting of vomiting. 4. Lactic acidosis. Await cultures. Continue empiric Zosyn. Aspiration precautions. Surgical and GI followup. Thank you for the kind referral. SANIYA DUGGAN M.D. PAM/[id number]
--- NOTE | 2019-12-10 15:13 | PN ---
Teaching Attending Note Name of Resident: Ariane Ocampo ATTENDING PHYSICIAN STATEMENT I saw and evaluated the patient. I reviewed the resident's note and discussed the case with the resident. I agree with the resident's findings and plan as documented. SUBJECTIVE: Non-verbal, unable to participate in medical interview. OBJECTIVE: Tmax 100.3, Hemodynamically stable. Last Vital Signs Temp Pulse Resp BP Pulse Ox 99.9 F H 122 H 20 135/68 95 12/10/19 14:10 12/10/19 14:10 12/10/19 14:10 12/10/19 14:10 12/10/19 14:10 Heart - S1, S2, RRR Lungs - clear to auscultation Abdomen - Soft, non-tender. PEG in-situ Extremities - contractures, wasting Neuro - non-verbal, unable to follow commands. Laboratory Results - last 24 hr 12/09/19 12/09/19 12/10/19 15:40 19:08 07:33 WBC 6.7 RBC 3.89 L Hgb 12.9 Hct 37.3 MCV 95.7 MCH 33.0 MCHC 34.5 RDW 12.7 Plt Count 229 D MPV 8.2 PTT (Actin FS) 27.9 Sodium Potassium Chloride Carbon Dioxide Anion Gap BUN Creatinine Est GFR (CKD-EPI)AfAm Est GFR (CKD-EPI)NonAf Random Glucose Lactic Acid 1.3 Calcium Phosphorus Magnesium Total Bilirubin AST ALT Alkaline Phosphatase Total Protein Albumin 12/10/19 07:33 WBC RBC Hgb Hct MCV MCH MCHC RDW Plt Count MPV PTT (Actin FS) Sodium 149 H Potassium 3.7 Chloride 113 H Carbon Dioxide 27 Anion Gap 8 BUN 26.2 H Creatinine 0.6 Est GFR (CKD-EPI)AfAm 137.80 Est GFR (CKD-EPI)NonAf 118.89 Random Glucose 77 Lactic Acid Calcium 8.6 Phosphorus 4.2 Magnesium 2.8 H Total Bilirubin 0.7 AST 40 H ALT 32 Alkaline Phosphatase 104 Total Protein 7.3 Albumin 3.7 Current Medications Generic Name Dose Route Start Last Admin Trade Name Freq PRN Reason Stop Dose Admin Sodium Chloride 1,000 mls @ 75 mls/hr 12/09/19 11:30 12/10/19 10:48 Normal Saline - IV 75 mls/hr ASDIR RASHAUN Administration Famotidine/Sodium Chloride 20 mg in 50 mls @ 100 mls/hr 12/09/19 22:00 12/10/19 10:47 Pepcid 20 Mg Premixed Ivpb - IVPB 100 mls/hr BID RASHAUN Administration Piperacillin Sod/Tazobactam 50 mls @ 100 mls/hr 12/10/19 18:00 Sod 2.25 gm/ Dextrose IVPB Q8H-IV RASHAUN Protocol Levetiracetam 1,000 mg 12/09/19 11:45 12/10/19 10:47 Keppra Injection - IVPB 1,000 mg BID RASHAUN Administration Polyethylene Glycol 17 gm 12/10/19 22:00 Miralax (For Daily Use) - GT BID [facility] Home Medications Medication Instructions Recorded Baclofen 15 mg PO TID 05/11/12 Bisacodyl Suppository [Dulcolax 10 mg RC PRN PRN 05/11/12 Suppository -] Calcium Carbonate/Vitamin D3 1 each PO TID 05/11/12 [[place]yster Shell 500-Vit D3 200 Tb] Carbamazepine [Carbatrol] 300 mg PO BID 05/11/12 Carbamazepine [Carbatrol] 400 mg PO AM 05/11/12 Diazepam *Pediatric Rectal* 10 mg RC PRN PRN 05/11/12 [Diastat *Pediatric Rectal Gel* -] Diazepam [Valium] 5 mg PO TID 05/11/12 Polyethylene Glycol 3350 [Miralax 17 gm PO DAILY 05/11/12 255 gm Btl -] Ranitidine HCl [Zantac] 150 mg PO HS 05/11/12 Simethicone Liquid [Mylicon Liquid 80 mg PO QID PRN 05/11/12 -] Tizanidine HCl [Zanaflex] 2 mg PO TID 05/11/12 Selenium Sulfide/Aloe Vera [Selsun 207 ml TP HS 02/19/18 Blue Moist 1% Shampoo] Lactose-Reduced Food/Fiber [Jevity 1,000 ml PEG ASDIR 09/04/18 1.5 Blue Liquid] [place]-3/Dha/Epa/Fish Oil [Fish Oil 1,000 mg PEG ASDIR 09/04/18 1,600 mg/5 ml Liquid] Amoxicillin/Potassium Clav 600 mg PO BID 3 Days #1 bottle 09/11/18 [Augmentin ES Suspension] Amox-Tr/K Cl [Augmentin 250 mg/5 10 ml PO TID #300 ml 09/16/18 ml Oral Suspension -] Polyethylene Glycol 3350 [Miralax 17 gm PO DAILY 7 Days #1 bottle 09/16/18 (For Daily Use) -] Famotidine 20 mg PO DAILY 12/10/19 Lactose-Reduced Food/Fiber [Jevity 1,000 ml PO ASDIR 12/10/19 1.5 Blue Liquid] Lactulose 30 ml PO ASDIR 12/10/19 Sennosides [Senna] 8.8 mg PO ASDIR 12/10/19 ASSESSMENT AND PLAN: 49 year old male with history of cerebral palsy, spastic paralysis, functional quadriplegia, seizure disorder, constipation, presents from [facility] for abdominal distention, vomiting, found to have sigmoid volvulus. CT A/P - sigmoid volvulus, without free air. 1. Acute Sigmoid Volvulus s/p Rectal Tube decompression by GI Repeat AXR shows resolution of volvulus s/p rectal tube insertion Empiric Zosyn as per ID - low grade fever, leukocytosis resolved. For Rectal Tube removal in AM as per GI Bowel regimen as per GI No surgical intervention as per Surgery. 2. History of cerebral palsy, spastic paralysis, functional quadriplegia - on Baclofen, Diazepam, Tizanidine 3. Seizure Disorder - Continue Keppra. Once feeds resume, can resume Carbamazepine. GI Px - H2 sarkis
[2019-12-10] MEDS ORDERED: BISACODYL 10 MG SUPP.RECT RC PRN (15:19)
[2019-12-10] MEDS ORDERED: OMEGA PEG SCH (15:30)
[2019-12-10] MEDS ORDERED: PATIENT'S OWN MEDICATION (NON-FORMULARY) (Lactulose [Lactulose] 30 ML) PO SCH (15:30)
[2019-12-10] MEDS ORDERED: CALCIUM 500MG/VIT-D 200 UNITS COMBO TABLET (FP) PO SCH (15:30)
[2019-12-10] MEDS ORDERED: PATIENT'S OWN MEDICATION (NON-FORMULARY) (Lactose-Reduced Food/Fiber [Jevity 1.5 Cal Liqui PO SCH (15:30)
[2019-12-10] MEDS ORDERED: PATIENT'S OWN MEDICATION (NON-FORMULARY) (Lactose-Reduced Food/Fiber [Jevity 1.5 Cal Liqui PEG SCH ×2 (15:30→16:13)
[2019-12-10] MEDS ORDERED: FISH OIL PEG SCH (15:30)
[2019-12-10] MEDS ORDERED: DHA PEG SCH (15:30)
[2019-12-10] MEDS ORDERED: SENNOSIDES 8.8 MG/5 ML BULK BOTTLE PO SCH (15:30)
[2019-12-10] MEDS ORDERED: [UNRECOGNIZED DRUG - OTHER] PEG SCH (15:30)
[2019-12-10] MEDS ORDERED: EPA PEG SCH (15:30)
[2019-12-10] MEDS ORDERED: FAMOTIDINE 20 MG TABLET PEG SCH (16:13)
[2019-12-10] MEDS ORDERED: SENNOSIDES 8.8 MG/5 ML BULK BOTTLE PEG SCH ×2 (16:13→16:45)
[2019-12-10] MEDS ORDERED: PIPERACILLIN/TAZOBACTAM 2.25 GM VIAL IVPB ONE (17:20)
--- NOTE | 2019-12-10 17:21 | PN ---
Physical Exam: SUBJECTIVE: Patient seen and examined. Tmax 100.3. OBJECTIVE: Vital Signs Period Temp Pulse Resp BP Sys/Jansen Pulse Ox Last 24 Hr 97.7 F-100.3 F 84-123 18-20 119-151/68-78 95-98 GENERAL: The patient is awake, alert, and agitated. HEAD: Normocephalic, atraumatic. EYES: PERRL, extraocular movements intact, sclera anicteric, conjunctiva clear. ENT: Oropharynx clear, without erythema or exudates. Moist mucous membranes. NECK: Trachea midline. Supple without lymphadenopathy. LUNGS: Breath sounds equal, clear to auscultation bilaterally. No wheezes, no crackles. No accessory muscle use. HEART: Regular rate and rhythm. S1, S2 without murmur, rub or gallop. ABDOMEN: Distended abdomen. No increased grimacing to palpation appreciated. Hypoactive bowel sounds x4 quadrants. Tympanic to percussion. G tube in situ, without erythema. Midline vertical surgical scar at upper abdomen well healed. RECTAL: Negative external or internal hemorrhids palpated. Negative stool in rectal vault. Light streak brown stool without nighat blood upon gloved finger. Sample sent for occult testing. EXTREMITIES: Contracted extremities. 2+ radial, dorsalis pedis pulses bilaterally. Warm, well-perfused. No lower extremity edema bilaterally. NEUROLOGICAL: Moving all four extremities equally. Unable to cooperate with full neurologic examination. SKIN: Warm, dry. Midline vertical surgical scar at upper abdomen, well healed. Laboratory Results - last 24 hr 12/09/19 12/10/19 12/10/19 19:08 07:33 07:33 WBC 6.7 RBC 3.89 L Hgb 12.9 Hct 37.3 MCV 95.7 MCH 33.0 MCHC 34.5 RDW 12.7 Plt Count 229 D MPV 8.2 Sodium 149 H Potassium 3.7 Chloride 113 H Carbon Dioxide 27 Anion Gap 8 BUN 26.2 H Creatinine 0.6 Est GFR (CKD-EPI)AfAm 137.80 Est GFR (CKD-EPI)NonAf 118.89 Random Glucose 77 Lactic Acid 1.3 Calcium 8.6 Phosphorus 4.2 Magnesium 2.8 H Total Bilirubin 0.7 AST 40 H ALT 32 Alkaline Phosphatase 104 Total Protein 7.3 Albumin 3.7 Active Medications Generic Name Dose Route Start Last Admin Trade Name Freq PRN Reason Stop Dose Admin Acetaminophen 1,000 mg 12/10/19 15:13 Ofirmev Injection - IVPB 12/11/19 15:13 Q6H PRN FEVER Bisacodyl 10 mg 12/10/19 15:19 Dulcolax Suppository - RC PRN PRN CONSTIPATION Calcium Carbonate/Cholecalciferol 1 tab 12/10/19 16:13 Os-Blue 500+D - PEG TID RASHAUN Famotidine 20 mg 12/10/19 16:13 Pepcid - PEG DAILY RASHAUN Sodium Chloride 1,000 mls @ 75 mls/hr 12/09/19 11:30 12/10/19 10:48 Normal Saline - IV 75 mls/hr ASDIR RASHAUN Administration Famotidine/Sodium Chloride 20 mg in 50 mls @ 100 mls/hr 12/09/19 22:00 12/10/19 10:47 Pepcid 20 Mg Premixed Ivpb - IVPB 100 mls/hr BID RASHAUN Administration Piperacillin Sod/Tazobactam 50 mls @ 100 mls/hr 12/10/19 18:00 Sod 2.25 gm/ Dextrose IVPB Q8H-IV RASHAUN Protocol Levetiracetam 1,000 mg 12/09/19 11:45 12/10/19 10:47 Keppra Injection - IVPB 1,000 mg BID RASHAUN Administration Non-Formulary Medication 1,000 mg 12/10/19 15:30 [place]-3/Dha/Epa/Fish Oil [Fish Oil 1,600 Mg/5 Ml Liquid] PEG ASDIR RASHAUN Non-Formulary Medication 1,000 ml 12/10/19 15:30 Lactose-Reduced Food/Fiber [Jevity 1.5 Blue Liquid] PEG ASDIR RASHAUN Non-Formulary Medication 30 ml 12/10/19 15:30 Lactulose [Lactulose] PO ASDIR RASHAUN Polyethylene Glycol 17 gm 12/10/19 22:00 Miralax (For Daily Use) - GT BID RASHAUN Senna 8.8 mg 12/10/19 16:45 Senna Oral Solution - PEG ASDIR RASHAUN Tizanidine HCl 2 mg 12/10/19 22:00 Tizanidine Hcl GT TID RASHAUN ASSESSMENT/PLAN: Pt is a 49 year old male with PMHx of cerebral palsy, spastic paralysis, functional quadriplegia, seizure disorder, constipation presenting from [facility] for abdominal distension and vomiting admitted for sigmoid volvulus #Acute sigmoid volvulus -NPO except for meds through G tube -Rectal tube decompression, removal in AM per GI -AXR showing resolution of volvulus s/p rectal tube insertion -Bowel regimen -surgery consulted; no surgical intervention #Hx of cerebral palsy/spastic paralysis/seizure disorder -restarted baclofen, diazepam, tizanidine -Keppra -resume Carbamazepine once feeds resume PPx SCD FEN NPO, per GI and surg Monitor electrolytes NS 75cc/hr Dispo Admit to med surg. Rectal tube decompression, removal tomorrow AM. resolution of sigmoid volvulus on repeat AXR. ATTENDING PHYSICIAN STATEMENT I saw and evaluated the patient. I reviewed the resident's note and discussed the case with the resident. I agree with the resident's findings and plan as documented. SUBJECTIVE: OBJECTIVE: ASSESSMENT AND PLAN:
[2019-12-10] MEDS: ACETAMINOPHEN 1000 MG/100 ML VIAL (NON FORMULARY) IVPB PRN ×2 (17:36→23:24)
[2019-12-10] MEDS: PIPERACILLIN/TAZOB 2.25 GM 2.25 GM in DEXTROSE 5%-WATER - 50 ML IVPB SCH (17:36)
[2019-12-10] MEDS: BACLOFEN 10 MG TABLET (FP) PEG SCH (21:19)
[2019-12-10] MEDS: CALCIUM 500MG/VIT-D 200 UNITS COMBO TABLET (FP) PEG SCH (21:23)
[2019-12-10] MEDS: TIZANIDINE HCL 2 MG TABLET GT SCH (21:24)
[2019-12-10] MEDS: diazePAM 5 MG TABLET PEG SCH (21:24)
[2019-12-10] MEDS: POLYETHYLENE GLYCOL 3350 119 GM BTL GT SCH (21:41)
[2019-12-10] MEDS ORDERED: CARBAMAZEPINE 300 MG PEG SCH (22:00)
[2019-12-10] MEDS ORDERED: PATIENT'S OWN MEDICATION (NON-FORMULARY) (Tizanidine Hcl [Zanaflex] 2 MG) PO SCH (22:00)
[2019-12-11] MEDS ORDERED: DEXTROSE 5%-WATER - 50 ML IVPB ONE ×2 (02:16→17:17)
[2019-12-11] MEDS ORDERED: PIPERACILLIN/TAZOBACTAM 2.25 GM VIAL IVPB ONE ×2 (02:16→17:17)
[2019-12-11] MEDS: PIPERACILLIN/TAZOB 2.25 GM 2.25 GM in DEXTROSE 5%-WATER - 50 ML IVPB SCH ×3 (02:19→17:23)
[2019-12-11] MEDS: TIZANIDINE HCL 2 MG TABLET GT SCH ×3 (05:23→21:25)
[2019-12-11] MEDS: CALCIUM 500MG/VIT-D 200 UNITS COMBO TABLET (FP) PEG SCH ×3 (05:23→21:22)
[2019-12-11] MEDS: BACLOFEN 10 MG TABLET (FP) PEG SCH ×3 (05:24→21:22)
[2019-12-11] MEDS: diazePAM 5 MG TABLET PEG SCH ×3 (05:24→21:24)
--- NOTE | 2019-12-11 06:58 | PN.GI ---
GI Progress Note Subjective: no fever today no change in status as per RN - Objective Vital Signs: Vital Signs Temperature 98.8 F 12/11/19 05:53 Pulse Rate 108 H 12/11/19 05:53 Respiratory Rate 20 12/11/19 05:53 Blood Pressure 146/57 L 12/11/19 05:53 O2 Sat by Pulse Oximetry (%) 95 12/11/19 05:53 Constitutional: No Distress, Calm Neck: Yes: WNL Cardiovascular: Yes: WNL, Regular Rate and Rhythm Respiratory: Yes: WNL, Regular, CTA Bilaterally Gastrointestinal Inspection: Yes: WNL ...Auscultate: Yes: Normoactive Bowel Sounds, Other (soft , not distended ; not tender rectal tube in place) Extremities: Yes: WNL Edema: No Labs: CBC, BMP 12/10/19 07:33 12/10/19 07:33 INR, PTT INR 1.04 (0.83-1.09) 12/09/19 07:00 Problem List - Problems (1) Fever Assessment/Plan: discussed case with Dr. Nieves -- plan to leave in the rectal tube for now; reassess - if failed decompression will likely require surgical intervention further work up of fever as per primary medical team npo / ivf Code(s): R50.9 - FEVER, UNSPECIFIED (2) Volvulus Code(s): K56.2 - VOLVULUS (3) Constipation Code(s): K59.00 - CONSTIPATION, UNSPECIFIED Qualifiers: Constipation type: unspecified constipation type Qualified Code(s): K59.00 - Constipation, unspecified
[2019-12-11] MEDS ORDERED: CARBAMAZEPINE 400 MG PEG SCH (07:00)
[2019-12-11] MEDS ORDERED: SODIUM CHLORIDE 0.45% 1,000 ML IV SCH (08:30)
[2019-12-11 08:40] LABS: BASO % 0.1 % (0-2.0); HEMATOCRIT 38.4 % (35.4-49); HEMOGLOBIN 12.5 GM/dL (11.7-16.9); LYMPH % 23.9 % (8-40); MCH 32.3 pg (25.7-33.7); MCHC 32.5 g/dl (32.0-35.9); MEAN CELL VOLUME 99.2 fl (80-96); MEAN PLT VOLUME 8.1 fl (7.5-11.1); PLATELET COUNT 225 K/MM3 (134-434); RBC 3.87 M/mm3 (4.00-5.60); RDW 12.8 % (11.9-15.9); WHITE BLOOD COUNT 4.3 K/mm3 (4.0-10.0)
[2019-12-11 09:19] LABS: ALBUMIN 3.4 g/dl (3.4-5.0); BILIRUBIN,TOTAL 0.6 mg/dL (0.2-1); BLOOD UREA NITROGEN 33.8 mg/dL (7-18); CALCIUM 8.5 mg/dL (8.5-10.1); CREATININE 0.7 mg/dL (0.55-1.3); MAGNESIUM 3.4 mg/dL (1.8-2.4); PHOSPHOROUS 5.1 mg/dL (2.5-4.9); POTASSIUM 3.6 mmol/L (3.5-5.1); TOT PROT 7.1 g/dl (6.4-8.2)
[2019-12-11] MEDS ORDERED: DEXTROSE 5%-WATER - 1,000 ML IV SCH ×2 (09:30→10:15)
[2019-12-11] MEDS ORDERED: PT OWN MED DRAWER 7, Y5N ONE (10:01)
[2019-12-11] MEDS: levETIRAcetam 500 MG/5 ML INJECTION VIAL IVPB SCH ×3 (10:11→21:16)
[2019-12-11] MEDS: ACETAMINOPHEN 1000 MG/100 ML VIAL (NON FORMULARY) IVPB PRN (10:44)
[2019-12-11] MEDS: POLYETHYLENE GLYCOL 3350 119 GM BTL GT SCH ×2 (10:54→21:25)
[2019-12-11] MEDS: FAMOTIDINE 20 MG/50 ML IVPB 20 MG/50 ML MG IVPB SCH ×2 (11:00→21:22)
--- NOTE | 2019-12-11 11:23 | CONSULT ---
Consultation: REQUESTING PROVIDER: Dr. Patel CONSULT REQUEST: We have been asked to medically evaluate this patient for Hypernatremia . HISTORY OF PRESENT ILLNESS: Pt. is a 49 y.o. M w/ PMHx. of Cerebral Palsy, Seizure disorder, constipation presents from [place] [facility] for abdominal distention and increased agitation. We were called to assess for Pt. found to be hypernatremic today. Pt. has recevied Zosyn given leukocytosis, cough, and fever because of vomiting from volvulus for suspicion of aspiration pneumonia. CT a bdomen pelvis revealed sigmoid volvulus, without free air. Abdominal X-ray after rectal tube shows resolution of volvulus. Per GI Pt. is to remain NPO. Pt. is not a surgical candidate at this time per surgery. Pt. did not have any acute events overnight however Sodium is noted to be elevated today to 162 from 149 yesterday which increased from 137 the day before. REVIEW OF SYSTEMS: Unable to assess given Mental status PHYSICAL EXAMINATION Vital Signs - 24 hr 12/10/19 12/10/19 12/10/19 14:10 18:52 20:52 Temperature 99.9 F H 100.4 F H Pulse Rate 122 H 122 H Respiratory 20 20 Rate Blood Pressure 135/68 134/76 O2 Sat by Pulse 95 98 Oximetry (%) 12/10/19 12/11/19 12/11/19 23:20 00:00 05:53 Temperature 101.2 F H 98.7 F 98.8 F Pulse Rate 109 H 108 H Respiratory 20 20 Rate Blood Pressure 152/59 L 146/57 L O2 Sat by Pulse 95 95 Oximetry (%) GENERAL: Awake, eye open, with arms shaking HEAD: Normal with no signs of trauma. EYES: Sclera anicteric, conjunctiva clear. EARS, NOSE, THROAT: Ears normal, nares patent, oropharynx clear without exudates. Moist mucous membranes. LUNGS: CTAB anteriorly. No wheezes, and no crackles. No accessory muscle use. HEART: Regular rate and rhythm, normal S1 and S2 without murmur ABDOMEN: Soft, nontender, not distended, normoactive bowel sounds, no guarding, no rebound, no masses. Rectal tube in place without any drainage. Mckee in place, PEG in place. UPPER EXTREMITIES: 2+ radial pulses, warm, well-perfused. No cyanosis. No clubbing. No peripheral edema. LOWER EXTREMITIES: 2+ dorsal pedal pulses, warm, well-perfused. No calf tenderness. No peripheral edema. NEUROLOGICAL: Moves upper extremities PSYCHIATRIC: Cerebral palsy, MR SKIN: Warm, diaphoretic, slight bruising on LUE Laboratory Results - last 24 hr 12/11/19 12/11/19 07:55 07:55 WBC 4.3 RBC 3.87 L Hgb 12.5 Hct 38.4 MCV 99.2 H MCH 32.3 MCHC 32.5 RDW 12.8 Plt Count 225 MPV 8.1 Absolute Neuts (auto) 2.9 Neutrophils % 67.0 D Lymphocytes % 23.9 D Monocytes % 9.0 D Eosinophils % 0.0 Basophils % 0.1 Nucleated RBC % 0 Sodium 162 H* Potassium 3.6 Chloride 127 H Carbon Dioxide 27 Anion Gap 8 BUN 33.8 H Creatinine 0.7 Est GFR (CKD-EPI)AfAm 129.34 Est GFR (CKD-EPI)NonAf 111.59 Random Glucose 90 Calcium 8.5 Phosphorus 5.1 H Magnesium 3.4 H Total Bilirubin 0.6 AST 67 H ALT 41 Alkaline Phosphatase 87 Total Protein 7.1 Albumin 3.4 Active Medications Generic Name Dose Route Start Last Admin Trade Name Freq PRN Reason Stop Dose Admin Acetaminophen 1,000 mg 12/10/19 15:13 12/11/19 10:44 Ofirmev Injection - IVPB 12/11/19 15:13 1,000 mg Q6H PRN Administration FEVER Baclofen 15 mg 12/10/19 22:00 12/11/19 05:24 Lioresal - PEG 15 mg TID RASHAUN Administration Bisacodyl 10 mg 12/10/19 15:19 Dulcolax Suppository - RC PRN PRN CONSTIPATION Calcium Carbonate/Cholecalciferol 1 tab 12/10/19 16:13 12/11/19 05:23 Os-Blue 500+D - PEG 1 tab TID RASHAUN Administration Diazepam 5 mg 12/10/19 22:00 12/11/19 05:24 Valium - PEG 5 mg TID RASHAUN Administration Famotidine/Sodium Chloride 20 mg in 50 mls @ 100 mls/hr 12/09/19 22:00 12/10/19 21:25 Pepcid 20 Mg Premixed Ivpb - IVPB 100 mls/hr BID RASHAUN Administration Piperacillin Sod/Tazobactam 50 mls @ 100 mls/hr 12/10/19 18:00 12/11/19 10:49 Sod 2.25 gm/ Dextrose IVPB 100 mls/hr Q8H-IV RASHAUN Administration Protocol Dextrose 1,000 mls @ 100 mls/hr 12/11/19 10:15 12/11/19 10:18 D5w - IV 100 mls/hr ASDIR RASHAUN Administration Levetiracetam 1,000 mg 12/09/19 11:45 12/11/19 10:11 Keppra Injection - IVPB 1,000 mg BID RASHAUN Administration Non-Formulary Medication 1,000 mg 12/10/19 15:30 [place]-3/Dha/Epa/Fish Oil [Fish Oil 1,600 Mg/5 Ml Liquid] PEG ASDIR RASHAUN Polyethylene Glycol 17 gm 12/10/19 22:00 12/11/19 10:54 Miralax (For Daily Use) - GT 17 gm BID RASHAUN Administration Senna 8.8 mg 12/10/19 16:45 Senna Oral Solution - PEG ASDIR RASHANU Tizanidine HCl 2 mg 12/10/19 22:00 12/11/19 05:23 Tizanidine Hcl GT 2 mg TID RASHAUN Administration ASSESSMENT/PLAN: Pt. is a 49 y.o. M w/ PMHx. of Cerebral Palsy, Seizure disorder, constipation presents from [place] [facility] for abdominal distention and increased agitation. We were called to assess for Pt. found to be hypernatremic today. #Hypernatremia likely 2/2 to GI losses, diaphoresis and presenting with vomiting. Pt. has been NPO because of volvulus. Pt. has been febrile throughout hospital course f/u urine electrolytes, serum and urine osmolality Urine in [place] is yasmeen colored, no evidence of polyruia which eliminates DI and osmotic diuresis c/w measuring Urine output as Pt. has documented only 100cc output through external catheter even though Pt. has received 3L + of NS Free water deficit for Na of 162 to correct to 154 over the next 24 hours is 1.6L will increase D5W to 125ml/hr while Pt. is still NPO recommend BMP Q6H to decreased Sodium by 8 within 24 hours Can give free water (500cc-1L) Q6H through PEG if acceptable by GI and titrate as per repeat BMP when tolerating G-tube feeds Visit type - Emergency Visit Emergency Visit: Yes ED Registration Date: 12/09/19 Care time: The patient presented to the Emergency Department on the above date and was hospitalized for further evaluation of their emergent condition. - New Patient This patient is new to me today: Yes Date on this admission: 12/11/19 - Critical Care Critical Care patient: No ATTENDING PHYSICIAN STATEMENT I saw and evaluated the patient. I reviewed the resident's note and discussed the case with the resident. I agree with the resident's findings and plan as documented. SUBJECTIVE: OBJECTIVE: ASSESSMENT AND PLAN:
[2019-12-11 11:53] LABS: SODIUM 162 mmol/L (136-145)
[2019-12-11 12:58] LABS: OSMOLALITY,SERUM 341 mosm/kg (278-305)
[2019-12-11] MEDS: DEXTROSE 5%-WATER - 1,000 ML IV SCH (14:12)
--- NOTE | 2019-12-11 14:27 | PN ---
Progress Note, Physician History of Present Illness: AGITATED\TEMP NOTED MINIMAL OUTPUT, RECTAL TUBE NO VOMITING WBC WNL - Current Medication List Current Medications: Active Medications Acetaminophen (Ofirmev Injection -) 1,000 mg IVPB Q6H PRN PRN Reason: FEVER Stop: 12/11/19 15:13 Last Admin: 12/11/19 10:44 Dose: 1,000 mg Documented by: Baclofen (Lioresal -) 15 mg PEG TID RASHAUN Last Admin: 12/11/19 05:24 Dose: 15 mg Documented by: Bisacodyl (Dulcolax Suppository -) 10 mg RC PRN PRN PRN Reason: CONSTIPATION Calcium Carbonate/Cholecalciferol (Os-Blue 500+D -) 1 tab PEG TID RASHAUN Last Admin: 12/11/19 05:23 Dose: 1 tab Documented by: Diazepam (Valium -) 5 mg PEG TID RASHAUN Last Admin: 12/11/19 05:24 Dose: 5 mg Documented by: Famotidine/Sodium Chloride (Pepcid 20 Mg Premixed Ivpb -) 20 mg in 50 mls @ 100 mls/hr IVPB BID [facility] Last Admin: 12/11/19 11:00 Dose: 100 mls/hr Documented by: Piperacillin Sod/Tazobactam (Sod 2.25 gm/ Dextrose) 50 mls @ 100 mls/hr IVPB Q8H-IV RASHAUN; Protocol Last Admin: 12/11/19 10:49 Dose: 100 mls/hr Documented by: Dextrose (D5w -) 1,000 mls @ 125 mls/hr IV ASDIR RASHAUN Last Admin: 12/11/19 14:12 Dose: 125 mls/hr Documented by: Levetiracetam (Keppra Injection -) 1,000 mg IVPB BID [facility] Last Admin: 12/11/19 10:11 Dose: 1,000 mg Documented by: Non-Formulary Medication ([place]-3/Dha/Epa/Fish Oil [Fish Oil 1,600 Mg/5 Ml Liquid]) 1,000 mg PEG ASDIR RASHAUN Polyethylene Glycol (Miralax (For Daily Use) -) 17 gm GT BID [facility] Last Admin: 12/11/19 10:54 Dose: 17 gm Documented by: Senna (Senna Oral Solution -) 8.8 mg PEG ASDIR RASHAUN Tizanidine HCl (Tizanidine Hcl) 2 mg GT TID [facility] Last Admin: 12/11/19 05:23 Dose: 2 mg Documented by: - Objective Vital Signs: Vital Signs Temperature 101.2 F H 12/11/19 11:31 Pulse Rate 108 H 12/11/19 05:53 Respiratory Rate 20 12/11/19 05:53 Blood Pressure 141/64 12/11/19 11:31 O2 Sat by Pulse Oximetry (%) 94 L 12/11/19 11:31 Constitutional: Yes: No Distress, Cachectic Cardiovascular: Yes: Regular Rate and Rhythm, S1, S2, Other Respiratory: Yes: CTA Bilaterally Gastrointestinal: Yes: Normal Bowel Sounds, Soft. No: Tenderness Labs: CBC, BMP 12/11/19 07:55 12/11/19 10:15 INR, PTT INR 1.04 (0.83-1.09) 12/09/19 07:00 Assessment/Plan SIGMOID VOLVULUS/PARTIAL BOWEL OBSTRUCTION FEVER/LEUKOCYTOSIS R/O ASP PNEUMONIA CP/MR CONTINUE EMPIRIC ZOSYN SURGICAL GI F/U
--- NOTE | 2019-12-11 14:33 | PN ---
Teaching Attending Note Name of Resident: Ariane Ocampo ATTENDING PHYSICIAN STATEMENT I saw and evaluated the patient. I reviewed the resident's note and discussed the case with the resident. I agree with the resident's findings and plan as documented. SUBJECTIVE: Non-verbal, unable to participate in medical interview. OBJECTIVE: Tmax 101.2, Hemodynamically stable. Last Vital Signs Temp Pulse Resp BP Pulse Ox 101.2 F H 108 H 20 141/64 94 L 12/11/19 11:31 12/11/19 05:53 12/11/19 05:53 12/11/19 11:31 12/11/19 11:31 Heart - S1, S2, RRR Lungs - clear to auscultation Abdomen - Soft, non-tender. PEG in-situ Extremities - contractures, wasting Neuro - non-verbal, unable to follow commands. Laboratory Results - last 24 hr 12/11/19 12/11/19 12/11/19 07:55 07:55 10:15 WBC 4.3 RBC 3.87 L Hgb 12.5 Hct 38.4 MCV 99.2 H MCH 32.3 MCHC 32.5 RDW 12.8 Plt Count 225 MPV 8.1 Absolute Neuts (auto) 2.9 Neutrophils % 67.0 D Lymphocytes % 23.9 D Monocytes % 9.0 D Eosinophils % 0.0 Basophils % 0.1 Nucleated RBC % 0 Sodium 162 H* 162 H* Potassium 3.6 Chloride 127 H Carbon Dioxide 27 Anion Gap 8 BUN 33.8 H Creatinine 0.7 Est GFR (CKD-EPI)AfAm 129.34 Est GFR (CKD-EPI)NonAf 111.59 Random Glucose 90 Serum Osmolality 341 H Calcium 8.5 Phosphorus 5.1 H Magnesium 3.4 H Total Bilirubin 0.6 AST 67 H ALT 41 Alkaline Phosphatase 87 Total Protein 7.1 Albumin 3.4 Current Medications Generic Name Dose Route Start Last Admin Trade Name Freq PRN Reason Stop Dose Admin Acetaminophen 1,000 mg 12/10/19 15:13 12/11/19 10:44 Ofirmev Injection - IVPB 12/11/19 15:13 1,000 mg Q6H PRN Administration FEVER Baclofen 15 mg 12/10/19 22:00 12/11/19 05:24 Lioresal - PEG 15 mg TID RASHAUN Administration Bisacodyl 10 mg 12/10/19 15:19 Dulcolax Suppository - RC PRN PRN CONSTIPATION Calcium Carbonate/Cholecalciferol 1 tab 12/10/19 16:13 12/11/19 14:24 Os-Blue 500+D - PEG 1 tab TID RASHAUN Administration Diazepam 5 mg 12/10/19 22:00 12/11/19 14:23 Valium - PEG 5 mg TID RASHAUN Administration Famotidine/Sodium Chloride 20 mg in 50 mls @ 100 mls/hr 12/09/19 22:00 12/11/19 11:00 Pepcid 20 Mg Premixed Ivpb - IVPB 100 mls/hr BID RASHAUN Administration Piperacillin Sod/Tazobactam 50 mls @ 100 mls/hr 12/10/19 18:00 12/11/19 10:49 Sod 2.25 gm/ Dextrose IVPB 100 mls/hr Q8H-IV RASHAUN Administration Protocol Dextrose 1,000 mls @ 125 mls/hr 12/11/19 12:26 12/11/19 14:12 D5w - IV 125 mls/hr ASDIR RASHAUN Administration Levetiracetam 1,000 mg 12/09/19 11:45 12/11/19 10:11 Keppra Injection - IVPB 1,000 mg BID RASHAUN Administration Non-Formulary Medication 1,000 mg 12/10/19 15:30 [place]-3/Dha/Epa/Fish Oil [Fish Oil 1,600 Mg/5 Ml Liquid] PEG ASDIR RASHAUN Polyethylene Glycol 17 gm 12/10/19 22:00 12/11/19 10:54 Miralax (For Daily Use) - GT 17 gm BID RASHAUN Administration Senna 8.8 mg 12/10/19 16:45 Senna Oral Solution - PEG ASDIR RASHAUN Tizanidine HCl 2 mg 12/10/19 22:00 12/11/19 14:24 Tizanidine Hcl GT 2 mg TID RASHAUN Administration Home Medications Medication Instructions Recorded Baclofen 15 mg PO TID 05/11/12 Bisacodyl Suppository [Dulcolax 10 mg RC PRN PRN 05/11/12 Suppository -] Calcium Carbonate/Vitamin D3 1 each PO TID 05/11/12 [[place] 500-Vit D3 200 Tb] Carbamazepine [Carbatrol] 300 mg PO BID 05/11/12 Carbamazepine [Carbatrol] 400 mg PO AM 05/11/12 Diazepam *Pediatric Rectal* 10 mg RC PRN PRN 05/11/12 [Diastat *Pediatric Rectal Gel* -] Diazepam [Valium] 5 mg PO TID 05/11/12 Simethicone Liquid [Mylicon Liquid 80 mg PO QID PRN 05/11/12 -] Tizanidine HCl [Zanaflex] 2 mg PO TID 05/11/12 Lactose-Reduced Food/Fiber [Jevity 1,000 ml PEG ASDIR 09/04/18 1.5 Blue Liquid] [place]-3/Dha/Epa/Fish Oil [Fish Oil 1,000 mg PEG ASDIR 09/04/18 1,600 mg/5 ml Liquid] Polyethylene Glycol 3350 [Miralax 17 gm PO DAILY 7 Days #1 bottle 09/16/18 (For Daily Use) -] Famotidine 20 mg PO DAILY 12/10/19 Lactose-Reduced Food/Fiber [Jevity 1,000 ml PO ASDIR 12/10/19 1.5 Blue Liquid] Lactulose 30 ml PO ASDIR 12/10/19 Sennosides [Senna] 8.8 mg PO ASDIR 12/10/19 ASSESSMENT AND PLAN: 49 year old male with history of cerebral palsy, spastic paralysis, functional quadriplegia, seizure disorder, constipation, presents from [facility] for abdominal distention, vomiting, found to have sigmoid volvulus. CT A/P - sigmoid volvulus, without free air. 1. Acute Sigmoid Volvulus s/p Rectal Tube decompression by GI Repeat AXR shows resolution of volvulus s/p rectal tube insertion Empiric Zosyn as per ID - ongoing fever, leukocytosis resolved. Seen by GI - recommend leaving Rectal Tube in - possible Surgical intervention if no improvement. Bowel regimen as per GI No surgical intervention currently as per Surgery. 2. History of cerebral palsy, spastic paralysis, functional quadriplegia - on Baclofen, Diazepam, Tizanidine 3. Seizure Disorder - Continue Keppra. Once feeds resume, can resume Carbamazepine. 4. Hypernatremia - secondary to dehydration/NS IV. Needs free water. Can give via PEG once GI clears, rate of D5W IV fluids increased. Will monitor closely. DVT Px - Heparin SQ GI Px - H2 sarkis
--- NOTE | 2019-12-11 15:48 | PN ---
Physical Exam: SUBJECTIVE: Patient seen and examined. OBJECTIVE: Vital Signs Period Temp Pulse Resp BP Sys/Jansen Pulse Ox Last 24 Hr 98.7 F-101.2 F 84-122 18-20 125-152/52-76 94-98 GENERAL: The patient is awake, alert, and agitated. HEAD: Normocephalic, atraumatic. EYES: PERRL, extraocular movements intact, sclera anicteric, conjunctiva clear. ENT: Oropharynx clear, without erythema or exudates. Moist mucous membranes. NECK: Trachea midline. Supple without lymphadenopathy. LUNGS: Breath sounds equal, clear to auscultation bilaterally. No wheezes, no crackles. No accessory muscle use. HEART: Regular rate and rhythm. S1, S2 without murmur, rub or gallop. ABDOMEN: Distended abdomen. No increased grimacing to palpation appreciated. Hypoactive bowel sounds x4 quadrants. Tympanic to percussion. G tube in situ, without erythema. Midline vertical surgical scar at upper abdomen well healed. RECTAL: Negative external or internal hemorrhids palpated. Negative stool in rectal vault. Light streak brown stool without nighat blood upon gloved finger. Sample sent for occult testing. EXTREMITIES: Contracted extremities. 2+ radial, dorsalis pedis pulses bilaterally. Warm, well-perfused. No lower extremity edema bilaterally. NEUROLOGICAL: Moving all four extremities equally. Unable to cooperate with full neurologic examination. SKIN: Warm, dry. Midline vertical surgical scar at upper abdomen, well healed. Laboratory Results - last 24 hr 12/11/19 12/11/19 12/11/19 07:55 07:55 10:15 WBC 4.3 RBC 3.87 L Hgb 12.5 Hct 38.4 MCV 99.2 H MCH 32.3 MCHC 32.5 RDW 12.8 Plt Count 225 MPV 8.1 Absolute Neuts (auto) 2.9 Neutrophils % 67.0 D Lymphocytes % 23.9 D Monocytes % 9.0 D Eosinophils % 0.0 Basophils % 0.1 Nucleated RBC % 0 Sodium 162 H* 162 H* Potassium 3.6 Chloride 127 H Carbon Dioxide 27 Anion Gap 8 BUN 33.8 H Creatinine 0.7 Est GFR (CKD-EPI)AfAm 129.34 Est GFR (CKD-EPI)NonAf 111.59 Random Glucose 90 Serum Osmolality 341 H Calcium 8.5 Phosphorus 5.1 H Magnesium 3.4 H Total Bilirubin 0.6 AST 67 H ALT 41 Alkaline Phosphatase 87 Total Protein 7.1 Albumin 3.4 Urine Osmolality Ur Random Sodium Ur Random Potassium Ur Random Chloride 12/11/19 14:18 WBC RBC Hgb Hct MCV MCH MCHC RDW Plt Count MPV Absolute Neuts (auto) Neutrophils % Lymphocytes % Monocytes % Eosinophils % Basophils % Nucleated RBC % Sodium Potassium Chloride Carbon Dioxide Anion Gap BUN Creatinine Est GFR (CKD-EPI)AfAm Est GFR (CKD-EPI)NonAf Random Glucose Serum Osmolality Calcium Phosphorus Magnesium Total Bilirubin AST ALT Alkaline Phosphatase Total Protein Albumin Urine Osmolality 1218 H Ur Random Sodium 61 Ur Random Potassium 108.0 Ur Random Chloride 95 L Active Medications Generic Name Dose Route Start Last Admin Trade Name Freq PRN Reason Stop Dose Admin Baclofen 15 mg 12/10/19 22:00 12/11/19 05:24 Lioresal - PEG 15 mg TID RASHAUN Administration Bisacodyl 10 mg 12/10/19 15:19 Dulcolax Suppository - RC PRN PRN CONSTIPATION Calcium Carbonate/Cholecalciferol 1 tab 12/10/19 16:13 12/11/19 14:24 Os-Blue 500+D - PEG 1 tab TID RASHAUN Administration Diazepam 5 mg 12/10/19 22:00 12/11/19 14:23 Valium - PEG 5 mg TID RASHAUN Administration Heparin Sodium (Porcine) 5,000 unit 12/11/19 22:00 Heparin - SQ TID RASHAUN Famotidine/Sodium Chloride 20 mg in 50 mls @ 100 mls/hr 12/09/19 22:00 12/11/19 11:00 Pepcid 20 Mg Premixed Ivpb - IVPB 100 mls/hr BID RASHAUN Administration Piperacillin Sod/Tazobactam 50 mls @ 100 mls/hr 12/10/19 18:00 12/11/19 10:49 Sod 2.25 gm/ Dextrose IVPB 100 mls/hr Q8H-IV RASHAUN Administration Protocol Dextrose 1,000 mls @ 125 mls/hr 12/11/19 12:26 12/11/19 14:12 D5w - IV 125 mls/hr ASDIR RASHAUN Administration Levetiracetam 1,000 mg 12/09/19 11:45 12/11/19 10:11 Keppra Injection - IVPB 1,000 mg BID RAHSAUN Administration Non-Formulary Medication 1,000 mg 12/10/19 15:30 [place]-3/Dha/Epa/Fish Oil [Fish Oil 1,600 Mg/5 Ml Liquid] PEG ASDIR RASHAUN Polyethylene Glycol 17 gm 12/10/19 22:00 12/11/19 10:54 Miralax (For Daily Use) - GT 17 gm BID RASHAUN Administration Senna 8.8 mg 12/10/19 16:45 Senna Oral Solution - PEG ASDIR RASHAUN Tizanidine HCl 2 mg 12/10/19 22:00 12/11/19 14:24 Tizanidine Hcl GT 2 mg TID RASHAUN Administration ASSESSMENT/PLAN: Pt is a 49 year old male with PMHx of cerebral palsy, spastic paralysis, functional quadriplegia, seizure disorder, constipation presenting from [facility] for abdominal distension and vomiting admitted for sigmoid volvulus #Acute sigmoid volvulus -Rectal tube decompression, still in place per GI -AXR showing improvement of volvulus s/p rectal tube insertion -Bowel regimen -surgery consulted; will evaluate with rectal tube progress -NPO #Hypernatremia -Na+ 162 -consulted renal; increased fluids D5W to 125cc/hr -follow up in AM, goal 154 Na+ within 24 hours #Hx of cerebral palsy/spastic paralysis/seizure disorder -restarted baclofen, diazepam, tizanidine -Keppra -resume Carbamazepine once feeds resume PPx SCD FEN NPO, per GI and surg Monitor electrolytes D5W 125cc/hr Dispo Admit to med surg. Rectal tube decompression, removal tomorrow AM. improving sigmoid volvulus. ATTENDING PHYSICIAN STATEMENT I saw and evaluated the patient. I reviewed the resident's note and discussed the case with the resident. I agree with the resident's findings and plan as documented. SUBJECTIVE: OBJECTIVE: ASSESSMENT AND PLAN:
[2019-12-11] MEDS ORDERED: ACETAMINOPHEN 1000 MG/100 ML VIAL (NON FORMULARY) IVPB PRN (16:26)
--- NOTE | 2019-12-11 19:03 | PN ---
Teaching Attending Note Name of Resident: Joel Schrader (Nephrology) ATTENDING PHYSICIAN STATEMENT I saw and evaluated the patient. I reviewed the resident's note and discussed the case with the resident. I agree with the resident's findings and plan as documented. Renal Pt is a 49 year old make with cerebral palsy and epilepsy who is admitted with signoid volvulous. He has been npo and was noted to be hypernatremic. He is unable to give history. pmhx cerebral palsy epilepsy pshx peg family hx non contrib social [facility] 2001 Current Medications Generic Name Dose Route Start Last Admin Trade Name Freq PRN Reason Stop Dose Admin Acetaminophen 1,000 mg 12/11/19 16:26 Ofirmev Injection - IVPB 12/12/19 16:26 Q6H PRN FEVER Baclofen 15 mg 12/10/19 22:00 12/11/19 15:45 Lioresal - PEG 15 mg TID RASHAUN Administration Bisacodyl 10 mg 12/10/19 15:19 Dulcolax Suppository - RC PRN PRN CONSTIPATION Calcium Carbonate/Cholecalciferol 1 tab 12/10/19 16:13 12/11/19 14:24 Os-Blue 500+D - PEG 1 tab TID RASHAUN Administration Diazepam 5 mg 12/10/19 22:00 12/11/19 14:23 Valium - PEG 5 mg TID RASHAUN Administration Heparin Sodium (Porcine) 5,000 unit 12/11/19 22:00 Heparin - SQ TID RASHAUN Famotidine/Sodium Chloride 20 mg in 50 mls @ 100 mls/hr 12/09/19 22:00 12/11/19 11:00 Pepcid 20 Mg Premixed Ivpb - IVPB 100 mls/hr BID RASHAUN Administration Piperacillin Sod/Tazobactam 50 mls @ 100 mls/hr 12/10/19 18:00 12/11/19 17:23 Sod 2.25 gm/ Dextrose IVPB 100 mls/hr Q8H-IV RASHAUN Administration Protocol Dextrose 1,000 mls @ 125 mls/hr 12/11/19 12:26 12/11/19 14:12 D5w - IV 125 mls/hr ASDIR RAHSAUN Administration Levetiracetam 1,000 mg 12/09/19 11:45 12/11/19 10:11 Keppra Injection - IVPB 1,000 mg BID RASHAUN Administration Non-Formulary Medication 1,000 mg 12/10/19 15:30 [place]-3/Dha/Epa/Fish Oil [Fish Oil 1,600 Mg/5 Ml Liquid] PEG ASDIR RASHAUN Polyethylene Glycol 17 gm 12/10/19 22:00 12/11/19 10:54 Miralax (For Daily Use) - GT 17 gm BID RASHAUN Administration Senna 8.8 mg 12/10/19 16:45 Senna Oral Solution - PEG ASDIR RASHAUN Tizanidine HCl 2 mg 12/10/19 22:00 12/11/19 14:24 Tizanidine Hcl GT 2 mg TID RASHAUN Administration Last Vital Signs Temp Pulse Resp BP Pulse Ox 101.2 F H 84 18 125/52 L 96 12/11/19 15:05 12/11/19 15:05 12/11/19 15:05 12/11/19 15:05 12/11/19 15:05 Laboratory Tests 12/09/19 12/09/19 12/09/19 06:59 09:44 19:08 Sodium 137 Creatinine Serum Osmolality Lactic Acid 2.6 H* 1.3 12/10/19 12/11/19 12/11/19 07:33 07:55 10:15 Sodium 149 H 162 H* 162 H* Creatinine 0.7 Serum Osmolality 341 H Lactic Acid cardio s1s2 pulm clear gi soft, peg ext contracted neuro awake and alert Impression 1. hypernatremia 2. volvulous 3. cerebral palsy Plan - start d5w he is is npo - will covert to free water once GI approves peg use - monitor sodium - avoid change of greater than 8 meq in 24 hours
[2019-12-11 21:15] LABS: BLOOD UREA NITROGEN 32.6 mg/dL (7-18); CALCIUM 8.3 mg/dL (8.5-10.1); CREATININE 0.7 mg/dL (0.55-1.3); POTASSIUM 3.2 mmol/L (3.5-5.1)
[2019-12-11] MEDS: HEPARIN NA (PORCINE) 5,000 UNITS/ML 1ML VIAL SQ SCH (21:24)
--- NOTE | 2019-12-12 00:03 | RAPID ---
Physical Examination Vital Signs: Vital Signs Temperature 99.3 F 12/11/19 23:25 Pulse Rate 60 12/11/19 23:25 Respiratory Rate 18 12/11/19 23:25 Blood Pressure 106/60 12/11/19 23:25 O2 Sat by Pulse Oximetry (%) 95 12/11/19 23:25 Labs: CBC, BMP 12/11/19 07:55 12/11/19 19:35 Rapid Response - Rapid Response Assessment: Rapid response was called ~23:00 after nusing staff found Johann Harrington to be less responsive than during previous night. Nursing states he was more active and agitated last night, and tonight appeared more lethargic. His father was contacted to confirm patients baseline mental status: Johann is non-verbal at baseline, vision impaired, non-communicative, responsive to voice and touch -- turns head to name being called; generally in a pleasant mood unless he is in pain or uncomfortable at which point he becomes more active and irritable. Vitals HR 52 BP 106/60 O2 sat 95 Physical Exam GENERAL: The patient is lethargic resting in bed HEAD: Normocephalic, atraumatic, dry mucous membranes EYES: PERRL, sclera anicteric, conjunctiva clear LUNGS: Breath sounds equal, clear to auscultation bilaterally. No wheezes, no crackles. No accessory muscle use. HEART: Regular rate and rhythm. S1, S2 without murmur, rub or gallop. ABDOMEN: Peg tube placement without erythema or acute physical pathology EXTREMITIES: Contracted extremities. NEUROLOGICAL: Responsive to sternal rub, lethargic Assessment and Plan Johann Harrington is a 49 year old man with PMH cerebral palsy, spastic paralysis, functional quadriplegia, hx seizures, admitted from [facility] with sigmoid volvulus, found to be more lethargic tonight by nursing staff. In light of recent acute hypernatremia with attempts at correction, patient is sent for CT head to r/o complications of hypernatremia including subarachnoid hemorrhage/ subdural hemorrhage, and to r/o complications associated with quick correction of sodium levels (cerbral edema). CT head negative for acute intracranial pathology CBC, BMP ordered notable for Na 158, hypokalemia 3.3 Orders placed for potassium repletion
[2019-12-12 01:43] LABS: BLOOD UREA NITROGEN 33.6 mg/dL (7-18); CREATININE 0.7 mg/dL (0.55-1.3); POTASSIUM 3.3 mmol/L (3.5-5.1)
[2019-12-12] MEDS ORDERED: DEXTROSE 5%-WATER - 50 ML IVPB ONE ×2 (02:21→09:46)
[2019-12-12] MEDS ORDERED: PIPERACILLIN/TAZOBACTAM 2.25 GM VIAL IVPB ONE ×2 (02:21→09:46)
[2019-12-12] MEDS: PIPERACILLIN/TAZOB 2.25 GM 2.25 GM in DEXTROSE 5%-WATER - 50 ML IVPB SCH ×2 (02:22→10:43)
[2019-12-12] MEDS: CALCIUM 500MG/VIT-D 200 UNITS COMBO TABLET (FP) PEG SCH ×3 (06:51→21:02)
[2019-12-12] MEDS: diazePAM 5 MG TABLET PEG SCH ×3 (06:52→21:01)
[2019-12-12] MEDS: BACLOFEN 10 MG TABLET (FP) PEG SCH ×3 (06:52→21:01)
[2019-12-12] MEDS: HEPARIN NA (PORCINE) 5,000 UNITS/ML 1ML VIAL SQ SCH ×3 (06:54→21:00)
[2019-12-12] MEDS: TIZANIDINE HCL 2 MG TABLET GT SCH ×3 (06:56→21:07)
[2019-12-12] MEDS: KCL 10 MEQ IVPB 10 MEQ/100 ML INFUS.BAG IVPB SCH ×6 (07:17→15:53)
[2019-12-12 07:30] LABS: HEMATOCRIT 36.3 % (35.4-49); HEMOGLOBIN 12.3 GM/dL (11.7-16.9); MCH 33.2 pg (25.7-33.7); MCHC 33.9 g/dl (32.0-35.9); MEAN CELL VOLUME 97.9 fl (80-96); MEAN PLT VOLUME 7.4 fl (7.5-11.1); PLATELET COUNT 194 K/MM3 (134-434); RBC 3.71 M/mm3 (4.00-5.60); RDW 12.7 % (11.9-15.9); WHITE BLOOD COUNT 5.5 K/mm3 (4.0-10.0)
[2019-12-12 07:55] LABS: BLOOD UREA NITROGEN 30.8 mg/dL (7-18); CALCIUM 8.3 mg/dL (8.5-10.1); CREATININE 0.6 mg/dL (0.55-1.3); MAGNESIUM 3.4 mg/dL (1.8-2.4); PHOSPHOROUS 3.7 mg/dL (2.5-4.9)
[2019-12-12] MEDS: DEXTROSE 5%-WATER - 1,000 ML IV SCH ×2 (09:57→13:42)
[2019-12-12] MEDS: levETIRAcetam 500 MG/5 ML INJECTION VIAL IVPB SCH ×2 (09:58→21:02)
[2019-12-12] MEDS: POLYETHYLENE GLYCOL 3350 119 GM BTL GT SCH ×2 (10:09→21:03)
[2019-12-12] MEDS: FAMOTIDINE 20 MG/50 ML IVPB 20 MG/50 ML MG IVPB SCH ×2 (10:42→21:03)
--- NOTE | 2019-12-12 10:45 | PN ---
Progress Note (short form) - Note Progress Note: Attending Surgeon Seen in f/u; a/t his nurse rectal tube is out VSS AF MS-at baseline abdo-soft and non tender remains hypernatremic and hyperchloremic and hypokalemic IMP: sigmoid volvulus PLAN: Advise resume feeds and free water; if volvulus recurs he will need a sigmoid colon resection and colostomy; e-lyte abnormalities need to be corrected. Bryant Nieves MD FACS
--- NOTE | 2019-12-12 11:48 | PN.GI ---
GI Progress Note Subjective: covering Dr Bauer As per nurse pts rectal tube came out last night. pt had large BM before tube was out. - Objective Vital Signs: Vital Signs Temperature 97.8 F 12/12/19 07:00 Pulse Rate 61 12/12/19 07:00 Respiratory Rate 18 12/12/19 07:00 Blood Pressure 132/59 L 12/12/19 07:00 O2 Sat by Pulse Oximetry (%) 98 12/12/19 07:00 Constitutional: No Distress, Calm Eyes: Yes: Conjunctiva Clear, EOM Intact HENT: Yes: Atraumatic, Normocephalic Neck: Yes: Supple, Trachea Midline Cardiovascular: Yes: Regular Rate and Rhythm Respiratory: Yes: Regular, CTA Bilaterally Gastrointestinal Inspection: Yes: WNL ...Auscultate: Yes: Normoactive Bowel Sounds ...Palpate: Yes: Soft. No: Firm/Rigid, Guarding, Hepatomegaly, Mass, Pulsatile Mass, Splenomegaly, Tenderness, Tenderness, Epigastium Labs: CBC, BMP 12/12/19 07:11 12/12/19 07:11 INR, PTT INR 1.04 (0.83-1.09) 12/09/19 07:00 Problem List - Problems (1) Volvulus Assessment/Plan: reviewed KUB--vovlvulus resolved R> observe off rectal tube Code(s): K56.2 - VOLVULUS
--- NOTE | 2019-12-12 13:27 | EKG ---
Test Reason : Blood Pressure : / mmHG Vent. Rate : 114 BPM Atrial Rate : 114 BPM P-R Int : 130 ms QRS Dur : 068 ms QT Int : 340 ms P-R-T Axes : 070 -27 076 degrees QTc Int : 468 ms POOR DATA QUALITY, INTERPRETATION MAY BE ADVERSELY AFFECTED SINUS TACHYCARDIA POSSIBLE LEFT ATRIAL ENLARGEMENT INFERIOR INFARCT (CITED ON OR BEFORE 09-DEC-2019) ABNORMAL ECG WHEN COMPARED WITH ECG OF 09-DEC-2019 07:45, SIGNIFICANT CHANGES HAVE OCCURRED Confirmed by PAMELA GROVE MD ([id number]) on 12/12/2019 1:26:44 PM Referred By: Confirmed By:PAMELA GROVE MD
[2019-12-12] MEDS ORDERED: PT OWN MED DRAWER 7, Y5N ONE ×2 (13:29→21:05)
--- NOTE | 2019-12-12 14:14 | PN ---
Progress Note, Physician History of Present Illness: RECTAL TUBE OUT + BM NO VOMITING TEMP NOTED WBC WNL - Current Medication List Current Medications: Active Medications Acetaminophen (Ofirmev Injection -) 1,000 mg IVPB Q6H PRN PRN Reason: FEVER Stop: 12/12/19 16:26 Baclofen (Lioresal -) 15 mg PEG TID RASHAUN Last Admin: 12/12/19 06:52 Dose: 15 mg Documented by: Bisacodyl (Dulcolax Suppository -) 10 mg RC PRN PRN PRN Reason: CONSTIPATION Calcium Carbonate/Cholecalciferol (Os-Blue 500+D -) 1 tab PEG TID RASHAUN Last Admin: 12/12/19 06:51 Dose: 1 tab Documented by: Diazepam (Valium -) 5 mg PEG TID RASHAUN Last Admin: 12/12/19 06:52 Dose: 5 mg Documented by: Heparin Sodium (Porcine) (Heparin -) 5,000 unit SQ TID RASHAUN Last Admin: 12/12/19 06:54 Dose: 5,000 unit Documented by: Famotidine/Sodium Chloride (Pepcid 20 Mg Premixed Ivpb -) 20 mg in 50 mls @ 100 mls/hr IVPB BID RASHAUN Last Admin: 12/12/19 10:42 Dose: 100 mls/hr Documented by: Piperacillin Sod/Tazobactam (Sod 2.25 gm/ Dextrose) 50 mls @ 100 mls/hr IVPB Q8H-IV RASHAUN; Protocol Last Admin: 12/12/19 10:43 Dose: 100 mls/hr Documented by: Dextrose (D5w -) 1,000 mls @ 125 mls/hr IV ASDIR RASHAUN Last Admin: 12/12/19 09:57 Dose: 125 mls/hr Documented by: Levetiracetam (Keppra Injection -) 1,000 mg IVPB BID [facility] Last Admin: 12/12/19 09:58 Dose: 1,000 mg Documented by: Non-Formulary Medication ([place]-3/Dha/Epa/Fish Oil [Fish Oil 1,600 Mg/5 Ml Liquid]) 1,000 mg PEG ASDIR RASHAUN Polyethylene Glycol (Miralax (For Daily Use) -) 17 gm GT BID [facility] Last Admin: 12/12/19 10:09 Dose: Not Given Documented by: Senna (Senna Oral Solution -) 8.8 mg PEG ASDIR RASHAUN Tizanidine HCl (Tizanidine Hcl) 2 mg GT TID [facility] Last Admin: 12/12/19 06:56 Dose: 2 mg Documented by: - Objective Vital Signs: Vital Signs Temperature 97.8 F 12/12/19 07:00 Pulse Rate 61 12/12/19 07:00 Respiratory Rate 18 12/12/19 07:00 Blood Pressure 132/59 L 12/12/19 07:00 O2 Sat by Pulse Oximetry (%) 98 12/12/19 07:00 Constitutional: Yes: No Distress Cardiovascular: Yes: Regular Rate and Rhythm, S1, S2 Respiratory: Yes: CTA Bilaterally Gastrointestinal: Yes: Normal Bowel Sounds, Soft. No: Tenderness Labs: CBC, BMP 12/12/19 07:11 12/12/19 07:11 INR, PTT INR 1.04 (0.83-1.09) 12/09/19 07:00 Assessment/Plan SIGMOID VOLVULUS/PARTIAL BOWEL OBSTRUCTION RESOLVED R/O ASP PNEUMONIA CP/MR SUBSTITUTE AUGMENTIN VIA GT SURGICAL GI F/U
--- NOTE | 2019-12-12 14:44 | PN ---
Progress Note, Physician History of Present Illness: Pt seen and examined at bedside. He remains NPO. - Current Medication List Current Medications: Active Medications Acetaminophen (Ofirmev Injection -) 1,000 mg IVPB Q6H PRN PRN Reason: FEVER Stop: 12/12/19 16:26 Amoxicillin/Clavulanate Potassium (Augmentin - 500mg Tablet) 1 tab PO BID@0800,1730 [facility] Baclofen (Lioresal -) 15 mg PEG TID [facility] Last Admin: 12/12/19 13:43 Dose: 15 mg Documented by: Bisacodyl (Dulcolax Suppository -) 10 mg RC PRN PRN PRN Reason: CONSTIPATION Calcium Carbonate/Cholecalciferol (Os-Blue 500+D -) 1 tab PEG TID [facility] Last Admin: 12/12/19 13:47 Dose: 1 tab Documented by: Diazepam (Valium -) 5 mg PEG TID [facility] Last Admin: 12/12/19 13:47 Dose: 5 mg Documented by: Heparin Sodium (Porcine) (Heparin -) 5,000 unit SQ TID [facility] Last Admin: 12/12/19 13:49 Dose: 5,000 unit Documented by: Famotidine/Sodium Chloride (Pepcid 20 Mg Premixed Ivpb -) 20 mg in 50 mls @ 100 mls/hr IVPB BID [facility] Last Admin: 12/12/19 10:42 Dose: 100 mls/hr Documented by: Dextrose (D5w -) 1,000 mls @ 125 mls/hr IV ASDIR [facility] Last Admin: 12/12/19 13:42 Dose: Not Given Documented by: Levetiracetam (Keppra Injection -) 1,000 mg IVPB BID [facility] Last Admin: 12/12/19 09:58 Dose: 1,000 mg Documented by: Non-Formulary Medication ([place]-3/Dha/Epa/Fish Oil [Fish Oil 1,600 Mg/5 Ml Liquid]) 1,000 mg PEG ASDIR [facility] Polyethylene Glycol (Miralax (For Daily Use) -) 17 gm GT BID [facility] Last Admin: 12/12/19 10:09 Dose: Not Given Documented by: Senna (Senna Oral Solution -) 8.8 mg PEG ASDIR [facility] Tizanidine HCl (Tizanidine Hcl) 2 mg GT TID [facility] Last Admin: 12/12/19 13:49 Dose: 2 mg Documented by: - Objective Vital Signs: Vital Signs Temperature 97.8 F 12/12/19 07:00 Pulse Rate 61 12/12/19 07:00 Respiratory Rate 18 12/12/19 07:00 Blood Pressure 132/59 L 12/12/19 07:00 O2 Sat by Pulse Oximetry (%) 98 12/12/19 07:00 Constitutional: Yes: Calm Eyes: Yes: Conjunctiva Clear HENT: Yes: Atraumatic Cardiovascular: Yes: S1, S2 Respiratory: Yes: CTA Bilaterally Gastrointestinal: Yes: Other (peg) Genitourinary: Yes: Incontinence Musculoskeletal: Yes: Other (contracted) Neurological: Yes: Pre-Existing Deficit Labs: CBC, BMP 12/12/19 07:11 12/12/19 07:11 INR, PTT INR 1.04 (0.83-1.09) 12/09/19 07:00 Assessment/Plan Current Medications Generic Name Dose Route Start Last Admin Trade Name Freq PRN Reason Stop Dose Admin Acetaminophen 1,000 mg 12/11/19 16:26 Ofirmev Injection - IVPB 12/12/19 16:26 Q6H PRN FEVER Amoxicillin/Clavulanate Potassium 1 tab 12/12/19 17:30 Augmentin - 500mg Tablet PO BID@0800,1730 RASHAUN Baclofen 15 mg 12/10/19 22:00 12/12/19 13:43 Lioresal - PEG 15 mg TID RASHAUN Administration Bisacodyl 10 mg 12/10/19 15:19 Dulcolax Suppository - RC PRN PRN CONSTIPATION Calcium Carbonate/Cholecalciferol 1 tab 12/10/19 16:13 12/12/19 13:47 Os-Blue 500+D - PEG 1 tab TID RASHAUN Administration Diazepam 5 mg 12/10/19 22:00 12/12/19 13:47 Valium - PEG 5 mg TID RASHAUN Administration Heparin Sodium (Porcine) 5,000 unit 12/11/19 22:00 12/12/19 13:49 Heparin - SQ 5,000 unit TID RASHAUN Administration Famotidine/Sodium Chloride 20 mg in 50 mls @ 100 mls/hr 12/09/19 22:00 12/12/19 10:42 Pepcid 20 Mg Premixed Ivpb - IVPB 100 mls/hr BID RASHAUN Administration Dextrose 1,000 mls @ 125 mls/hr 12/11/19 12:26 12/12/19 13:42 D5w - IV Not Given ASDIR RASHAUN Levetiracetam 1,000 mg 12/09/19 11:45 12/12/19 09:58 Keppra Injection - IVPB 1,000 mg BID RASHAUN Administration Non-Formulary Medication 1,000 mg 12/10/19 15:30 [place]-3/Dha/Epa/Fish Oil [Fish Oil 1,600 Mg/5 Ml Liquid] PEG ASDIR RASHAUN Polyethylene Glycol 17 gm 12/10/19 22:00 12/12/19 10:09 Miralax (For Daily Use) - GT Not Given BID RASHAUN Senna 8.8 mg 12/10/19 16:45 Senna Oral Solution - PEG ASDIR RASHAUN Tizanidine HCl 2 mg 12/10/19 22:00 12/12/19 13:49 Tizanidine Hcl GT 2 mg TID RASHAUN Administration Impression 1. hypernatremia 2. volvulous 3. cerebral palsy 4. hypokalemia Plan - cont fluids, add potassium to d5w - sodium improving - cont to monitor lytes - change to free water once feeds started - check mag - avoid change of greater than 8 meq in 24 hours
--- NOTE | 2019-12-12 16:09 | PN ---
Teaching Attending Note Name of Resident: Ariane Ocampo ATTENDING PHYSICIAN STATEMENT I saw and evaluated the patient. I reviewed the resident's note and discussed the case with the resident. I agree with the resident's findings and plan as documented. SUBJECTIVE: Non-verbal, unable to participate in medical interview. OBJECTIVE: Afebrile ovenight, Tmax 101.2 12/10, Hemodynamically stable. Rectal tube fell out overnight after a large BM. Last Vital Signs Temp Pulse Resp BP Pulse Ox 98.1 F 66 18 156/77 96 12/12/19 15:00 12/12/19 15:00 12/12/19 15:00 12/12/19 15:00 12/12/19 15:00 Heart - S1, S2, RRR Lungs - clear to auscultation Abdomen - Soft, non-tender. PEG in-situ Extremities - contractures, wasting Neuro - non-verbal, unable to follow commands. Laboratory Results - last 24 hr 12/11/19 12/11/19 12/12/19 19:35 22:58 00:28 WBC RBC Hgb Hct MCV MCH MCHC RDW Plt Count MPV Sodium 160 H 158 H Potassium 3.2 L 3.3 L Chloride 126 H 124 H Carbon Dioxide 30 29 Anion Gap 4 L 6 L BUN 32.6 H 33.6 H Creatinine 0.7 0.7 Est GFR (CKD-EPI)AfAm 129.34 129.34 Est GFR (CKD-EPI)NonAf 111.59 111.59 POC Glucometer 93 Random Glucose 109 H 117 H Calcium 8.3 L 8.0 L Phosphorus Magnesium 12/12/19 12/12/19 07:11 07:11 WBC 5.5 RBC 3.71 L Hgb 12.3 Hct 36.3 MCV 97.9 H MCH 33.2 MCHC 33.9 RDW 12.7 Plt Count 194 MPV 7.4 L Sodium 154 H Potassium 3.0 L Chloride 120 H Carbon Dioxide 29 Anion Gap 6 L BUN 30.8 H Creatinine 0.6 Est GFR (CKD-EPI)AfAm 137.80 Est GFR (CKD-EPI)NonAf 118.89 POC Glucometer Random Glucose 129 H Calcium 8.3 L Phosphorus 3.7 Magnesium 3.4 H Current Medications Generic Name Dose Route Start Last Admin Trade Name Freq PRN Reason Stop Dose Admin Acetaminophen 1,000 mg 12/11/19 16:26 Ofirmev Injection - IVPB 12/12/19 16:26 Q6H PRN FEVER Amoxicillin/Clavulanate Potassium 1 tab 12/12/19 17:30 Augmentin - 500mg Tablet PO BID@0800,1730 RASHAUN Baclofen 15 mg 12/10/19 22:00 12/12/19 13:43 Lioresal - PEG 15 mg TID RASHAUN Administration Bisacodyl 10 mg 12/10/19 15:19 Dulcolax Suppository - RC PRN PRN CONSTIPATION Calcium Carbonate/Cholecalciferol 1 tab 12/10/19 16:13 12/12/19 13:47 Os-Blue 500+D - PEG 1 tab TID RASHAUN Administration Diazepam 5 mg 12/10/19 22:00 12/12/19 13:47 Valium - PEG 5 mg TID RASHAUN Administration Heparin Sodium (Porcine) 5,000 unit 12/11/19 22:00 12/12/19 13:49 Heparin - SQ 5,000 unit TID RASHAUN Administration Famotidine/Sodium Chloride 20 mg in 50 mls @ 100 mls/hr 12/09/19 22:00 12/12/19 10:42 Pepcid 20 Mg Premixed Ivpb - IVPB 100 mls/hr BID RASHAUN Administration Potassium Chloride 10 meq/ 1,005 mls @ 100 mls/hr 12/12/19 14:44 Dextrose IV ASDIR RASHAUN Levetiracetam 1,000 mg 12/09/19 11:45 12/12/19 09:58 Keppra Injection - IVPB 1,000 mg BID RASHAUN Administration Non-Formulary Medication 1,000 mg 12/10/19 15:30 [place]-3/Dha/Epa/Fish Oil [Fish Oil 1,600 Mg/5 Ml Liquid] PEG ASDIR RASHAUN Polyethylene Glycol 17 gm 12/10/19 22:00 12/12/19 10:09 Miralax (For Daily Use) - GT Not Given BID [facility] Senna 8.8 mg 12/10/19 16:45 Senna Oral Solution - PEG ASDIR RASHAUN Tizanidine HCl 2 mg 12/10/19 22:00 12/12/19 13:49 Tizanidine Hcl GT 2 mg TID RASHAUN Administration Home Medications Medication Instructions Recorded Baclofen 15 mg PO TID 05/11/12 Bisacodyl Suppository [Dulcolax 10 mg RC PRN PRN 05/11/12 Suppository -] Calcium Carbonate/Vitamin D3 1 each PO TID 05/11/12 [Oyster Shell 500-Vit D3 200 Tb] Carbamazepine [Carbatrol] 300 mg PO BID 05/11/12 Carbamazepine [Carbatrol] 400 mg PO AM 05/11/12 Diazepam *Pediatric Rectal* 10 mg RC PRN PRN 05/11/12 [Diastat *Pediatric Rectal Gel* -] Diazepam [Valium] 5 mg PO TID 05/11/12 Simethicone Liquid [Mylicon Liquid 80 mg PO QID PRN 05/11/12 -] Tizanidine HCl [Zanaflex] 2 mg PO TID 05/11/12 Lactose-Reduced Food/Fiber [Jevity 1,000 ml PEG ASDIR 09/04/18 1.5 Blue Liquid] [place]-3/Dha/Epa/Fish Oil [Fish Oil 1,000 mg PEG ASDIR 09/04/18 1,600 mg/5 ml Liquid] Polyethylene Glycol 3350 [Miralax 17 gm PO DAILY 7 Days #1 bottle 09/16/18 (For Daily Use) -] Famotidine 20 mg PO DAILY 12/10/19 Lactose-Reduced Food/Fiber [Jevity 1,000 ml PO ASDIR 12/10/19 1.5 Blue Liquid] Lactulose 30 ml PO ASDIR 12/10/19 Sennosides [Senna] 8.8 mg PO ASDIR 12/10/19 ASSESSMENT AND PLAN: 49 year old male with history of cerebral palsy, spastic paralysis, functional quadriplegia, seizure disorder, constipation, presents from [facility] for abdominal distention, vomiting, found to have sigmoid volvulus. CT A/P - sigmoid volvulus, without free air. 1. Acute Sigmoid Volvulus s/p Rectal Tube decompression by GI Repeat AXR shows resolution of volvulus s/p rectal tube insertion, fell out overnight after large BM Empiric Zosyn transitioned to Augmentin as per ID - ongoing fever, leukocytosis resolved. Seen by GI and Surgery - recommend to resume tube feeds. Nutrition consulted for tube feed recommendations. Bowel regimen as per GI May require surgical intervention if recurrence of volvulus. 2. History of cerebral palsy, spastic paralysis, functional quadriplegia - on Baclofen, Diazepam, Tizanidine 3. Seizure Disorder - Continue Keppra. Once feeds resume, can resume Carbamazepine. 4. Hypernatremia - secondary to dehydration. Needs free water. Can transition from D5W to free water via PEG once tube feeding resumes. DVT Px - Heparin SQ GI Px - H2 sarkis
--- NOTE | 2019-12-12 16:25 | PN ---
Physical Exam: SUBJECTIVE: Patient seen and examined OBJECTIVE: Vital Signs Period Temp Pulse Resp BP Sys/Jansen Pulse Ox Last 24 Hr 97.8 F-100.3 F 54-88 18-18 98-156/53-77 95-98 GENERAL: The patient is awake, alert, and agitated. HEAD: Normocephalic, atraumatic. EYES: PERRL, extraocular movements intact, sclera anicteric, conjunctiva clear. ENT: Oropharynx clear, without erythema or exudates. Moist mucous membranes. NECK: Trachea midline. Supple without lymphadenopathy. LUNGS: Breath sounds equal, clear to auscultation bilaterally. No wheezes, no crackles. No accessory muscle use. HEART: Regular rate and rhythm. S1, S2 without murmur, rub or gallop. ABDOMEN: Distended abdomen. No increased grimacing to palpation appreciated. Hypoactive bowel sounds x4 quadrants. Tympanic to percussion. G tube in situ, without erythema. Midline vertical surgical scar at upper abdomen well healed. RECTAL: Rectal tube fell out overnight per nurse EXTREMITIES: Contracted extremities. 2+ radial, dorsalis pedis pulses bilaterally. Warm, well-perfused. No lower extremity edema bilaterally. NEUROLOGICAL: Moving all four extremities equally. Unable to cooperate with full neurologic examination. SKIN: Warm, dry. Midline vertical surgical scar at upper abdomen, well healed. Laboratory Results - last 24 hr 12/11/19 12/11/19 12/12/19 19:35 22:58 00:28 WBC RBC Hgb Hct MCV MCH MCHC RDW Plt Count MPV Sodium 160 H 158 H Potassium 3.2 L 3.3 L Chloride 126 H 124 H Carbon Dioxide 30 29 Anion Gap 4 L 6 L BUN 32.6 H 33.6 H Creatinine 0.7 0.7 Est GFR (CKD-EPI)AfAm 129.34 129.34 Est GFR (CKD-EPI)NonAf 111.59 111.59 POC Glucometer 93 Random Glucose 109 H 117 H Calcium 8.3 L 8.0 L Phosphorus Magnesium 12/12/19 12/12/19 07:11 07:11 WBC 5.5 RBC 3.71 L Hgb 12.3 Hct 36.3 MCV 97.9 H MCH 33.2 MCHC 33.9 RDW 12.7 Plt Count 194 MPV 7.4 L Sodium 154 H Potassium 3.0 L Chloride 120 H Carbon Dioxide 29 Anion Gap 6 L BUN 30.8 H Creatinine 0.6 Est GFR (CKD-EPI)AfAm 137.80 Est GFR (CKD-EPI)NonAf 118.89 POC Glucometer Random Glucose 129 H Calcium 8.3 L Phosphorus 3.7 Magnesium 3.4 H Active Medications Generic Name Dose Route Start Last Admin Trade Name Freq PRN Reason Stop Dose Admin Acetaminophen 1,000 mg 12/11/19 16:26 Ofirmev Injection - IVPB 12/12/19 16:26 Q6H PRN FEVER Amoxicillin/Clavulanate Potassium 1 tab 12/12/19 17:30 Augmentin - 500mg Tablet PO BID@0800,1730 RASHAUN Baclofen 15 mg 12/10/19 22:00 12/12/19 13:43 Lioresal - PEG 15 mg TID RASHAUN Administration Bisacodyl 10 mg 12/10/19 15:19 Dulcolax Suppository - RC PRN PRN CONSTIPATION Calcium Carbonate/Cholecalciferol 1 tab 12/10/19 16:13 12/12/19 13:47 Os-Blue 500+D - PEG 1 tab TID RASHAUN Administration Diazepam 5 mg 12/10/19 22:00 12/12/19 13:47 Valium - PEG 5 mg TID RASHAUN Administration Heparin Sodium (Porcine) 5,000 unit 12/11/19 22:00 12/12/19 13:49 Heparin - SQ 5,000 unit TID RASHAUN Administration Famotidine/Sodium Chloride 20 mg in 50 mls @ 100 mls/hr 12/09/19 22:00 12/12/19 10:42 Pepcid 20 Mg Premixed Ivpb - IVPB 100 mls/hr BID RASHAUN Administration Potassium Chloride 10 meq/ 1,005 mls @ 100 mls/hr 12/12/19 14:44 Dextrose IV ASDIR RASHAUN Levetiracetam 1,000 mg 12/09/19 11:45 12/12/19 09:58 Keppra Injection - IVPB 1,000 mg BID RASHAUN Administration Non-Formulary Medication 1,000 mg 12/10/19 15:30 [place]-3/Dha/Epa/Fish Oil [Fish Oil 1,600 Mg/5 Ml Liquid] PEG ASDIR RASHAUN Polyethylene Glycol 17 gm 12/10/19 22:00 12/12/19 10:09 Miralax (For Daily Use) - GT Not Given BID [facility] Senna 8.8 mg 12/10/19 16:45 Senna Oral Solution - PEG ASDIR [facility] Tizanidine HCl 2 mg 12/10/19 22:00 12/12/19 13:49 Tizanidine Hcl GT 2 mg TID RASHAUN Administration ASSESSMENT/PLAN: Pt is a 49 year old male with PMHx of cerebral palsy, spastic paralysis, functional quadriplegia, seizure disorder, constipation presenting from [facility] for abdominal distension and vomiting admitted for sigmoid volvulus #Acute sigmoid volvulus -Rectal tube decompression, fell out overnight after large BM -AXR showing improvement of volvulus s/p rectal tube insertion -Bowel regimen per GI -surgery consulted; rec`d tube feed resumption, surgery if recurs -Resumed tube feeds per surgery; consulted player development manager #Hypernatremia -Na+ 154, improved from 162 -consulted renal; D5W 125cc/hr added K+ -follow up in AM, avoid change of 8mEq in 24h #Hx of cerebral palsy/spastic paralysis/seizure disorder -restarted baclofen, diazepam, tizanidine -Keppra -resume Carbamazepine PPx Heparin FEN Tube feeds resumed Monitor electrolytes D5W 125cc/hr + K Dispo Admit to med surg. Rectal tube decompression, fell out overnight. Hypernatremia improving ATTENDING PHYSICIAN STATEMENT I saw and evaluated the patient. I reviewed the resident's note and discussed the case with the resident. I agree with the resident's findings and plan as documented. SUBJECTIVE: OBJECTIVE: ASSESSMENT AND PLAN:
[2019-12-12] MEDS ORDERED: AMOX TR/POT CLAV 500MG/125MG TABLETS (FP) PO SCH ×2 (17:30→19:45)
[2019-12-12] MEDS: DEXTROSE 5%-WATER - 1,000 ML with POTASSIUM CHLORIDE 10 MEQ IV SCH (20:16)
[2019-12-13] MEDS: BACLOFEN 10 MG TABLET (FP) PEG SCH (05:37)
[2019-12-13] MEDS: diazePAM 5 MG TABLET PEG SCH ×2 (05:38→14:41)
[2019-12-13] MEDS: CALCIUM 500MG/VIT-D 200 UNITS COMBO TABLET (FP) PEG SCH ×2 (05:38→14:42)
[2019-12-13] MEDS: HEPARIN NA (PORCINE) 5,000 UNITS/ML 1ML VIAL SQ SCH ×2 (05:39→14:38)
[2019-12-13] MEDS: TIZANIDINE HCL 2 MG TABLET GT SCH ×2 (05:39→14:42)
[2019-12-13 08:48] LABS: BASO % 0.4 % (0-2.0); EOS % 3.8 % (0-4.5); HEMATOCRIT 35.1 % (35.4-49); HEMOGLOBIN 11.7 GM/dL (11.7-16.9); LYMPH % 49.6 % (8-40); MCH 32.6 pg (25.7-33.7); MCHC 33.2 g/dl (32.0-35.9); MEAN PLT VOLUME 8.1 fl (7.5-11.1); MONO % 5.5 % (3.8-10.2); NEUT % 40.7 % (42.8-82.8); PLATELET COUNT 177 K/MM3 (134-434); RBC 3.58 M/mm3 (4.00-5.60); RDW 12.3 % (11.9-15.9); WHITE BLOOD COUNT 4.9 K/mm3 (4.0-10.0)
[2019-12-13 09:04] LABS: ALBUMIN 2.7 g/dl (3.4-5.0); BILIRUBIN,TOTAL 0.9 mg/dL (0.2-1); CALCIUM 8.2 mg/dL (8.5-10.1); CREATININE 0.4 mg/dL (0.55-1.3); MAGNESIUM 2.4 mg/dL (1.8-2.4); PHOSPHOROUS 3.1 mg/dL (2.5-4.9); POTASSIUM 3.3 mmol/L (3.5-5.1); TOT PROT 5.8 g/dl (6.4-8.2)
[2019-12-13] MEDS: DEXTROSE 5%-WATER - 1,000 ML with POTASSIUM CHLORIDE 10 MEQ IV SCH (09:35)
[2019-12-13] MEDS: levETIRAcetam 500 MG/5 ML INJECTION VIAL IVPB SCH (09:37)
[2019-12-13] MEDS: POLYETHYLENE GLYCOL 3350 119 GM BTL GT SCH (09:41)
[2019-12-13] MEDS: FAMOTIDINE 20 MG/50 ML IVPB 20 MG/50 ML MG IVPB SCH (09:42)
[2019-12-13] MEDS ORDERED: SENNOSIDES 8.8 MG/5 ML BULK BOTTLE PEG SCH (10:00)
[2019-12-13] MEDS ORDERED: AMOX TR/POTASSIUM CLAVULANATE 250 MG/5 ML BOTTLE PEG SCH (10:00)
[2019-12-13] MEDS: KCL 10 MEQ IVPB 10 MEQ/100 ML INFUS.BAG IVPB SCH ×3 (11:51→14:37)
[2019-12-13] MEDS ORDERED: POTASSIUM CHLORIDE ORAL LIQUID 20 MEQ/15 ML PEG ONE (14:00)
[2019-12-13 14:21] VITALS: BP 122/79; PULSE 105; TEMP 97.5
--- NOTE | 2019-12-13 14:35 | DS ---
Physical Exam: SUBJECTIVE: Patient seen and examined OBJECTIVE: Vital Signs Period Temp Pulse Resp BP Sys/Jansen Pulse Ox Last 24 Hr 97.5 F-99.2 F 52-105 18-20 84-156/53-79 96-98 PHYSICAL EXAM GENERAL: The patient is awake, alert, and fully oriented, in no acute distress. HEAD: Normal with no signs of trauma. EYES: PERRL, extraocular movements intact, sclera anicteric, conjunctiva clear. ENT: Ears normal, nares patent, oropharynx clear without exudates, moist mucous membranes. NECK: Trachea midline, full range of motion, supple. LUNGS: Breath sounds equal, clear to auscultation bilaterally, no wheezes, no crackles, no accessory muscle use. HEART: Regular rate and rhythm, S1, S2 without murmur, rub or gallop. ABDOMEN: Soft, nontender, nondistended, normoactive bowel sounds, no guarding, no rebound, no hepatosplenomegaly, no masses. EXTREMITIES: 2+ pulses, warm, well-perfused, no edema. NEUROLOGICAL: Cranial nerves II through XII grossly intact. Normal speech, gait not observed. PSYCH: Normal mood, normal affect. SKIN: Warm, dry, normal turgor, no rashes or lesions noted. LABS Laboratory Results - last 24 hr 12/13/19 12/13/19 07:48 07:48 WBC 4.9 RBC 3.58 L Hgb 11.7 Hct 35.1 L MCV 98.0 H MCH 32.6 MCHC 33.2 RDW 12.3 Plt Count 177 MPV 8.1 Absolute Neuts (auto) 2.0 Neutrophils % 40.7 L D Lymphocytes % 49.6 H D Monocytes % 5.5 Eosinophils % 3.8 D Basophils % 0.4 D Nucleated RBC % 0 Sodium 145 Potassium 3.3 L Chloride 110 H Carbon Dioxide 31 Anion Gap 4 L BUN 20.0 H Creatinine 0.4 L Est GFR (CKD-EPI)AfAm 162.79 Est GFR (CKD-EPI)NonAf 140.45 Random Glucose 123 H Calcium 8.2 L Phosphorus 3.1 Magnesium 2.4 Total Bilirubin 0.9 AST 42 H ALT 38 Alkaline Phosphatase 65 Total Protein 5.8 L Albumin 2.7 L HOSPITAL COURSE: Date of Admission:12/09/19 Date of Discharge: 10/09/20 Minutes to complete discharge: 36 Discharge Summary Problems reviewed: Yes Reason For Visit: INTESTINAL VOLVULUS Current Active Problems Fever (Acute) Volvulus (Acute) Condition: Improved - Instructions Diet, Activity, Other Instructions: You came to the hospital because your stomach seemed to be larger, and you were having diarrhea. You had imaging done which showed enlargement in your intestine which was blocked. We placed a rectal tube with improvement of your symptoms.` You also had high sodium levels which were corrected. Medications: Take the antibiotic augmentin 875mg two times per day via Gtube for 6 more days. This medication will be completed on 12/19/19. Please resume all other home medications as prescribed. Follow Ups 1. Primary care physician, Dr. Rawls, within 1 week for overall health care management. 2. Plant Associate, Dr. Lion, within 2 weeks for follow up on your stomach symptoms. 3. Surgeon, Dr. Nieves, within 2 weeks for follow up on your stomach symptoms. 4. Railroad Car Loader, Dr. Echols, within 2 weeks for follow up on your sodium. If you have any new, worsening or changing symptoms please return to the ED or call 911. Referrals: Bryant Nieves MD [Staff Physician] - Lizandro Lion DO [Staff Physician] - Trina Severino MD [Staff Physician] - Jose Eduardo Rawls Jr [Non Staff, Medical] - Isaiah Echols MD [Staff Physician] - Disposition: INTERMEDIATE FACILITY - Home Medications Comprehensive Discharge Medication List: Ambulatory Orders Baclofen 15 mg PO TID 05/11/12 Bisacodyl Suppository [Dulcolax Suppository -] 10 mg RC PRN PRN 05/11/12 Calcium Carbonate/Vitamin D3 [Oyster Shell 500-Vit D3 200 Tb] 1 each PO TID 05/11/12 Carbamazepine [Carbatrol] 300 mg PO BID 05/11/12 Carbamazepine [Carbatrol] 400 mg PO AM 05/11/12 Diazepam *Pediatric Rectal* [Diastat *Pediatric Rectal Gel* -] 10 mg RC PRN PRN 05/11/12 Diazepam [Valium] 5 mg PO TID 05/11/12 Simethicone Liquid [Mylicon Liquid -] 80 mg PO QID PRN 05/11/12 Tizanidine HCl [Zanaflex] 2 mg PO TID 05/11/12 Lactose-Reduced Food/Fiber [Jevity 1.5 Blue Liquid] 1,000 ml PEG ASDIR 09/04/18 [place]-3/Dha/Epa/Fish Oil [Fish Oil 1,600 mg/5 ml Liquid] 1,000 mg PEG ASDIR 09/04/18 Polyethylene Glycol 3350 [Miralax 119 gm Btl -] 17 gm PO DAILY 7 Days #1 bottle 09/16/18 Famotidine 20 mg PO DAILY 12/10/19 Lactose-Reduced Food/Fiber [Jevity 1.5 Blue Liquid] 1,000 ml PO ASDIR 12/10/19 Lactulose 30 ml PO ASDIR 12/10/19 Sennosides [Senna] 8.8 mg PO ASDIR 12/10/19 Amox-Tr/K Cl [Augmentin - 875Mg Tablet] 1 tab PO BID #12 tablet 12/13/19 Amox-Tr/K Cl [Augmentin 250 mg/5 ml Oral Suspension -] 500 mg PEG BID 6 Days #120 ml 12/13/19 ATTENDING PHYSICIAN STATEMENT I saw and evaluated the patient. I reviewed the resident's note and discussed the case with the resident. I agree with the resident's findings and plan as documented. SUBJECTIVE: OBJECTIVE: ASSESSMENT AND PLAN:
--- NOTE | 2019-12-13 15:17 | PN ---
Progress Note, Physician History of Present Illness: Pt seen and examined at bedside. He appears comfortable. - Current Medication List Current Medications: Active Medications Amoxicillin/Clavulanate Potassium (Augmentin 250 Mg/5 Ml Oral Suspension -) 500 mg PEG BID@0800,1730 [facility] Last Admin: 12/13/19 09:36 Dose: 500 mg Documented by: Baclofen (Lioresal -) 15 mg PEG TID [facility] Last Admin: 12/13/19 05:37 Dose: 15 mg Documented by: Bisacodyl (Dulcolax Suppository -) 10 mg RC PRN PRN PRN Reason: CONSTIPATION Calcium Carbonate/Cholecalciferol (Os-Blue 500+D -) 1 tab PEG TID [facility] Last Admin: 12/13/19 14:42 Dose: 1 tab Documented by: Carbamazepine (Carbamazepine) 300 mg GT BID [facility] Carbamazepine (Carbamazepine) 400 mg GT DAILY [facility] Diazepam (Valium -) 5 mg PEG TID [facility] Last Admin: 12/13/19 14:41 Dose: 5 mg Documented by: Heparin Sodium (Porcine) (Heparin -) 5,000 unit SQ TID [facility] Last Admin: 12/13/19 14:38 Dose: 5,000 unit Documented by: Famotidine/Sodium Chloride (Pepcid 20 Mg Premixed Ivpb -) 20 mg in 50 mls @ 100 mls/hr IVPB BID [facility] Last Admin: 12/13/19 09:42 Dose: 100 mls/hr Documented by: Levetiracetam (Keppra Injection -) 1,000 mg IVPB BID [facility] Last Admin: 12/13/19 09:37 Dose: 1,000 mg Documented by: Polyethylene Glycol (Miralax (For Daily Use) -) 17 gm GT BID [facility] Last Admin: 12/13/19 09:41 Dose: 17 gm Documented by: Senna (Senna Oral Solution -) 8.8 mg PEG DAILY [facility] Last Admin: 12/13/19 11:50 Dose: Not Given Documented by: Tizanidine HCl (Tizanidine Hcl) 2 mg GT TID [facility] Last Admin: 12/13/19 14:42 Dose: 2 mg Documented by: - Objective Vital Signs: Vital Signs Temperature 97.5 F L 12/13/19 14:06 Pulse Rate 105 H 12/13/19 14:06 Respiratory Rate 20 12/13/19 14:06 Blood Pressure 122/79 12/13/19 14:06 O2 Sat by Pulse Oximetry (%) 98 12/13/19 10:00 Constitutional: Yes: Calm Eyes: Yes: Conjunctiva Clear HENT: Yes: Atraumatic Cardiovascular: Yes: S1, S2 Respiratory: Yes: CTA Bilaterally Gastrointestinal: Yes: Soft, Other (peg) Genitourinary: Yes: Incontinence Edema: No Neurological: Yes: Pre-Existing Deficit Labs: CBC, BMP 12/13/19 07:48 12/13/19 07:48 INR, PTT INR 1.04 (0.83-1.09) 12/09/19 07:00 Assessment/Plan Current Medications Generic Name Dose Route Start Last Admin Trade Name Freq PRN Reason Stop Dose Admin Amoxicillin/Clavulanate Potassium 500 mg 12/13/19 10:00 12/13/19 09:36 Augmentin 250 Mg/5 Ml Oral Suspension - PEG 500 mg BID@0800,1730 RASHAUN Administration Baclofen 15 mg 12/10/19 22:00 12/13/19 05:37 Lioresal - PEG 15 mg TID RASHAUN Administration Bisacodyl 10 mg 12/10/19 15:19 Dulcolax Suppository - RC PRN PRN CONSTIPATION Calcium Carbonate/Cholecalciferol 1 tab 12/10/19 16:13 12/13/19 14:42 Os-Blue 500+D - PEG 1 tab TID RASHAUN Administration Carbamazepine 300 mg 12/13/19 22:00 Carbamazepine GT BID RASHAUN Carbamazepine 400 mg 12/14/19 10:00 Carbamazepine GT DAILY RASHAUN Diazepam 5 mg 12/10/19 22:00 12/13/19 14:41 Valium - PEG 5 mg TID RASHAUN Administration Heparin Sodium (Porcine) 5,000 unit 12/11/19 22:00 12/13/19 14:38 Heparin - SQ 5,000 unit TID RASHAUN Administration Famotidine/Sodium Chloride 20 mg in 50 mls @ 100 mls/hr 12/09/19 22:00 12/13/19 09:42 Pepcid 20 Mg Premixed Ivpb - IVPB 100 mls/hr BID RASHAUN Administration Levetiracetam 1,000 mg 12/09/19 11:45 12/13/19 09:37 Keppra Injection - IVPB 1,000 mg BID RASHAUN Administration Polyethylene Glycol 17 gm 12/10/19 22:00 12/13/19 09:41 Miralax (For Daily Use) - GT 17 gm BID RASHAUN Administration Senna 8.8 mg 12/13/19 10:00 12/13/19 11:50 Senna Oral Solution - PEG Not Given DAILY RASHAUN Tizanidine HCl 2 mg 12/10/19 22:00 12/13/19 14:42 Tizanidine Hcl GT 2 mg TID RASHAUN Administration Impression 1. hypernatremia 2. volvulous 3. cerebral palsy 4. hypokalemia Plan - sodium improving - fluids stopped - cont feeds - monitor lytes in NH - replace potassium
--- NOTE | 2019-12-13 16:07 | PN ---
Teaching Attending Note Name of Resident: Ariane Ocampo ATTENDING PHYSICIAN STATEMENT I saw and evaluated the patient. I reviewed the resident's note and discussed the case with the resident. I agree with the resident's findings and plan as documented. SUBJECTIVE: Non-verbal, unable to participate in medical interview. OBJECTIVE: Fever resolved, Afebrile overnght. Hemodynamically stable. Passing BMs. Last Vital Signs Temp Pulse Resp BP Pulse Ox 97.5 F L 105 H 20 122/79 98 12/13/19 14:06 12/13/19 14:06 12/13/19 14:06 12/13/19 14:06 12/13/19 10:00 Heart - S1, S2, RRR Lungs - clear to auscultation Abdomen - Soft, non-tender. PEG in-situ Extremities - contractures, wasting Neuro - non-verbal, unable to follow commands. Laboratory Results - last 24 hr 12/13/19 12/13/19 07:48 07:48 WBC 4.9 RBC 3.58 L Hgb 11.7 Hct 35.1 L MCV 98.0 H MCH 32.6 MCHC 33.2 RDW 12.3 Plt Count 177 MPV 8.1 Absolute Neuts (auto) 2.0 Neutrophils % 40.7 L D Lymphocytes % 49.6 H D Monocytes % 5.5 Eosinophils % 3.8 D Basophils % 0.4 D Nucleated RBC % 0 Sodium 145 Potassium 3.3 L Chloride 110 H Carbon Dioxide 31 Anion Gap 4 L BUN 20.0 H Creatinine 0.4 L Est GFR (CKD-EPI)AfAm 162.79 Est GFR (CKD-EPI)NonAf 140.45 Random Glucose 123 H Calcium 8.2 L Phosphorus 3.1 Magnesium 2.4 Total Bilirubin 0.9 AST 42 H ALT 38 Alkaline Phosphatase 65 Total Protein 5.8 L Albumin 2.7 L Current Medications Generic Name Dose Route Start Last Admin Trade Name Freq PRN Reason Stop Dose Admin Amoxicillin/Clavulanate Potassium 500 mg 12/13/19 10:00 12/13/19 09:36 Augmentin 250 Mg/5 Ml Oral Suspension - PEG 500 mg BID@0800,1730 RASHAUN Administration Baclofen 15 mg 12/10/19 22:00 12/13/19 05:37 Lioresal - PEG 15 mg TID RASHAUN Administration Bisacodyl 10 mg 12/10/19 15:19 Dulcolax Suppository - RC PRN PRN CONSTIPATION Calcium Carbonate/Cholecalciferol 1 tab 12/10/19 16:13 12/13/19 14:42 Os-Blue 500+D - PEG 1 tab TID RASHAUN Administration Carbamazepine 300 mg 12/13/19 22:00 Carbamazepine GT BID RASHAUN Carbamazepine 400 mg 12/14/19 10:00 Carbamazepine GT DAILY RASHAUN Diazepam 5 mg 12/10/19 22:00 12/13/19 14:41 Valium - PEG 5 mg TID RASHAUN Administration Heparin Sodium (Porcine) 5,000 unit 12/11/19 22:00 12/13/19 14:38 Heparin - SQ 5,000 unit TID RASHAUN Administration Famotidine/Sodium Chloride 20 mg in 50 mls @ 100 mls/hr 12/09/19 22:00 12/13/19 09:42 Pepcid 20 Mg Premixed Ivpb - IVPB 100 mls/hr BID RASHAUN Administration Levetiracetam 1,000 mg 12/09/19 11:45 12/13/19 09:37 Keppra Injection - IVPB 1,000 mg BID RASHAUN Administration Polyethylene Glycol 17 gm 12/10/19 22:00 12/13/19 09:41 Miralax (For Daily Use) - GT 17 gm BID RASHAUN Administration Senna 8.8 mg 12/13/19 10:00 12/13/19 11:50 Senna Oral Solution - PEG Not Given DAILY RASHAUN Tizanidine HCl 2 mg 12/10/19 22:00 12/13/19 14:42 Tizanidine Hcl GT 2 mg TID RASHAUN Administration Home Medications Medication Instructions Recorded Baclofen 15 mg PO TID 05/11/12 Bisacodyl Suppository [Dulcolax 10 mg RC PRN PRN 05/11/12 Suppository -] Calcium Carbonate/Vitamin D3 1 each PO TID 05/11/12 [Oyster Shell 500-Vit D3 200 Tb] Carbamazepine [Carbatrol] 300 mg PO BID 05/11/12 Carbamazepine [Carbatrol] 400 mg PO AM 05/11/12 Diazepam *Pediatric Rectal* 10 mg RC PRN PRN 05/11/12 [Diastat *Pediatric Rectal Gel* -] Diazepam [Valium] 5 mg PO TID 05/11/12 Simethicone Liquid [Mylicon Liquid 80 mg PO QID PRN 05/11/12 -] Tizanidine HCl [Zanaflex] 2 mg PO TID 05/11/12 Lactose-Reduced Food/Fiber [Jevity 1,000 ml PEG ASDIR 09/04/18 1.5 Blue Liquid] Caroline-3/Dha/Epa/Fish Oil [Fish Oil 1,000 mg PEG ASDIR 09/04/18 1,600 mg/5 ml Liquid] Polyethylene Glycol 3350 [Miralax 17 gm PO DAILY 7 Days #1 bottle 09/16/18 119 gm Btl -] Famotidine 20 mg PO DAILY 12/10/19 Lactose-Reduced Food/Fiber [Jevity 1,000 ml PO ASDIR 12/10/19 1.5 Blue Liquid] Lactulose 30 ml PO ASDIR 12/10/19 Sennosides [Senna] 8.8 mg PO ASDIR 12/10/19 Amox-Tr/K Cl [Augmentin - 875Mg 1 tab PO BID #12 tablet 12/13/19 Tablet] Amox-Tr/K Cl [Augmentin 250 mg/5 500 mg PEG BID 6 Days #120 ml 12/13/19 ml Oral Suspension -] ASSESSMENT AND PLAN: 49 year old male with history of cerebral palsy, spastic paralysis, functional quadriplegia, seizure disorder, constipation, presents from [place] facility for abdominal distention, vomiting, found to have sigmoid volvulus. CT A/P - sigmoid volvulus, without free air. 1. Acute Sigmoid Volvulus s/p Rectal Tube decompression by GI Repeat AXR shows resolution of volvulus s/p rectal tube, now out. Empiric Zosyn transitioned to Augmentin as per ID - ongoing fever, leukocytosis resolved - for an additional 6 days Augmentin as per ID. Seen by GI and Surgery - recommend to resume tube feeds. Nutrition consulted for tube feed recommendations. Bowel regimen as per GI If any recurrence of volvulus, may need surgical intervention. Currently, medically stable for transfer back to [place]. 2. History of Cerebral Palsy, spastic paralysis, functional quadriplegia - on Baclofen, Diazepam, Tizanidine 3. Seizure Disorder - Continue Keppra, Carbamazepine. 4. Hypernatremia - secondary to dehydration, resolved. Needs free water via PEG. 5. Hypokalemia - repleted.
[2019-12-13] MEDS ORDERED: PT OWN MED DRAWER 7, Y5N ONE (16:47)
[2019-12-13] MEDS ORDERED: carBAMazepine 100 MG/5 ML UNIT-DOSE CUP GT SCH (22:00)
--- NOTE | 2019-12-13 23:28 | PN ---
Progress Note, Physician History of Present Illness: RECTAL TUBE OUT + BM NO VOMITING AFEBRILE WBC WNL - Objective Vital Signs: Vital Signs Temperature 97.5 F L 12/13/19 14:06 Pulse Rate 105 H 12/13/19 14:06 Respiratory Rate 20 12/13/19 14:06 Blood Pressure 122/79 12/13/19 14:06 O2 Sat by Pulse Oximetry (%) 98 12/13/19 10:00 Constitutional: Yes: No Distress, Cachectic, Other (AGITATED WHEN EXAMINED) Eyes: Yes: Conjunctiva Clear Cardiovascular: Yes: Regular Rate and Rhythm, S1, S2 Respiratory: Yes: CTA Bilaterally Gastrointestinal: Yes: Normal Bowel Sounds, Soft Edema: No Labs: CBC, BMP 12/13/19 07:48 12/13/19 07:48 INR, PTT INR 1.04 (0.83-1.09) 12/09/19 07:00 Assessment/Plan SIGMOID VOLVULUS/PARTIAL BOWEL OBSTRUCTION RESOLVED R/O ASP PNEUMONIA CP/MR SUBSTITUTE AUGMENTIN VIA GT SURGICAL GI F/U
[2019-12-14] MEDS ORDERED: carBAMazepine 100 MG/5 ML UNIT-DOSE CUP GT SCH (10:00)
== END 2019-12-13 18:36 | DRG 388 ==
LOC: JER 06:27 → JERBED 10:07 → J6S 11:54
DX: K56.2 Volvulus (principal); R53.2 Functional quadriplegia; J69.0 Pneumonitis due to inhalation of food and vomit; F73 Profound intellectual disabilities; G83.0 Diplegia of upper limbs; E87.0 Hyperosmolality and hypernatremia; R64 Cachexia; G83.9 Paralytic syndrome, unspecified; G40.909 Epilepsy, unspecified, not intractable, without status epilepticus; K59.09 Other constipation; K21.9 Gastro-esophageal reflux disease without esophagitis; R00.0 Tachycardia, unspecified; Z93.1 Gastrostomy status; D72.829 Elevated white blood cell count, unspecified; R50.9 Fever, unspecified; E86.0 Dehydration; Z68.28 Body mass index [BMI] 28.0-28.9, adult; E87.6 Hypokalemia
CPT/HCPCS: 36415; 70450-TC; 71045-TC-FY; 74018-TC-FY; 74177-TC; 80048; 80053; 80177; 81003; 82272; 82436; 82550; 82962; 83605; 83735; 83930; 83935; 84100; 84133; 84295; 84300; 85025; 85027; 85610; 85730; 86850; 86900; 86901; 87040; 87086; 93005; 93010; 99291; J0131; J0475; J1644; Q2036; Q9967; U0003

== ENCOUNTER 2020-03-09 10:30 | Emergency (ER) | payer OTHER ==
[2020-03-09 10:46] VITALS: BP 00/00; PULSE 85; TEMP 98; BMI 29.2
== END 2020-03-09 12:55 ==
LOC: JER 10:30
DX: S90.32XA Contusion of left foot, initial encounter (principal)
CPT/HCPCS: 73610-TC-LT-FY; 73630-TC-LT; 99283-25

== ENCOUNTER 2021-07-05 13:47 | Emergency (ER) | payer OTHER ==
[2021-07-05 14:05] VITALS: BP 121/55; PULSE 89; TEMP 98; BMI 19.1
== END 2021-07-05 16:24 | disposition home or self-care (01) ==
LOC: JERFT 13:47
DX: S92.504A Nondisplaced unspecified fracture of right lesser toe(s), initial encounter for closed fracture (principal); Y99.9 Unspecified external cause status
CPT/HCPCS: 73630-TC-RT-FY; 99283-25

== ENCOUNTER 2021-10-17 06:01 | Observation (INO) | payer OTHER ==
[2021-10-17] MEDS ORDERED: PANTOPRAZOLE SODIUM 40 MG VIAL IVPUSH ONE (07:44)
[2021-10-17] MEDS ORDERED: PANTOPRAZOLE SODIUM 40 MG VIAL ONE (08:22)
[2021-10-17 08:33] LABS: HEMOGLOBIN 13.6 GM/dL (11.7-16.9); MCH 33.1 pg (25.7-33.7); MCHC 34.9 g/dl (32.0-35.9); MEAN CELL VOLUME 94.9 fl (80-96); MEAN PLT VOLUME 7.4 fl (7.5-11.1); PLATELET COUNT 319 10^3/uL (134-434); RBC 4.11 M/mm3 (4.00-5.60); RDW 12.8 % (11.9-15.9); WHITE BLOOD COUNT 11.9 K/mm3 (4.0-10.0)
[2021-10-17 08:42] LABS: ACTIVATED PTT 33.4 SECONDS (25.2-36.5); INR 1.07 (0.83-1.09); PROTHROMBIN TIME (PATIENT) 12.3 SEC (9.7-13.0)
[2021-10-17 08:58] LABS: CALCIUM 9.1 mg/dL (8.5-10.1)
[2021-10-17 08:59] LABS: ALBUMIN 3.9 g/dl (3.4-5.0); BLOOD UREA NITROGEN 19.6 mg/dL (7-18); MAGNESIUM 2.3 mg/dL (1.8-2.4)
[2021-10-17 09:02] LABS: CREATININE 0.5 mg/dL (0.55-1.3)
[2021-10-17 09:03] LABS: BILIRUBIN,TOTAL 0.4 mg/dL (0.2-1); TOT PROT 7.6 g/dl (6.4-8.2)
[2021-10-17] MEDS ORDERED: MIDAZOLAM HCL 2 MG/2 ML SINGLE DOSE VIAL IVPUSH ONE (10:08)
[2021-10-17] MEDS ORDERED: MIDAZOLAM HCL 2 MG/2 ML SINGLE DOSE VIAL ONE (10:19)
[2021-10-17] MEDS ORDERED: ACETAMINOPHEN 160 MG/5 ML PO PRN (13:06)
[2021-10-17] MEDS ORDERED: tiZANidine HCL 2 MG TABLET NR SCH (14:00)
[2021-10-17] MEDS ORDERED: BACLOFEN 10 MG TABLET (FP) GT SCH (15:00)
[2021-10-17] MEDS: DEXTROSE 5%-0.45% SALINE 1,000 ML IV SCH (15:30)
[2021-10-17] MEDS ORDERED: ACETAMINOPHEN 650 MG/20.3 ML ORAL SOLUTION (CUPS) GT PRN (16:10)
[2021-10-17] MEDS ORDERED: BACLOFEN 10 MG TABLET (FP) ONE (16:35)
[2021-10-17] MEDS ORDERED: PEG 3350/NA SULF BICARB CL/KCL 4000 ML SOLN.RECON PEG ONE (16:43)
[2021-10-17] MEDS: BACLOFEN 10 MG TABLET (FP) GT SCH ×2 (16:46→23:23)
[2021-10-17] MEDS: METOCLOPRAMIDE HCL INJECTION 10 MG/2 ML VIAL IVPUSH SCH (16:53)
[2021-10-17] MEDS: tiZANidine HCL 2 MG TABLET NR SCH ×2 (16:53→23:40)
[2021-10-17 21:06] LABS: BASO % 0.2 % (0-2.0); EOS % 0.1 % (0-4.5); HEMATOCRIT 37.7 % (35.4-49); HEMOGLOBIN 13.5 GM/dL (11.7-16.9); LYMPH % 15.4 % (8-40); MCHC 35.9 g/dl (32.0-35.9); MEAN CELL VOLUME 94.7 fl (80-96); MEAN PLT VOLUME 6.9 fl (7.5-11.1); NEUT % 76.3 % (42.8-82.8); PLATELET COUNT 294 10^3/uL (134-434); RBC 3.98 M/mm3 (4.00-5.60); RDW 12.7 % (11.9-15.9)
[2021-10-17] MEDS: carBAMazepine 200 MG/10 ML UNIT-DOSE CUP GT SCH (23:40)
[2021-10-18] MEDS: DEXTROSE 5%-0.45% SALINE 1,000 ML IV SCH ×2 (00:26→14:08)
[2021-10-18] MEDS: METOCLOPRAMIDE HCL INJECTION 10 MG/2 ML VIAL IVPUSH SCH ×3 (00:26→18:53)
[2021-10-18] MEDS: BACLOFEN 10 MG TABLET (FP) GT SCH ×3 (05:14→21:56)
[2021-10-18] MEDS: tiZANidine HCL 2 MG TABLET NR SCH ×3 (06:22→21:58)
[2021-10-18] MEDS ORDERED: DOCUSATE NA 100 MG/10 ML UNIT-DOSE CUPS GT SCH (10:00)
[2021-10-18] MEDS: PANTOPRAZOLE SODIUM 40 MG VIAL IVPUSH SCH (10:40)
[2021-10-18] MEDS: carBAMazepine 200 MG/10 ML UNIT-DOSE CUP GT SCH ×2 (15:16→21:58)
[2021-10-19] MEDS: METOCLOPRAMIDE HCL INJECTION 10 MG/2 ML VIAL IVPUSH SCH (00:53)
[2021-10-19] MEDS: DEXTROSE 5%-0.45% SALINE 1,000 ML IV SCH ×3 (00:54→21:54)
[2021-10-19] MEDS: BACLOFEN 10 MG TABLET (FP) GT SCH ×3 (05:41→21:54)
[2021-10-19] MEDS: tiZANidine HCL 2 MG TABLET NR SCH ×3 (05:41→21:55)
[2021-10-19 10:00] LABS: HEMATOCRIT 33.2 % (35.4-49); HEMOGLOBIN 11.7 GM/dL (11.7-16.9); MCH 33.6 pg (25.7-33.7); MCHC 35.1 g/dl (32.0-35.9); MEAN CELL VOLUME 95.5 fl (80-96); MEAN PLT VOLUME 7.1 fl (7.5-11.1); PLATELET COUNT 232 10^3/uL (134-434); RBC 3.47 M/mm3 (4.00-5.60); RDW 12.9 % (11.9-15.9); WHITE BLOOD COUNT 4.3 K/mm3 (4.0-10.0)
[2021-10-19 10:40] LABS: BLOOD UREA NITROGEN 10.3 mg/dL (7-18); CALCIUM 7.2 mg/dL (8.5-10.1); CREATININE 0.4 mg/dL (0.55-1.3); MAGNESIUM 2.7 mg/dL (1.8-2.4)
[2021-10-19] MEDS: PANTOPRAZOLE SODIUM 40 MG VIAL IVPUSH SCH (10:57)
[2021-10-19] MEDS: carBAMazepine 200 MG/10 ML UNIT-DOSE CUP GT SCH ×2 (10:57→21:56)
[2021-10-19 12:49] VITALS: BMI 25.7
[2021-10-19 15:56] VITALS: RESP 18
[2021-10-19] MEDS: POTASSIUM CHLORIDE ORAL LIQUID 20 MEQ/15 ML GT SCH ×2 (16:44→21:54)
[2021-10-20] MEDS: BACLOFEN 10 MG TABLET (FP) GT SCH (06:26)
[2021-10-20] MEDS: tiZANidine HCL 2 MG TABLET NR SCH (06:26)
[2021-10-20 09:01] LABS: HEMATOCRIT 31.5 % (35.4-49); MCH 33.6 pg (25.7-33.7); MCHC 34.9 g/dl (32.0-35.9); MEAN CELL VOLUME 96.4 fl (80-96); MEAN PLT VOLUME 7.2 fl (7.5-11.1); PLATELET COUNT 206 10^3/uL (134-434); RBC 3.26 M/mm3 (4.00-5.60); RDW 12.6 % (11.9-15.9); WHITE BLOOD COUNT 3.8 K/mm3 (4.0-10.0)
[2021-10-20 09:56] LABS: CALCIUM 7.2 mg/dL (8.5-10.1)
[2021-10-20 09:57] LABS: BLOOD UREA NITROGEN 6.5 mg/dL (7-18)
[2021-10-20 10:00] LABS: CREATININE 0.4 mg/dL (0.55-1.3)
[2021-10-20] MEDS: PANTOPRAZOLE SODIUM 40 MG VIAL IVPUSH SCH (11:02)
[2021-10-20] MEDS: carBAMazepine 200 MG/10 ML UNIT-DOSE CUP GT SCH (11:12)
[2021-10-20 15:16] VITALS: BP 116/68; PULSE 67; TEMP 97.6
== END 2021-10-20 16:51 | disposition home or self-care (01) ==
LOC: JER 06:01 → JERBED 11:44 → J5S 23:02
PROVIDERS: ADMIT Internal Medicine
PROC: 3E0337Z Introduction of Electrolytic and Water Balance Substance into Peripheral Vein, Percutaneous Approach (ICD-10-PCS; principal; 2021-10-17)
PROC: 3E033GC Introduction of Other Therapeutic Substance into Peripheral Vein, Percutaneous Approach (ICD-10-PCS; 2021-10-17)
PROC: 3E033NZ Introduction of Analgesics, Hypnotics, Sedatives into Peripheral Vein, Percutaneous Approach (ICD-10-PCS; 2021-10-17)
DX: K56.41 Fecal impaction (principal); K21.9 Gastro-esophageal reflux disease without esophagitis; K92.0 Hematemesis; K56.7 Ileus, unspecified; F79 Unspecified intellectual disabilities; Z93.1 Gastrostomy status; G80.8 Other cerebral palsy; K56.2 Volvulus; G83.0 Diplegia of upper limbs; K44.9 Diaphragmatic hernia without obstruction or gangrene; R56.9 Unspecified convulsions; Z29.8 Encounter for other specified prophylactic measures
CPT/HCPCS: 36415; 71045-TC-FY; 74018-TC-FY; 74177-TC; 74190-TC-FY; 80048; 80053; 82272; 83605; 83735; 85025; 85027; 85610; 85730; 86850; 86900; 86901; 93005; 93010; 96365; 96375; 96376; 99285-25; C9803-CS; G0378; J0475; Q9967; U0003; U0005

== ENCOUNTER 2022-06-07 01:07 | Inpatient (IN) | payer OTHER ==
[2022-06-07] MEDS ORDERED: diazePAM CARPU-JECT 10 MG/2 ML DISP.SYRIN IVPUSH ONE (02:04)
[2022-06-07] MEDS ORDERED: diazePAM CARPU-JECT 10 MG/2 ML DISP.SYRIN ONE (02:46)
[2022-06-07 03:45] LABS: BASO % 0.2 % (0-2.0); EOS % 0.7 % (0-4.5); HEMOGLOBIN 14.7 GM/dL (11.7-16.9); LYMPH % 20.9 % (8-40); MCH 32.3 pg (25.7-33.7); MCHC 34.3 g/dl (32.0-35.9); MEAN CELL VOLUME 94.1 fl (80-96); MEAN PLT VOLUME 7.6 fl (7.5-11.1); MONO % 12.5 % (3.8-10.2); NEUT % 65.7 % (42.8-82.8); PLATELET COUNT 314 10^3/uL (134-434); RBC 4.57 M/mm3 (4.00-5.60); RDW 13.8 % (11.9-15.9); WHITE BLOOD COUNT 13.4 K/mm3 (4.0-10.0)
[2022-06-07 03:55] LABS: INR 1.17 (0.83-1.09); PROTHROMBIN TIME (PATIENT) 13.5 SEC (9.7-13.0)
[2022-06-07 03:58] LABS: ACTIVATED PTT 31.2 SECONDS (25.2-36.5)
[2022-06-07 04:14] LABS: CALCIUM 9.7 mg/dL (8.5-10.1)
[2022-06-07 04:15] LABS: BLOOD UREA NITROGEN 25.4 mg/dL (7-18)
[2022-06-07 04:17] LABS: CREATININE 0.7 mg/dL (0.55-1.3)
[2022-06-07 04:20] LABS: BILIRUBIN,TOTAL 0.4 mg/dL (0.2-1)
[2022-06-07] MEDS ORDERED: HALOPERIDOL LACTATE 5 MG/ML IM ONE ×2 (05:06→05:09)
[2022-06-07] MEDS ORDERED: DEXTROSE 5%-NORMAL SALINE 1,000 ML IV SCH ×2 (08:30→13:35)
[2022-06-07] MEDS ORDERED: diazePAM 2.5 MG PEDIATRIC RECTAL APP GEL RC PRN (09:32)
[2022-06-07] MEDS ORDERED: BISACODYL 10 MG SUPP.RECT RC PRN (09:32)
[2022-06-07] MEDS ORDERED: SIMETHICONE 40 MG/0.6 ML BOTTLE GT PRN (10:00)
[2022-06-07] MEDS ORDERED: carBAMazepine XR 400 MG TAB.ER.12H PO SCH (10:00)
[2022-06-07] MEDS ORDERED: DOCUSATE NA 100 MG/10 ML UNIT-DOSE CUPS GT SCH (10:00)
[2022-06-07] MEDS: POLYETHYLENE GLYCOL (HEALTHYLAX) 3350 17 GM PACKET GT SCH ×2 (10:44)
[2022-06-07] MEDS: PANTOPRAZOLE SODIUM 40 MG VIAL IVPUSH SCH (10:44)
[2022-06-07] MEDS: TIZANIDINE HCL 2 MG TABLET GT SCH ×2 (13:06→21:36)
[2022-06-07] MEDS: diazePAM 5 MG TABLET GT SCH ×2 (13:06→21:36)
[2022-06-07] MEDS: BACLOFEN 10 MG TABLET (FP) PO SCH ×2 (13:06→21:36)
[2022-06-07 14:19] LABS: HEMATOCRIT 42.9 % (35.4-49); HEMOGLOBIN 14.6 GM/dL (11.7-16.9); MCH 31.9 pg (25.7-33.7); MEAN PLT VOLUME 7.8 fl (7.5-11.1); PLATELET COUNT 277 10^3/uL (134-434); RBC 4.57 M/mm3 (4.00-5.60); RDW 13.6 % (11.9-15.9); WHITE BLOOD COUNT 7.6 K/mm3 (4.0-10.0)
[2022-06-07] MEDS ORDERED: PEG 3350/NA SULF BICARB CL/KCL 4000 ML SOLN.RECON PEG SCH (14:30)
[2022-06-07] MEDS: PEG 3350/NA SULF BICARB CL/KCL 4000 ML SOLN.RECON PEG SCH (16:31)
[2022-06-07] MEDS: IBUPROFEN 100 MG/5 ML UNIT DOSE CUPS GT PRN (21:35)
[2022-06-07] MEDS: SENNOSIDES 8.8 MG/5 ML SYRUP GT SCH (21:36)
[2022-06-07] MEDS: carBAMazepine 200 MG/10 ML UNIT-DOSE CUP GT SCH (21:36)
[2022-06-07] MEDS ORDERED: PATIENT'S OWN MEDICATION (NON-FORMULARY) (Omeprazole 20 MG Capsule.Dr) GT SCH (22:00)
[2022-06-08] MEDS: diazePAM 5 MG TABLET GT SCH ×2 (05:58→22:27)
[2022-06-08] MEDS: TIZANIDINE HCL 2 MG TABLET GT SCH ×3 (05:58→22:28)
[2022-06-08] MEDS: BACLOFEN 10 MG TABLET (FP) PO SCH ×3 (05:58→22:27)
[2022-06-08] MEDS ORDERED: SODIUM CHLORIDE 0.9% 500 ML INFUS.BAG IV ONE (07:48)
[2022-06-08] MEDS: ACETAMINOPHEN 1000 MG/100 ML BAG IVPB PRN ×2 (08:05→16:54)
[2022-06-08 09:33] LABS: EPI CELLS 18 /uL (0-25.1); HYALINE CASTS 4 /uL (0-3.1); URINE APPEARANCE CLEAR; URINE BACTERIA 15 /uL (0-1359); URINE BILIRUBIN NEGATIVE (NEGATIVE); URINE COLOR YELLOW; URINE GLUCOSE (UA) NEGATIVE (NEGATIVE); URINE KETONE 1+ (NEGATIVE); URINE LEUK ESTERASE NEGATIVE (NEGATIVE); URINE NITRITE NEGATIVE (NEGATIVE); URINE PROTEIN NEGATIVE (NEGATIVE); URINE RBC 123 /uL (0-23.9); URINE UROBILINOGEN 0.2 mg/dL (0.2-1.0); URINE WBC 48 /uL (0-25.8)
[2022-06-08 09:39] LABS: BASO % 0.1 % (0-2.0); HEMATOCRIT 38.4 % (35.4-49); HEMOGLOBIN 13.3 GM/dL (11.7-16.9); LYMPH % 13.4 % (8-40); MCH 32.5 pg (25.7-33.7); MCHC 34.6 g/dl (32.0-35.9); MEAN PLT VOLUME 7.1 fl (7.5-11.1); MONO % 8.2 % (3.8-10.2); NEUT % 78.3 % (42.8-82.8); PLATELET COUNT 262 10^3/uL (134-434); RBC 4.09 M/mm3 (4.00-5.60); RDW 13.9 % (11.9-15.9); WHITE BLOOD COUNT 6.2 K/mm3 (4.0-10.0)
[2022-06-08] MEDS ORDERED: KETOROLAC TROMETHAMINE 15 MG/ML VIAL IVPUSH ONE (09:45)
[2022-06-08] MEDS ORDERED: LORazepam 2 MG/ML SDV VIAL IVPUSH ONE (09:45)
[2022-06-08] MEDS ORDERED: CEFTRIAXONE 2 GM in DEXTROSE 5%-WATER - 50 ML IVPB ONE (10:00)
[2022-06-08] MEDS ORDERED: carBAMazepine XR 400 MG TAB.ER.12H PO SCH (10:00)
[2022-06-08] MEDS: PANTOPRAZOLE SODIUM 40 MG VIAL IVPUSH SCH (10:05)
[2022-06-08] MEDS: carBAMazepine 200 MG/10 ML UNIT-DOSE CUP GT SCH ×2 (10:05→22:28)
[2022-06-08 10:06] LABS: ALBUMIN 3.5 g/dl (3.4-5.0)
[2022-06-08 10:07] LABS: CALCIUM 8.6 mg/dL (8.5-10.1)
[2022-06-08 10:08] LABS: BILIRUBIN,TOTAL 0.6 mg/dL (0.2-1); MAGNESIUM 3.1 mg/dL (1.8-2.4); TOT PROT 7.1 g/dl (6.4-8.2)
[2022-06-08 10:09] LABS: PHOSPHOROUS 3.8 mg/dL (2.5-4.9)
[2022-06-08 10:10] LABS: CREATININE 0.7 mg/dL (0.55-1.3)
[2022-06-08] MEDS: KCL 10 MEQ IVPB 10 MEQ/100 ML INFUS.BAG IVPB SCH ×2 (11:19→13:22)
[2022-06-08] MEDS ORDERED: DEXTROSE 5%-0.45% SALINE 1,000 ML IV SCH ×2 (14:00→16:24)
[2022-06-08] MEDS: PEG 3350/NA SULF BICARB CL/KCL 4000 ML SOLN.RECON PEG SCH (14:27)
[2022-06-08 16:02] LABS: CALCIUM 7.7 mg/dL (8.5-10.1)
[2022-06-08 16:03] LABS: BLOOD UREA NITROGEN 25.6 mg/dL (7-18)
[2022-06-08 16:06] LABS: CREATININE 0.6 mg/dL (0.55-1.3); PHOSPHOROUS 3.6 mg/dL (2.5-4.9)
[2022-06-08] MEDS ORDERED: POTASSIUM CHLORIDE ORAL LIQUID 20 MEQ/15 ML GT ONE (16:24)
[2022-06-08] MEDS ORDERED: DEXTROSE 5%-WATER - 1,000 ML IV SCH (16:30)
[2022-06-08] MEDS: DEXTROSE 5%-WATER - 1,000 ML IV SCH (18:31)
[2022-06-08] MEDS: SENNOSIDES 8.8 MG/5 ML SYRUP GT SCH (22:27)
[2022-06-08] MEDS: IBUPROFEN 100 MG/5 ML UNIT DOSE CUPS GT PRN (22:43)
[2022-06-09 03:14] LABS: BLOOD UREA NITROGEN 20.9 mg/dL (7-18); CALCIUM 7.5 mg/dL (8.5-10.1)
[2022-06-09 03:18] LABS: CREATININE 0.7 mg/dL (0.55-1.3)
[2022-06-09] MEDS ORDERED: POTASSIUM CHLORIDE ORAL LIQUID 20 MEQ/15 ML GT ONE (03:34)
[2022-06-09] MEDS: ACETAMINOPHEN 1000 MG/100 ML BAG IVPB PRN (05:02)
[2022-06-09] MEDS: BACLOFEN 10 MG TABLET (FP) PO SCH ×3 (05:02→21:56)
[2022-06-09] MEDS: diazePAM 5 MG TABLET GT SCH ×3 (05:02→21:56)
[2022-06-09] MEDS: TIZANIDINE HCL 2 MG TABLET GT SCH ×3 (05:02→21:57)
[2022-06-09] MEDS: DEXTROSE 5%-WATER - 1,000 ML IV SCH (06:13)
[2022-06-09] MEDS ORDERED: DEXTROSE 5%-WATER - 1,000 ML IV SCH ×2 (07:32→16:49)
[2022-06-09] MEDS ORDERED: CEFTRIAXONE 2 GM in DEXTROSE 5%-WATER 100 ML IVPB SCH ×2 (10:00→22:00)
[2022-06-09 10:01] LABS: HEMATOCRIT 36.7 % (35.4-49); HEMOGLOBIN 12.5 GM/dL (11.7-16.9); MCH 32.4 pg (25.7-33.7); MCHC 34.1 g/dl (32.0-35.9); MEAN CELL VOLUME 95.2 fl (80-96); MEAN PLT VOLUME 7.8 fl (7.5-11.1); PLATELET COUNT 202 10^3/uL (134-434); RBC 3.86 M/mm3 (4.00-5.60); RDW 13.6 % (11.9-15.9); WHITE BLOOD COUNT 6.1 K/mm3 (4.0-10.0)
[2022-06-09] MEDS: PANTOPRAZOLE SODIUM 40 MG VIAL IVPUSH SCH (10:10)
[2022-06-09 10:11] LABS: CALCIUM 7.1 mg/dL (8.5-10.1); MAGNESIUM 3.1 mg/dL (1.8-2.4)
[2022-06-09] MEDS: carBAMazepine 200 MG/10 ML UNIT-DOSE CUP GT SCH ×2 (10:11→21:56)
[2022-06-09 10:15] LABS: CREATININE 0.6 mg/dL (0.55-1.3); PHOSPHOROUS 1.5 mg/dL (2.5-4.9)
[2022-06-09 10:16] LABS: BILIRUBIN,TOTAL 0.7 mg/dL (0.2-1); TOT PROT 6.4 g/dl (6.4-8.2)
[2022-06-09] MEDS ORDERED: VANCOMYCIN 750 MG in DEXTROSE 5%-WATER - 150 ML IVPB SCH ×2 (11:15→12:00)
[2022-06-09] MEDS ORDERED: VANCOMYCIN/WATER FOR INJ (PEG) 750 MG/150 ML BAG IVPB SCH (12:00)
[2022-06-09] MEDS ORDERED: POTASSIUM PHOSPHATE 15 MM in DEXTROSE 5%-WATER - 250 ML IVPB ONE (12:00)
[2022-06-09] MEDS: PEG 3350/NA SULF BICARB CL/KCL 4000 ML SOLN.RECON PEG SCH (15:00)
[2022-06-09 16:31] LABS: CALCIUM 7.4 mg/dL (8.5-10.1)
[2022-06-09 16:32] LABS: BLOOD UREA NITROGEN 17.3 mg/dL (7-18)
[2022-06-09 16:35] LABS: CREATININE 0.4 mg/dL (0.55-1.3); PHOSPHOROUS 1.9 mg/dL (2.5-4.9)
[2022-06-09] MEDS: PIPERACILLIN/TAZOB 3.375 GM 3.375 GM in DEXTROSE 5%-WATER - 50 ML IVPB SCH (17:35)
[2022-06-09] MEDS: SENNOSIDES 8.8 MG/5 ML SYRUP GT SCH (21:57)
[2022-06-10] MEDS: PIPERACILLIN/TAZOB 3.375 GM 3.375 GM in DEXTROSE 5%-WATER - 50 ML IVPB SCH ×3 (01:13→18:03)
[2022-06-10] MEDS: diazePAM 5 MG TABLET GT SCH ×3 (05:38→22:35)
[2022-06-10] MEDS: TIZANIDINE HCL 2 MG TABLET GT SCH ×3 (05:38→22:35)
[2022-06-10] MEDS: BACLOFEN 10 MG TABLET (FP) PO SCH ×3 (05:38→22:36)
[2022-06-10] MEDS ORDERED: LORazepam 2 MG/ML SDV VIAL IVPUSH ONE (09:06)
[2022-06-10 09:13] LABS: HEMATOCRIT 33.9 % (35.4-49); HEMOGLOBIN 11.6 GM/dL (11.7-16.9); MCH 32.7 pg (25.7-33.7); MCHC 34.2 g/dl (32.0-35.9); MEAN CELL VOLUME 95.6 fl (80-96); MEAN PLT VOLUME 7.2 fl (7.5-11.1); PLATELET COUNT 162 10^3/uL (134-434); RBC 3.55 M/mm3 (4.00-5.60); RDW 14.2 % (11.9-15.9); WHITE BLOOD COUNT 5.2 K/mm3 (4.0-10.0)
[2022-06-10] MEDS ORDERED: POTASSIUM CHLORIDE ORAL LIQUID 20 MEQ/15 ML GT ONE (09:40)
[2022-06-10 09:50] LABS: ALBUMIN 2.7 g/dl (3.4-5.0); BLOOD UREA NITROGEN 19.7 mg/dL (7-18); CALCIUM 7.5 mg/dL (8.5-10.1); MAGNESIUM 3.3 mg/dL (1.8-2.4)
[2022-06-10 09:53] LABS: CREATININE 0.4 mg/dL (0.55-1.3); PHOSPHOROUS 1.3 mg/dL (2.5-4.9)
[2022-06-10 09:55] LABS: BILIRUBIN,TOTAL 0.6 mg/dL (0.2-1); TOT PROT 6.2 g/dl (6.4-8.2)
[2022-06-10] MEDS: PANTOPRAZOLE SODIUM 40 MG VIAL IVPUSH SCH (10:01)
[2022-06-10] MEDS: carBAMazepine 200 MG/10 ML UNIT-DOSE CUP GT SCH ×2 (10:13→22:36)
[2022-06-10] MEDS ORDERED: INSULIN (NOVOLOG) ASPART 100 UNITS/ML 10ML VIAL ONE (11:12)
[2022-06-10 12:47] VITALS: BMI 27.8
[2022-06-10] MEDS ORDERED: POTASSIUM PHOSPHATE 30 MM in DEXTROSE 5%-WATER - 500 ML IVPB ONE (14:15)
[2022-06-10] MEDS: SENNOSIDES 8.8 MG/5 ML SYRUP GT SCH (22:36)
[2022-06-11] MEDS: PIPERACILLIN/TAZOB 3.375 GM 3.375 GM in DEXTROSE 5%-WATER - 50 ML IVPB SCH ×3 (01:24→17:37)
[2022-06-11] MEDS: BACLOFEN 10 MG TABLET (FP) PO SCH ×3 (05:57→21:00)
[2022-06-11] MEDS: diazePAM 5 MG TABLET GT SCH ×3 (05:57→21:00)
[2022-06-11] MEDS: TIZANIDINE HCL 2 MG TABLET GT SCH ×3 (05:57→21:00)
[2022-06-11] MEDS: PANTOPRAZOLE SODIUM 40 MG VIAL IVPUSH SCH (09:30)
[2022-06-11] MEDS: carBAMazepine 200 MG/10 ML UNIT-DOSE CUP GT SCH ×2 (09:31→21:01)
[2022-06-11 09:37] LABS: HEMATOCRIT 34.3 % (35.4-49); HEMOGLOBIN 11.9 GM/dL (11.7-16.9); MCH 33.1 pg (25.7-33.7); MCHC 34.6 g/dl (32.0-35.9); MEAN CELL VOLUME 95.6 fl (80-96); MEAN PLT VOLUME 8.1 fl (7.5-11.1); PLATELET COUNT 172 10^3/uL (134-434); RBC 3.59 M/mm3 (4.00-5.60); RDW 13.2 % (11.9-15.9); WHITE BLOOD COUNT 4.5 K/mm3 (4.0-10.0)
[2022-06-11 10:00] LABS: CALCIUM 7.7 mg/dL (8.5-10.1)
[2022-06-11 10:01] LABS: ALBUMIN 2.8 g/dl (3.4-5.0); BLOOD UREA NITROGEN 19.3 mg/dL (7-18); MAGNESIUM 2.9 mg/dL (1.8-2.4)
[2022-06-11 10:04] LABS: CREATININE 0.4 mg/dL (0.55-1.3); PHOSPHOROUS 2.2 mg/dL (2.5-4.9)
[2022-06-11 10:05] LABS: BILIRUBIN,TOTAL 0.4 mg/dL (0.2-1); TOT PROT 6.4 g/dl (6.4-8.2)
[2022-06-11] MEDS ORDERED: NAPH,MB-DB/K PH,MBDB POWDER PACKET GT ONE (10:52)
[2022-06-11 14:19] VITALS: RESP 18
[2022-06-11] MEDS: SENNOSIDES 8.8 MG/5 ML SYRUP GT SCH (21:01)
[2022-06-12] MEDS: PIPERACILLIN/TAZOB 3.375 GM 3.375 GM in DEXTROSE 5%-WATER - 50 ML IVPB SCH ×3 (01:54→17:38)
[2022-06-12] MEDS: diazePAM 5 MG TABLET GT SCH ×3 (05:18→20:59)
[2022-06-12] MEDS: TIZANIDINE HCL 2 MG TABLET GT SCH ×3 (05:18→20:59)
[2022-06-12] MEDS: BACLOFEN 10 MG TABLET (FP) PO SCH ×3 (05:24→20:59)
[2022-06-12 09:27] LABS: HEMATOCRIT 37.1 % (35.4-49); HEMOGLOBIN 12.6 GM/dL (11.7-16.9); MCH 32.2 pg (25.7-33.7); MCHC 33.9 g/dl (32.0-35.9); MEAN PLT VOLUME 8.1 fl (7.5-11.1); PLATELET COUNT 208 10^3/uL (134-434); RDW 13.5 % (11.9-15.9)
[2022-06-12 09:33] LABS: CALCIUM 8.4 mg/dL (8.5-10.1)
[2022-06-12 09:34] LABS: BLOOD UREA NITROGEN 21.3 mg/dL (7-18); MAGNESIUM 2.4 mg/dL (1.8-2.4)
[2022-06-12 09:37] LABS: CREATININE 0.4 mg/dL (0.55-1.3); PHOSPHOROUS 2.9 mg/dL (2.5-4.9)
[2022-06-12 09:38] LABS: BILIRUBIN,TOTAL 0.3 mg/dL (0.2-1)
[2022-06-12] MEDS: PANTOPRAZOLE SODIUM 40 MG VIAL IVPUSH SCH (09:39)
[2022-06-12] MEDS: carBAMazepine 200 MG/10 ML UNIT-DOSE CUP GT SCH ×2 (09:39→21:00)
[2022-06-12] MEDS: SENNOSIDES 8.8 MG/5 ML SYRUP GT SCH (20:59)
[2022-06-13] MEDS: PIPERACILLIN/TAZOB 3.375 GM 3.375 GM in DEXTROSE 5%-WATER - 50 ML IVPB SCH ×3 (02:02→17:47)
[2022-06-13] MEDS: diazePAM 5 MG TABLET GT SCH ×3 (05:04→23:16)
[2022-06-13] MEDS: TIZANIDINE HCL 2 MG TABLET GT SCH ×3 (05:04→23:16)
[2022-06-13] MEDS: BACLOFEN 10 MG TABLET (FP) PO SCH ×3 (05:04→23:16)
[2022-06-13 09:09] LABS: BASO % 0.5 % (0-2.0); EOS % 3.2 % (0-4.5); HEMATOCRIT 35.7 % (35.4-49); HEMOGLOBIN 12.4 GM/dL (11.7-16.9); LYMPH % 28.8 % (8-40); MCH 32.8 pg (25.7-33.7); MCHC 34.8 g/dl (32.0-35.9); MEAN CELL VOLUME 94.3 fl (80-96); MEAN PLT VOLUME 8.5 fl (7.5-11.1); MONO % 6.6 % (3.8-10.2); NEUT % 60.9 % (42.8-82.8); PLATELET COUNT 200 10^3/uL (134-434); RBC 3.78 M/mm3 (4.00-5.60); RDW 13.3 % (11.9-15.9); WHITE BLOOD COUNT 5.2 K/mm3 (4.0-10.0)
[2022-06-13] MEDS: PANTOPRAZOLE SODIUM 40 MG VIAL IVPUSH SCH (10:23)
[2022-06-13] MEDS: carBAMazepine 100 MG/5 ML UNIT-DOSE CUP GT SCH ×2 (10:25→23:17)
[2022-06-13] MEDS: SENNOSIDES 8.8 MG/5 ML SYRUP GT SCH (23:17)
[2022-06-14] MEDS ORDERED: TUBE FEED DECLOGGING SOLUTION 12,000 UNITS GT ONE (00:36)
[2022-06-14] MEDS: PIPERACILLIN/TAZOB 3.375 GM 3.375 GM in DEXTROSE 5%-WATER - 50 ML IVPB SCH ×3 (01:56→17:46)
[2022-06-14] MEDS: BACLOFEN 10 MG TABLET (FP) PO SCH ×3 (04:29→14:24)
[2022-06-14] MEDS: carBAMazepine 100 MG/5 ML UNIT-DOSE CUP GT SCH ×2 (04:29→10:40)
[2022-06-14] MEDS: SENNOSIDES 8.8 MG/5 ML SYRUP GT SCH (04:29)
[2022-06-14] MEDS: TIZANIDINE HCL 2 MG TABLET GT SCH ×3 (04:30→14:24)
[2022-06-14] MEDS: diazePAM 5 MG TABLET GT SCH ×2 (04:30→14:24)
[2022-06-14] MEDS ORDERED: diazePAM CARPU-JECT 10 MG/2 ML DISP.SYRIN IVPUSH ONE (06:00)
[2022-06-14 08:38] VITALS: TEMP 98
[2022-06-14] MEDS: PANTOPRAZOLE SODIUM 40 MG VIAL IVPUSH SCH (10:41)
[2022-06-14 15:10] VITALS: BP 137/64; PULSE 95
== END 2022-06-14 17:47 | DRG 388 ==
LOC: JER 01:07 → JERBED 07:47 → J6S 08:44
PROVIDERS: ADMIT Internal Medicine; ATTEND Internal Medicine
DX: K56.41 Fecal impaction (principal); J69.0 Pneumonitis due to inhalation of food and vomit; K56.2 Volvulus; E87.0 Hyperosmolality and hypernatremia; K56.7 Ileus, unspecified; G83.0 Diplegia of upper limbs; G80.9 Cerebral palsy, unspecified; F79 Unspecified intellectual disabilities; G40.909 Epilepsy, unspecified, not intractable, without status epilepticus; K21.9 Gastro-esophageal reflux disease without esophagitis; K44.9 Diaphragmatic hernia without obstruction or gangrene; R94.5 Abnormal results of liver function studies; R50.9 Fever, unspecified; E87.6 Hypokalemia; Z93.1 Gastrostomy status
CPT/HCPCS: 0241U-QW; 36415; 70450-TC; 71045-TC-FY; 71250-TC; 74018-TC-FY; 74177-TC; 80048; 80053; 80156; 81003; 82272; 82962; 83605; 83690; 83735; 84100; 84146; 85025; 85027; 85610; 85730; 86850; 86900; 86901; 87040; 87086; 93005; 93010; 99285-25; C9803-CS; J0475; U0003; U0005

== ENCOUNTER 2022-07-22 09:43 | Inpatient (IN) | payer OTHER ==
[2022-07-22 11:40] LABS: BASO % 0.1 % (0-2.0); HEMATOCRIT 38.3 % (35.4-49); HEMOGLOBIN 12.7 GM/dL (11.7-16.9); LYMPH % 6.5 % (8-40); MCH 32.1 pg (25.7-33.7); MCHC 33.3 g/dl (32.0-35.9); MEAN CELL VOLUME 96.4 fl (80-96); MEAN PLT VOLUME 7.5 fl (7.5-11.1); MONO % 3.7 % (3.8-10.2); NEUT % 89.7 % (42.8-82.8); PLATELET COUNT 250 10^3/uL (134-434); RBC 3.97 M/mm3 (4.00-5.60); RDW 15.1 % (11.9-15.9); WHITE BLOOD COUNT 11.7 K/mm3 (4.0-10.0)
[2022-07-22 11:58] LABS: POTASSIUM 3.8 mmol/L (3.5-5.1)
[2022-07-22 12:01] LABS: CALCIUM 9.5 mg/dL (8.5-10.1)
[2022-07-22 12:02] LABS: ALBUMIN 3.6 g/dl (3.4-5.0); BLOOD UREA NITROGEN 19.5 mg/dL (7-18)
[2022-07-22 12:05] LABS: CREATININE 0.5 mg/dL (0.55-1.3)
[2022-07-22 12:07] LABS: TOT PROT 7.8 g/dl (6.4-8.2)
[2022-07-22] MEDS ORDERED: ACETAMINOPHEN 1000 MG/100 ML BAG IVPB ONE (14:13)
[2022-07-22] MEDS ORDERED: ACETAMINOPHEN INJECTION 100 ML IVPB ONE (14:23)
[2022-07-22 14:30] LABS: EPI CELLS 24 /uL (0-25.1); HYALINE CASTS 8 /uL (0-3.1); URINE APPEARANCE CLEAR; URINE BACTERIA 6 /uL (0-1359); URINE BILIRUBIN NEGATIVE (NEGATIVE); URINE COLOR DK YELLOW; URINE GLUCOSE (UA) NEGATIVE (NEGATIVE); URINE KETONE NEGATIVE (NEGATIVE); URINE LEUK ESTERASE NEGATIVE (NEGATIVE); URINE NITRITE NEGATIVE (NEGATIVE); URINE PROTEIN 2+ (NEGATIVE); URINE RBC 16 /uL (0-23.9); URINE UROBILINOGEN 0.2 mg/dL (0.2-1.0); URINE WBC 10 /uL (0-25.8)
[2022-07-22] MEDS ORDERED: DEXTROSE 5%-0.45% SALINE 1,000 ML IV SCH (15:30)
[2022-07-22] MEDS ORDERED: MIDAZOLAM HCL 2 MG/2 ML SINGLE DOSE VIAL ONE (16:13)
[2022-07-22] MEDS ORDERED: FENTANYL CITRATE/PF 50 MCG/ML VIAL ONE (16:13)
[2022-07-22] MEDS: SODIUM CHLORIDE 1,000 ML IV SCH (17:27)
[2022-07-22 18:25] VITALS: RESP 20; BMI 27.3
[2022-07-22] MEDS ORDERED: carBAMazepine XR 200 MG TAB.ER.12H PO SCH (22:00)
[2022-07-22] MEDS: diazePAM 5 MG TABLET GT SCH (22:16)
[2022-07-23] MEDS: carBAMazepine 100 MG/5 ML UNIT-DOSE CUP GT SCH ×4 (01:15→17:06)
[2022-07-23] MEDS: diazePAM 5 MG TABLET GT SCH ×3 (06:42→21:46)
[2022-07-23 09:11] LABS: BASO % 0.8 % (0-2.0); EOS % 1.2 % (0-4.5); HEMATOCRIT 33.3 % (35.4-49); HEMOGLOBIN 11.6 GM/dL (11.7-16.9); LYMPH % 32.5 % (8-40); MCH 33.6 pg (25.7-33.7); MCHC 34.8 g/dl (32.0-35.9); MEAN CELL VOLUME 96.3 fl (80-96); MEAN PLT VOLUME 7.6 fl (7.5-11.1); NEUT % 57.5 % (42.8-82.8); PLATELET COUNT 205 10^3/uL (134-434); RBC 3.45 M/mm3 (4.00-5.60); RDW 14.7 % (11.9-15.9); WHITE BLOOD COUNT 4.4 K/mm3 (4.0-10.0)
[2022-07-23 09:35] LABS: POTASSIUM 3.2 mmol/L (3.5-5.1)
[2022-07-23] MEDS: ENOXAPARIN NA (PORCINE) 40 MG/0.4 ML DISP.SYRIN SQ SCH (09:42)
[2022-07-23] MEDS ORDERED: carBAMazepine XR 200 MG TAB.ER.12H PO SCH (10:00)
[2022-07-23] MEDS ORDERED: POTASSIUM CHLORIDE ORAL LIQUID 20 MEQ/15 ML PO ONE (10:13)
[2022-07-23] MEDS ORDERED: POTASSIUM CHLORIDE ORAL LIQUID 20 MEQ/15 ML GT ONE (10:13)
[2022-07-23 10:14] LABS: CALCIUM 8.3 mg/dL (8.5-10.1)
[2022-07-23 10:16] LABS: ALBUMIN 3.2 g/dl (3.4-5.0); BLOOD UREA NITROGEN 21.3 mg/dL (7-18); MAGNESIUM 2.6 mg/dL (1.8-2.4)
[2022-07-23 10:19] LABS: CREATININE 0.4 mg/dL (0.55-1.3); PHOSPHOROUS 2.4 mg/dL (2.5-4.9)
[2022-07-23 10:21] LABS: BILIRUBIN,TOTAL 0.7 mg/dL (0.2-1); TOT PROT 6.3 g/dl (6.4-8.2)
[2022-07-24] MEDS: carBAMazepine 100 MG/5 ML UNIT-DOSE CUP GT SCH ×4 (00:24→17:09)
[2022-07-24] MEDS: diazePAM 5 MG TABLET GT SCH ×3 (06:16→22:45)
[2022-07-24] MEDS: SODIUM CHLORIDE 1,000 ML IV SCH ×2 (06:24→17:10)
[2022-07-24] MEDS: ENOXAPARIN NA (PORCINE) 40 MG/0.4 ML DISP.SYRIN SQ SCH (09:50)
[2022-07-25] MEDS: carBAMazepine 100 MG/5 ML UNIT-DOSE CUP GT SCH ×3 (01:38→13:15)
[2022-07-25] MEDS: diazePAM 5 MG TABLET GT SCH (06:39)
[2022-07-25] MEDS: ENOXAPARIN NA (PORCINE) 40 MG/0.4 ML DISP.SYRIN SQ SCH (09:32)
[2022-07-25 14:17] VITALS: BP 137/57; PULSE 77; TEMP 98.6
== END 2022-07-25 16:38 | DRG 388 ==
LOC: JER 09:43 → JERBED 13:47 → J8W 18:09
PROVIDERS: ADMIT Internal Medicine; ATTEND Nurse Practitioner Acute Care
PROC: 0DN Gastrointestinal System, Release (ICD-10-PCS; 2022-07-22)
PROC: 0DJD8ZZ Inspection of Lower Intestinal Tract, Via Natural or Artificial Opening Endoscopic (ICD-10-PCS; principal; 2022-07-22 14:30)
DX: K56.2 Volvulus (principal); R53.2 Functional quadriplegia; F73 Profound intellectual disabilities; K59.39 Other megacolon; G40.909 Epilepsy, unspecified, not intractable, without status epilepticus; G80.9 Cerebral palsy, unspecified; Z74.01 Bed confinement status; Z93.1 Gastrostomy status; K59.00 Constipation, unspecified; R14.0 Abdominal distension (gaseous)
CPT/HCPCS: 0241U-QW; 36415; 74018-TC-FY; 74177-TC; 80053; 81003; 82962; 83605; 83690; 83735; 84100; 84484; 85025; 87086; 94760; 99291; Q9967

== ENCOUNTER 2022-10-01 11:23 | Inpatient (IN) | payer OTHER ==
[2022-10-01] MEDS ORDERED: diazePAM CARPU-JECT 10 MG/2 ML DISP.SYRIN IVPUSH ONE ×2 (12:27→18:08)
[2022-10-01] MEDS ORDERED: ACETAMINOPHEN 1000 MG/100 ML BAG IVPB ONE ×2 (12:27→23:12)
[2022-10-01] MEDS ORDERED: diazePAM CARPU-JECT 10 MG/2 ML DISP.SYRIN ONE ×2 (12:29→18:06)
[2022-10-01 12:31] LABS: VENOUS BASE EXCESS 3.6 mmol/L (-2-2); VENOUS O2 SATURATION 43.6 % (70-80); VENOUS PCO2 46.2 mmHg (38-52); VENOUS PH 7.415 (7.310-7.410)
[2022-10-01 12:56] LABS: BASO % 0.3 % (0-2.0); EOS % 0.1 % (0-4.5); HEMATOCRIT 41.6 % (35.4-49); HEMOGLOBIN 14.2 GM/dL (11.7-16.9); LYMPH % 7.4 % (8-40); MCH 32.3 pg (25.7-33.7); MCHC 34.2 g/dl (32.0-35.9); MEAN CELL VOLUME 94.4 fl (80-96); MEAN PLT VOLUME 8.1 fl (7.5-11.1); MONO % 3.3 % (3.8-10.2); NEUT % 88.9 % (42.8-82.8); PLATELET COUNT 256 10^3/uL (134-434); RBC 4.41 M/mm3 (4.00-5.60); RDW 13.7 % (11.9-15.9); WHITE BLOOD COUNT 3.7 K/mm3 (4.0-10.0)
[2022-10-01 13:01] LABS: INR 1.18 (0.83-1.09); PROTHROMBIN TIME (PATIENT) 13.7 SEC (9.7-13.0)
[2022-10-01 13:04] LABS: ACTIVATED PTT 25.2 SECONDS (25.2-36.5)
[2022-10-01] MEDS ORDERED: ACETAMINOPHEN INJECTION 100 ML IVPB ONE (13:04)
[2022-10-01 13:09] LABS: POTASSIUM 4.6 mmol/L (3.5-5.1)
[2022-10-01 13:11] LABS: CALCIUM 8.4 mg/dL (8.5-10.1)
[2022-10-01 13:12] LABS: ALBUMIN 3.4 g/dl (3.4-5.0); BLOOD UREA NITROGEN 21.7 mg/dL (7-18); MAGNESIUM 2.5 mg/dL (1.8-2.4)
[2022-10-01 13:15] LABS: CREATININE 0.8 mg/dL (0.55-1.3); PHOSPHOROUS 3.7 mg/dL (2.5-4.9)
[2022-10-01 13:16] LABS: BILIRUBIN,TOTAL 0.3 mg/dL (0.2-1); TOT PROT 7.1 g/dl (6.4-8.2)
[2022-10-01 13:26] LABS: ANISOCYTOSIS 1+; MACROCYTOSIS 0
[2022-10-01 13:27] LABS: EPI CELLS 10 /uL (0-25.1); HYALINE CASTS 1 /uL (0-3.1); PH,URINE 7.5 (5.0-8.0); URINE APPEARANCE CLEAR; URINE BACTERIA 1 /uL (0-1359); URINE BILIRUBIN NEGATIVE (NEGATIVE); URINE COLOR DK YELLOW; URINE GLUCOSE (UA) NEGATIVE (NEGATIVE); URINE KETONE TRACE (NEGATIVE); URINE LEUK ESTERASE TRACE (NEGATIVE); URINE NITRITE NEGATIVE (NEGATIVE); URINE PROTEIN 1+ (NEGATIVE); URINE RBC 26 /uL (0-23.9); URINE UROBILINOGEN 0.2 mg/dL (0.2-1.0); URINE WBC 5 /uL (0-25.8)
[2022-10-01] MEDS ORDERED: SODIUM CHLORIDE 0.9% 500 ML INFUS.BAG IV ONE (15:31)
[2022-10-01] MEDS ORDERED: ASPIRIN 81 MG CHEWABLE TABLETS PO ONE (20:33)
[2022-10-01] MEDS ORDERED: METOPROLOL TARTRATE 50 MG TABLET (FP) GT ONE (22:00)
[2022-10-01] MEDS ORDERED: METOPROLOL TARTRATE 5 MG/5 ML VIAL IVPUSH ONE (22:00)
[2022-10-02] MEDS ORDERED: SODIUM CHLORIDE 500 ML IV SCH (00:30)
[2022-10-02 01:48] VITALS: BMI 27.6
[2022-10-02 07:32] LABS: HEMATOCRIT 45.1 % (35.4-49); HEMOGLOBIN 14.9 GM/dL (11.7-16.9); MCH 32.5 pg (25.7-33.7); MEAN CELL VOLUME 98.3 fl (80-96); MEAN PLT VOLUME 9.1 fl (7.5-11.1); PLATELET COUNT 172 10^3/uL (134-434); RBC 4.58 M/mm3 (4.00-5.60); RDW 13.7 % (11.9-15.9); WHITE BLOOD COUNT 8.5 K/mm3 (4.0-10.0)
[2022-10-02] MEDS: ENOXAPARIN NA (PORCINE) 40 MG/0.4 ML DISP.SYRIN SQ SCH (09:09)
[2022-10-02 09:17] LABS: ANISOCYTOSIS 1+; MACROCYTOSIS 0
[2022-10-02] MEDS ORDERED: guaiFENesin 200 MG/10 ML 10 ML UNIT-DOSE CUPS GT PRN (09:53)
[2022-10-02] MEDS ORDERED: diazePAM RECTAL GEL 10 MG KIT (PRE-CALIBRATED) RC PRN (09:53)
[2022-10-02] MEDS ORDERED: diphenhydrAMINE HCL 12.5 MG/5 ML UNIT-DOSE CUPS PO PRN (09:53)
[2022-10-02] MEDS ORDERED: SIMETHICONE 40 MG/0.6 ML BOTTLE GT PRN ×2 (09:53→23:38)
[2022-10-02] MEDS ORDERED: ZINC OXIDE/PETROLATUM,WHITE 1 APPLIC OINT...G. TP PRN (09:53)
[2022-10-02] MEDS ORDERED: BISACODYL 10 MG SUPP.RECT RC PRN (09:53)
[2022-10-02] MEDS: ACETAMINOPHEN 650 MG/20.3 ML ORAL SOLUTION (CUPS) GT PRN ×2 (10:41→16:50)
[2022-10-02] MEDS ORDERED: carBAMazepine 200 MG/10 ML UNIT-DOSE CUP PO SCH (11:00)
[2022-10-02] MEDS ORDERED: carBAMazepine 200 MG/10 ML UNIT-DOSE CUP GT SCH (11:14)
[2022-10-02] MEDS ORDERED: carBAMazepine 100 MG/5 ML UNIT-DOSE CUP GT SCH ×2 (11:37→22:00)
[2022-10-02] MEDS ORDERED: D5-1/2NS+10 MEQ KCL - 10 MEQ/1,000 ML INFUS.BAG IV SCH (12:30)
[2022-10-02] MEDS: D5-1/2NS+10 MEQ KCL - 10 MEQ/1,000 ML INFUS.BAG IV SCH (12:41)
[2022-10-02] MEDS: POLYETHYLENE GLYCOL (HEALTHYLAX) 3350 17 GM PACKET GT SCH ×2 (12:43→21:06)
[2022-10-02] MEDS: TIZANIDINE HCL 2 MG TABLET GT SCH ×2 (13:01→21:05)
[2022-10-02] MEDS ORDERED: DEXAMETHASONE SOD PHOSPHATE 20 MG/5 ML VIAL IVPB ONE (13:51)
[2022-10-02] MEDS: CEFTRIAXONE 1 GM in DEXTROSE 5%-WATER - 50 ML IVPB SCH (14:16)
[2022-10-02] MEDS ORDERED: DEXAMETHASONE SOD PHOSPHATE 4 MG/1 ML VIAL IVPB ONE (14:30)
[2022-10-02] MEDS: DOXYCYCLINE INJECTION 100 MG in DEXTROSE 5%-WATER 100 ML IVPB SCH ×2 (15:06→21:06)
[2022-10-02] MEDS: diazePAM 5 MG TABLET GT SCH ×2 (16:18→21:02)
[2022-10-02] MEDS: BACLOFEN 10 MG TABLET (FP) GT SCH ×2 (16:19→21:04)
[2022-10-02] MEDS: PANTOPRAZOLE SODIUM 40 MG VIAL IVPUSH SCH (21:01)
[2022-10-03] MEDS: carBAMazepine 100 MG/5 ML UNIT-DOSE CUP GT SCH ×2 (04:08→17:20)
[2022-10-03] MEDS: diazePAM 5 MG TABLET GT SCH ×3 (04:08→21:41)
[2022-10-03] MEDS: BACLOFEN 10 MG TABLET (FP) GT SCH ×3 (06:21→21:42)
[2022-10-03] MEDS: TIZANIDINE HCL 2 MG TABLET GT SCH ×3 (06:37→21:42)
[2022-10-03 07:26] LABS: POTASSIUM 3.7 mmol/L (3.5-5.1)
[2022-10-03 07:31] LABS: ALBUMIN 2.8 g/dl (3.4-5.0); BLOOD UREA NITROGEN 26.6 mg/dL (7-18); CALCIUM 7.5 mg/dL (8.5-10.1)
[2022-10-03 07:34] LABS: CREATININE 0.6 mg/dL (0.55-1.3)
[2022-10-03 07:36] LABS: BILIRUBIN,TOTAL 0.6 mg/dL (0.2-1); TOT PROT 6.2 g/dl (6.4-8.2)
[2022-10-03 07:45] LABS: BASO % 0.1 % (0-2.0); EOS % 0.1 % (0-4.5); HEMATOCRIT 37.6 % (35.4-49); HEMOGLOBIN 12.7 GM/dL (11.7-16.9); LYMPH % 18.9 % (8-40); MCH 32.4 pg (25.7-33.7); MCHC 33.9 g/dl (32.0-35.9); MEAN CELL VOLUME 95.8 fl (80-96); MEAN PLT VOLUME 8.4 fl (7.5-11.1); MONO % 3.4 % (3.8-10.2); NEUT % 77.5 % (42.8-82.8); PLATELET COUNT 215 10^3/uL (134-434); RBC 3.93 M/mm3 (4.00-5.60); RDW 13.4 % (11.9-15.9); WHITE BLOOD COUNT 5.5 K/mm3 (4.0-10.0)
[2022-10-03] MEDS: DOXYCYCLINE INJECTION 100 MG in DEXTROSE 5%-WATER 100 ML IVPB SCH ×2 (10:05→21:42)
[2022-10-03] MEDS: CEFTRIAXONE 1 GM in DEXTROSE 5%-WATER - 50 ML IVPB SCH (10:05)
[2022-10-03] MEDS: ENOXAPARIN NA (PORCINE) 40 MG/0.4 ML DISP.SYRIN SQ SCH (10:06)
[2022-10-03] MEDS: ACETAMINOPHEN 650 MG/20.3 ML ORAL SOLUTION (CUPS) GT PRN (10:06)
[2022-10-03] MEDS ORDERED: REMDESIVIR 200 MG in SODIUM CHLORIDE 250 ML IVPB ONE (16:00)
[2022-10-03] MEDS: D5-1/2NS+10 MEQ KCL - 10 MEQ/1,000 ML INFUS.BAG IV SCH (16:26)
[2022-10-03] MEDS: DEXAMETHASONE SOD PHOSPHATE 10 MG/1 ML VIAL IVPUSH SCH (16:26)
[2022-10-03] MEDS: POLYETHYLENE GLYCOL (HEALTHYLAX) 3350 17 GM PACKET GT SCH ×2 (16:26→21:41)
[2022-10-03] MEDS: ASPIRIN 81 MG CHEWABLE TABLETS PO SCH (17:18)
[2022-10-03] MEDS: PANTOPRAZOLE SODIUM 40 MG VIAL IVPUSH SCH (21:42)
[2022-10-04] MEDS: carBAMazepine 100 MG/5 ML UNIT-DOSE CUP GT SCH ×2 (05:11→17:28)
[2022-10-04] MEDS: BACLOFEN 10 MG TABLET (FP) GT SCH ×3 (05:11→21:13)
[2022-10-04] MEDS: TIZANIDINE HCL 2 MG TABLET GT SCH ×3 (05:12→21:14)
[2022-10-04] MEDS: diazePAM 5 MG TABLET GT SCH ×3 (05:21→21:14)
[2022-10-04] MEDS: POLYETHYLENE GLYCOL (HEALTHYLAX) 3350 17 GM PACKET GT SCH ×3 (05:21→21:15)
[2022-10-04] MEDS: CEFTRIAXONE 1 GM in DEXTROSE 5%-WATER - 50 ML IVPB SCH (09:49)
[2022-10-04] MEDS: DOXYCYCLINE INJECTION 100 MG in DEXTROSE 5%-WATER 100 ML IVPB SCH ×2 (09:50→21:15)
[2022-10-04] MEDS: ENOXAPARIN NA (PORCINE) 40 MG/0.4 ML DISP.SYRIN SQ SCH (09:50)
[2022-10-04] MEDS: DEXAMETHASONE SOD PHOSPHATE 10 MG/1 ML VIAL IVPUSH SCH (09:51)
[2022-10-04] MEDS: ASPIRIN 81 MG CHEWABLE TABLETS PO SCH (09:52)
[2022-10-04] MEDS: D5-1/2NS+10 MEQ KCL - 10 MEQ/1,000 ML INFUS.BAG IV SCH (17:12)
[2022-10-04] MEDS: REMDESIVIR 100 MG in SODIUM CHLORIDE 250 ML IVPB SCH (17:28)
[2022-10-04] MEDS: PANTOPRAZOLE SODIUM 40 MG VIAL IVPUSH SCH (21:15)
[2022-10-04] MEDS: SENNOSIDES 8.8 MG/5 ML SYRUP PO SCH (22:06)
[2022-10-05] MEDS: BACLOFEN 10 MG TABLET (FP) GT SCH ×3 (06:42→22:06)
[2022-10-05] MEDS: diazePAM 5 MG TABLET GT SCH ×3 (06:43→20:20)
[2022-10-05] MEDS: tiZANidine HCL 4 MG TABLET NR SCH ×3 (06:44→22:07)
[2022-10-05] MEDS: carBAMazepine 100 MG/5 ML UNIT-DOSE CUP GT SCH ×2 (06:45→17:39)
[2022-10-05] MEDS: POLYETHYLENE GLYCOL (HEALTHYLAX) 3350 17 GM PACKET GT SCH ×3 (06:45→22:07)
[2022-10-05] MEDS: TIZANIDINE HCL 2 MG TABLET GT SCH (06:57)
[2022-10-05 08:55] LABS: CHLORIDE 107 mmol/L (98-107); POTASSIUM 3.1 mmol/L (3.5-5.1); SODIUM 142 mmol/L (136-145)
[2022-10-05 08:59] LABS: ALBUMIN 2.4 g/dl (3.4-5.0); ANION GAP 7 MMOL/L (8-16); BLOOD UREA NITROGEN 17.2 mg/dL (7-18); CO2 29 mmol/L (21-32); GLUCOSE,RANDOM 154 mg/dL (74-106)
[2022-10-05 09:02] LABS: CREATININE 0.5 mg/dL (0.55-1.3); SGOT/AST 87 U/L (15-37); SGPT/ALT 84 U/L (13-61)
[2022-10-05 09:03] LABS: BILIRUBIN,TOTAL 0.3 mg/dL (0.2-1); CALCIUM 6.8 mg/dL (8.5-10.1)
[2022-10-05 09:04] LABS: TOT PROT 5.6 g/dl (6.4-8.2)
[2022-10-05 09:05] LABS: ALK PHOS 41 U/L (45-117); BILIRUBIN,DIRECT 0.1 mg/dL (0.0-0.2)
[2022-10-05 09:10] LABS: BASO % 0.1 % (0-2.0); EOS % 0.1 % (0-4.5); HEMATOCRIT 33.7 % (35.4-49); HEMOGLOBIN 11.7 GM/dL (11.7-16.9); LYMPH % 29.6 % (8-40); MCHC 34.8 g/dl (32.0-35.9); MEAN CELL VOLUME 94.8 fl (80-96); MONO % 7.7 % (3.8-10.2); NEUT % 62.5 % (42.8-82.8); PLATELET COUNT 188 10^3/uL (134-434); RBC 3.56 M/mm3 (4.00-5.60); RDW 13.4 % (11.9-15.9); WHITE BLOOD COUNT 5.2 K/mm3 (4.0-10.0)
[2022-10-05] MEDS ORDERED: CALCIUM GLUCONATE 10% - 1,000 MG/10 ML VIAL IVPB ONE (09:42)
[2022-10-05] MEDS: CEFTRIAXONE 1 GM in DEXTROSE 5%-WATER - 50 ML IVPB SCH (09:49)
[2022-10-05] MEDS: DOXYCYCLINE INJECTION 100 MG in DEXTROSE 5%-WATER 100 ML IVPB SCH (09:50)
[2022-10-05] MEDS: DEXAMETHASONE SOD PHOSPHATE 10 MG/1 ML VIAL IVPUSH SCH (09:50)
[2022-10-05] MEDS: ASPIRIN 81 MG CHEWABLE TABLETS PO SCH (09:50)
[2022-10-05] MEDS: ENOXAPARIN NA (PORCINE) 40 MG/0.4 ML DISP.SYRIN SQ SCH (09:50)
[2022-10-05] MEDS ORDERED: POTASSIUM CHLORIDE ORAL LIQUID 20 MEQ/15 ML GT ONE (11:30)
[2022-10-05] MEDS: ACETAMINOPHEN 650 MG/20.3 ML ORAL SOLUTION (CUPS) GT PRN (11:40)
[2022-10-05] MEDS: D5-1/2NS+10 MEQ KCL - 10 MEQ/1,000 ML INFUS.BAG IV SCH (11:42)
[2022-10-05] MEDS: REMDESIVIR 100 MG in SODIUM CHLORIDE 250 ML IVPB SCH (14:59)
[2022-10-05] MEDS: PANTOPRAZOLE SODIUM 40 MG VIAL IVPUSH SCH (22:06)
[2022-10-05] MEDS: SENNOSIDES 8.8 MG/5 ML SYRUP PO SCH (22:07)
[2022-10-06] MEDS: carBAMazepine 100 MG/5 ML UNIT-DOSE CUP GT SCH ×2 (05:20→17:52)
[2022-10-06] MEDS: diazePAM 5 MG TABLET GT SCH ×3 (05:21→22:54)
[2022-10-06] MEDS: BACLOFEN 10 MG TABLET (FP) GT SCH ×3 (05:21→22:48)
[2022-10-06] MEDS: POLYETHYLENE GLYCOL (HEALTHYLAX) 3350 17 GM PACKET GT SCH ×3 (05:21→22:48)
[2022-10-06] MEDS: tiZANidine HCL 4 MG TABLET NR SCH ×3 (06:26→22:54)
[2022-10-06] MEDS: DEXAMETHASONE SOD PHOSPHATE 10 MG/1 ML VIAL IVPUSH SCH (11:02)
[2022-10-06] MEDS: ENOXAPARIN NA (PORCINE) 40 MG/0.4 ML DISP.SYRIN SQ SCH (11:02)
[2022-10-06] MEDS: ASPIRIN 81 MG CHEWABLE TABLETS PO SCH (11:02)
[2022-10-06 11:14] LABS: BASO % 0.2 % (0-2.0); EOS % 0.7 % (0-4.5); HEMATOCRIT 36.6 % (35.4-49); HEMOGLOBIN 12.2 GM/dL (11.7-16.9); LYMPH % 40.4 % (8-40); MCH 32.3 pg (25.7-33.7); MCHC 33.4 g/dl (32.0-35.9); MEAN CELL VOLUME 96.6 fl (80-96); MEAN PLT VOLUME 8.7 fl (7.5-11.1); MONO % 11.8 % (3.8-10.2); NEUT % 46.9 % (42.8-82.8); PLATELET COUNT 222 10^3/uL (134-434); RBC 3.79 M/mm3 (4.00-5.60); RDW 13.1 % (11.9-15.9); WHITE BLOOD COUNT 3.6 K/mm3 (4.0-10.0)
[2022-10-06 11:28] LABS: POTASSIUM 4.1 mmol/L (3.5-5.1)
[2022-10-06 11:32] LABS: BLOOD UREA NITROGEN 11.5 mg/dL (7-18); CALCIUM 7.7 mg/dL (8.5-10.1)
[2022-10-06 11:33] LABS: ALBUMIN 2.5 g/dl (3.4-5.0)
[2022-10-06 11:36] LABS: BILIRUBIN,DIRECT 0.1 mg/dL (0.0-0.2); CREATININE 0.4 mg/dL (0.55-1.3)
[2022-10-06 11:37] LABS: TOT PROT 5.8 g/dl (6.4-8.2)
[2022-10-06 11:38] LABS: BILIRUBIN,TOTAL 0.3 mg/dL (0.2-1)
[2022-10-06] MEDS: REMDESIVIR 100 MG in SODIUM CHLORIDE 250 ML IVPB SCH (16:49)
[2022-10-06] MEDS: PANTOPRAZOLE SODIUM 40 MG VIAL IVPUSH SCH (22:48)
[2022-10-06] MEDS: SENNOSIDES 8.8 MG/5 ML SYRUP PO SCH (22:49)
[2022-10-07] MEDS: diazePAM 5 MG TABLET GT SCH ×3 (04:34→21:10)
[2022-10-07] MEDS: carBAMazepine 100 MG/5 ML UNIT-DOSE CUP GT SCH ×2 (04:35→16:59)
[2022-10-07] MEDS: tiZANidine HCL 2 MG TABLET NR SCH ×3 (05:25→22:14)
[2022-10-07] MEDS: POLYETHYLENE GLYCOL (HEALTHYLAX) 3350 17 GM PACKET GT SCH ×3 (05:26→21:10)
[2022-10-07] MEDS: BACLOFEN 10 MG TABLET (FP) GT SCH ×3 (05:26→21:10)
[2022-10-07] MEDS: ENOXAPARIN NA (PORCINE) 40 MG/0.4 ML DISP.SYRIN SQ SCH (10:37)
[2022-10-07] MEDS: ASPIRIN 81 MG CHEWABLE TABLETS PO SCH (10:37)
[2022-10-07] MEDS: DEXAMETHASONE SOD PHOSPHATE 10 MG/1 ML VIAL IVPUSH SCH (10:37)
[2022-10-07] MEDS: REMDESIVIR 100 MG in SODIUM CHLORIDE 250 ML IVPB SCH (16:52)
[2022-10-07] MEDS: PANTOPRAZOLE SODIUM 40 MG VIAL IVPUSH SCH (21:10)
[2022-10-07] MEDS: SENNOSIDES 8.8 MG/5 ML SYRUP PO SCH (21:10)
[2022-10-08] MEDS: diazePAM 5 MG TABLET GT SCH ×3 (05:43→21:23)
[2022-10-08] MEDS: tiZANidine HCL 2 MG TABLET NR SCH ×3 (05:43→23:49)
[2022-10-08] MEDS: carBAMazepine 100 MG/5 ML UNIT-DOSE CUP GT SCH ×2 (05:44→17:32)
[2022-10-08] MEDS: BACLOFEN 10 MG TABLET (FP) GT SCH ×3 (05:44→21:23)
[2022-10-08] MEDS: POLYETHYLENE GLYCOL (HEALTHYLAX) 3350 17 GM PACKET GT SCH ×3 (05:44→21:24)
[2022-10-08 07:29] LABS: HEMATOCRIT 37.5 % (35.4-49); HEMOGLOBIN 12.4 GM/dL (11.7-16.9); MCH 31.9 pg (25.7-33.7); MCHC 33.1 g/dl (32.0-35.9); MEAN CELL VOLUME 96.3 fl (80-96); MEAN PLT VOLUME 8.3 fl (7.5-11.1); PLATELET COUNT 267 10^3/uL (134-434); RBC 3.89 M/mm3 (4.00-5.60); RDW 13.2 % (11.9-15.9); WHITE BLOOD COUNT 3.8 K/mm3 (4.0-10.0)
[2022-10-08 07:56] LABS: POTASSIUM 4.3 mmol/L (3.5-5.1)
[2022-10-08 07:57] LABS: ALBUMIN 2.6 g/dl (3.4-5.0); BLOOD UREA NITROGEN 14.7 mg/dL (7-18); CALCIUM 8.7 mg/dL (8.5-10.1); MAGNESIUM 1.7 mg/dL (1.8-2.4)
[2022-10-08 08:00] LABS: CREATININE 0.5 mg/dL (0.55-1.3); PHOSPHOROUS 4.5 mg/dL (2.5-4.9)
[2022-10-08 08:02] LABS: BILIRUBIN,TOTAL 0.2 mg/dL (0.2-1)
[2022-10-08] MEDS: ENOXAPARIN NA (PORCINE) 40 MG/0.4 ML DISP.SYRIN SQ SCH (09:56)
[2022-10-08] MEDS: ASPIRIN 81 MG CHEWABLE TABLETS PO SCH (09:56)
[2022-10-08] MEDS: ACETAMINOPHEN 650 MG/20.3 ML ORAL SOLUTION (CUPS) GT PRN (09:57)
[2022-10-08] MEDS: DEXAMETHASONE SOD PHOSPHATE 10 MG/1 ML VIAL IVPUSH SCH (09:59)
[2022-10-08] MEDS: PANTOPRAZOLE SODIUM 40 MG VIAL IVPUSH SCH (21:24)
[2022-10-09] MEDS: SENNOSIDES 8.8 MG/5 ML SYRUP PO SCH ×2 (01:12→22:28)
[2022-10-09] MEDS: diazePAM 5 MG TABLET GT SCH (06:07)
[2022-10-09] MEDS: BACLOFEN 10 MG TABLET (FP) GT SCH ×3 (06:07→22:27)
[2022-10-09] MEDS: POLYETHYLENE GLYCOL (HEALTHYLAX) 3350 17 GM PACKET GT SCH ×3 (06:08→22:27)
[2022-10-09] MEDS: carBAMazepine 100 MG/5 ML UNIT-DOSE CUP GT SCH ×2 (06:08→22:27)
[2022-10-09] MEDS: tiZANidine HCL 4 MG TABLET NR SCH ×3 (07:04→22:29)
[2022-10-09 08:58] LABS: HEMATOCRIT 36.9 % (35.4-49); HEMOGLOBIN 12.6 GM/dL (11.7-16.9); MCH 32.9 pg (25.7-33.7); MCHC 34.1 g/dl (32.0-35.9); MEAN CELL VOLUME 96.4 fl (80-96); MEAN PLT VOLUME 8.4 fl (7.5-11.1); PLATELET COUNT 317 10^3/uL (134-434); RBC 3.82 M/mm3 (4.00-5.60); RDW 13.4 % (11.9-15.9); WHITE BLOOD COUNT 4.4 K/mm3 (4.0-10.0)
[2022-10-09 09:03] LABS: POTASSIUM 4.4 mmol/L (3.5-5.1)
[2022-10-09 09:13] LABS: BLOOD UREA NITROGEN 10.7 mg/dL (7-18); CALCIUM 8.5 mg/dL (8.5-10.1); MAGNESIUM 1.7 mg/dL (1.8-2.4)
[2022-10-09 09:15] LABS: CREATININE 0.5 mg/dL (0.55-1.3)
[2022-10-09 09:16] LABS: ALBUMIN 2.7 g/dl (3.4-5.0); BILIRUBIN,TOTAL 0.2 mg/dL (0.2-1)
[2022-10-09 09:19] LABS: PHOSPHOROUS 4.7 mg/dL (2.5-4.9)
[2022-10-09 09:21] LABS: TOT PROT 6.3 g/dl (6.4-8.2)
[2022-10-09] MEDS: ENOXAPARIN NA (PORCINE) 40 MG/0.4 ML DISP.SYRIN SQ SCH (09:59)
[2022-10-09] MEDS: ASPIRIN 81 MG CHEWABLE TABLETS PO SCH (10:00)
[2022-10-09] MEDS: DEXAMETHASONE SOD PHOSPHATE 10 MG/1 ML VIAL IVPUSH SCH (10:00)
[2022-10-09] MEDS ORDERED: MAGNESIUM SULF 50% (8.12 MEQ/2 ML-1 GM VIAL) IVPB ONE (16:32)
[2022-10-09] MEDS: PANTOPRAZOLE SODIUM 40 MG VIAL IVPUSH SCH (22:28)
[2022-10-10] MEDS: POLYETHYLENE GLYCOL (HEALTHYLAX) 3350 17 GM PACKET GT SCH ×3 (05:46→21:52)
[2022-10-10] MEDS: BACLOFEN 10 MG TABLET (FP) GT SCH ×3 (05:47→21:52)
[2022-10-10] MEDS: tiZANidine HCL 4 MG TABLET NR SCH ×3 (05:48→21:53)
[2022-10-10] MEDS: carBAMazepine 100 MG/5 ML UNIT-DOSE CUP GT SCH ×2 (05:50→19:04)
[2022-10-10 09:37] LABS: HEMATOCRIT 42.2 % (35.4-49); HEMOGLOBIN 14.4 GM/dL (11.7-16.9); MCH 32.4 pg (25.7-33.7); MEAN CELL VOLUME 95.2 fl (80-96); MEAN PLT VOLUME 7.9 fl (7.5-11.1); PLATELET COUNT 352 10^3/uL (134-434); RBC 4.44 M/mm3 (4.00-5.60); RDW 13.7 % (11.9-15.9); WHITE BLOOD COUNT 7.3 K/mm3 (4.0-10.0)
[2022-10-10 09:56] LABS: POTASSIUM 4.8 mmol/L (3.5-5.1)
[2022-10-10 10:00] LABS: BLOOD UREA NITROGEN 13.9 mg/dL (7-18); MAGNESIUM 2.1 mg/dL (1.8-2.4)
[2022-10-10 10:02] LABS: CREATININE 0.5 mg/dL (0.55-1.3); PHOSPHOROUS 4.5 mg/dL (2.5-4.9)
[2022-10-10] MEDS: DEXAMETHASONE SOD PHOSPHATE 10 MG/1 ML VIAL IVPUSH SCH (10:16)
[2022-10-10] MEDS: ASPIRIN 81 MG CHEWABLE TABLETS PO SCH (10:16)
[2022-10-10] MEDS: ENOXAPARIN NA (PORCINE) 40 MG/0.4 ML DISP.SYRIN SQ SCH (10:16)
[2022-10-10] MEDS: diazePAM 5 MG TABLET GT SCH (20:38)
[2022-10-10] MEDS: PANTOPRAZOLE SODIUM 40 MG VIAL IVPUSH SCH (21:53)
[2022-10-10] MEDS: SENNOSIDES 8.8 MG/5 ML SYRUP PO SCH (21:53)
[2022-10-11] MEDS: BACLOFEN 10 MG TABLET (FP) GT SCH ×3 (06:27→21:01)
[2022-10-11] MEDS: diazePAM 5 MG TABLET GT SCH ×3 (06:27→21:01)
[2022-10-11] MEDS: tiZANidine HCL 4 MG TABLET NR SCH ×3 (06:28→22:07)
[2022-10-11] MEDS: POLYETHYLENE GLYCOL (HEALTHYLAX) 3350 17 GM PACKET GT SCH ×3 (06:28→21:02)
[2022-10-11] MEDS: carBAMazepine 100 MG/5 ML UNIT-DOSE CUP GT SCH ×2 (06:28→17:20)
[2022-10-11 07:56] LABS: HEMATOCRIT 40.7 % (35.4-49); HEMOGLOBIN 13.6 GM/dL (11.7-16.9); MCH 32.2 pg (25.7-33.7); MCHC 33.4 g/dl (32.0-35.9); MEAN CELL VOLUME 96.4 fl (80-96); MEAN PLT VOLUME 8.4 fl (7.5-11.1); PLATELET COUNT 377 10^3/uL (134-434); RBC 4.22 M/mm3 (4.00-5.60); WHITE BLOOD COUNT 5.8 K/mm3 (4.0-10.0)
[2022-10-11 08:29] LABS: CALCIUM 9.4 mg/dL (8.5-10.1); POTASSIUM 4.7 mmol/L (3.5-5.1)
[2022-10-11 08:30] LABS: ALBUMIN 3.2 g/dl (3.4-5.0); MAGNESIUM 2.3 mg/dL (1.8-2.4)
[2022-10-11 08:33] LABS: CREATININE 0.5 mg/dL (0.55-1.3); PHOSPHOROUS 4.6 mg/dL (2.5-4.9)
[2022-10-11 08:34] LABS: BILIRUBIN,TOTAL 0.2 mg/dL (0.2-1); TOT PROT 7.2 g/dl (6.4-8.2)
[2022-10-11] MEDS: DEXAMETHASONE SOD PHOSPHATE 10 MG/1 ML VIAL IVPUSH SCH (10:04)
[2022-10-11] MEDS: ENOXAPARIN NA (PORCINE) 40 MG/0.4 ML DISP.SYRIN SQ SCH (10:04)
[2022-10-11] MEDS: ASPIRIN 81 MG CHEWABLE TABLETS PO SCH (10:04)
[2022-10-11] MEDS: PANTOPRAZOLE SODIUM 40 MG VIAL IVPUSH SCH (21:02)
[2022-10-11] MEDS: SENNOSIDES 8.8 MG/5 ML SYRUP PO SCH (21:02)
[2022-10-12] MEDS: carBAMazepine 100 MG/5 ML UNIT-DOSE CUP GT SCH ×2 (05:51→17:55)
[2022-10-12] MEDS: POLYETHYLENE GLYCOL (HEALTHYLAX) 3350 17 GM PACKET GT SCH ×3 (05:51→22:13)
[2022-10-12] MEDS: diazePAM 5 MG TABLET GT SCH ×3 (05:51→22:13)
[2022-10-12] MEDS: BACLOFEN 10 MG TABLET (FP) GT SCH ×3 (05:52→22:13)
[2022-10-12 07:03] LABS: HEMATOCRIT 40.6 % (35.4-49); HEMOGLOBIN 13.4 GM/dL (11.7-16.9); MCH 31.6 pg (25.7-33.7); MCHC 32.9 g/dl (32.0-35.9); MEAN CELL VOLUME 96.2 fl (80-96); MEAN PLT VOLUME 8.4 fl (7.5-11.1); PLATELET COUNT 335 10^3/uL (134-434); RBC 4.22 M/mm3 (4.00-5.60); RDW 13.1 % (11.9-15.9); WHITE BLOOD COUNT 6.5 K/mm3 (4.0-10.0)
[2022-10-12 07:26] LABS: POTASSIUM 4.6 mmol/L (3.5-5.1)
[2022-10-12 07:34] LABS: BLOOD UREA NITROGEN 16.2 mg/dL (7-18); CREATININE 0.6 mg/dL (0.55-1.3); PHOSPHOROUS 3.6 mg/dL (2.5-4.9)
[2022-10-12 07:37] LABS: MAGNESIUM 2.1 mg/dL (1.8-2.4)
[2022-10-12 07:40] LABS: CALCIUM 8.6 mg/dL (8.5-10.1)
[2022-10-12 07:43] LABS: BILIRUBIN,TOTAL 0.6 mg/dL (0.2-1)
[2022-10-12] MEDS: ASCORBIC ACID 250 MG TABLET (FP) PO SCH (10:51)
[2022-10-12] MEDS: MULTIVIT-MINERALS ORAL LIQUID PO SCH (10:52)
[2022-10-12] MEDS: ENOXAPARIN NA (PORCINE) 40 MG/0.4 ML DISP.SYRIN SQ SCH (10:52)
[2022-10-12] MEDS: ASPIRIN 81 MG CHEWABLE TABLETS PO SCH (10:52)
[2022-10-12] MEDS: SENNOSIDES 8.8 MG/5 ML SYRUP PO SCH (22:13)
[2022-10-12] MEDS: PANTOPRAZOLE SODIUM 40 MG VIAL IVPUSH SCH (22:13)
[2022-10-13] MEDS: BACLOFEN 10 MG TABLET (FP) GT SCH ×2 (05:54→14:34)
[2022-10-13] MEDS: diazePAM 5 MG TABLET GT SCH ×2 (05:55→17:20)
[2022-10-13] MEDS: POLYETHYLENE GLYCOL (HEALTHYLAX) 3350 17 GM PACKET GT SCH ×2 (05:55→14:36)
[2022-10-13] MEDS: carBAMazepine 100 MG/5 ML UNIT-DOSE CUP GT SCH ×2 (05:56→17:32)
[2022-10-13 09:08] LABS: HEMATOCRIT 40.7 % (35.4-49); MCH 32.5 pg (25.7-33.7); MCHC 34.3 g/dl (32.0-35.9); MEAN CELL VOLUME 94.8 fl (80-96); MEAN PLT VOLUME 7.7 fl (7.5-11.1); PLATELET COUNT 320 10^3/uL (134-434); RBC 4.29 M/mm3 (4.00-5.60); RDW 13.3 % (11.9-15.9); WHITE BLOOD COUNT 6.4 K/mm3 (4.0-10.0)
[2022-10-13 09:55] LABS: POTASSIUM 4.7 mmol/L (3.5-5.1)
[2022-10-13 09:59] LABS: CALCIUM 8.6 mg/dL (8.5-10.1)
[2022-10-13 10:00] LABS: ALBUMIN 3.2 g/dl (3.4-5.0); BLOOD UREA NITROGEN 11.3 mg/dL (7-18); MAGNESIUM 2.4 mg/dL (1.8-2.4)
[2022-10-13 10:03] LABS: CREATININE 0.6 mg/dL (0.55-1.3); PHOSPHOROUS 3.8 mg/dL (2.5-4.9)
[2022-10-13 10:04] LABS: BILIRUBIN,TOTAL 0.3 mg/dL (0.2-1); TOT PROT 7.1 g/dl (6.4-8.2)
[2022-10-13] MEDS: ASCORBIC ACID 250 MG TABLET (FP) PO SCH (10:44)
[2022-10-13] MEDS: ASPIRIN 81 MG CHEWABLE TABLETS PO SCH (10:44)
[2022-10-13] MEDS: ENOXAPARIN NA (PORCINE) 40 MG/0.4 ML DISP.SYRIN SQ SCH (10:45)
[2022-10-13] MEDS: MULTIVIT-MINERALS ORAL LIQUID PO SCH (12:43)
[2022-10-13 18:52] VITALS: BP 125/91; PULSE 74; RESP 19; TEMP 97.6
== END 2022-10-13 21:49 | disposition home or self-care (01) | DRG 871 ==
LOC: JER 11:23 → JERBED 15:45 → J2W 22:47 → OBSVTOIN 10-02 00:50 → J4S 10-04 12:25
PROVIDERS: ADMIT Internal Medicine; ATTEND Internal Medicine
PROC: XW033E5 Introduction of Remdesivir Anti-infective into Peripheral Vein, Percutaneous Approach, New Technology Group 5 (ICD-10-PCS; principal; 2022-10-03)
DX: A41.89 Other specified sepsis (principal); I21.A1 Myocardial infarction type 2; J12.82 Pneumonia due to coronavirus disease 2019; U07.1 COVID-19; J96.01 Acute respiratory failure with hypoxia; K56.7 Ileus, unspecified; E87.20 Acidosis, unspecified; M62.82 Rhabdomyolysis; F72 Severe intellectual disabilities; R65.20 Severe sepsis without septic shock; G80.9 Cerebral palsy, unspecified; G40.909 Epilepsy, unspecified, not intractable, without status epilepticus; Z93.1 Gastrostomy status; K21.9 Gastro-esophageal reflux disease without esophagitis; K59.00 Constipation, unspecified
CPT/HCPCS: 0241U-QW; 36415; 71046-TC-FY; 74018-TC-FY; 74019-TC-FY; 74177-TC; 76700-TC; 80048; 80053; 80076; 81003; 82550; 82553; 82803; 82962; 83605; 83735; 84100; 84484; 85025; 85027; 85610; 85730; 86140; 87040; 87086; 87635; 93005; 93010; 93306-TC; 99285-25; C9399; G0378; J0475; J1100; Q9967

== ENCOUNTER 2023-01-22 22:46 | Inpatient (IN) | payer OTHER ==
[2023-01-22] MEDS ORDERED: ACETAMINOPHEN 1000 MG/100 ML BAG IVPB ONE (23:21)
[2023-01-22] MEDS ORDERED: ONDANSETRON 4 MG/2 ML VIAL IVPUSH ONE (23:21)
[2023-01-22] MEDS ORDERED: LORazepam 2 MG/ML SDV VIAL IM ONE (23:30)
[2023-01-22] MEDS ORDERED: ONDANSETRON 4 MG/2 ML VIAL ONE (23:44)
[2023-01-22] MEDS ORDERED: ACETAMINOPHEN INJECTION 100 ML IVPB ONE (23:44)
[2023-01-23 00:10] LABS: BASO % 0.3 % (0-2.0); HEMATOCRIT 44.6 % (35.4-49); HEMOGLOBIN 14.5 GM/dL (11.7-16.9); LYMPH % 6.3 % (8-40); MCH 32.1 pg (25.7-33.7); MCHC 32.6 g/dl (32.0-35.9); MEAN CELL VOLUME 98.4 fl (80-96); MEAN PLT VOLUME 7.7 fl (7.5-11.1); MONO % 5.2 % (3.8-10.2); NEUT % 88.2 % (42.8-82.8); PLATELET COUNT 382 10^3/uL (134-434); RBC 4.53 M/mm3 (4.00-5.60); RDW 13.3 % (11.9-15.9); WHITE BLOOD COUNT 12.9 K/mm3 (4.0-10.0)
[2023-01-23 00:22] LABS: POTASSIUM 4.1 mmol/L (3.5-5.1)
[2023-01-23 00:24] LABS: CALCIUM 10.1 mg/dL (8.5-10.1)
[2023-01-23 00:25] LABS: ALBUMIN 4.1 g/dl (3.4-5.0); BLOOD UREA NITROGEN 12.3 mg/dL (7-18); MAGNESIUM 2.3 mg/dL (1.8-2.4)
[2023-01-23 00:29] LABS: CREATININE 0.7 mg/dL (0.55-1.3)
[2023-01-23 00:30] LABS: BILIRUBIN,TOTAL 0.3 mg/dL (0.2-1)
[2023-01-23 00:43] LABS: EPI CELLS 11 /uL (0-25.1); HYALINE CASTS 3 /uL (0-3.1); PH,URINE 5.5 (5.0-8.0); URINE APPEARANCE CLEAR; URINE BACTERIA 5 /uL (0-1359); URINE BILIRUBIN NEGATIVE (NEGATIVE); URINE COLOR DK YELLOW; URINE GLUCOSE (UA) NEGATIVE (NEGATIVE); URINE KETONE TRACE (NEGATIVE); URINE LEUK ESTERASE NEGATIVE (NEGATIVE); URINE NITRITE NEGATIVE (NEGATIVE); URINE PROTEIN 2+ (NEGATIVE); URINE RBC 779 /uL (0-23.9); URINE WBC 20 /uL (0-25.8)
[2023-01-23] MEDS ORDERED: SODIUM CHLORIDE 0.9% 500 ML INFUS.BAG IV ONE ×2 (01:13→05:23)
[2023-01-23 01:34] LABS: LACTIC ACID 3.3 mmol/L (0.4-2.0)
[2023-01-23 01:38] LABS: INR 1.16 (0.83-1.09); PROTHROMBIN TIME (PATIENT) 13.4 SEC (9.7-13.0)
[2023-01-23 01:40] LABS: ACTIVATED PTT 29.1 SECONDS (25.2-36.5)
[2023-01-23] MEDS ORDERED: PIPERACILLIN/TAZOB 3.375 GM 3.375 GM in DEXTROSE 5%-WATER - 50 ML IVPB ONE (05:24)
[2023-01-23] MEDS ORDERED: PIPERACILLIN/TAZOB 3.375 GM 3.375 GM/50 ML BAG IVPB ONE (05:35)
[2023-01-23] MEDS ORDERED: morphine CARPU-JECT 4 MG/1 ML DISP.SYRIN IVPUSH ONE (06:24)
[2023-01-23] MEDS ORDERED: SODIUM CHLORIDE 1,000 ML IV STA (08:53)
[2023-01-23] MEDS ORDERED: ACETAMINOPHEN 1000 MG/100 ML BAG IVPB ONE (08:55)
[2023-01-23] MEDS ORDERED: morphine CARPU-JECT 2 MG/1 ML DISP.SYRIN IVPUSH PRN (08:59)
[2023-01-23] MEDS ORDERED: SODIUM CHLORIDE 1,000 ML IV SCH (09:00)
[2023-01-23] MEDS ORDERED: ACETAMINOPHEN 1000 MG/100 ML BAG IVPB PRN ×2 (09:02→09:12)
[2023-01-23] MEDS ORDERED: DEXTROSE 5%-NORMAL SALINE 1,000 ML IV SCH (09:15)
[2023-01-23] MEDS ORDERED: carBAMazepine 200 MG/10 ML UNIT-DOSE CUP GT SCH (09:30)
[2023-01-23] MEDS ORDERED: BUPIVACAINE HCL/PF 0.25% (2.5MG/ML) 10 ML VIAL ONE (09:33)
[2023-01-23] MEDS ORDERED: INDOCYANINE GREEN 25 MG/10 ML VIAL IVPUSH ONE (09:33)
[2023-01-23] MEDS ORDERED: HEPARIN NA (PORCINE) 5,000 UNITS/ML 1ML VIAL ONE (09:33)
[2023-01-23 09:48] LABS: BASO % 0.2 % (0-2.0); HEMATOCRIT 41.3 % (35.4-49); HEMOGLOBIN 13.6 GM/dL (11.7-16.9); LYMPH % 4.8 % (8-40); MCH 32.2 pg (25.7-33.7); MCHC 33.1 g/dl (32.0-35.9); MEAN CELL VOLUME 97.3 fl (80-96); MEAN PLT VOLUME 7.8 fl (7.5-11.1); MONO % 4.8 % (3.8-10.2); NEUT % 90.2 % (42.8-82.8); PLATELET COUNT 287 10^3/uL (134-434); RBC 4.24 M/mm3 (4.00-5.60); RDW 13.3 % (11.9-15.9); WHITE BLOOD COUNT 8.1 K/mm3 (4.0-10.0)
[2023-01-23] MEDS ORDERED: PIPERACILLIN/TAZOB 3.375 GM 3.375 GM in DEXTROSE 5%-WATER - 50 ML IVPB SCH ×3 (10:00→18:00)
[2023-01-23] MEDS ORDERED: PANTOPRAZOLE SODIUM 40 MG VIAL IVPUSH SCH (10:00)
[2023-01-23] MEDS ORDERED: PATIENT'S OWN MEDICATION (NON-FORMULARY) (Lactobacillus Acidophilus [Acidophilus Lactobaci PO SCH (10:00)
[2023-01-23] MEDS ORDERED: DOCUSATE NA 100 MG/10 ML UNIT-DOSE CUPS GT SCH (10:00)
[2023-01-23] MEDS ORDERED: LACTATED RINGERS SOLUTION 1,000 ML/1,000 ML INFUS.BAG IV SCH ×2 (10:30→15:18)
[2023-01-23] MEDS ORDERED: FENTANYL CITRATE/PF 50 MCG/ML VIAL ONE ×6 (11:47→15:53)
[2023-01-23] MEDS ORDERED: PROPOFOL 20 ML ONE (11:49)
[2023-01-23] MEDS ORDERED: SUCCINYLCHOLINE CHLORIDE 200 MG/10 ML SYRINGE ONE (11:49)
[2023-01-23] MEDS ORDERED: ROCURONIUM BROMIDE 50 MG/5 ML SYRINGE ONE ×2 (11:49→13:42)
[2023-01-23] MEDS ORDERED: DOXYCYCLINE INJECTION 100 MG in DEXTROSE 5%-WATER 100 ML IVPB SCH (12:00)
[2023-01-23] MEDS ORDERED: ONDANSETRON 4 MG/2 ML VIAL ONE (13:30)
[2023-01-23] MEDS ORDERED: DEXAMETHASONE SOD PHOSPHATE 4 MG/1 ML VIAL ONE (13:30)
[2023-01-23] MEDS ORDERED: KETOROLAC TROMETHAMINE 30 MG/1 ML VIAL ONE (13:30)
[2023-01-23] MEDS ORDERED: diazePAM 5 MG TABLET GT SCH (14:00)
[2023-01-23] MEDS ORDERED: BACLOFEN 10 MG TABLET (FP) GT SCH (14:00)
[2023-01-23] MEDS ORDERED: TIZANIDINE HCL 2 MG GT SCH (14:00)
[2023-01-23] MEDS ORDERED: diazePAM CARPU-JECT 10 MG/2 ML DISP.SYRIN IVPUSH SCH ×2 (14:00→22:00)
[2023-01-23] MEDS ORDERED: NEOSTIGMINE METHYLSULFATE 0.5 MG/1 ML - 10 ML MDV ONE (14:27)
[2023-01-23] MEDS ORDERED: GLYCOPYRROLATE 0.2 MG/1 ML VIAL ONE ×2 (14:27)
[2023-01-23] MEDS ORDERED: ONDANSETRON 4 MG/2 ML VIAL IVPUSH PRN (15:07)
[2023-01-23] MEDS ORDERED: PROMETHAZINE HCL 25 MG/1 ML VIAL IVPB PRN (15:07)
[2023-01-23] MEDS ORDERED: LACTATED RINGERS SOLUTION 1,000 ML IV SCH (15:15)
[2023-01-23] MEDS ORDERED: KETOROLAC TROMETHAMINE 15 MG/ML VIAL IVPUSH PRN (15:18)
[2023-01-23] MEDS: LACTATED RINGERS SOLUTION 1,000 ML/1,000 ML INFUS.BAG IV SCH ×2 (15:20→21:31)
[2023-01-23] MEDS ORDERED: diazePAM CARPU-JECT 10 MG/2 ML DISP.SYRIN ONE (16:11)
[2023-01-23] MEDS ORDERED: diazePAM CARPU-JECT 10 MG/2 ML DISP.SYRIN IVPUSH ONE ×3 (16:13→17:05)
[2023-01-23] MEDS ORDERED: levETIRAcetam 500 MG/5 ML INJECTION VIAL IVPB ONE ×2 (17:07→17:19)
[2023-01-23] MEDS: PIPERACILLIN/TAZOB 3.375 GM 3.375 GM in DEXTROSE 5%-WATER - 50 ML IVPB SCH (18:10)
[2023-01-23] MEDS: KETOROLAC TROMETHAMINE 30 MG/1 ML VIAL IVPUSH PRN (19:48)
[2023-01-23] MEDS: ACETAMINOPHEN 1000 MG/100 ML BAG IVPB SCH (20:20)
[2023-01-23] MEDS ORDERED: BACLOFEN 10 MG TABLET (FP) GT ONE (21:00)
[2023-01-23] MEDS: MUPIROCIN 2% TOPICAL OINTMENT FOR DECOLONIZATION NS SCH (21:30)
[2023-01-23] MEDS: diazePAM CARPU-JECT 10 MG/2 ML DISP.SYRIN IVPUSH PRN (21:30)
[2023-01-23] MEDS: CHLORHEXIDINE GLUCONATE 4% CLEANSER FOR DECOLONIZATION TP SCH (21:30)
[2023-01-23 21:35] LABS: POTASSIUM 3.6 mmol/L (3.5-5.1)
[2023-01-23 21:39] LABS: BLOOD UREA NITROGEN 13.6 mg/dL (7-18)
[2023-01-23 21:42] LABS: BILIRUBIN,TOTAL 0.8 mg/dL (0.2-1); CREATININE 0.7 mg/dL (0.55-1.3)
[2023-01-23 21:44] LABS: ALBUMIN 2.9 g/dl (3.4-5.0); CALCIUM 7.8 mg/dL (8.5-10.1); TOT PROT 5.9 g/dl (6.4-8.2)
[2023-01-23] MEDS ORDERED: PATIENT'S OWN MEDICATION (NON-FORMULARY) (Omeprazole 20 MG Capsule.Dr) GT SCH (22:00)
[2023-01-23] MEDS ORDERED: LACTATED RINGERS SOLUTION 1000 ML INFUS.BAG IV ONE (22:37)
[2023-01-24] MEDS: PIPERACILLIN/TAZOB 3.375 GM 3.375 GM in DEXTROSE 5%-WATER - 50 ML IVPB SCH ×3 (01:59→18:03)
[2023-01-24] MEDS: ACETAMINOPHEN 1000 MG/100 ML BAG IVPB SCH ×4 (02:24→20:57)
[2023-01-24] MEDS: KETOROLAC TROMETHAMINE 30 MG/1 ML VIAL IVPUSH PRN (04:15)
[2023-01-24] MEDS: diazePAM CARPU-JECT 10 MG/2 ML DISP.SYRIN IVPUSH PRN (04:36)
[2023-01-24] MEDS: carBAMazepine 100 MG/5 ML UNIT-DOSE CUP GT SCH ×2 (04:37→18:06)
[2023-01-24 06:49] LABS: BASO % 0.1 % (0-2.0); HEMATOCRIT 39.7 % (35.4-49); LYMPH % 10.3 % (8-40); MCH 32.2 pg (25.7-33.7); MCHC 32.7 g/dl (32.0-35.9); MEAN CELL VOLUME 98.3 fl (80-96); MEAN PLT VOLUME 7.7 fl (7.5-11.1); MONO % 6.8 % (3.8-10.2); NEUT % 82.8 % (42.8-82.8); PLATELET COUNT 231 10^3/uL (134-434); RBC 4.03 M/mm3 (4.00-5.60); RDW 13.2 % (11.9-15.9); WHITE BLOOD COUNT 6.9 K/mm3 (4.0-10.0)
[2023-01-24 07:01] LABS: POTASSIUM 3.7 mmol/L (3.5-5.1)
[2023-01-24 07:07] LABS: ALBUMIN 2.9 g/dl (3.4-5.0); CALCIUM 8.1 mg/dL (8.5-10.1)
[2023-01-24 07:11] LABS: CREATININE 0.7 mg/dL (0.55-1.3); PHOSPHOROUS 2.8 mg/dL (2.5-4.9); TOT PROT 5.9 g/dl (6.4-8.2)
[2023-01-24] MEDS: ENOXAPARIN NA (PORCINE) 40 MG/0.4 ML DISP.SYRIN SQ SCH (09:20)
[2023-01-24] MEDS: PANTOPRAZOLE SODIUM 40 MG VIAL IVPUSH SCH (09:23)
[2023-01-24] MEDS: LACTATED RINGERS SOLUTION 1,000 ML/1,000 ML INFUS.BAG IV SCH ×2 (09:25→16:52)
[2023-01-24] MEDS ORDERED: ENOXAPARIN NA (PORCINE) 40 MG/0.4 ML DISP.SYRIN SQ SCH (10:00)
[2023-01-24] MEDS ORDERED: levETIRAcetam 500 MG/5 ML INJECTION VIAL IVPB SCH (10:00)
[2023-01-24] MEDS: MUPIROCIN 2% TOPICAL OINTMENT FOR DECOLONIZATION NS SCH ×2 (10:49→21:04)
[2023-01-24] MEDS: diazePAM CARPU-JECT 10 MG/2 ML DISP.SYRIN IVPUSH SCH ×2 (12:12→20:13)
[2023-01-24] MEDS ORDERED: guaiFENesin 200 MG/10 ML 10 ML UNIT-DOSE CUPS GT PRN (14:42)
[2023-01-24] MEDS ORDERED: diphenhydrAMINE HCL 12.5 MG/5 ML UNIT-DOSE CUPS PO PRN (14:42)
[2023-01-24] MEDS ORDERED: BACLOFEN 10 MG TABLET (FP) PO SCH (14:47)
[2023-01-24] MEDS ORDERED: diphenhydrAMINE HCL 12.5 MG/5 ML UNIT-DOSE CUPS GT PRN (14:49)
[2023-01-24] MEDS ORDERED: LABETALOL HCL 5 MG/1 ML (100MG/20 ML VIAL) IVPUSH PRN (15:32)
[2023-01-24] MEDS ORDERED: LABETALOL HCL 20 MG/4 ML VIAL IVPUSH PRN (15:52)
[2023-01-24] MEDS: CHLORHEXIDINE GLUCONATE 4% CLEANSER FOR DECOLONIZATION TP SCH (21:04)
[2023-01-24] MEDS: BACLOFEN 10 MG TABLET (FP) GT SCH (21:04)
[2023-01-25] MEDS: LACTATED RINGERS SOLUTION 1,000 ML/1,000 ML INFUS.BAG IV SCH (01:10)
[2023-01-25] MEDS: PIPERACILLIN/TAZOB 3.375 GM 3.375 GM in DEXTROSE 5%-WATER - 50 ML IVPB SCH ×3 (01:11→17:05)
[2023-01-25] MEDS: ACETAMINOPHEN 1000 MG/100 ML BAG IVPB SCH ×4 (03:56→20:23)
[2023-01-25] MEDS: BACLOFEN 10 MG TABLET (FP) GT SCH ×3 (05:15→21:34)
[2023-01-25] MEDS: carBAMazepine 100 MG/5 ML UNIT-DOSE CUP GT SCH ×2 (05:21→17:05)
[2023-01-25] MEDS: diazePAM CARPU-JECT 10 MG/2 ML DISP.SYRIN IVPUSH SCH ×4 (06:22→21:35)
[2023-01-25 07:15] LABS: BASO % 0.1 % (0-2.0); HEMATOCRIT 40.7 % (35.4-49); HEMOGLOBIN 13.2 GM/dL (11.7-16.9); LYMPH % 12.6 % (8-40); MCH 32.2 pg (25.7-33.7); MCHC 32.4 g/dl (32.0-35.9); MEAN CELL VOLUME 99.5 fl (80-96); MEAN PLT VOLUME 7.8 fl (7.5-11.1); MONO % 6.9 % (3.8-10.2); NEUT % 80.4 % (42.8-82.8); PLATELET COUNT 213 10^3/uL (134-434); RBC 4.09 M/mm3 (4.00-5.60); RDW 13.3 % (11.9-15.9); WHITE BLOOD COUNT 6.2 K/mm3 (4.0-10.0)
[2023-01-25 07:36] LABS: POTASSIUM 3.4 mmol/L (3.5-5.1)
[2023-01-25 07:38] LABS: CALCIUM 8.2 mg/dL (8.5-10.1)
[2023-01-25 07:39] LABS: ALBUMIN 2.8 g/dl (3.4-5.0); BLOOD UREA NITROGEN 22.3 mg/dL (7-18)
[2023-01-25 07:43] LABS: BILIRUBIN,TOTAL 0.8 mg/dL (0.2-1); CREATININE 0.7 mg/dL (0.55-1.3)
[2023-01-25] MEDS: ENOXAPARIN NA (PORCINE) 40 MG/0.4 ML DISP.SYRIN SQ SCH (09:11)
[2023-01-25] MEDS: PANTOPRAZOLE SODIUM 40 MG VIAL IVPUSH SCH (09:12)
[2023-01-25] MEDS: MUPIROCIN 2% TOPICAL OINTMENT FOR DECOLONIZATION NS SCH ×2 (09:13→21:34)
[2023-01-25] MEDS ORDERED: LACTATED RINGERS SOLUTION 1,000 ML/1,000 ML INFUS.BAG IV STA (11:30)
[2023-01-25] MEDS: AMINO ACIDS 4.25%/D5W 1,000 ML IV SCH (16:34)
[2023-01-25] MEDS: POTASSIUM CHLORIDE 40 MEQ in SODIUM CHLORIDE 0.45% 1,000 ML IV SCH (20:27)
[2023-01-25] MEDS: CHLORHEXIDINE GLUCONATE 4% CLEANSER FOR DECOLONIZATION TP SCH (21:34)
[2023-01-26] MEDS: PIPERACILLIN/TAZOB 3.375 GM 3.375 GM in DEXTROSE 5%-WATER - 50 ML IVPB SCH ×3 (01:54→17:33)
[2023-01-26] MEDS: ACETAMINOPHEN 1000 MG/100 ML BAG IVPB SCH ×4 (02:34→21:24)
[2023-01-26] MEDS: BACLOFEN 10 MG TABLET (FP) GT SCH ×3 (05:07→21:27)
[2023-01-26] MEDS: diazePAM CARPU-JECT 10 MG/2 ML DISP.SYRIN IVPUSH SCH ×3 (05:07→21:22)
[2023-01-26] MEDS: POTASSIUM CHLORIDE 40 MEQ in SODIUM CHLORIDE 0.45% 1,000 ML IV SCH ×4 (05:08→15:23)
[2023-01-26] MEDS: carBAMazepine 100 MG/5 ML UNIT-DOSE CUP GT SCH ×2 (05:24→17:33)
[2023-01-26 07:25] LABS: HEMATOCRIT 40.5 % (35.4-49); HEMOGLOBIN 12.9 GM/dL (11.7-16.9); MCH 31.9 pg (25.7-33.7); MCHC 31.8 g/dl (32.0-35.9); MEAN CELL VOLUME 100.2 fl (80-96); MEAN PLT VOLUME 7.6 fl (7.5-11.1); PLATELET COUNT 198 10^3/uL (134-434); RBC 4.04 M/mm3 (4.00-5.60); RDW 13.5 % (11.9-15.9); WHITE BLOOD COUNT 5.2 K/mm3 (4.0-10.0)
[2023-01-26 07:42] LABS: POTASSIUM 3.4 mmol/L (3.5-5.1)
[2023-01-26 07:46] LABS: BLOOD UREA NITROGEN 21.4 mg/dL (7-18); CALCIUM 7.6 mg/dL (8.5-10.1)
[2023-01-26 07:47] LABS: MAGNESIUM 2.6 mg/dL (1.8-2.4)
[2023-01-26 07:49] LABS: CREATININE 0.6 mg/dL (0.55-1.3)
[2023-01-26 07:51] LABS: BILIRUBIN,TOTAL 0.9 mg/dL (0.2-1); PHOSPHOROUS 2.3 mg/dL (2.5-4.9); TOT PROT 5.3 g/dl (6.4-8.2)
[2023-01-26] MEDS: POTASSIUM CHLORIDE ORAL LIQUID 20 MEQ/15 ML PO ONE ×2 (08:48→13:41)
[2023-01-26] MEDS: NAPH,MB-DB/K PH,MBDB POWDER PACKET PO SCH ×3 (08:48→21:25)
[2023-01-26] MEDS: PANTOPRAZOLE SODIUM 40 MG VIAL IVPUSH SCH (09:02)
[2023-01-26] MEDS: ENOXAPARIN NA (PORCINE) 40 MG/0.4 ML DISP.SYRIN SQ SCH (09:02)
[2023-01-26] MEDS: MUPIROCIN 2% TOPICAL OINTMENT FOR DECOLONIZATION NS SCH ×2 (09:03→21:25)
[2023-01-26 09:05] LABS: ANISOCYTOSIS 0; HELMET CELLS 0; HOWELL-JOLLY BODIES 0; MACROCYTOSIS 0; OVALOCYTE 0; ROULEAU 0; SICKELED CELLS 0; TARGET CELLS 0; TEAR DROP CELLS 0; TOXIC GRANULATION 0
[2023-01-26 09:53] LABS: ALBUMIN 2.2 g/dl (3.4-5.0)
[2023-01-26] MEDS: AMINO ACIDS 4.25%/D5W 1,000 ML IV SCH (20:30)
[2023-01-26] MEDS: CHLORHEXIDINE GLUCONATE 4% CLEANSER FOR DECOLONIZATION TP SCH (21:25)
[2023-01-27] MEDS: PIPERACILLIN/TAZOB 3.375 GM 3.375 GM in DEXTROSE 5%-WATER - 50 ML IVPB SCH ×3 (02:53→18:28)
[2023-01-27] MEDS: ACETAMINOPHEN 1000 MG/100 ML BAG IVPB SCH ×4 (03:54→21:02)
[2023-01-27] MEDS: BACLOFEN 10 MG TABLET (FP) GT SCH ×3 (05:32→21:18)
[2023-01-27] MEDS: carBAMazepine 100 MG/5 ML UNIT-DOSE CUP GT SCH ×2 (05:33→17:17)
[2023-01-27] MEDS: diazePAM CARPU-JECT 10 MG/2 ML DISP.SYRIN IVPUSH SCH ×3 (05:34→21:19)
[2023-01-27 07:29] LABS: HEMOGLOBIN 12.7 GM/dL (11.7-16.9); MCH 32.2 pg (25.7-33.7); MCHC 32.6 g/dl (32.0-35.9); MEAN CELL VOLUME 98.8 fl (80-96); MEAN PLT VOLUME 8.1 fl (7.5-11.1); PLATELET COUNT 168 10^3/uL (134-434); RBC 3.95 M/mm3 (4.00-5.60); RDW 13.3 % (11.9-15.9)
[2023-01-27] MEDS: KETOROLAC TROMETHAMINE 30 MG/1 ML VIAL IVPUSH PRN (08:51)
[2023-01-27 09:00] LABS: POTASSIUM 3.4 mmol/L (3.5-5.1)
[2023-01-27 09:15] LABS: ALBUMIN 2.1 g/dl (3.4-5.0); BLOOD UREA NITROGEN 18.3 mg/dL (7-18); MAGNESIUM 2.3 mg/dL (1.8-2.4); PHOSPHOROUS 1.7 mg/dL (2.5-4.9)
[2023-01-27 09:16] LABS: CREATININE 0.4 mg/dL (0.55-1.3)
[2023-01-27 09:17] LABS: BILIRUBIN,TOTAL 0.8 mg/dL (0.2-1)
[2023-01-27 09:42] LABS: ANISOCYTOSIS 0; HELMET CELLS 0; HOWELL-JOLLY BODIES 0; MACROCYTOSIS 0; OVALOCYTE 0; ROULEAU 0; SICKELED CELLS 0; TARGET CELLS 0; TEAR DROP CELLS 0; TOXIC GRANULATION 0
[2023-01-27] MEDS: PANTOPRAZOLE SODIUM 40 MG VIAL IVPUSH SCH (11:39)
[2023-01-27] MEDS: NAPH,MB-DB/K PH,MBDB POWDER PACKET PO SCH ×2 (11:40→21:18)
[2023-01-27] MEDS: ENOXAPARIN NA (PORCINE) 40 MG/0.4 ML DISP.SYRIN SQ SCH (11:40)
[2023-01-27] MEDS: MUPIROCIN 2% TOPICAL OINTMENT FOR DECOLONIZATION NS SCH ×2 (11:41→21:03)
[2023-01-27] MEDS: KCL 10 MEQ IVPB 10 MEQ/100 ML INFUS.BAG IVPB SCH ×3 (12:35→16:00)
[2023-01-27] MEDS: POTASSIUM CHLORIDE 40 MEQ in SODIUM CHLORIDE 0.45% 1,000 ML IV SCH (12:35)
[2023-01-27] MEDS: AMINO ACIDS 4.25%/D5W 1,000 ML IV SCH (12:37)
[2023-01-27] MEDS ORDERED: FLUCONAZOLE 200 MG/NS 100 ML IVPB ONE (13:00)
[2023-01-27] MEDS ORDERED: POTASSIUM CHLORIDE ORAL LIQUID 20 MEQ/15 ML GT ONE (14:00)
[2023-01-27] MEDS: morphine SULFATE 4 MG/ML VIAL IVPUSH PRN ×2 (18:46→20:56)
[2023-01-27] MEDS: CHLORHEXIDINE GLUCONATE 4% CLEANSER FOR DECOLONIZATION TP SCH (21:03)
[2023-01-28] MEDS: PIPERACILLIN/TAZOB 3.375 GM 3.375 GM in DEXTROSE 5%-WATER - 50 ML IVPB SCH ×3 (01:36→18:24)
[2023-01-28] MEDS: ACETAMINOPHEN 1000 MG/100 ML BAG IVPB SCH ×4 (03:26→21:26)
[2023-01-28] MEDS: carBAMazepine 100 MG/5 ML UNIT-DOSE CUP GT SCH ×2 (06:05→17:04)
[2023-01-28] MEDS: diazePAM CARPU-JECT 10 MG/2 ML DISP.SYRIN IVPUSH SCH ×3 (06:05→21:18)
[2023-01-28] MEDS: BACLOFEN 10 MG TABLET (FP) GT SCH ×3 (06:06→21:29)
[2023-01-28 06:30] LABS: BASO % 0.1 % (0-2.0); EOS % 1.6 % (0-4.5); LYMPH % 8.6 % (8-40); MCHC 32.3 g/dl (32.0-35.9); MONO % 4.2 % (3.8-10.2); NEUT % 85.5 % (42.8-82.8); PLATELET COUNT 156 10^3/uL (134-434); RBC 3.43 M/mm3 (4.00-5.60); RDW 13.4 % (11.9-15.9); WHITE BLOOD COUNT 6.4 K/mm3 (4.0-10.0)
[2023-01-28 06:48] LABS: CHLORIDE 111 mmol/L (98-107); POTASSIUM 3.4 mmol/L (3.5-5.1); SODIUM 145 mmol/L (136-145)
[2023-01-28 06:52] LABS: ALBUMIN 1.7 g/dl (3.4-5.0); ANION GAP 4 mmol/L (4-13); BLOOD UREA NITROGEN 14.2 mg/dL (7-18); CO2 30 mmol/L (21-32); GLUCOSE,RANDOM 94 mg/dL (74-106)
[2023-01-28 06:55] LABS: CREATININE 0.3 mg/dL (0.55-1.3); PHOSPHOROUS 1.3 mg/dL (2.5-4.9); SGOT/AST 44 U/L (15-37); SGPT/ALT 50 U/L (13-61)
[2023-01-28 06:56] LABS: BILIRUBIN,TOTAL 0.5 mg/dL (0.2-1); TOT PROT 4.5 g/dl (6.4-8.2)
[2023-01-28 06:57] LABS: ALK PHOS 28 U/L (45-117)
[2023-01-28 07:14] LABS: CALCIUM 6.3 mg/dL (8.5-10.1)
[2023-01-28] MEDS ORDERED: POTASSIUM PHOSPHATE 30 MM in DEXTROSE 5%-WATER - 250 ML IVPB ONE (09:00)
[2023-01-28] MEDS: MUPIROCIN 2% TOPICAL OINTMENT FOR DECOLONIZATION NS SCH ×2 (09:19→21:17)
[2023-01-28] MEDS: PANTOPRAZOLE SODIUM 40 MG VIAL IVPUSH SCH (09:21)
[2023-01-28] MEDS: ENOXAPARIN NA (PORCINE) 40 MG/0.4 ML DISP.SYRIN SQ SCH (09:28)
[2023-01-28] MEDS: morphine SULFATE 4 MG/ML VIAL IVPUSH PRN (09:31)
[2023-01-28] MEDS ORDERED: NAPH,MB-DB/K PH,MBDB POWDER PACKET PO SCH (10:00)
[2023-01-28] MEDS: NAPH,MB-DB/K PH,MBDB POWDER PACKET GT SCH ×2 (10:05→21:29)
[2023-01-28] MEDS: POTASSIUM CHLORIDE 40 MEQ in SODIUM CHLORIDE 0.45% 1,000 ML IV SCH (10:38)
[2023-01-28] MEDS: AMINO ACIDS 4.25%/D5W 1,000 ML IV SCH (12:32)
[2023-01-28] MEDS ORDERED: oxyCODONE HCL 5 MG TABLET PO PRN (14:25)
[2023-01-28] MEDS ORDERED: oxyCODONE HCL 5 MG TABLET GT PRN (16:52)
[2023-01-28] MEDS ORDERED: ROCURONIUM BROMIDE 50 MG/5 ML VIAL IV ONE (16:58)
[2023-01-28] MEDS ORDERED: MIDAZOLAM HCL 2 MG/2 ML SINGLE DOSE VIAL IVPUSH ONE (16:59)
[2023-01-28] MEDS ORDERED: ALBUTEROL SO4 0.083% IH SOL 2.5 MG/3 ML VIAL.NEB. NEB PRN (18:28)
[2023-01-28] MEDS: FLUCONAZOLE 400 MG/NS 200 ML IVPB SCH (18:32)
[2023-01-28] MEDS ORDERED: RAPID SEQUENCE INTUBATION KIT NR ONE (19:26)
[2023-01-28] MEDS: PROPOFOL 1,000,000 MCG/100 ML VIAL IVPB SCH (20:30)
[2023-01-28] MEDS: CHLORHEXIDINE GLUCONATE 4% CLEANSER FOR DECOLONIZATION TP SCH (21:17)
[2023-01-28] MEDS ORDERED: ACETYLCYSTEINE 20% 200MG/ML 30 ML VIAL *FOR ORAL / INH USE ONLY NEB SCH (22:00)
[2023-01-28] MEDS ORDERED: CHLORHEXIDINE GLUCONATE 4% CLEANSER FOR DECOLONIZATION TP SCH (22:00)
[2023-01-28 22:34] LABS: ARTERIAL BLD GAS O2 SATURATION 97.8 % (95-98); ARTERIAL BLOOD GAS BASE EXCESS 2.9 mmol/L (-2-2); ARTERIAL BLOOD GAS PO2 106.9 mmHg (80-100); ARTERIAL BLOOD GAS pH 7.388 (7.350-7.450)
[2023-01-28 22:38] LABS: ALLENS TEST POSITIVE; VENT MODE A/C; VENT RATE 14
[2023-01-29] MEDS: PIPERACILLIN/TAZOB 3.375 GM 3.375 GM in DEXTROSE 5%-WATER - 50 ML IVPB SCH (02:18)
[2023-01-29] MEDS: ACETAMINOPHEN 1000 MG/100 ML BAG IVPB SCH ×3 (02:19→15:08)
[2023-01-29] MEDS: BACLOFEN 10 MG TABLET (FP) GT SCH ×3 (05:29→22:01)
[2023-01-29] MEDS: carBAMazepine 100 MG/5 ML UNIT-DOSE CUP GT SCH ×2 (05:29→17:09)
[2023-01-29] MEDS: diazePAM CARPU-JECT 10 MG/2 ML DISP.SYRIN IVPUSH SCH ×3 (05:30→22:01)
[2023-01-29 06:34] LABS: HEMATOCRIT 30.4 % (35.4-49); HEMOGLOBIN 9.9 GM/dL (11.7-16.9); MCH 32.2 pg (25.7-33.7); MCHC 32.7 g/dl (32.0-35.9); MEAN CELL VOLUME 98.7 fl (80-96); MEAN PLT VOLUME 8.3 fl (7.5-11.1); PLATELET COUNT 162 10^3/uL (134-434); RBC 3.08 M/mm3 (4.00-5.60); RDW 13.6 % (11.9-15.9); WHITE BLOOD COUNT 6.2 K/mm3 (4.0-10.0)
[2023-01-29 06:51] LABS: CHLORIDE 103 mmol/L (98-107); POTASSIUM 3.2 mmol/L (3.5-5.1); SODIUM 142 mmol/L (136-145)
[2023-01-29 06:53] LABS: ANION GAP 6 mmol/L (4-13); CO2 33 mmol/L (21-32)
[2023-01-29 06:54] LABS: ALBUMIN 1.4 g/dl (3.4-5.0); BLOOD UREA NITROGEN 13.2 mg/dL (7-18)
[2023-01-29 06:55] LABS: MAGNESIUM 2.1 mg/dL (1.8-2.4)
[2023-01-29 06:56] LABS: CREATININE 0.4 mg/dL (0.55-1.3); GLUCOSE,RANDOM 198 mg/dL (74-106); SGOT/AST 62 U/L (15-37); SGPT/ALT 50 U/L (13-61)
[2023-01-29 06:57] LABS: PHOSPHOROUS 1.7 mg/dL (2.5-4.9)
[2023-01-29 06:58] LABS: CHOLESTEROL 71 mg/dL (50-200); TOT PROT 4.3 g/dl (6.4-8.2)
[2023-01-29 06:59] LABS: BILIRUBIN,TOTAL 0.3 mg/dL (0.2-1); HDL CHOLESTEROL 11 mg/dL (40-60); LDL CHOLESTEROL (ONLY SJRH) 21 mg/dL (5-100)
[2023-01-29 07:00] LABS: ALK PHOS 29 U/L (45-117)
[2023-01-29 07:32] LABS: CALCIUM 5.9 mg/dL (8.5-10.1)
[2023-01-29] MEDS: ACETYLCYSTEINE 20% 200MG/ML 4 ML VIAL *FOR ORAL / INH USE ONLY NEB SCH ×2 (07:58→20:35)
[2023-01-29] MEDS ORDERED: CALCIUM GLUCONATE 10% - 1,000 MG/10 ML VIAL IVPB ONE (09:05)
[2023-01-29] MEDS ORDERED: CALCIUM GLUCONATE 10% - 1,000 MG/10 ML VIAL ONE (09:29)
[2023-01-29] MEDS: ENOXAPARIN NA (PORCINE) 40 MG/0.4 ML DISP.SYRIN SQ SCH (09:57)
[2023-01-29] MEDS: PANTOPRAZOLE SODIUM 40 MG VIAL IVPUSH SCH (09:58)
[2023-01-29] MEDS: PROPOFOL 1,000,000 MCG/100 ML VIAL IVPB SCH ×3 (09:58→21:38)
[2023-01-29] MEDS: NAPH,MB-DB/K PH,MBDB POWDER PACKET GT SCH ×2 (09:59→22:01)
[2023-01-29] MEDS: MUPIROCIN 2% TOPICAL OINTMENT FOR DECOLONIZATION NS SCH ×2 (09:59→21:58)
[2023-01-29] MEDS: AZITHROMYCIN IVPB 500 MG/250 ML BAG IVPB SCH (09:59)
[2023-01-29] MEDS ORDERED: POTASSIUM PHOSPHATE 30 MM in DEXTROSE 5%-WATER - 500 ML IVPB ONE (10:00)
[2023-01-29 10:03] LABS: ARTERIAL BLD GAS O2 SATURATION 88.9 % (95-98); ARTERIAL BLOOD GAS BASE EXCESS 7.5 mmol/L (-2-2); ARTERIAL BLOOD GAS PO2 53.9 mmHg (80-100); ARTERIAL BLOOD GAS pH 7.446 (7.350-7.450)
[2023-01-29 10:11] LABS: ALLENS TEST POSITIVE; PT'S TEMP 98.6
[2023-01-29 10:12] LABS: VENT MODE AC; VENT RATE 14
[2023-01-29] MEDS ORDERED: MEROPENEM 1 GM in DEXTROSE 5%-WATER 100 ML IVPB SCH (10:45)
[2023-01-29] MEDS: FENTANYL NS IVPB 500 MCG/100 ML BAG IVPB SCH ×2 (10:57→18:27)
[2023-01-29] MEDS: AMINO ACIDS 4.25%/D5W 1,000 ML IV SCH (11:07)
[2023-01-29] MEDS: FLUCONAZOLE 400 MG/NS 200 ML IVPB SCH (12:56)
[2023-01-29] MEDS ORDERED: diphenhydrAMINE HCL 12.5 MG/5 ML UNIT-DOSE CUPS GT PRN (12:57)
[2023-01-29] MEDS ORDERED: guaiFENesin 200 MG/10 ML 10 ML UNIT-DOSE CUPS GT PRN (12:57)
[2023-01-29] MEDS ORDERED: LABETALOL HCL 20 MG/4 ML VIAL IVPUSH PRN (12:57)
[2023-01-29] MEDS ORDERED: oxyCODONE HCL 5 MG TABLET GT PRN (12:57)
[2023-01-29] MEDS: MEROPENEM 1 GM in DEXTROSE 5%-WATER 100 ML IVPB SCH (17:06)
[2023-01-29 18:04] VITALS: BMI 29.7
[2023-01-29] MEDS: ALBUTEROL SO4 0.083% IH SOL 2.5 MG/3 ML VIAL.NEB. NEB PRN (20:35)
[2023-01-29] MEDS: CHLORHEXIDINE GLUCONATE 4% CLEANSER FOR DECOLONIZATION TP SCH (21:38)
[2023-01-29] MEDS: ACETAMINOPHEN 1000 MG/100 ML BAG IVPB PRN (22:07)
[2023-01-29] MEDS ORDERED: ACETAMINOPHEN INJECTION 100 ML IVPB ONE (22:07)
[2023-01-29] MEDS: ALBUTEROL SO4 2.5/IPRATROPIUM 0.5 INH SOL 3 ML VIAL.NEB. NEB PRN (23:45)
[2023-01-30] MEDS: MEROPENEM 1 GM in DEXTROSE 5%-WATER 100 ML IVPB SCH ×3 (02:04→18:12)
[2023-01-30] MEDS: ACETAMINOPHEN 1000 MG/100 ML BAG IVPB SCH (03:18)
[2023-01-30] MEDS: PROPOFOL 1,000,000 MCG/100 ML VIAL IVPB SCH ×3 (03:53→18:12)
[2023-01-30] MEDS: FENTANYL NS IVPB 500 MCG/100 ML BAG IVPB SCH ×2 (03:54→15:05)
[2023-01-30] MEDS: carBAMazepine 100 MG/5 ML UNIT-DOSE CUP GT SCH ×2 (05:22→18:12)
[2023-01-30] MEDS: BACLOFEN 10 MG TABLET (FP) GT SCH ×3 (05:22→21:07)
[2023-01-30] MEDS: diazePAM CARPU-JECT 10 MG/2 ML DISP.SYRIN IVPUSH SCH ×3 (05:23→21:07)
[2023-01-30 06:29] LABS: ARTERIAL BLD GAS O2 SATURATION 99.2 % (95-98); ARTERIAL BLOOD GAS BASE EXCESS 7.3 mmol/L (-2-2); ARTERIAL BLOOD GAS PO2 175.4 mmHg (80-100); ARTERIAL BLOOD GAS pH 7.407 (7.350-7.450)
[2023-01-30 06:34] LABS: VENT MODE A/C; VENT RATE 20
[2023-01-30 07:19] LABS: BASO % 0.1 % (0-2.0); EOS % 2.2 % (0-4.5); HEMATOCRIT 27.4 % (35.4-49); HEMOGLOBIN 8.8 GM/dL (11.7-16.9); LYMPH % 11.2 % (8-40); MCH 31.8 pg (25.7-33.7); MCHC 32.1 g/dl (32.0-35.9); MEAN CELL VOLUME 99.1 fl (80-96); MEAN PLT VOLUME 9.1 fl (7.5-11.1); MONO % 3.8 % (3.8-10.2); NEUT % 82.7 % (42.8-82.8); PLATELET COUNT 157 10^3/uL (134-434); RBC 2.76 M/mm3 (4.00-5.60); RDW 13.7 % (11.9-15.9); WHITE BLOOD COUNT 5.6 K/mm3 (4.0-10.0)
[2023-01-30 07:29] LABS: CHLORIDE 101 mmol/L (98-107); SODIUM 142 mmol/L (136-145)
[2023-01-30 07:33] LABS: ALBUMIN 1.2 g/dl (3.4-5.0); ANION GAP 5 mmol/L (4-13); BLOOD UREA NITROGEN 8.3 mg/dL (7-18); CO2 36 mmol/L (21-32); GLUCOSE,RANDOM 104 mg/dL (74-106); MAGNESIUM 2.1 mg/dL (1.8-2.4)
[2023-01-30 07:36] LABS: CREATININE 0.3 mg/dL (0.55-1.3); PHOSPHOROUS 1.8 mg/dL (2.5-4.9); SGOT/AST 34 U/L (15-37); SGPT/ALT 35 U/L (13-61)
[2023-01-30 07:37] LABS: TOT PROT 4.2 g/dl (6.4-8.2)
[2023-01-30 07:38] LABS: BILIRUBIN,TOTAL 0.2 mg/dL (0.2-1)
[2023-01-30 07:39] LABS: ALK PHOS 34 U/L (45-117)
[2023-01-30] MEDS: ALBUTEROL SO4 0.083% IH SOL 2.5 MG/3 ML VIAL.NEB. NEB PRN ×2 (07:40→20:25)
[2023-01-30] MEDS: ACETYLCYSTEINE 20% 200MG/ML 4 ML VIAL *FOR ORAL / INH USE ONLY NEB SCH ×2 (07:40→20:25)
[2023-01-30 07:45] LABS: CALCIUM 6.3 mg/dL (8.5-10.1)
[2023-01-30] MEDS ORDERED: POTASSIUM CHLORIDE ORAL LIQUID 20 MEQ/15 ML NGT ONE (09:30)
[2023-01-30] MEDS: ENOXAPARIN NA (PORCINE) 40 MG/0.4 ML DISP.SYRIN SQ SCH (10:07)
[2023-01-30] MEDS: MUPIROCIN 2% TOPICAL OINTMENT FOR DECOLONIZATION NS SCH ×2 (10:08→21:08)
[2023-01-30] MEDS: PANTOPRAZOLE SODIUM 40 MG VIAL IVPUSH SCH (10:09)
[2023-01-30] MEDS: ACETAMINOPHEN 1000 MG/100 ML BAG IVPB PRN (10:18)
[2023-01-30] MEDS: NAPH,MB-DB/K PH,MBDB POWDER PACKET GT SCH ×2 (10:18→21:07)
[2023-01-30] MEDS: FLUCONAZOLE 400 MG/NS 200 ML IVPB SCH (10:39)
[2023-01-30] MEDS: AZITHROMYCIN IVPB 500 MG/250 ML BAG IVPB SCH (10:59)
[2023-01-30] MEDS: AMINO ACIDS 4.25%/D5W 1,000 ML IV SCH (13:09)
[2023-01-30] MEDS: CHLORHEXIDINE GLUCONATE 4% CLEANSER FOR DECOLONIZATION TP SCH (21:07)
[2023-01-30] MEDS ORDERED: CALCIUM CHLORIDE 1 GM/10 ML *DISP.SYRIN IVPB ONE (21:54)
[2023-01-31] MEDS: MEROPENEM 1 GM in DEXTROSE 5%-WATER 100 ML IVPB SCH ×3 (01:41→17:24)
[2023-01-31] MEDS: FENTANYL NS IVPB 500 MCG/100 ML BAG IVPB SCH ×2 (04:46→22:46)
[2023-01-31] MEDS: carBAMazepine 100 MG/5 ML UNIT-DOSE CUP GT SCH ×2 (05:07→17:24)
[2023-01-31] MEDS: BACLOFEN 10 MG TABLET (FP) GT SCH ×3 (05:12→22:47)
[2023-01-31] MEDS: diazePAM CARPU-JECT 10 MG/2 ML DISP.SYRIN IVPUSH SCH ×3 (05:12→22:48)
[2023-01-31] MEDS: AMINO ACIDS 4.25%/D5W 1,000 ML IV SCH ×2 (05:45→13:44)
[2023-01-31 06:55] LABS: ARTERIAL BLOOD GAS pH 7.323 (7.350-7.450)
[2023-01-31 06:59] LABS: VENT MODE A/C; VENT RATE 20
[2023-01-31 07:11] LABS: BASO % 0.2 % (0-2.0); EOS % 0.8 % (0-4.5); HEMOGLOBIN 10.2 GM/dL (11.7-16.9); LYMPH % 9.6 % (8-40); MCH 32.4 pg (25.7-33.7); MCHC 32.9 g/dl (32.0-35.9); MEAN CELL VOLUME 98.4 fl (80-96); MEAN PLT VOLUME 8.6 fl (7.5-11.1); MONO % 5.2 % (3.8-10.2); NEUT % 84.2 % (42.8-82.8); PLATELET COUNT 238 10^3/uL (134-434); RBC 3.15 M/mm3 (4.00-5.60); RDW 13.5 % (11.9-15.9)
[2023-01-31 07:14] LABS: CHLORIDE 96 mmol/L (98-107); SODIUM 143 mmol/L (136-145)
[2023-01-31 07:17] LABS: ALBUMIN 1.4 g/dl (3.4-5.0); BLOOD UREA NITROGEN 6.9 mg/dL (7-18); CO2 44 mmol/L (21-32); GLUCOSE,RANDOM 115 mg/dL (74-106); MAGNESIUM 2.1 mg/dL (1.8-2.4)
[2023-01-31 07:20] LABS: CREATININE 0.3 mg/dL (0.55-1.3); SGPT/ALT 37 U/L (13-61)
[2023-01-31 07:21] LABS: SGOT/AST 52 U/L (15-37); TOT PROT 4.9 g/dl (6.4-8.2)
[2023-01-31 07:22] LABS: BILIRUBIN,TOTAL 0.3 mg/dL (0.2-1)
[2023-01-31 07:23] LABS: ALK PHOS 52 U/L (45-117)
[2023-01-31 07:30] LABS: ANION GAP 4 mmol/L (4-13); CALCIUM 7.5 mg/dL (8.5-10.1); POTASSIUM 2.9 mmol/L (3.5-5.1)
[2023-01-31] MEDS ORDERED: POTASSIUM CHLORIDE ORAL LIQUID 20 MEQ/15 ML PO ONE ×2 (07:35→18:15)
[2023-01-31] MEDS: ACETYLCYSTEINE 20% 200MG/ML 4 ML VIAL *FOR ORAL / INH USE ONLY NEB SCH ×2 (08:24→20:33)
[2023-01-31] MEDS: ALBUTEROL SO4 0.083% IH SOL 2.5 MG/3 ML VIAL.NEB. NEB PRN ×2 (08:25→20:33)
[2023-01-31] MEDS ORDERED: POTASSIUM CHLORIDE ORAL LIQUID 20 MEQ/15 ML NGT ONE (08:45)
[2023-01-31] MEDS: PANTOPRAZOLE SODIUM 40 MG VIAL IVPUSH SCH (09:20)
[2023-01-31] MEDS: PROPOFOL 1,000,000 MCG/100 ML VIAL IVPB SCH ×2 (09:20→22:46)
[2023-01-31] MEDS: MUPIROCIN 2% TOPICAL OINTMENT FOR DECOLONIZATION NS SCH ×2 (09:21→22:47)
[2023-01-31] MEDS: ENOXAPARIN NA (PORCINE) 40 MG/0.4 ML DISP.SYRIN SQ SCH (09:21)
[2023-01-31] MEDS: KCL 10 MEQ IVPB 10 MEQ/100 ML INFUS.BAG IVPB SCH ×4 (09:21→20:30)
[2023-01-31] MEDS: NAPH,MB-DB/K PH,MBDB POWDER PACKET GT SCH ×2 (09:21→22:47)
[2023-01-31] MEDS: FLUCONAZOLE 400 MG/NS 200 ML IVPB SCH (09:31)
[2023-01-31 10:38] LABS: ARTERIAL BLOOD GAS pH 7.421 (7.350-7.450)
[2023-01-31 10:39] LABS: ARTERIAL BLD GAS O2 SATURATION 95.5 % (95-98); ARTERIAL BLOOD GAS BASE EXCESS 19.6 mmol/L (-2-2); ARTERIAL BLOOD GAS PO2 80.4 mmHg (80-100)
[2023-01-31 10:41] LABS: VENT MODE A/C; VENT RATE 24
[2023-01-31] MEDS: ACETAMINOPHEN 1000 MG/100 ML BAG IVPB PRN (13:43)
[2023-01-31 15:53] LABS: CHLORIDE 94 mmol/L (98-107); POTASSIUM 3.1 mmol/L (3.5-5.1); SODIUM 143 mmol/L (136-145)
[2023-01-31 15:56] LABS: CALCIUM 7.6 mg/dL (8.5-10.1)
[2023-01-31 15:57] LABS: ALBUMIN 1.4 g/dl (3.4-5.0); BLOOD UREA NITROGEN 8.3 mg/dL (7-18); GLUCOSE,RANDOM 106 mg/dL (74-106)
[2023-01-31 16:00] LABS: CREATININE 0.3 mg/dL (0.55-1.3); SGOT/AST 54 U/L (15-37); SGPT/ALT 38 U/L (13-61)
[2023-01-31 16:02] LABS: BILIRUBIN,TOTAL 0.4 mg/dL (0.2-1); TOT PROT 5.2 g/dl (6.4-8.2)
[2023-01-31 16:03] LABS: ALK PHOS 55 U/L (45-117)
[2023-01-31 16:19] LABS: ANION GAP 4 mmol/L (4-13); CO2 > 45 mmol/L (21-32)
[2023-01-31 19:09] LABS: ARTERIAL BLD GAS O2 SATURATION 98.8 % (95-98); ARTERIAL BLOOD GAS BASE EXCESS 18.9 mmol/L (-2-2); ARTERIAL BLOOD GAS PO2 146.7 mmHg (80-100); ARTERIAL BLOOD GAS pH 7.435 (7.350-7.450)
[2023-01-31 19:16] LABS: VENT RATE 20
[2023-01-31 22:45] LABS: ARTERIAL BLD GAS O2 SATURATION 98.8 % (95-98); ARTERIAL BLOOD GAS BASE EXCESS 15.8 mmol/L (-2-2); ARTERIAL BLOOD GAS PO2 139.8 mmHg (80-100); ARTERIAL BLOOD GAS pH 7.462 (7.350-7.450)
[2023-01-31] MEDS: CHLORHEXIDINE GLUCONATE 4% CLEANSER FOR DECOLONIZATION TP SCH (22:47)
[2023-01-31 22:49] LABS: VENT MODE A/C
[2023-01-31 22:50] LABS: VENT RATE 20
[2023-02-01 00:03] LABS: CHLORIDE 94 mmol/L (98-107); POTASSIUM 3.2 mmol/L (3.5-5.1); SODIUM 143 mmol/L (136-145)
[2023-02-01 00:04] LABS: CALCIUM 7.2 mg/dL (8.5-10.1)
[2023-02-01 00:05] LABS: BLOOD UREA NITROGEN 10.8 mg/dL (7-18); GLUCOSE,RANDOM 109 mg/dL (74-106); MAGNESIUM 2.1 mg/dL (1.8-2.4)
[2023-02-01 00:08] LABS: CREATININE 0.3 mg/dL (0.55-1.3)
[2023-02-01 00:25] LABS: ANION GAP 3 mmol/L (4-13); CO2 > 45 mmol/L (21-32)
[2023-02-01] MEDS ORDERED: POTASSIUM CHLORIDE TABS 20 MEQ TABLET.ER (FP) PO ONE (00:45)
[2023-02-01] MEDS ORDERED: NAPH,MB-DB/K PH,MBDB POWDER PACKET PO ONE (00:45)
[2023-02-01] MEDS: MEROPENEM 1 GM in DEXTROSE 5%-WATER 100 ML IVPB SCH ×3 (01:20→17:03)
[2023-02-01] MEDS ORDERED: POTASSIUM PHOSPHATE 30 MM in DEXTROSE 5%-WATER - 250 ML IVPB ONE (02:00)
[2023-02-01 06:17] LABS: BASO % 0.3 % (0-2.0); EOS % 1.6 % (0-4.5); HEMATOCRIT 27.9 % (35.4-49); HEMOGLOBIN 9.1 GM/dL (11.7-16.9); LYMPH % 12.2 % (8-40); MCH 31.8 pg (25.7-33.7); MCHC 32.5 g/dl (32.0-35.9); MEAN CELL VOLUME 97.7 fl (80-96); MEAN PLT VOLUME 8.5 fl (7.5-11.1); MONO % 4.2 % (3.8-10.2); NEUT % 81.7 % (42.8-82.8); PLATELET COUNT 243 10^3/uL (134-434); RBC 2.86 M/mm3 (4.00-5.60); RDW 13.3 % (11.9-15.9); WHITE BLOOD COUNT 5.1 K/mm3 (4.0-10.0)
[2023-02-01 06:43] LABS: POTASSIUM 3.5 mmol/L (3.5-5.1)
[2023-02-01] MEDS: carBAMazepine 100 MG/5 ML UNIT-DOSE CUP GT SCH ×2 (06:44→17:03)
[2023-02-01] MEDS: BACLOFEN 10 MG TABLET (FP) GT SCH ×3 (06:44→21:18)
[2023-02-01] MEDS: ACETAMINOPHEN 1000 MG/100 ML BAG IVPB PRN ×3 (06:45→21:00)
[2023-02-01] MEDS: diazePAM CARPU-JECT 10 MG/2 ML DISP.SYRIN IVPUSH SCH ×3 (06:45→21:19)
[2023-02-01 06:52] LABS: BLOOD UREA NITROGEN 11.4 mg/dL (7-18); CALCIUM 7.3 mg/dL (8.5-10.1)
[2023-02-01 06:53] LABS: ALBUMIN 1.3 g/dl (3.4-5.0)
[2023-02-01 06:54] LABS: ARTERIAL BLD GAS O2 SATURATION 98.1 % (95-98); ARTERIAL BLOOD GAS BASE EXCESS 17.7 mmol/L (-2-2); ARTERIAL BLOOD GAS PO2 102.8 mmHg (80-100); ARTERIAL BLOOD GAS pH 7.532 (7.350-7.450)
[2023-02-01 06:55] LABS: BILIRUBIN,TOTAL 0.7 mg/dL (0.2-1); PHOSPHOROUS 1.6 mg/dL (2.5-4.9)
[2023-02-01 06:56] LABS: CREATININE 0.2 mg/dL (0.55-1.3)
[2023-02-01 06:57] LABS: TOT PROT 4.8 g/dl (6.4-8.2)
[2023-02-01 06:58] LABS: VENT MODE A/C; VENT RATE 22
[2023-02-01] MEDS: ACETYLCYSTEINE 20% 200MG/ML 4 ML VIAL *FOR ORAL / INH USE ONLY NEB SCH ×2 (08:15→20:48)
[2023-02-01] MEDS: ALBUTEROL SO4 0.083% IH SOL 2.5 MG/3 ML VIAL.NEB. NEB PRN ×2 (08:15→20:49)
[2023-02-01] MEDS: MUPIROCIN 2% TOPICAL OINTMENT FOR DECOLONIZATION NS SCH ×2 (09:40→21:18)
[2023-02-01] MEDS: PANTOPRAZOLE SODIUM 40 MG VIAL IVPUSH SCH (09:40)
[2023-02-01] MEDS: NAPH,MB-DB/K PH,MBDB POWDER PACKET GT SCH ×2 (09:40→21:17)
[2023-02-01] MEDS: ENOXAPARIN NA (PORCINE) 40 MG/0.4 ML DISP.SYRIN SQ SCH (09:40)
[2023-02-01] MEDS: FENTANYL NS IVPB 500 MCG/100 ML BAG IVPB SCH (10:36)
[2023-02-01] MEDS: FLUCONAZOLE 400 MG/NS 200 ML IVPB SCH (10:42)
[2023-02-01] MEDS ORDERED: NAPH,MB-DB/K PH,MBDB POWDER PACKET GT ONE (11:10)
[2023-02-01] MEDS: PROPOFOL 1,000,000 MCG/100 ML VIAL IVPB SCH ×2 (11:36→20:00)
[2023-02-01] MEDS: AMINO ACIDS 4.25%/D5W 1,000 ML IV SCH (18:40)
[2023-02-01] MEDS: CHLORHEXIDINE GLUCONATE 4% CLEANSER FOR DECOLONIZATION TP SCH (21:18)
[2023-02-01 22:19] LABS: ARTERIAL BLD GAS O2 SATURATION 95.4 % (95-98); ARTERIAL BLOOD GAS BASE EXCESS 13.5 mmol/L (-2-2); ARTERIAL BLOOD GAS pH 7.574 (7.350-7.450)
[2023-02-01 22:22] LABS: VENT MODE VAC; VENT RATE 14
[2023-02-02] MEDS: MEROPENEM 1 GM in DEXTROSE 5%-WATER 100 ML IVPB SCH ×3 (01:19→18:14)
[2023-02-02] MEDS: diazePAM CARPU-JECT 10 MG/2 ML DISP.SYRIN IVPUSH SCH ×3 (06:28→21:02)
[2023-02-02] MEDS: BACLOFEN 10 MG TABLET (FP) GT SCH ×3 (06:28→21:02)
[2023-02-02] MEDS: carBAMazepine 100 MG/5 ML UNIT-DOSE CUP GT SCH ×2 (06:30→18:22)
[2023-02-02 06:43] LABS: BASO % 0.2 % (0-2.0); EOS % 1.4 % (0-4.5); HEMATOCRIT 27.4 % (35.4-49); HEMOGLOBIN 9.1 GM/dL (11.7-16.9); LYMPH % 13.8 % (8-40); MCHC 33.3 g/dl (32.0-35.9); MEAN PLT VOLUME 8.7 fl (7.5-11.1); MONO % 4.2 % (3.8-10.2); NEUT % 80.4 % (42.8-82.8); PLATELET COUNT 275 10^3/uL (134-434); RBC 2.85 M/mm3 (4.00-5.60); RDW 13.5 % (11.9-15.9); WHITE BLOOD COUNT 4.8 K/mm3 (4.0-10.0)
[2023-02-02 06:54] LABS: ARTERIAL BLOOD GAS BASE EXCESS 15.9 mmol/L (-2-2); ARTERIAL BLOOD GAS PO2 96.4 mmHg (80-100); ARTERIAL BLOOD GAS pH 7.562 (7.350-7.450)
[2023-02-02 06:58] LABS: VENT MODE A/C; VENT RATE 14
[2023-02-02 07:09] LABS: CHLORIDE 94 mmol/L (98-107); SODIUM 138 mmol/L (136-145)
[2023-02-02 07:12] LABS: ALBUMIN 1.3 g/dl (3.4-5.0); BLOOD UREA NITROGEN 10.6 mg/dL (7-18); CO2 37 mmol/L (21-32); GLUCOSE,RANDOM 100 mg/dL (74-106); MAGNESIUM 1.8 mg/dL (1.8-2.4)
[2023-02-02 07:14] LABS: PHOSPHOROUS 1.7 mg/dL (2.5-4.9); SGPT/ALT 26 U/L (13-61)
[2023-02-02 07:15] LABS: CREATININE 0.2 mg/dL (0.55-1.3); SGOT/AST 36 U/L (15-37)
[2023-02-02 07:16] LABS: BILIRUBIN,TOTAL 0.6 mg/dL (0.2-1); TOT PROT 5.1 g/dl (6.4-8.2)
[2023-02-02 07:17] LABS: ALK PHOS 44 U/L (45-117)
[2023-02-02 07:21] LABS: ANION GAP 6 mmol/L (4-13); CALCIUM 6.9 mg/dL (8.5-10.1); POTASSIUM 2.9 mmol/L (3.5-5.1)
[2023-02-02] MEDS ORDERED: POTASSIUM CHLORIDE ORAL LIQUID 20 MEQ/15 ML PO ONE ×2 (07:33→19:30)
[2023-02-02] MEDS: ALBUTEROL SO4 0.083% IH SOL 2.5 MG/3 ML VIAL.NEB. NEB PRN ×2 (07:46→20:36)
[2023-02-02] MEDS: ACETYLCYSTEINE 20% 200MG/ML 4 ML VIAL *FOR ORAL / INH USE ONLY NEB SCH ×2 (07:46→20:36)
[2023-02-02] MEDS: KCL 10 MEQ IVPB 10 MEQ/100 ML INFUS.BAG IVPB SCH ×3 (08:35→18:14)
[2023-02-02] MEDS: PANTOPRAZOLE SODIUM 40 MG VIAL IVPUSH SCH (09:02)
[2023-02-02] MEDS: ENOXAPARIN NA (PORCINE) 40 MG/0.4 ML DISP.SYRIN SQ SCH (09:02)
[2023-02-02] MEDS: MUPIROCIN 2% TOPICAL OINTMENT FOR DECOLONIZATION NS SCH (09:03)
[2023-02-02] MEDS: NAPH,MB-DB/K PH,MBDB POWDER PACKET GT SCH ×2 (09:04→21:01)
[2023-02-02] MEDS: ACETAMINOPHEN 1000 MG/100 ML BAG IVPB PRN ×2 (09:53→18:12)
[2023-02-02] MEDS: POLYETHYLENE GLYCOL (HEALTHYLAX) 3350 17 GM PACKET GT SCH (11:09)
[2023-02-02] MEDS: FLUCONAZOLE 400 MG/NS 200 ML IVPB SCH (13:08)
[2023-02-02] MEDS: FENTANYL NS IVPB 500 MCG/100 ML BAG IVPB SCH (15:08)
[2023-02-02 17:28] LABS: POTASSIUM 3.2 mmol/L (3.5-5.1)
[2023-02-02 17:29] LABS: CALCIUM 7.1 mg/dL (8.5-10.1)
[2023-02-02 17:30] LABS: BLOOD UREA NITROGEN 11.6 mg/dL (7-18)
[2023-02-02 17:34] LABS: CREATININE 0.2 mg/dL (0.55-1.3)
[2023-02-02 17:37] LABS: PREALBUMIN 7.5 mg/dl (20-40)
[2023-02-02] MEDS: AMINO ACIDS 4.25%/D5W 1,000 ML IV SCH (18:13)
[2023-02-02] MEDS: PROPOFOL 1,000,000 MCG/100 ML VIAL IVPB SCH (18:22)
[2023-02-02] MEDS ORDERED: KCL 10 MEQ IVPB 10 MEQ/100 ML INFUS.BAG IVPB SCH ×2 (18:30→19:30)
[2023-02-02] MEDS ORDERED: SODIUM CHLORIDE 250 ML IV STA (18:47)
[2023-02-02] MEDS ORDERED: MEROPENEM 1 GM VIAL (RESTRICTED TO ID) IVPB ONE (20:18)
[2023-02-02] MEDS: CHLORHEXIDINE GLUCONATE 4% CLEANSER FOR DECOLONIZATION TP SCH (21:02)
[2023-02-02 21:14] LABS: CALCIUM 7.2 mg/dL (8.5-10.1)
[2023-02-02 21:15] LABS: ALBUMIN 1.3 g/dl (3.4-5.0)
[2023-02-02 21:18] LABS: CREATININE 0.3 mg/dL (0.55-1.3)
[2023-02-02 21:20] LABS: BILIRUBIN,TOTAL 0.5 mg/dL (0.2-1); TOT PROT 5.3 g/dl (6.4-8.2)
[2023-02-03] MEDS: MEROPENEM 1 GM in DEXTROSE 5%-WATER 100 ML IVPB SCH ×3 (01:00→18:02)
[2023-02-03] MEDS: carBAMazepine 100 MG/5 ML UNIT-DOSE CUP GT SCH ×2 (05:43→18:02)
[2023-02-03] MEDS: BACLOFEN 10 MG TABLET (FP) GT SCH ×3 (05:43→21:16)
[2023-02-03] MEDS: diazePAM CARPU-JECT 10 MG/2 ML DISP.SYRIN IVPUSH SCH ×3 (05:43→21:16)
[2023-02-03 07:56] LABS: BASO % 0.3 % (0-2.0); EOS % 1.1 % (0-4.5); HEMATOCRIT 26.7 % (35.4-49); HEMOGLOBIN 8.8 GM/dL (11.7-16.9); LYMPH % 16.9 % (8-40); MCH 31.6 pg (25.7-33.7); MCHC 32.8 g/dl (32.0-35.9); MEAN CELL VOLUME 96.2 fl (80-96); MEAN PLT VOLUME 8.9 fl (7.5-11.1); MONO % 4.4 % (3.8-10.2); NEUT % 77.3 % (42.8-82.8); PLATELET COUNT 323 10^3/uL (134-434); RBC 2.78 M/mm3 (4.00-5.60); RDW 13.6 % (11.9-15.9); WHITE BLOOD COUNT 5.5 K/mm3 (4.0-10.0)
[2023-02-03 08:24] LABS: POTASSIUM 3.6 mmol/L (3.5-5.1)
[2023-02-03 08:32] LABS: ALBUMIN 1.3 g/dl (3.4-5.0); PHOSPHOROUS 2.4 mg/dL (2.5-4.9)
[2023-02-03 08:33] LABS: BILIRUBIN,TOTAL 0.5 mg/dL (0.2-1); CALCIUM 7.1 mg/dL (8.5-10.1)
[2023-02-03 08:34] LABS: BLOOD UREA NITROGEN 13.9 mg/dL (7-18); CREATININE 0.2 mg/dL (0.55-1.3); MAGNESIUM 1.7 mg/dL (1.8-2.4); TOT PROT 5.2 g/dl (6.4-8.2)
[2023-02-03] MEDS: ACETYLCYSTEINE 20% 200MG/ML 4 ML VIAL *FOR ORAL / INH USE ONLY NEB SCH ×2 (08:53→20:35)
[2023-02-03] MEDS: ALBUTEROL SO4 0.083% IH SOL 2.5 MG/3 ML VIAL.NEB. NEB PRN ×2 (08:53→16:13)
[2023-02-03] MEDS: NAPH,MB-DB/K PH,MBDB POWDER PACKET GT SCH ×2 (09:42→21:16)
[2023-02-03] MEDS: FLUCONAZOLE 400 MG/NS 200 ML IVPB SCH (09:42)
[2023-02-03] MEDS: POLYETHYLENE GLYCOL (HEALTHYLAX) 3350 17 GM PACKET GT SCH (09:42)
[2023-02-03] MEDS: ENOXAPARIN NA (PORCINE) 40 MG/0.4 ML DISP.SYRIN SQ SCH (09:42)
[2023-02-03] MEDS: PANTOPRAZOLE SODIUM 40 MG VIAL IVPUSH SCH (09:42)
[2023-02-03] MEDS ORDERED: MAGNESIUM SULF 50% (8.12 MEQ/2 ML-1 GM VIAL) IVPB ONE (10:30)
[2023-02-03] MEDS: AMINO ACIDS 4.25%/D5W 1,000 ML IV SCH ×2 (13:08→18:01)
[2023-02-03] MEDS: ACETAMINOPHEN 1000 MG/100 ML BAG IVPB PRN ×2 (15:37→21:17)
[2023-02-03] MEDS ORDERED: POTASSIUM CHLORIDE ORAL LIQUID 20 MEQ/15 ML NGT ONE (20:00)
[2023-02-03] MEDS: ALBUTEROL SO4 2.5/IPRATROPIUM 0.5 INH SOL 3 ML VIAL.NEB. NEB PRN (20:35)
[2023-02-03] MEDS: CHLORHEXIDINE GLUCONATE 4% CLEANSER FOR DECOLONIZATION TP SCH (21:15)
[2023-02-04] MEDS: MEROPENEM 1 GM in DEXTROSE 5%-WATER 100 ML IVPB SCH ×3 (01:36→20:11)
[2023-02-04] MEDS: carBAMazepine 100 MG/5 ML UNIT-DOSE CUP GT SCH ×2 (04:45→20:11)
[2023-02-04] MEDS: BACLOFEN 10 MG TABLET (FP) GT SCH ×3 (05:12→21:36)
[2023-02-04] MEDS: diazePAM CARPU-JECT 10 MG/2 ML DISP.SYRIN IVPUSH SCH ×3 (05:12→21:37)
[2023-02-04 08:22] LABS: BASO % 0.7 % (0-2.0); EOS % 1.5 % (0-4.5); HEMATOCRIT 25.6 % (35.4-49); HEMOGLOBIN 8.6 GM/dL (11.7-16.9); LYMPH % 17.2 % (8-40); MCH 31.9 pg (25.7-33.7); MCHC 33.6 g/dl (32.0-35.9); MEAN PLT VOLUME 8.6 fl (7.5-11.1); MONO % 4.9 % (3.8-10.2); NEUT % 75.7 % (42.8-82.8); PLATELET COUNT 360 10^3/uL (134-434); RBC 2.69 M/mm3 (4.00-5.60); RDW 13.6 % (11.9-15.9); WHITE BLOOD COUNT 5.9 K/mm3 (4.0-10.0)
[2023-02-04 08:40] LABS: POTASSIUM 3.9 mmol/L (3.5-5.1)
[2023-02-04] MEDS: ACETYLCYSTEINE 20% 200MG/ML 4 ML VIAL *FOR ORAL / INH USE ONLY NEB SCH ×2 (08:40→20:35)
[2023-02-04 08:44] LABS: ALBUMIN 1.4 g/dl (3.4-5.0); CALCIUM 7.2 mg/dL (8.5-10.1); MAGNESIUM 2.2 mg/dL (1.8-2.4)
[2023-02-04 08:45] LABS: BLOOD UREA NITROGEN 14.1 mg/dL (7-18)
[2023-02-04 08:47] LABS: CREATININE 0.3 mg/dL (0.55-1.3)
[2023-02-04 08:48] LABS: PHOSPHOROUS 2.7 mg/dL (2.5-4.9)
[2023-02-04 08:49] LABS: BILIRUBIN,TOTAL 0.4 mg/dL (0.2-1); TOT PROT 5.3 g/dl (6.4-8.2)
[2023-02-04] MEDS: NAPH,MB-DB/K PH,MBDB POWDER PACKET GT SCH ×2 (10:40→21:37)
[2023-02-04] MEDS: ENOXAPARIN NA (PORCINE) 40 MG/0.4 ML DISP.SYRIN SQ SCH (10:40)
[2023-02-04] MEDS: POLYETHYLENE GLYCOL (HEALTHYLAX) 3350 17 GM PACKET GT SCH (10:40)
[2023-02-04] MEDS: PANTOPRAZOLE SODIUM 40 MG VIAL IVPUSH SCH (10:40)
[2023-02-04] MEDS: AMINO ACIDS 4.25%/D5W 1,000 ML IV SCH (12:28)
[2023-02-04] MEDS: FLUCONAZOLE 400 MG/NS 200 ML IVPB SCH (12:30)
[2023-02-04] MEDS: ALBUTEROL SO4 0.083% IH SOL 2.5 MG/3 ML VIAL.NEB. NEB PRN (20:36)
[2023-02-04] MEDS: CHLORHEXIDINE GLUCONATE 4% CLEANSER FOR DECOLONIZATION TP SCH (21:33)
[2023-02-04] MEDS: ACETAMINOPHEN 1000 MG/100 ML BAG IVPB PRN (21:36)
[2023-02-05] MEDS: MEROPENEM 1 GM in DEXTROSE 5%-WATER 100 ML IVPB SCH ×3 (02:44→17:35)
[2023-02-05] MEDS: diazePAM CARPU-JECT 10 MG/2 ML DISP.SYRIN IVPUSH SCH (05:51)
[2023-02-05] MEDS: carBAMazepine 100 MG/5 ML UNIT-DOSE CUP GT SCH ×2 (05:51→18:47)
[2023-02-05] MEDS: BACLOFEN 10 MG TABLET (FP) GT SCH ×3 (05:51→22:34)
[2023-02-05] MEDS: ACETYLCYSTEINE 20% 200MG/ML 4 ML VIAL *FOR ORAL / INH USE ONLY NEB SCH ×2 (08:00→20:05)
[2023-02-05 08:17] LABS: POTASSIUM 4.2 mmol/L (3.5-5.1)
[2023-02-05 08:19] LABS: CALCIUM 7.1 mg/dL (8.5-10.1); HEMATOCRIT 25.8 % (35.4-49); HEMOGLOBIN 8.7 GM/dL (11.7-16.9); MCH 32.5 pg (25.7-33.7); MCHC 33.9 g/dl (32.0-35.9); MEAN CELL VOLUME 95.8 fl (80-96); MEAN PLT VOLUME 8.7 fl (7.5-11.1); PLATELET COUNT 400 10^3/uL (134-434); RBC 2.69 M/mm3 (4.00-5.60); RDW 13.3 % (11.9-15.9); WHITE BLOOD COUNT 6.6 K/mm3 (4.0-10.0)
[2023-02-05 08:20] LABS: ALBUMIN 1.5 g/dl (3.4-5.0); BLOOD UREA NITROGEN 15.1 mg/dL (7-18); MAGNESIUM 2.1 mg/dL (1.8-2.4)
[2023-02-05 08:23] LABS: CREATININE 0.3 mg/dL (0.55-1.3); PHOSPHOROUS 2.8 mg/dL (2.5-4.9)
[2023-02-05 08:24] LABS: BILIRUBIN,TOTAL 0.3 mg/dL (0.2-1)
[2023-02-05 08:25] LABS: TOT PROT 5.3 g/dl (6.4-8.2)
[2023-02-05] MEDS: ALBUTEROL SO4 0.083% IH SOL 2.5 MG/3 ML VIAL.NEB. NEB PRN ×2 (09:28→20:05)
[2023-02-05 09:36] LABS: ANISOCYTOSIS 1+; MACROCYTOSIS 0
[2023-02-05] MEDS ORDERED: PANTOPRAZOLE SOD 40 MG SUSPENSION PACKET PO SCH (10:00)
[2023-02-05] MEDS ORDERED: ACETAMINOPHEN 325 MG TABLET (FP) PO PRN (10:05)
[2023-02-05] MEDS: POLYETHYLENE GLYCOL (HEALTHYLAX) 3350 17 GM PACKET GT SCH (10:10)
[2023-02-05] MEDS: NAPH,MB-DB/K PH,MBDB POWDER PACKET GT SCH ×2 (10:10→22:34)
[2023-02-05] MEDS: ENOXAPARIN NA (PORCINE) 40 MG/0.4 ML DISP.SYRIN SQ SCH (10:10)
[2023-02-05] MEDS: FLUCONAZOLE 400 MG/NS 200 ML IVPB SCH (10:11)
[2023-02-05] MEDS: FAMOTIDINE 20 MG/2.5 ML ORAL LIQUID GT SCH ×2 (13:09→22:34)
[2023-02-05] MEDS: diazePAM 5 MG TABLET GT SCH ×2 (17:35→22:34)
[2023-02-05] MEDS: CHLORHEXIDINE GLUCONATE 4% CLEANSER FOR DECOLONIZATION TP SCH (23:37)
[2023-02-06] MEDS: MEROPENEM 1 GM in DEXTROSE 5%-WATER 100 ML IVPB SCH ×3 (02:32→18:35)
[2023-02-06] MEDS: carBAMazepine 100 MG/5 ML UNIT-DOSE CUP GT SCH ×2 (05:53→18:34)
[2023-02-06] MEDS: BACLOFEN 10 MG TABLET (FP) GT SCH ×3 (06:51→22:46)
[2023-02-06] MEDS: diazePAM 5 MG TABLET GT SCH ×3 (06:54→22:46)
[2023-02-06] MEDS: ACETYLCYSTEINE 20% 200MG/ML 4 ML VIAL *FOR ORAL / INH USE ONLY NEB SCH ×2 (08:49→20:29)
[2023-02-06] MEDS: ALBUTEROL SO4 0.083% IH SOL 2.5 MG/3 ML VIAL.NEB. NEB PRN ×2 (08:50→20:29)
[2023-02-06 10:51] LABS: HEMATOCRIT 28.9 % (35.4-49); HEMOGLOBIN 9.9 GM/dL (11.7-16.9); MCHC 34.3 g/dl (32.0-35.9); MEAN CELL VOLUME 96.2 fl (80-96); MEAN PLT VOLUME 8.8 fl (7.5-11.1); PLATELET COUNT 527 10^3/uL (134-434); RDW 13.8 % (11.9-15.9); WHITE BLOOD COUNT 6.7 K/mm3 (4.0-10.0)
[2023-02-06 10:57] LABS: POTASSIUM 5.2 mmol/L (3.5-5.1)
[2023-02-06 11:02] LABS: CALCIUM 7.7 mg/dL (8.5-10.1)
[2023-02-06 11:03] LABS: BLOOD UREA NITROGEN 12.9 mg/dL (7-18)
[2023-02-06 11:04] LABS: MAGNESIUM 2.2 mg/dL (1.8-2.4)
[2023-02-06 11:07] LABS: CREATININE 0.3 mg/dL (0.55-1.3); PHOSPHOROUS 3.7 mg/dL (2.5-4.9)
[2023-02-06] MEDS: FAMOTIDINE 20 MG/2.5 ML ORAL LIQUID GT SCH ×2 (13:16→22:47)
[2023-02-06] MEDS: NAPH,MB-DB/K PH,MBDB POWDER PACKET GT SCH (13:23)
[2023-02-06] MEDS: POLYETHYLENE GLYCOL (HEALTHYLAX) 3350 17 GM PACKET GT SCH ×3 (13:23→22:55)
[2023-02-06] MEDS: MINERAL OIL/PET HY-PHL TOPICAL OINTMENT 454 GM JAR TP SCH ×2 (18:32→22:55)
[2023-02-06] MEDS: CHLORHEXIDINE GLUCONATE 4% CLEANSER FOR DECOLONIZATION TP SCH (22:56)
[2023-02-07] MEDS: MEROPENEM 1 GM in DEXTROSE 5%-WATER 100 ML IVPB SCH ×3 (02:10→19:13)
[2023-02-07] MEDS: diazePAM 5 MG TABLET GT SCH ×3 (06:43→21:11)
[2023-02-07] MEDS: BACLOFEN 10 MG TABLET (FP) GT SCH ×3 (06:44→21:11)
[2023-02-07] MEDS: carBAMazepine 100 MG/5 ML UNIT-DOSE CUP GT SCH ×2 (06:44→20:21)
[2023-02-07] MEDS: POLYETHYLENE GLYCOL (HEALTHYLAX) 3350 17 GM PACKET GT SCH ×2 (06:44→14:15)
[2023-02-07] MEDS: ACETYLCYSTEINE 20% 200MG/ML 4 ML VIAL *FOR ORAL / INH USE ONLY NEB SCH (08:10)
[2023-02-07] MEDS: ALBUTEROL SO4 0.083% IH SOL 2.5 MG/3 ML VIAL.NEB. NEB PRN (08:10)
[2023-02-07 08:30] LABS: HEMATOCRIT 30.8 % (35.4-49); HEMOGLOBIN 10.5 GM/dL (11.7-16.9); MCH 32.6 pg (25.7-33.7); MCHC 34.1 g/dl (32.0-35.9); MEAN CELL VOLUME 95.7 fl (80-96); MEAN PLT VOLUME 8.3 fl (7.5-11.1); PLATELET COUNT 667 10^3/uL (134-434); RBC 3.22 M/mm3 (4.00-5.60); RDW 13.6 % (11.9-15.9); WHITE BLOOD COUNT 6.7 K/mm3 (4.0-10.0)
[2023-02-07 08:50] LABS: POTASSIUM 4.8 mmol/L (3.5-5.1)
[2023-02-07 08:52] LABS: BLOOD UREA NITROGEN 11.3 mg/dL (7-18); CALCIUM 8.2 mg/dL (8.5-10.1)
[2023-02-07 08:53] LABS: MAGNESIUM 2.3 mg/dL (1.8-2.4)
[2023-02-07 08:56] LABS: CREATININE 0.4 mg/dL (0.55-1.3)
[2023-02-07 08:57] LABS: BILIRUBIN,TOTAL 0.7 mg/dL (0.2-1); TOT PROT 6.6 g/dl (6.4-8.2)
[2023-02-07 11:09] LABS: ANISOCYTOSIS 0; MACROCYTOSIS 0
[2023-02-07] MEDS: MINERAL OIL/PET HY-PHL TOPICAL OINTMENT 454 GM JAR TP SCH ×2 (11:14→21:10)
[2023-02-07] MEDS: ENOXAPARIN NA (PORCINE) 40 MG/0.4 ML DISP.SYRIN SQ SCH (11:14)
[2023-02-07] MEDS: FAMOTIDINE 20 MG/2.5 ML ORAL LIQUID GT SCH ×2 (11:14→21:10)
[2023-02-07] MEDS: NYSTATIN POWDER 100,000 UNITS/GM - 15 GM TOPICAL POWDER TP SCH ×2 (11:15→21:10)
[2023-02-07] MEDS: CHLORHEXIDINE GLUCONATE 4% CLEANSER FOR DECOLONIZATION TP SCH (21:06)
[2023-02-08] MEDS: MEROPENEM 1 GM in DEXTROSE 5%-WATER 100 ML IVPB SCH ×2 (02:46→08:59)
[2023-02-08] MEDS: carBAMazepine 100 MG/5 ML UNIT-DOSE CUP GT SCH ×2 (05:46→17:13)
[2023-02-08] MEDS: BACLOFEN 10 MG TABLET (FP) GT SCH ×3 (05:46→23:12)
[2023-02-08] MEDS: diazePAM 5 MG TABLET GT SCH ×3 (05:47→23:13)
[2023-02-08] MEDS: ENOXAPARIN NA (PORCINE) 40 MG/0.4 ML DISP.SYRIN SQ SCH (08:59)
[2023-02-08 09:09] LABS: BASO % 1.2 % (0-2.0); EOS % 2.5 % (0-4.5); HEMATOCRIT 28.5 % (35.4-49); HEMOGLOBIN 9.9 GM/dL (11.7-16.9); LYMPH % 23.5 % (8-40); MCH 33.4 pg (25.7-33.7); MCHC 34.9 g/dl (32.0-35.9); MEAN CELL VOLUME 95.7 fl (80-96); MEAN PLT VOLUME 8.2 fl (7.5-11.1); MONO % 10.7 % (3.8-10.2); NEUT % 62.1 % (42.8-82.8); PLATELET COUNT 808 10^3/uL (134-434); RBC 2.98 M/mm3 (4.00-5.60); RDW 13.5 % (11.9-15.9); WHITE BLOOD COUNT 5.9 K/mm3 (4.0-10.0)
[2023-02-08 09:31] LABS: POTASSIUM 4.8 mmol/L (3.5-5.1)
[2023-02-08 09:33] LABS: ALBUMIN 2.1 g/dl (3.4-5.0); CALCIUM 8.1 mg/dL (8.5-10.1); MAGNESIUM 2.4 mg/dL (1.8-2.4)
[2023-02-08 09:34] LABS: BLOOD UREA NITROGEN 14.2 mg/dL (7-18)
[2023-02-08 09:37] LABS: CREATININE 0.4 mg/dL (0.55-1.3)
[2023-02-08 09:38] LABS: BILIRUBIN,TOTAL 0.4 mg/dL (0.2-1); TOT PROT 6.8 g/dl (6.4-8.2)
[2023-02-08] MEDS: NYSTATIN POWDER 100,000 UNITS/GM - 15 GM TOPICAL POWDER TP SCH ×2 (10:01→23:11)
[2023-02-08] MEDS: FAMOTIDINE 20 MG/2.5 ML ORAL LIQUID GT SCH ×2 (10:01→23:14)
[2023-02-08] MEDS: MINERAL OIL/PET HY-PHL TOPICAL OINTMENT 454 GM JAR TP SCH ×2 (10:02→23:11)
[2023-02-08] MEDS ORDERED: ACETAMINOPHEN 325 MG TABLET (FP) PO PRN (11:30)
[2023-02-09] MEDS: diazePAM 5 MG TABLET GT SCH ×3 (05:37→22:23)
[2023-02-09] MEDS: BACLOFEN 10 MG TABLET (FP) GT SCH ×3 (05:37→22:24)
[2023-02-09] MEDS: carBAMazepine 100 MG/5 ML UNIT-DOSE CUP GT SCH ×2 (05:38→17:05)
[2023-02-09] MEDS: CHLORHEXIDINE GLUCONATE 4% CLEANSER FOR DECOLONIZATION TP SCH (05:48)
[2023-02-09] MEDS: FAMOTIDINE 20 MG/2.5 ML ORAL LIQUID GT SCH ×2 (09:14→22:25)
[2023-02-09] MEDS: ENOXAPARIN NA (PORCINE) 40 MG/0.4 ML DISP.SYRIN SQ SCH (09:14)
[2023-02-09] MEDS: MINERAL OIL/PET HY-PHL TOPICAL OINTMENT 454 GM JAR TP SCH ×2 (10:01→22:23)
[2023-02-09] MEDS: NYSTATIN POWDER 100,000 UNITS/GM - 15 GM TOPICAL POWDER TP SCH ×2 (10:02→22:23)
[2023-02-09] MEDS: BACITRACIN ZINC 15 GM TUBE TOPICAL OINTMENT TP SCH ×2 (16:58→22:22)
[2023-02-10] MEDS: BACLOFEN 10 MG TABLET (FP) GT SCH ×3 (05:22→21:48)
[2023-02-10] MEDS: carBAMazepine 100 MG/5 ML UNIT-DOSE CUP GT SCH ×2 (05:22→18:16)
[2023-02-10] MEDS: diazePAM 5 MG TABLET GT SCH ×3 (05:23→21:50)
[2023-02-10] MEDS: MINERAL OIL/PET HY-PHL TOPICAL OINTMENT 454 GM JAR TP SCH ×2 (09:53→21:48)
[2023-02-10] MEDS: BACITRACIN ZINC 15 GM TUBE TOPICAL OINTMENT TP SCH ×2 (09:53→21:48)
[2023-02-10] MEDS: NYSTATIN POWDER 100,000 UNITS/GM - 15 GM TOPICAL POWDER TP SCH ×2 (09:53→21:49)
[2023-02-10] MEDS: ENOXAPARIN NA (PORCINE) 40 MG/0.4 ML DISP.SYRIN SQ SCH (09:53)
[2023-02-10] MEDS: FAMOTIDINE 20 MG/2.5 ML ORAL LIQUID GT SCH ×2 (09:54→22:30)
[2023-02-10 10:47] LABS: HEMATOCRIT 33.2 % (35.4-49); HEMOGLOBIN 11.1 GM/dL (11.7-16.9); MCH 32.1 pg (25.7-33.7); MCHC 33.4 g/dl (32.0-35.9); MEAN PLT VOLUME 7.6 fl (7.5-11.1); PLATELET COUNT 1034 10^3/uL (134-434); RBC 3.46 M/mm3 (4.00-5.60); RDW 13.9 % (11.9-15.9); WHITE BLOOD COUNT 4.9 K/mm3 (4.0-10.0)
[2023-02-10 18:50] LABS: IRON SERUM 50 ug/dL (50-175); TOTAL IRON BINDING CAPACITY 252 ug/dL (250-450)
[2023-02-10] MEDS ORDERED: INSULIN (NOVOLOG) ASPART 100 UNITS/ML 10ML VIAL ONE (22:06)
[2023-02-11] MEDS: carBAMazepine 100 MG/5 ML UNIT-DOSE CUP GT SCH ×2 (06:25→18:58)
[2023-02-11] MEDS: BACLOFEN 10 MG TABLET (FP) GT SCH ×3 (06:25→22:00)
[2023-02-11] MEDS: diazePAM 5 MG TABLET GT SCH ×3 (06:25→22:00)
[2023-02-11] MEDS: ALBUTEROL SO4 2.5/IPRATROPIUM 0.5 INH SOL 3 ML VIAL.NEB. NEB PRN (07:45)
[2023-02-11 08:22] LABS: BASO % 0.9 % (0-2.0); EOS % 3.3 % (0-4.5); HEMATOCRIT 34.6 % (35.4-49); HEMOGLOBIN 11.5 GM/dL (11.7-16.9); MCHC 33.1 g/dl (32.0-35.9); MEAN CELL VOLUME 96.6 fl (80-96); MEAN PLT VOLUME 7.7 fl (7.5-11.1); NEUT % 51.8 % (42.8-82.8); PLATELET COUNT 977 10^3/uL (134-434); RBC 3.58 M/mm3 (4.00-5.60); RDW 13.8 % (11.9-15.9); WHITE BLOOD COUNT 4.9 K/mm3 (4.0-10.0)
[2023-02-11] MEDS: ENOXAPARIN NA (PORCINE) 40 MG/0.4 ML DISP.SYRIN SQ SCH (12:06)
[2023-02-11] MEDS: ASPIRIN 81 MG CHEWABLE TABLETS PEG SCH (12:07)
[2023-02-11] MEDS: BACITRACIN ZINC 15 GM TUBE TOPICAL OINTMENT TP SCH ×2 (12:07→22:01)
[2023-02-11] MEDS: FAMOTIDINE 20 MG/2.5 ML ORAL LIQUID GT SCH ×2 (12:07→22:59)
[2023-02-11] MEDS: NYSTATIN POWDER 100,000 UNITS/GM - 15 GM TOPICAL POWDER TP SCH ×2 (12:08→22:01)
[2023-02-11] MEDS: MINERAL OIL/PET HY-PHL TOPICAL OINTMENT 454 GM JAR TP SCH ×2 (12:08→22:01)
[2023-02-12] MEDS: carBAMazepine 100 MG/5 ML UNIT-DOSE CUP GT SCH ×2 (06:14→17:53)
[2023-02-12] MEDS: diazePAM 5 MG TABLET GT SCH ×3 (06:16→23:21)
[2023-02-12] MEDS: BACLOFEN 10 MG TABLET (FP) GT SCH ×3 (06:16→23:21)
[2023-02-12 08:17] LABS: BASO % 0.8 % (0-2.0); EOS % 2.4 % (0-4.5); HEMATOCRIT 34.8 % (35.4-49); HEMOGLOBIN 11.5 GM/dL (11.7-16.9); LYMPH % 23.1 % (8-40); MCH 31.4 pg (25.7-33.7); MEAN CELL VOLUME 95.2 fl (80-96); MEAN PLT VOLUME 7.5 fl (7.5-11.1); NEUT % 66.7 % (42.8-82.8); PLATELET COUNT 977 10^3/uL (134-434); RBC 3.66 M/mm3 (4.00-5.60); RDW 14.2 % (11.9-15.9); WHITE BLOOD COUNT 5.1 K/mm3 (4.0-10.0)
[2023-02-12] MEDS: MINERAL OIL/PET HY-PHL TOPICAL OINTMENT 454 GM JAR TP SCH ×2 (10:56→23:21)
[2023-02-12] MEDS: BACITRACIN ZINC 15 GM TUBE TOPICAL OINTMENT TP SCH ×2 (10:57→23:22)
[2023-02-12] MEDS: ENOXAPARIN NA (PORCINE) 40 MG/0.4 ML DISP.SYRIN SQ SCH (10:57)
[2023-02-12] MEDS: ASPIRIN 81 MG CHEWABLE TABLETS PEG SCH (10:57)
[2023-02-12] MEDS: FAMOTIDINE 20 MG/2.5 ML ORAL LIQUID GT SCH ×2 (10:57→23:20)
[2023-02-12] MEDS: NYSTATIN POWDER 100,000 UNITS/GM - 15 GM TOPICAL POWDER TP SCH ×2 (10:58→23:22)
[2023-02-13] MEDS: BACLOFEN 10 MG TABLET (FP) GT SCH (05:04)
[2023-02-13] MEDS: diazePAM 5 MG TABLET GT SCH (05:04)
[2023-02-13] MEDS: carBAMazepine 100 MG/5 ML UNIT-DOSE CUP GT SCH (05:04)
[2023-02-13 06:46] VITALS: BP 107/69; PULSE 63; RESP 19; TEMP 97.4
[2023-02-13 08:28] LABS: BASO % 1.1 % (0-2.0); EOS % 2.4 % (0-4.5); HEMATOCRIT 33.5 % (35.4-49); HEMOGLOBIN 11.3 GM/dL (11.7-16.9); LYMPH % 26.3 % (8-40); MCH 32.4 pg (25.7-33.7); MCHC 33.7 g/dl (32.0-35.9); MEAN CELL VOLUME 95.9 fl (80-96); MEAN PLT VOLUME 7.4 fl (7.5-11.1); MONO % 7.3 % (3.8-10.2); NEUT % 62.9 % (42.8-82.8); PLATELET COUNT 799 10^3/uL (134-434); RDW 13.9 % (11.9-15.9)
[2023-02-13] MEDS: FAMOTIDINE 20 MG/2.5 ML ORAL LIQUID GT SCH (09:05)
[2023-02-13] MEDS: ASPIRIN 81 MG CHEWABLE TABLETS PEG SCH (09:05)
[2023-02-13] MEDS: ENOXAPARIN NA (PORCINE) 40 MG/0.4 ML DISP.SYRIN SQ SCH (09:05)
[2023-02-13] MEDS: MINERAL OIL/PET HY-PHL TOPICAL OINTMENT 454 GM JAR TP SCH (09:06)
[2023-02-13] MEDS: NYSTATIN POWDER 100,000 UNITS/GM - 15 GM TOPICAL POWDER TP SCH (09:06)
[2023-02-13] MEDS: BACITRACIN ZINC 15 GM TUBE TOPICAL OINTMENT TP SCH (09:06)
== END 2023-02-13 11:56 | disposition home or self-care (01) | DRG 853 ==
LOC: JER 22:46 → JERBED 01-23 01:12 → JICU 01-23 18:35 → J7W 02-05 15:29
PROVIDERS: ADMIT Internal Medicine; ATTEND Nurse Practitioner Family
PROC: 0DBN0ZZ Excision of Sigmoid Colon, Open Approach (ICD-10-PCS; 2023-01-23)
PROC: 0DTF0ZZ Resection of Right Large Intestine, Open Approach (ICD-10-PCS; principal; 2023-01-23 11:00)
PROC: 05HD33Z Insertion of Infusion Device into Right Cephalic Vein, Percutaneous Approach (ICD-10-PCS; 2023-01-28)
PROC: B54MZZA Ultrasonography of Right Upper Extremity Veins, Guidance (ICD-10-PCS; 2023-01-28)
PROC: 5A1955Z Respiratory Ventilation, Greater than 96 Consecutive Hours (ICD-10-PCS; 2023-01-28)
PROC: 0BH17EZ Insertion of Endotracheal Airway into Trachea, Via Natural or Artificial Opening (ICD-10-PCS; 2023-01-28)
PROC: 0BJ08ZZ Inspection of Tracheobronchial Tree, Via Natural or Artificial Opening Endoscopic (ICD-10-PCS; 2023-01-28)
PROC: 4A133B1 Monitoring of Arterial Pressure, Peripheral, Percutaneous Approach (ICD-10-PCS; 2023-01-29)
PROC: 4A133J1 Monitoring of Arterial Pulse, Peripheral, Percutaneous Approach (ICD-10-PCS; 2023-01-29)
DX: A41.89 Other specified sepsis (principal); J69.0 Pneumonitis due to inhalation of food and vomit; K56.2 Volvulus; J96.01 Acute respiratory failure with hypoxia; E87.20 Acidosis, unspecified; E87.0 Hyperosmolality and hypernatremia; F72 Severe intellectual disabilities; Q67.5 Congenital deformity of spine; G80.9 Cerebral palsy, unspecified; G40.909 Epilepsy, unspecified, not intractable, without status epilepticus; K21.9 Gastro-esophageal reflux disease without esophagitis; K59.00 Constipation, unspecified; R00.0 Tachycardia, unspecified; R65.20 Severe sepsis without septic shock; E87.6 Hypokalemia; E86.0 Dehydration; R14.0 Abdominal distension (gaseous); Z93.1 Gastrostomy status; R94.5 Abnormal results of liver function studies; R19.7 Diarrhea, unspecified; D75.838 Other thrombocytosis
CPT/HCPCS: 0241U-QW; 31500; 36415; 36600; 71045-TC-FY; 71260-TC; 74018-TC-FY; 74176-TC; 74177-TC; 76705-TC; 80048; 80053; 80061; 81003; 82550; 82553; 82803; 82962; 83540; 83550; 83605; 83735; 84100; 84134; 84484; 85025; 85027; 85246; 85247; 85610; 85730; 86140; 86682; 86850; 86900; 86901; 87040; 87070; 87086; 87205; 87635; 87899; 88307-TC; 93005; 93010; 94002; 94640; 94760; 94761; 99285-25; J0475; J1644; Q9967

== ENCOUNTER 2023-02-27 01:58 | Inpatient (IN) | payer OTHER ==
[2023-02-27] MEDS ORDERED: PANTOPRAZOLE SODIUM 40 MG VIAL IVPUSH ONE (02:29)
[2023-02-27] MEDS ORDERED: LACTATED RINGERS SOLUTION 1000 ML INFUS.BAG IV ONE (03:12)
[2023-02-27] MEDS ORDERED: PANTOPRAZOLE SODIUM 40 MG VIAL ONE ×2 (03:58→10:43)
[2023-02-27] MEDS ORDERED: ACETAMINOPHEN INJECTION 100 ML IVPB ONE (04:03)
[2023-02-27] MEDS ORDERED: ACETAMINOPHEN 1000 MG/100 ML BAG IVPB ONE (04:03)
[2023-02-27 04:08] LABS: BASO % 0.2 % (0-2.0); EOS % 0.1 % (0-4.5); HEMATOCRIT 37.2 % (35.4-49); HEMOGLOBIN 12.5 GM/dL (11.7-16.9); LYMPH % 7.6 % (8-40); MCH 32.1 pg (25.7-33.7); MCHC 33.7 g/dl (32.0-35.9); MEAN CELL VOLUME 95.4 fl (80-96); MEAN PLT VOLUME 7.5 fl (7.5-11.1); MONO % 3.1 % (3.8-10.2); PLATELET COUNT 269 10^3/uL (134-434); RDW 14.6 % (11.9-15.9); WHITE BLOOD COUNT 16.2 K/mm3 (4.0-10.0)
[2023-02-27 04:17] LABS: INR 1.17 (0.83-1.09); PROTHROMBIN TIME (PATIENT) 13.5 SEC (9.7-13.0)
[2023-02-27] MEDS ORDERED: ONDANSETRON 4 MG/2 ML VIAL ONE (04:19)
[2023-02-27] MEDS ORDERED: ONDANSETRON 4 MG/2 ML VIAL IVPUSH ONE (04:19)
[2023-02-27 04:20] LABS: ACTIVATED PTT 31.6 SECONDS (25.2-36.5)
[2023-02-27 04:28] LABS: POTASSIUM 3.4 mmol/L (3.5-5.1)
[2023-02-27 04:31] LABS: ALBUMIN 3.2 g/dl (3.4-5.0); BLOOD UREA NITROGEN 7.1 mg/dL (7-18)
[2023-02-27 04:33] LABS: CREATININE 0.4 mg/dL (0.55-1.3)
[2023-02-27 04:35] LABS: BILIRUBIN,TOTAL 0.4 mg/dL (0.2-1); TOT PROT 7.2 g/dl (6.4-8.2)
[2023-02-27 08:20] LABS: BASO % 0.2 % (0-2.0); HEMATOCRIT 34.5 % (35.4-49); HEMOGLOBIN 11.4 GM/dL (11.7-16.9); LYMPH % 7.5 % (8-40); MCH 31.9 pg (25.7-33.7); MCHC 33.2 g/dl (32.0-35.9); MEAN CELL VOLUME 96.3 fl (80-96); MONO % 2.9 % (3.8-10.2); NEUT % 89.4 % (42.8-82.8); PLATELET COUNT 194 10^3/uL (134-434); RBC 3.58 M/mm3 (4.00-5.60); RDW 14.6 % (11.9-15.9); WHITE BLOOD COUNT 11.5 K/mm3 (4.0-10.0)
[2023-02-27] MEDS ORDERED: ONDANSETRON 4 MG/2 ML VIAL IVPUSH PRN (08:44)
[2023-02-27] MEDS ORDERED: carBAMazepine XR 400 MG TAB.ER.12H PO SCH (10:00)
[2023-02-27] MEDS ORDERED: DOCUSATE NA 100 MG/10 ML UNIT-DOSE CUPS GT SCH (10:00)
[2023-02-27] MEDS ORDERED: carBAMazepine 200 MG/10 ML UNIT-DOSE CUP GT SCH (10:15)
[2023-02-27] MEDS ORDERED: carBAMazepine 100 MG/5 ML UNIT-DOSE CUP GT SCH (10:24)
[2023-02-27] MEDS: DEXTROSE 5%-LACTATED RINGERS 1,000 ML IV SCH ×2 (10:59→22:39)
[2023-02-27] MEDS: carBAMazepine 100 MG/5 ML UNIT-DOSE CUP GT SCH ×3 (11:00→21:59)
[2023-02-27] MEDS: PANTOPRAZOLE SODIUM 40 MG VIAL IVPUSH SCH ×2 (11:00→21:22)
[2023-02-27] MEDS ORDERED: BACLOFEN 10 MG TABLET (FP) GT SCH (14:00)
[2023-02-27] MEDS ORDERED: diazePAM 5 MG TABLET GT SCH (14:00)
[2023-02-27] MEDS: diazePAM CARPU-JECT 10 MG/2 ML DISP.SYRIN IVPUSH SCH ×2 (14:27→21:23)
[2023-02-27 18:05] LABS: URINE APPEARANCE CLEAR; URINE BILIRUBIN NEGATIVE (NEGATIVE); URINE COLOR YELLOW; URINE GLUCOSE (UA) NEGATIVE (NEGATIVE)
[2023-02-27 18:06] LABS: URINE KETONE NEGATIVE (NEGATIVE); URINE NITRITE NEGATIVE (NEGATIVE); URINE PROTEIN NEGATIVE (NEGATIVE); URINE UROBILINOGEN 0.2 mg/dL (0.2-1.0)
[2023-02-27 18:07] LABS: URINE LEUK ESTERASE NEGATIVE (NEGATIVE)
[2023-02-27] MEDS ORDERED: carBAMazepine XR 200 MG TAB.ER.12H PO SCH (22:00)
[2023-02-28] MEDS: diazePAM CARPU-JECT 10 MG/2 ML DISP.SYRIN IVPUSH SCH ×3 (05:30→21:29)
[2023-02-28 07:13] LABS: BASO % 0.3 % (0-2.0); EOS % 0.6 % (0-4.5); HEMATOCRIT 32.1 % (35.4-49); HEMOGLOBIN 10.9 GM/dL (11.7-16.9); LYMPH % 15.3 % (8-40); MCHC 34.1 g/dl (32.0-35.9); MEAN CELL VOLUME 96.8 fl (80-96); MEAN PLT VOLUME 7.6 fl (7.5-11.1); MONO % 4.4 % (3.8-10.2); NEUT % 79.4 % (42.8-82.8); PLATELET COUNT 162 10^3/uL (134-434); RBC 3.31 M/mm3 (4.00-5.60); RDW 15.1 % (11.9-15.9); WHITE BLOOD COUNT 7.2 K/mm3 (4.0-10.0)
[2023-02-28 07:31] LABS: POTASSIUM 3.3 mmol/L (3.5-5.1)
[2023-02-28 07:32] LABS: CALCIUM 8.5 mg/dL (8.5-10.1)
[2023-02-28 07:33] LABS: BLOOD UREA NITROGEN 6.3 mg/dL (7-18)
[2023-02-28 07:36] LABS: CREATININE 0.3 mg/dL (0.55-1.3)
[2023-02-28] MEDS: DEXTROSE 5%-LACTATED RINGERS 1,000 ML IV SCH (08:49)
[2023-02-28] MEDS: KCL 10 MEQ IVPB 10 MEQ/100 ML INFUS.BAG IVPB SCH ×3 (08:50→12:40)
[2023-02-28] MEDS: carBAMazepine 100 MG/5 ML UNIT-DOSE CUP GT SCH ×3 (09:37→21:30)
[2023-02-28] MEDS: PANTOPRAZOLE SODIUM 40 MG VIAL IVPUSH SCH ×2 (09:37→21:29)
[2023-02-28 11:44] LABS: PHOSPHOROUS 3.2 mg/dL (2.5-4.9)
[2023-02-28] MEDS ORDERED: POTASSIUM CHLORIDE ORAL LIQUID 20 MEQ/15 ML GT ONE (13:05)
[2023-03-01] MEDS: DEXTROSE 5%-LACTATED RINGERS 1,000 ML IV SCH ×3 (00:23→22:36)
[2023-03-01] MEDS: ACETAMINOPHEN 1000 MG/100 ML BAG IVPB PRN ×2 (02:21→08:44)
[2023-03-01] MEDS: diazePAM CARPU-JECT 10 MG/2 ML DISP.SYRIN IVPUSH SCH ×3 (05:38→21:35)
[2023-03-01] MEDS: PANTOPRAZOLE SODIUM 40 MG VIAL IVPUSH SCH ×2 (09:39→21:35)
[2023-03-01] MEDS: carBAMazepine 100 MG/5 ML UNIT-DOSE CUP GT SCH ×3 (09:40→23:43)
[2023-03-01 09:45] LABS: HEMATOCRIT 32.4 % (35.4-49); HEMOGLOBIN 10.8 GM/dL (11.7-16.9); MCH 32.6 pg (25.7-33.7); MCHC 33.4 g/dl (32.0-35.9); MEAN CELL VOLUME 97.7 fl (80-96); PLATELET COUNT 148 10^3/uL (134-434); RBC 3.31 M/mm3 (4.00-5.60); RDW 14.7 % (11.9-15.9); WHITE BLOOD COUNT 6.1 K/mm3 (4.0-10.0)
[2023-03-01 10:34] LABS: POTASSIUM 3.8 mmol/L (3.5-5.1)
[2023-03-01 11:05] LABS: ALBUMIN 2.7 g/dl (3.4-5.0); CALCIUM 8.9 mg/dL (8.5-10.1)
[2023-03-01 11:06] LABS: BLOOD UREA NITROGEN 5.6 mg/dL (7-18); MAGNESIUM 1.8 mg/dL (1.8-2.4)
[2023-03-01 11:08] LABS: PHOSPHOROUS 4.5 mg/dL (2.5-4.9)
[2023-03-01 11:10] LABS: BILIRUBIN,TOTAL 0.8 mg/dL (0.2-1); CREATININE 0.3 mg/dL (0.55-1.3); TOT PROT 6.3 g/dl (6.4-8.2)
[2023-03-01 16:11] VITALS: BMI 23.5
[2023-03-02] MEDS ORDERED: ACETAMINOPHEN 1000 MG/100 ML BAG IVPB ONE (01:41)
[2023-03-02] MEDS: diazePAM CARPU-JECT 10 MG/2 ML DISP.SYRIN IVPUSH SCH ×3 (05:34→22:17)
[2023-03-02 07:32] LABS: POTASSIUM 3.6 mmol/L (3.5-5.1)
[2023-03-02 07:33] LABS: HEMATOCRIT 32.1 % (35.4-49); HEMOGLOBIN 10.8 GM/dL (11.7-16.9); MCH 33.2 pg (25.7-33.7); MCHC 33.7 g/dl (32.0-35.9); MEAN CELL VOLUME 98.5 fl (80-96); MEAN PLT VOLUME 8.5 fl (7.5-11.1); PLATELET COUNT 96 10^3/uL (134-434); RBC 3.26 M/mm3 (4.00-5.60); RDW 15.1 % (11.9-15.9); WHITE BLOOD COUNT 4.1 K/mm3 (4.0-10.0)
[2023-03-02 07:35] LABS: ALBUMIN 2.6 g/dl (3.4-5.0); BLOOD UREA NITROGEN 5.8 mg/dL (7-18); CALCIUM 8.4 mg/dL (8.5-10.1); MAGNESIUM 1.7 mg/dL (1.8-2.4)
[2023-03-02 07:39] LABS: CREATININE 0.3 mg/dL (0.55-1.3); PHOSPHOROUS 4.3 mg/dL (2.5-4.9)
[2023-03-02 07:41] LABS: BILIRUBIN,TOTAL 0.5 mg/dL (0.2-1); TOT PROT 6.3 g/dl (6.4-8.2)
[2023-03-02] MEDS: DEXTROSE 5%-LACTATED RINGERS 1,000 ML IV SCH ×2 (10:17→22:24)
[2023-03-02] MEDS: PANTOPRAZOLE SODIUM 40 MG VIAL IVPUSH SCH ×2 (10:17→22:17)
[2023-03-02] MEDS: carBAMazepine 100 MG/5 ML UNIT-DOSE CUP GT SCH (10:17)
[2023-03-02] MEDS ORDERED: ACETAMINOPHEN 1000 MG/100 ML BAG IVPB PRN ×2 (11:02→13:25)
[2023-03-02] MEDS ORDERED: MAGNESIUM SULF 50% (8.12 MEQ/2 ML-1 GM VIAL) IVPB ONE (13:40)
[2023-03-02] MEDS ORDERED: carBAMazepine 100 MG/5 ML UNIT-DOSE CUP GT SCH (22:00)
[2023-03-03] MEDS: diazePAM CARPU-JECT 10 MG/2 ML DISP.SYRIN IVPUSH SCH (05:53)
[2023-03-03 06:54] LABS: MCH 32.5 pg (25.7-33.7); MCHC 33.2 g/dl (32.0-35.9); MEAN CELL VOLUME 97.7 fl (80-96); MEAN PLT VOLUME 7.4 fl (7.5-11.1); PLATELET COUNT 140 10^3/uL (134-434); RBC 2.76 M/mm3 (4.00-5.60); RDW 14.8 % (11.9-15.9); WHITE BLOOD COUNT 3.5 K/mm3 (4.0-10.0)
[2023-03-03 07:11] LABS: POTASSIUM 3.2 mmol/L (3.5-5.1)
[2023-03-03 07:18] LABS: ALBUMIN 2.2 g/dl (3.4-5.0); BLOOD UREA NITROGEN 7.1 mg/dL (7-18); CALCIUM 7.7 mg/dL (8.5-10.1); PHOSPHOROUS 3.7 mg/dL (2.5-4.9)
[2023-03-03 07:20] LABS: MAGNESIUM 1.9 mg/dL (1.8-2.4)
[2023-03-03 07:21] LABS: BILIRUBIN,TOTAL 0.4 mg/dL (0.2-1); CREATININE 0.3 mg/dL (0.55-1.3); TOT PROT 5.4 g/dl (6.4-8.2)
[2023-03-03] MEDS: carBAMazepine 100 MG/5 ML UNIT-DOSE CUP GT SCH ×2 (09:50→21:53)
[2023-03-03] MEDS: PANTOPRAZOLE SODIUM 40 MG VIAL IVPUSH SCH ×2 (09:50→21:53)
[2023-03-03] MEDS: KCL 10 MEQ IVPB 10 MEQ/100 ML INFUS.BAG IVPB SCH ×3 (09:51→11:58)
[2023-03-03] MEDS: DEXTROSE 5%-LACTATED RINGERS 1,000 ML IV SCH ×3 (12:00→23:51)
[2023-03-03] MEDS ORDERED: ONDANSETRON 4 MG/2 ML VIAL IVPUSH PRN (13:59)
[2023-03-03] MEDS ORDERED: diazePAM CARPU-JECT 10 MG/2 ML DISP.SYRIN IVPUSH SCH (14:00)
[2023-03-03] MEDS ORDERED: KCL 10 MEQ IVPB 10 MEQ/100 ML INFUS.BAG IVPB SCH (15:30)
[2023-03-03] MEDS: diazePAM 5 MG TABLET GT SCH (21:53)
[2023-03-04] MEDS: diazePAM 5 MG TABLET GT SCH ×3 (06:05→23:01)
[2023-03-04 09:31] LABS: HEMATOCRIT 28.2 % (35.4-49); HEMOGLOBIN 9.5 GM/dL (11.7-16.9); MCHC 33.7 g/dl (32.0-35.9); MEAN PLT VOLUME 7.9 fl (7.5-11.1); PLATELET COUNT 144 10^3/uL (134-434); RBC 2.88 M/mm3 (4.00-5.60); RDW 14.1 % (11.9-15.9); WHITE BLOOD COUNT 4.2 K/mm3 (4.0-10.0)
[2023-03-04 10:06] LABS: POTASSIUM 3.6 mmol/L (3.5-5.1)
[2023-03-04 10:09] LABS: ALBUMIN 2.2 g/dl (3.4-5.0); BLOOD UREA NITROGEN 5.8 mg/dL (7-18); MAGNESIUM 1.6 mg/dL (1.8-2.4)
[2023-03-04 10:12] LABS: CREATININE 0.3 mg/dL (0.55-1.3)
[2023-03-04 10:13] LABS: BILIRUBIN,TOTAL 0.3 mg/dL (0.2-1); TOT PROT 5.3 g/dl (6.4-8.2)
[2023-03-04] MEDS: DEXTROSE 5%-LACTATED RINGERS 1,000 ML IV SCH ×2 (10:31→14:30)
[2023-03-04] MEDS: PANTOPRAZOLE SODIUM 40 MG VIAL IVPUSH SCH ×2 (10:38→23:00)
[2023-03-04] MEDS: carBAMazepine 100 MG/5 ML UNIT-DOSE CUP GT SCH ×2 (10:39→23:01)
[2023-03-04 12:09] LABS: PHOSPHOROUS 3.3 mg/dL (2.5-4.9)
[2023-03-05] MEDS: diazePAM 5 MG TABLET GT SCH ×3 (07:21→23:08)
[2023-03-05] MEDS ORDERED: MAGNESIUM SULFATE IN WATER 2 GM/50 ML IVPB IVPB ONE (09:27)
[2023-03-05] MEDS: PANTOPRAZOLE SODIUM 40 MG VIAL IVPUSH SCH ×2 (09:54→23:08)
[2023-03-05] MEDS: carBAMazepine 100 MG/5 ML UNIT-DOSE CUP GT SCH ×2 (09:55→23:07)
[2023-03-05] MEDS: DEXTROSE 5%-LACTATED RINGERS 1,000 ML IV SCH ×2 (10:03→14:35)
[2023-03-05] MEDS: LACTULOSE 20 GM/30 ML UDC (FOR ORAL USE ONLY) PEG PRN ×2 (17:56→18:46)
[2023-03-06] MEDS: diazePAM 5 MG TABLET GT SCH ×3 (05:54→23:24)
[2023-03-06 09:33] LABS: BASO % 0.7 % (0-2.0); EOS % 3.1 % (0-4.5); HEMATOCRIT 30.1 % (35.4-49); HEMOGLOBIN 10.3 GM/dL (11.7-16.9); LYMPH % 33.8 % (8-40); MCHC 34.1 g/dl (32.0-35.9); MEAN CELL VOLUME 96.7 fl (80-96); MEAN PLT VOLUME 7.3 fl (7.5-11.1); NEUT % 54.4 % (42.8-82.8); PLATELET COUNT 198 10^3/uL (134-434); RBC 3.11 M/mm3 (4.00-5.60); RDW 14.4 % (11.9-15.9)
[2023-03-06 09:52] LABS: POTASSIUM 4.1 mmol/L (3.5-5.1)
[2023-03-06 09:54] LABS: ALBUMIN 2.3 g/dl (3.4-5.0); CALCIUM 7.9 mg/dL (8.5-10.1); MAGNESIUM 2.1 mg/dL (1.8-2.4)
[2023-03-06 09:55] LABS: BLOOD UREA NITROGEN 3.2 mg/dL (7-18)
[2023-03-06 09:57] LABS: CREATININE 0.3 mg/dL (0.55-1.3)
[2023-03-06 09:59] LABS: BILIRUBIN,TOTAL 0.3 mg/dL (0.2-1); TOT PROT 5.6 g/dl (6.4-8.2)
[2023-03-06] MEDS: carBAMazepine 100 MG/5 ML UNIT-DOSE CUP GT SCH ×2 (11:01→23:23)
[2023-03-06] MEDS: PANTOPRAZOLE SODIUM 40 MG VIAL IVPUSH SCH ×2 (11:30→23:24)
[2023-03-07] MEDS: diazePAM 5 MG TABLET GT SCH ×2 (05:57→13:14)
[2023-03-07] MEDS: PANTOPRAZOLE SODIUM 40 MG VIAL IVPUSH SCH (09:10)
[2023-03-07] MEDS: carBAMazepine 100 MG/5 ML UNIT-DOSE CUP GT SCH (09:11)
[2023-03-07 10:19] LABS: BASO % 0.5 % (0-2.0); EOS % 3.1 % (0-4.5); HEMATOCRIT 32.6 % (35.4-49); HEMOGLOBIN 10.9 GM/dL (11.7-16.9); MCH 32.5 pg (25.7-33.7); MCHC 33.4 g/dl (32.0-35.9); MEAN CELL VOLUME 97.2 fl (80-96); MEAN PLT VOLUME 7.3 fl (7.5-11.1); MONO % 7.6 % (3.8-10.2); NEUT % 58.8 % (42.8-82.8); PLATELET COUNT 243 10^3/uL (134-434); RBC 3.36 M/mm3 (4.00-5.60); RDW 14.1 % (11.9-15.9); WHITE BLOOD COUNT 3.9 K/mm3 (4.0-10.0)
[2023-03-07 10:44] LABS: POTASSIUM 4.3 mmol/L (3.5-5.1)
[2023-03-07 10:48] LABS: ALBUMIN 2.4 g/dl (3.4-5.0); BLOOD UREA NITROGEN 6.8 mg/dL (7-18); CALCIUM 8.2 mg/dL (8.5-10.1); MAGNESIUM 2.1 mg/dL (1.8-2.4)
[2023-03-07 10:51] LABS: CREATININE 0.4 mg/dL (0.55-1.3)
[2023-03-07 10:53] LABS: BILIRUBIN,TOTAL 0.2 mg/dL (0.2-1); TOT PROT 6.1 g/dl (6.4-8.2)
[2023-03-07 15:36] VITALS: BP 121/63; PULSE 71; RESP 18; TEMP 98.3
== END 2023-03-07 15:48 | disposition home or self-care (01) | DRG 388 ==
LOC: JER 01:58 → OBSVTOIN 05:00 → JERBED 05:00 → J4W 14:28 → J8W 03-03 12:14 → J4W 03-03 12:18 → J8W 03-03 13:45
PROVIDERS: ADMIT Internal Medicine; ATTEND Nurse Practitioner Family
DX: K91.31 Postprocedural partial intestinal obstruction (principal); E43 Unspecified severe protein-calorie malnutrition; B78.9 Strongyloidiasis, unspecified; K92.0 Hematemesis; Y83.8 Other surgical procedures as the cause of abnormal reaction of the patient, or of later complication, without mention of misadventure at the time of the procedure; G80.9 Cerebral palsy, unspecified; G40.909 Epilepsy, unspecified, not intractable, without status epilepticus; K21.9 Gastro-esophageal reflux disease without esophagitis; Z93.1 Gastrostomy status; D50.9 Iron deficiency anemia, unspecified; M81.0 Age-related osteoporosis without current pathological fracture; Z68.23 Body mass index [BMI] 23.0-23.9, adult
CPT/HCPCS: 36415; 71045-TC-FY; 74018-TC-FY; 74019-TC-FY; 74177-TC; 80048; 80053; 81003; 82272; 82728; 83540; 83550; 83690; 83735; 84100; 84484; 85025; 85027; 85610; 85730; 86850; 86900; 86901; 87040; 87086; 87635; 93005; 93010; 99285-25; Q9967

== ENCOUNTER 2023-03-21 22:26 | Emergency (ER) | payer OTHER ==
[2023-03-21 23:10] VITALS: BP 106/46; PULSE 74; RESP 22; TEMP 97.9; BMI 28.8
== END 2023-03-22 03:00 | disposition home or self-care (01) ==
LOC: JER 22:26
PROC: 0D20XUZ Change Feeding Device in Upper Intestinal Tract, External Approach (ICD-10-PCS; principal; 2023-03-21)
DX: K94.23 Gastrostomy malfunction (principal)
CPT/HCPCS: 99283-25

== ENCOUNTER 2023-04-18 | Inpatient (IN) | payer OTHER ==
[2023-04-18] MEDS: ACETAMINOPHEN 1000 MG/100 ML BAG IVPB ONE (01:21)
[2023-04-18] MEDS: SODIUM CHLORIDE 0.9% 500 ML INFUS.BAG IV ONE (01:22)
[2023-04-18] MEDS: ONDANSETRON 4 MG/2 ML VIAL IVPUSH ONE (01:22)
[2023-04-18] MEDS: PANTOPRAZOLE 40 MG TABLET PO ONE (01:23)
[2023-04-18] MEDS ORDERED: ACETAMINOPHEN INJECTION 100 ML IVPB ONE (01:49)
[2023-04-18] MEDS ORDERED: ONDANSETRON 4 MG/2 ML VIAL ONE (01:49)
[2023-04-18] MEDS ORDERED: PANTOPRAZOLE SODIUM 40 MG VIAL ONE (01:50)
[2023-04-18 01:56] LABS: BASO % 0.4 % (0-2.0); EOS % 0.1 % (0-4.5); HEMATOCRIT 39.1 % (35.4-49); HEMOGLOBIN 13.4 GM/dL (11.7-16.9); LYMPH % 20.8 % (8-40); MCH 32.7 pg (25.7-33.7); MCHC 34.2 g/dl (32.0-35.9); MEAN CELL VOLUME 95.5 fl (80-96); MEAN PLT VOLUME 6.8 fl (7.5-11.1); MONO % 6.2 % (3.8-10.2); NEUT % 72.5 % (42.8-82.8); PLATELET COUNT 419 10^3/uL (134-434); RBC 4.09 M/mm3 (4.00-5.60); RDW 15.1 % (11.9-15.9); WHITE BLOOD COUNT 7.5 K/mm3 (4.0-10.0)
[2023-04-18 02:15] LABS: INR 1.1 (0.83-1.09); PROTHROMBIN TIME (PATIENT) 12.7 SEC (9.7-13.0)
[2023-04-18 02:17] LABS: ACTIVATED PTT 32.2 SECONDS (25.2-36.5)
[2023-04-18 02:19] LABS: POTASSIUM 4.6 mmol/L (3.5-5.1)
[2023-04-18 02:21] LABS: CALCIUM 8.9 mg/dL (8.5-10.1)
[2023-04-18 02:22] LABS: ALBUMIN 3.4 g/dl (3.4-5.0); BLOOD UREA NITROGEN 7.9 mg/dL (7-18); MAGNESIUM 2.5 mg/dL (1.8-2.4)
[2023-04-18 02:25] LABS: CREATININE 0.5 mg/dL (0.55-1.3)
[2023-04-18 02:26] LABS: TOT PROT 7.6 g/dl (6.4-8.2)
[2023-04-18 02:27] LABS: BILIRUBIN,TOTAL 0.3 mg/dL (0.2-1)
[2023-04-18 06:39] LABS: POTASSIUM 4.7 mmol/L (3.5-5.1)
[2023-04-18 06:41] LABS: ALBUMIN 2.9 g/dl (3.4-5.0); CALCIUM 7.8 mg/dL (8.5-10.1)
[2023-04-18 06:42] LABS: BLOOD UREA NITROGEN 7.4 mg/dL (7-18)
[2023-04-18 06:44] LABS: CREATININE 0.3 mg/dL (0.55-1.3)
[2023-04-18 06:46] LABS: BILIRUBIN,TOTAL 0.4 mg/dL (0.2-1); TOT PROT 6.3 g/dl (6.4-8.2)
[2023-04-18] MEDS ORDERED: PIPERACILLIN/TAZOB 4.5 GM 4.5 GM/100 ML BAG IVPB ONE (07:52)
[2023-04-18] MEDS ORDERED: VANCOMYCIN 1 GRAM (PRE-DOCKED) 1,000 MG/250 ML BAG IVPB ONE (07:52)
[2023-04-18] MEDS: PIPERACILLIN/TAZOB 4.5 GM 4.5 GM in DEXTROSE 5%-WATER 100 ML IVPB ONE (07:59)
[2023-04-18] MEDS: VANCOMYCIN 1,000 MG in DEXTROSE 5%-WATER - 250 ML IVPB ONE (07:59)
[2023-04-18] MEDS ORDERED: carBAMazepine 200 MG TABLET ONE (08:50)
[2023-04-18] MEDS ORDERED: diazePAM 5 MG TABLET ONE (08:50)
[2023-04-18] MEDS: diazePAM 5 MG TABLET GT ONE (09:16)
[2023-04-18] MEDS: carBAMazepine 100 MG/5 ML UNIT-DOSE CUP GT SCH ×3 (09:16→21:57)
[2023-04-18] MEDS: ENOXAPARIN NA (PORCINE) 40 MG/0.4 ML DISP.SYRIN SQ SCH (10:12)
[2023-04-18] MEDS ORDERED: ACETAMINOPHEN 1000 MG/100 ML BAG IVPB PRN (10:43)
[2023-04-18] MEDS: AMINO ACIDS 4.25%/D5W 1,000 ML IV SCH (12:39)
[2023-04-18] MEDS ORDERED: TIZANIDINE HCL 2 MG GT SCH (14:00)
[2023-04-18] MEDS: diazePAM CARPU-JECT 10 MG/2 ML DISP.SYRIN IVPUSH SCH (15:10)
[2023-04-18] MEDS: BACLOFEN 10 MG TABLET (FP) GT SCH (15:10)
[2023-04-19] MEDS ORDERED: carBAMazepine XR 400 MG TAB.ER.12H PO SCH (05:00)
[2023-04-19 07:19] LABS: HEMATOCRIT 37.6 % (35.4-49); HEMOGLOBIN 12.9 GM/dL (11.7-16.9); MCHC 34.4 g/dl (32.0-35.9); MEAN PLT VOLUME 7.3 fl (7.5-11.1); PLATELET COUNT 297 10^3/uL (134-434); RBC 3.92 M/mm3 (4.00-5.60); RDW 15.5 % (11.9-15.9); WHITE BLOOD COUNT 3.8 K/mm3 (4.0-10.0)
[2023-04-19 07:37] LABS: POTASSIUM 4.9 mmol/L (3.5-5.1)
[2023-04-19 07:44] LABS: CALCIUM 8.4 mg/dL (8.5-10.1)
[2023-04-19 07:45] LABS: ALBUMIN 2.9 g/dl (3.4-5.0); BLOOD UREA NITROGEN 11.3 mg/dL (7-18); MAGNESIUM 2.8 mg/dL (1.8-2.4)
[2023-04-19 07:48] LABS: CREATININE 0.4 mg/dL (0.55-1.3); PHOSPHOROUS 2.7 mg/dL (2.5-4.9)
[2023-04-19 07:49] LABS: BILIRUBIN,TOTAL 0.5 mg/dL (0.2-1); TOT PROT 6.8 g/dl (6.4-8.2)
[2023-04-19] MEDS: PANTOPRAZOLE SODIUM 40 MG VIAL IVPUSH SCH (09:52)
[2023-04-19] MEDS ORDERED: PANTOPRAZOLE SODIUM 40 MG VIAL IVPUSH SCH ×2 (10:00→22:00)
[2023-04-19] MEDS: AMINO ACIDS 4.25%/D5W 1,000 ML IV SCH (10:13)
[2023-04-19 12:36] LABS: HEMATOCRIT 37.7 % (35.4-49); HEMOGLOBIN 12.8 GM/dL (11.7-16.9); MCH 32.7 pg (25.7-33.7); PLATELET COUNT 286 10^3/uL (134-434); RBC 3.93 M/mm3 (4.00-5.60); RDW 15.2 % (11.9-15.9); WHITE BLOOD COUNT 3.5 K/mm3 (4.0-10.0)
[2023-04-19 13:25] LABS: POTASSIUM 4.3 mmol/L (3.5-5.1)
[2023-04-19 13:28] LABS: CALCIUM 8.4 mg/dL (8.5-10.1)
[2023-04-19 13:29] LABS: BLOOD UREA NITROGEN 10.1 mg/dL (7-18)
[2023-04-19 13:32] LABS: CREATININE 0.3 mg/dL (0.55-1.3)
[2023-04-19] MEDS ORDERED: TRIMETHOBENZAMIDE HCL 200MG/2ML INJ IM PRN (14:52)
[2023-04-19] MEDS: carBAMazepine 100 MG/5 ML UNIT-DOSE CUP GT SCH (21:32)
[2023-04-20 07:27] LABS: HEMATOCRIT 35.4 % (35.4-49); HEMOGLOBIN 12.2 GM/dL (11.7-16.9); MCH 33.1 pg (25.7-33.7); MCHC 34.5 g/dl (32.0-35.9); MEAN CELL VOLUME 95.9 fl (80-96); MEAN PLT VOLUME 7.3 fl (7.5-11.1); PLATELET COUNT 262 10^3/uL (134-434); RBC 3.69 M/mm3 (4.00-5.60); RDW 15.2 % (11.9-15.9); WHITE BLOOD COUNT 4.6 K/mm3 (4.0-10.0)
[2023-04-20 07:44] LABS: POTASSIUM 3.8 mmol/L (3.5-5.1)
[2023-04-20 07:46] LABS: BLOOD UREA NITROGEN 13.9 mg/dL (7-18)
[2023-04-20 07:49] LABS: CALCIUM 7.6 mg/dL (8.5-10.1); CREATININE 0.3 mg/dL (0.55-1.3); MAGNESIUM 2.4 mg/dL (1.8-2.4); PHOSPHOROUS 2.1 mg/dL (2.5-4.9)
[2023-04-20] MEDS: carBAMazepine 100 MG/5 ML UNIT-DOSE CUP GT SCH (10:29)
[2023-04-20] MEDS: NAPH,MB-DB/K PH,MBDB POWDER PACKET PO ONE (14:10)
[2023-04-20 18:48] LABS: PH,URINE 6.5 (5.0-8.0); URINE APPEARANCE CLEAR; URINE BILIRUBIN NEGATIVE (NEGATIVE); URINE COLOR YELLOW; URINE GLUCOSE (UA) NEGATIVE (NEGATIVE); URINE KETONE NEGATIVE (NEGATIVE); URINE LEUK ESTERASE NEGATIVE (NEGATIVE); URINE NITRITE NEGATIVE (NEGATIVE); URINE PROTEIN NEGATIVE (NEGATIVE); URINE UROBILINOGEN 0.2 mg/dL (0.2-1.0)
[2023-04-20] MEDS: BISACODYL 10 MG SUPP.RECT PR ONE (21:55)
[2023-04-21 07:18] LABS: HEMATOCRIT 34.3 % (35.4-49); HEMOGLOBIN 11.6 GM/dL (11.7-16.9); MCH 32.5 pg (25.7-33.7); MCHC 33.7 g/dl (32.0-35.9); MEAN CELL VOLUME 96.3 fl (80-96); MEAN PLT VOLUME 7.3 fl (7.5-11.1); PLATELET COUNT 238 10^3/uL (134-434); RBC 3.56 M/mm3 (4.00-5.60); RDW 14.8 % (11.9-15.9); WHITE BLOOD COUNT 5.3 K/mm3 (4.0-10.0)
[2023-04-21 08:14] LABS: POTASSIUM 3.9 mmol/L (3.5-5.1)
[2023-04-21 08:34] LABS: ALBUMIN 2.9 g/dl (3.4-5.0); CALCIUM 7.4 mg/dL (8.5-10.1)
[2023-04-21 08:35] LABS: BLOOD UREA NITROGEN 13.3 mg/dL (7-18); MAGNESIUM 2.8 mg/dL (1.8-2.4)
[2023-04-21 08:37] LABS: PHOSPHOROUS 2.1 mg/dL (2.5-4.9)
[2023-04-21 08:38] LABS: CREATININE 0.4 mg/dL (0.55-1.3)
[2023-04-21 08:39] LABS: BILIRUBIN,TOTAL 0.3 mg/dL (0.2-1); TOT PROT 6.2 g/dl (6.4-8.2)
[2023-04-21] MEDS: MINERAL OIL ENEMA 133 ML ENEMA RC ONE ×2 (11:32→18:08)
[2023-04-22 11:37] LABS: HEMATOCRIT 37.5 % (35.4-49); HEMOGLOBIN 12.8 GM/dL (11.7-16.9); MCH 32.5 pg (25.7-33.7); MCHC 34.1 g/dl (32.0-35.9); MEAN CELL VOLUME 95.4 fl (80-96); MEAN PLT VOLUME 7.2 fl (7.5-11.1); PLATELET COUNT 246 10^3/uL (134-434); RBC 3.93 M/mm3 (4.00-5.60); RDW 15.2 % (11.9-15.9); WHITE BLOOD COUNT 3.8 K/mm3 (4.0-10.0)
[2023-04-22] MEDS ORDERED: BISACODYL 10 MG SUPP.RECT PR ONE (11:40)
[2023-04-22 12:14] LABS: POTASSIUM 4.3 mmol/L (3.5-5.1)
[2023-04-22 12:17] LABS: CALCIUM 7.7 mg/dL (8.5-10.1)
[2023-04-22 12:18] LABS: ALBUMIN 3.1 g/dl (3.4-5.0); BLOOD UREA NITROGEN 13.7 mg/dL (7-18); MAGNESIUM 2.8 mg/dL (1.8-2.4)
[2023-04-22 12:22] LABS: BILIRUBIN,TOTAL 0.3 mg/dL (0.2-1); CREATININE 0.3 mg/dL (0.55-1.3); PHOSPHOROUS 1.6 mg/dL (2.5-4.9)
[2023-04-22 12:23] LABS: TOT PROT 6.8 g/dl (6.4-8.2)
[2023-04-22] MEDS: POLYETHYLENE GLYCOL (HEALTHYLAX) 3350 17 GM PACKET GT SCH (14:11)
[2023-04-22] MEDS: BISACODYL 10 MG SUPP.RECT PR ONE (15:39)
[2023-04-23 08:08] LABS: BASO % 0.4 % (0-2.0); EOS % 0.6 % (0-4.5); HEMATOCRIT 37.5 % (35.4-49); HEMOGLOBIN 12.6 GM/dL (11.7-16.9); LYMPH % 23.3 % (8-40); MCH 32.3 pg (25.7-33.7); MCHC 33.7 g/dl (32.0-35.9); MEAN CELL VOLUME 95.7 fl (80-96); MEAN PLT VOLUME 7.1 fl (7.5-11.1); MONO % 8.5 % (3.8-10.2); NEUT % 67.2 % (42.8-82.8); PLATELET COUNT 232 10^3/uL (134-434); RBC 3.92 M/mm3 (4.00-5.60); RDW 15.2 % (11.9-15.9); WHITE BLOOD COUNT 5.2 K/mm3 (4.0-10.0)
[2023-04-23 08:19] LABS: POTASSIUM 3.7 mmol/L (3.5-5.1)
[2023-04-23 08:23] LABS: CALCIUM 7.1 mg/dL (8.5-10.1)
[2023-04-23 08:24] LABS: BLOOD UREA NITROGEN 12.5 mg/dL (7-18); MAGNESIUM 2.7 mg/dL (1.8-2.4)
[2023-04-23 08:26] LABS: CREATININE 0.3 mg/dL (0.55-1.3); PHOSPHOROUS 1.6 mg/dL (2.5-4.9)
[2023-04-23 08:28] LABS: BILIRUBIN,TOTAL 0.3 mg/dL (0.2-1); TOT PROT 6.8 g/dl (6.4-8.2)
[2023-04-24 12:18] LABS: HEMATOCRIT 37.6 % (35.4-49); MCH 32.9 pg (25.7-33.7); MCHC 34.6 g/dl (32.0-35.9); MEAN CELL VOLUME 95.2 fl (80-96); MEAN PLT VOLUME 7.2 fl (7.5-11.1); PLATELET COUNT 229 10^3/uL (134-434); RBC 3.94 M/mm3 (4.00-5.60); RDW 15.3 % (11.9-15.9); WHITE BLOOD COUNT 3.6 K/mm3 (4.0-10.0)
[2023-04-24 12:36] LABS: POTASSIUM 3.9 mmol/L (3.5-5.1)
[2023-04-24 12:41] LABS: BLOOD UREA NITROGEN 9.5 mg/dL (7-18)
[2023-04-24 12:44] LABS: CREATININE 0.4 mg/dL (0.55-1.3)
[2023-04-24 12:48] LABS: CALCIUM 8.3 mg/dL (8.5-10.1)
[2023-04-24] MEDS ORDERED: BISACODYL 10 MG SUPP.RECT RC PRN ×2 (19:31→20:04)
[2023-04-24] MEDS ORDERED: SIMETHICONE 40 MG/0.6 ML BOTTLE GT PRN ×2 (19:31→20:04)
[2023-04-24] MEDS ORDERED: BACITRACIN ZINC 15 GM TUBE TOPICAL OINTMENT TP PRN ×2 (19:31→20:04)
[2023-04-24] MEDS ORDERED: ACETAMINOPHEN 160 MG/5 ML PO PRN (19:32)
[2023-04-24] MEDS ORDERED: ACETAMINOPHEN 650 MG/20.3 ML ORAL SOLUTION (CUPS) PO PRN (20:04)
[2023-04-24] MEDS: FAMOTIDINE 20 MG/2.5 ML ORAL LIQUID GT SCH (21:50)
[2023-04-24] MEDS ORDERED: PATIENT'S OWN MEDICATION (NON-FORMULARY) (Omeprazole 20 MG Capsule.Dr) GT SCH (22:00)
[2023-04-25 07:17] LABS: POTASSIUM 3.9 mmol/L (3.5-5.1)
[2023-04-25 07:28] LABS: CALCIUM 7.9 mg/dL (8.5-10.1)
[2023-04-25 07:29] LABS: BLOOD UREA NITROGEN 9.6 mg/dL (7-18); MAGNESIUM 2.8 mg/dL (1.8-2.4)
[2023-04-25 07:32] LABS: CREATININE 0.4 mg/dL (0.55-1.3); PHOSPHOROUS 2.1 mg/dL (2.5-4.9)
[2023-04-25] MEDS: NAPH,MB-DB/K PH,MBDB POWDER PACKET GT ONE (10:17)
[2023-04-25] MEDS ORDERED: ACETAMINOPHEN 650 MG/20.3 ML ORAL SOLUTION (CUPS) GT PRN (15:49)
[2023-04-25] MEDS: ENOXAPARIN NA (PORCINE) 40 MG/0.4 ML DISP.SYRIN SQ SCH (16:45)
[2023-04-25] MEDS: TRIMETHOBENZAMIDE HCL 200MG/2ML INJ IM SCH (16:46)
[2023-04-25] MEDS: DOCUSATE NA 100 MG/10 ML UNIT-DOSE CUPS PO SCH (17:56)
[2023-04-25] MEDS: LACTOBACILLUS ACIDOPHILUS 1 TABLET GT SCH (17:57)
[2023-04-25] MEDS ORDERED: PATIENT'S OWN MEDICATION (NON-FORMULARY) (Linaclotide 145 MCG Capsule) PO SCH (18:00)
[2023-04-25] MEDS ORDERED: PATIENT'S OWN MEDICATION (NON-FORMULARY) (Lactobacillus Acidophilus [Acidophilus Lactobaci GT SCH (18:00)
[2023-04-25] MEDS ORDERED: DOCUSATE NA 100 MG/10 ML UNIT-DOSE CUPS PO SCH (18:00)
[2023-04-25] MEDS: SIMETHICONE 40 MG/0.6 ML BOTTLE GT SCH (18:40)
[2023-04-26 06:35] LABS: HEMATOCRIT 34.6 % (35.4-49); HEMOGLOBIN 12.1 GM/dL (11.7-16.9); MCH 33.1 pg (25.7-33.7); MEAN CELL VOLUME 94.4 fl (80-96); MEAN PLT VOLUME 7.3 fl (7.5-11.1); PLATELET COUNT 221 10^3/uL (134-434); RBC 3.66 M/mm3 (4.00-5.60); WHITE BLOOD COUNT 3.4 K/mm3 (4.0-10.0)
[2023-04-26 07:18] LABS: POTASSIUM 3.9 mmol/L (3.5-5.1)
[2023-04-26 07:24] LABS: BLOOD UREA NITROGEN 8.1 mg/dL (7-18); CALCIUM 7.7 mg/dL (8.5-10.1); MAGNESIUM 2.8 mg/dL (1.8-2.4)
[2023-04-26 07:27] LABS: BILIRUBIN,TOTAL 0.8 mg/dL (0.2-1); CREATININE 0.4 mg/dL (0.55-1.3); PHOSPHOROUS 2.8 mg/dL (2.5-4.9); TOT PROT 6.5 g/dl (6.4-8.2)
[2023-04-26] MEDS: POLYETHYLENE GLYCOL (HEALTHYLAX) 3350 17 GM PACKET GT SCH (09:59)
[2023-04-26] MEDS: BISACODYL 10 MG SUPP.RECT PR SCH (09:59)
[2023-04-26] MEDS ORDERED: BISACODYL 10 MG SUPP.RECT RC SCH (10:00)
[2023-04-27 06:48] LABS: HEMATOCRIT 35.1 % (35.4-49); HEMOGLOBIN 12.1 GM/dL (11.7-16.9); MCH 32.9 pg (25.7-33.7); MCHC 34.5 g/dl (32.0-35.9); MEAN CELL VOLUME 95.5 fl (80-96); MEAN PLT VOLUME 7.6 fl (7.5-11.1); PLATELET COUNT 224 10^3/uL (134-434); RBC 3.68 M/mm3 (4.00-5.60); RDW 14.9 % (11.9-15.9); WHITE BLOOD COUNT 3.8 K/mm3 (4.0-10.0)
[2023-04-27 07:03] LABS: POTASSIUM 4.7 mmol/L (3.5-5.1)
[2023-04-27 07:09] LABS: BLOOD UREA NITROGEN 9.5 mg/dL (7-18); CALCIUM 7.8 mg/dL (8.5-10.1); MAGNESIUM 2.4 mg/dL (1.8-2.4)
[2023-04-27 07:13] LABS: CREATININE 0.4 mg/dL (0.55-1.3); PHOSPHOROUS 2.8 mg/dL (2.5-4.9); TOT PROT 6.7 g/dl (6.4-8.2)
[2023-04-27 07:15] LABS: BILIRUBIN,TOTAL 0.3 mg/dL (0.2-1)
[2023-04-27 15:25] VITALS: BP 118/69; PULSE 88; RESP 16; TEMP 98.1
[2023-04-27 23:30] VITALS: BMI 24.1
== END 2023-04-27 16:51 | DRG 388 ==
LOC: JER → JERBED 01:08 → J4W 11:11
PROVIDERS: ADMIT Internal Medicine; ATTEND Internal Medicine
DX: K56.7 Ileus, unspecified (principal); E43 Unspecified severe protein-calorie malnutrition; J18.9 Pneumonia, unspecified organism; K92.0 Hematemesis; K92.2 Gastrointestinal hemorrhage, unspecified; Z93.1 Gastrostomy status; G40.909 Epilepsy, unspecified, not intractable, without status epilepticus; K21.9 Gastro-esophageal reflux disease without esophagitis; G80.9 Cerebral palsy, unspecified; M24.50 Contracture, unspecified joint; D50.9 Iron deficiency anemia, unspecified; K59.00 Constipation, unspecified; Z68.24 Body mass index [BMI] 24.0-24.9, adult
CPT/HCPCS: 0241U-QW; 36415; 71045-TC-FY; 74018-TC-FY; 74177-TC; 80048; 80053; 81003; 82272; 82728; 82962; 83540; 83550; 83605; 83690; 83735; 84100; 84295; 85025; 85027; 85384; 85610; 85730; 86850; 86900; 86901; 87040; 87086; 87635; 93005; 93010; 99285-25; J0131; J0475; Q9967

== ENCOUNTER 2023-06-05 08:53 | Inpatient (IN) | payer OTHER ==
[2023-06-05] MEDS ORDERED: LACTATED RINGERS SOLUTION 1000 ML INFUS.BAG IV ONE (09:18)
[2023-06-05] MEDS: morphine CARPU-JECT 2 MG/1 ML DISP.SYRIN IVPUSH ONE (09:30)
[2023-06-05] MEDS ORDERED: morphine SULFATE 4 MG/ML VIAL ONE (09:30)
[2023-06-05] MEDS: ONDANSETRON 4 MG/2 ML VIAL IVPUSH ONE (10:00)
[2023-06-05] MEDS ORDERED: HYDROmorphone HCl 2 MG/ML VIAL IVPUSH ONE (10:06)
[2023-06-05] MEDS ORDERED: HYDROmorphone HCl 2 MG/ML VIAL ONE (10:18)
[2023-06-05] MEDS ORDERED: ACETAMINOPHEN INJECTION 100 ML IVPB ONE (10:18)
[2023-06-05] MEDS ORDERED: FENTANYL CITRATE/PF 50 MCG/ML VIAL ONE (10:18)
[2023-06-05] MEDS ORDERED: ONDANSETRON 4 MG/2 ML VIAL ONE (10:20)
[2023-06-05] MEDS: ACETAMINOPHEN 1000 MG/100 ML BAG IVPB ONE (10:30)
[2023-06-05] MEDS ORDERED: ONDANSETRON 4 MG/2 ML VIAL IVPUSH PRN (10:56)
[2023-06-05 11:05] LABS: BASO % 0.1 % (0-2.0); HEMATOCRIT 40.3 % (35.4-49); HEMOGLOBIN 13.5 GM/dL (11.7-16.9); LYMPH % 9.4 % (8-40); MCH 32.2 pg (25.7-33.7); MCHC 33.5 g/dl (32.0-35.9); MEAN CELL VOLUME 96.1 fl (80-96); MONO % 5.7 % (3.8-10.2); NEUT % 84.8 % (42.8-82.8); PLATELET COUNT 385 10^3/uL (134-434); RBC 4.19 M/mm3 (4.00-5.60); RDW 14.6 % (11.9-15.9); WHITE BLOOD COUNT 11.3 K/mm3 (4.0-10.0)
[2023-06-05] MEDS: HYDROmorphone HCl 2 MG/ML VIAL IVPB ONE (11:09)
[2023-06-05 11:27] LABS: POTASSIUM 5.3 mmol/L (3.5-5.1)
[2023-06-05 11:30] LABS: BLOOD UREA NITROGEN 16.4 mg/dL (7-18); MAGNESIUM 3.1 mg/dL (1.8-2.4)
[2023-06-05 11:33] LABS: CREATININE 0.6 mg/dL (0.55-1.3)
[2023-06-05 11:35] LABS: ALBUMIN 3.8 g/dl (3.4-5.0); BILIRUBIN,TOTAL 0.5 mg/dL (0.2-1); TOT PROT 8.2 g/dl (6.4-8.2)
[2023-06-05] MEDS ORDERED: MORPHINE SULFATE/0.9% NACL/PF 100 MG/100 ML BAG ONE (12:29)
[2023-06-05] MEDS: MORPHINE SULFATE/0.9% NACL/PF 100 MG/100 ML BAG IVPB SCH (13:51)
[2023-06-05] MEDS ORDERED: DEXTROSE 5%-LACTATED RINGERS 1,000 ML IV SCH (17:00)
[2023-06-05] MEDS ORDERED: AMINO ACIDS 4.25%/D5W 1,000 ML IV SCH (17:00)
[2023-06-05] MEDS ORDERED: LACTATED RINGERS SOLUTION 1,000 ML/1,000 ML INFUS.BAG IV SCH (17:15)
[2023-06-05] MEDS: AMINO ACIDS 4.25%/D5W 1,000 ML IV SCH (19:01)
[2023-06-05] MEDS: carBAMazepine 100 MG/5 ML UNIT-DOSE CUP PO SCH (19:55)
[2023-06-05] MEDS: BACLOFEN 10 MG TABLET (FP) GT SCH (21:45)
[2023-06-05] MEDS: diazePAM 5 MG TABLET GT SCH (21:45)
[2023-06-05 22:17] VITALS: BMI 21.8
[2023-06-06] MEDS: carBAMazepine 100 MG/5 ML UNIT-DOSE CUP PO SCH (06:20)
[2023-06-06 09:58] LABS: HEMATOCRIT 37.4 % (35.4-49); HEMOGLOBIN 12.5 GM/dL (11.7-16.9); MCH 32.3 pg (25.7-33.7); MCHC 33.4 g/dl (32.0-35.9); MEAN CELL VOLUME 96.6 fl (80-96); MEAN PLT VOLUME 7.7 fl (7.5-11.1); PLATELET COUNT 251 10^3/uL (134-434); RBC 3.87 M/mm3 (4.00-5.60); RDW 15.1 % (11.9-15.9); WHITE BLOOD COUNT 7.7 K/mm3 (4.0-10.0)
[2023-06-06 10:21] LABS: POTASSIUM 4.1 mmol/L (3.5-5.1)
[2023-06-06] MEDS: ENOXAPARIN NA (PORCINE) 40 MG/0.4 ML DISP.SYRIN SQ SCH (10:31)
[2023-06-06 10:33] LABS: BLOOD UREA NITROGEN 22.6 mg/dL (7-18); MAGNESIUM 2.4 mg/dL (1.8-2.4)
[2023-06-06 10:36] LABS: CREATININE 0.4 mg/dL (0.55-1.3); PHOSPHOROUS 2.8 mg/dL (2.5-4.9)
[2023-06-06 10:39] LABS: BILIRUBIN,TOTAL 0.5 mg/dL (0.2-1); TOT PROT 6.4 g/dl (6.4-8.2)
[2023-06-06 10:57] LABS: ALBUMIN 2.9 g/dl (3.4-5.0); CALCIUM 8.3 mg/dL (8.5-10.1)
[2023-06-06] MEDS ORDERED: LORazepam 0.5 MG TABLET GT PRN (17:50)
[2023-06-06] MEDS ORDERED: PATIENT'S OWN MEDICATION (NON-FORMULARY) (Linaclotide 145 MCG Capsule) GT SCH (18:00)
[2023-06-06] MEDS: LACTOBACILLUS ACIDOPHILUS 1 TABLET GT SCH (18:07)
[2023-06-06] MEDS: CEFTRIAXONE 1 GM in DEXTROSE 5%-WATER - 50 ML IVPB SCH (18:07)
[2023-06-06] MEDS: SIMETHICONE 40 MG/0.6 ML BOTTLE GT SCH (18:50)
[2023-06-07] MEDS: POLYETHYLENE GLYCOL (HEALTHYLAX) 3350 17 GM PACKET GT SCH (09:54)
[2023-06-07 10:03] LABS: BASO % 0.2 % (0-2.0); HEMATOCRIT 32.9 % (35.4-49); LYMPH % 19.7 % (8-40); MCH 32.1 pg (25.7-33.7); MCHC 33.4 g/dl (32.0-35.9); MEAN CELL VOLUME 96.3 fl (80-96); MEAN PLT VOLUME 7.4 fl (7.5-11.1); MONO % 3.1 % (3.8-10.2); PLATELET COUNT 212 10^3/uL (134-434); RBC 3.42 M/mm3 (4.00-5.60); RDW 15.1 % (11.9-15.9); WHITE BLOOD COUNT 3.4 K/mm3 (4.0-10.0)
[2023-06-07 10:15] LABS: POTASSIUM 4.1 mmol/L (3.5-5.1)
[2023-06-07 10:17] LABS: ALBUMIN 2.7 g/dl (3.4-5.0); CALCIUM 7.7 mg/dL (8.5-10.1)
[2023-06-07 10:21] LABS: CREATININE 0.3 mg/dL (0.55-1.3)
[2023-06-07 10:22] LABS: BILIRUBIN,TOTAL 0.6 mg/dL (0.2-1); TOT PROT 6.2 g/dl (6.4-8.2)
[2023-06-08 08:08] LABS: HEMATOCRIT 35.6 % (35.4-49); HEMOGLOBIN 12.1 GM/dL (11.7-16.9); MCH 32.6 pg (25.7-33.7); MCHC 33.8 g/dl (32.0-35.9); MEAN CELL VOLUME 96.5 fl (80-96); MEAN PLT VOLUME 7.6 fl (7.5-11.1); PLATELET COUNT 266 10^3/uL (134-434); RBC 3.69 M/mm3 (4.00-5.60); RDW 14.7 % (11.9-15.9); WHITE BLOOD COUNT 4.2 K/mm3 (4.0-10.0)
[2023-06-08 08:30] LABS: BLOOD UREA NITROGEN 26.7 mg/dL (7-18); CALCIUM 8.2 mg/dL (8.5-10.1)
[2023-06-08 08:31] LABS: ALBUMIN 2.9 g/dl (3.4-5.0)
[2023-06-08 08:32] LABS: PHOSPHOROUS 2.2 mg/dL (2.5-4.9)
[2023-06-08 08:33] LABS: CREATININE 0.3 mg/dL (0.55-1.3)
[2023-06-08 08:35] LABS: BILIRUBIN,TOTAL 0.5 mg/dL (0.2-1); TOT PROT 6.8 g/dl (6.4-8.2)
[2023-06-08] MEDS: AMINO ACIDS 4.25%/D5W 1,000 ML IV SCH (14:25)
[2023-06-08] MEDS: BISACODYL 10 MG SUPP.RECT PR ONE (14:27)
[2023-06-08] MEDS: NAPH,MB-DB/K PH,MBDB POWDER PACKET PO ONE (15:36)
[2023-06-08] MEDS ORDERED: BISACODYL 5 MG TABLET.DR (FP) PO PRN (15:52)
[2023-06-08] MEDS ORDERED: BISACODYL 10 MG SUPP.RECT PR PRN (16:14)
[2023-06-08] MEDS: BISACODYL 5 MG TABLET.DR (FP) PO SCH (16:37)
[2023-06-09] MEDS ORDERED: BISACODYL 10 MG SUPP.RECT PR PRN (08:23)
[2023-06-09 10:02] LABS: HEMATOCRIT 36.5 % (35.4-49); HEMOGLOBIN 12.5 GM/dL (11.7-16.9); MCH 32.8 pg (25.7-33.7); MCHC 34.3 g/dl (32.0-35.9); MEAN CELL VOLUME 95.5 fl (80-96); MEAN PLT VOLUME 7.2 fl (7.5-11.1); PLATELET COUNT 255 10^3/uL (134-434); RBC 3.82 M/mm3 (4.00-5.60); RDW 15.2 % (11.9-15.9); WHITE BLOOD COUNT 2.6 K/mm3 (4.0-10.0)
[2023-06-09 10:47] LABS: ALBUMIN 2.8 g/dl (3.4-5.0)
[2023-06-09 10:48] LABS: BLOOD UREA NITROGEN 22.9 mg/dL (7-18); CALCIUM 7.7 mg/dL (8.5-10.1)
[2023-06-09 10:49] LABS: MAGNESIUM 2.5 mg/dL (1.8-2.4)
[2023-06-09 10:52] LABS: CREATININE 0.3 mg/dL (0.55-1.3); PHOSPHOROUS 2.4 mg/dL (2.5-4.9)
[2023-06-09 10:53] LABS: BILIRUBIN,TOTAL 0.5 mg/dL (0.2-1); TOT PROT 6.3 g/dl (6.4-8.2)
[2023-06-09] MEDS: BISACODYL 10 MG SUPP.RECT PR SCH (11:52)
[2023-06-09 16:46] VITALS: RESP 18
[2023-06-09] MEDS: NAPH,MB-DB/K PH,MBDB POWDER PACKET PO ONE ×2 (18:35→19:43)
[2023-06-09] MEDS: carBAMazepine 100 MG/5 ML UNIT-DOSE CUP GT SCH (19:18)
[2023-06-09] MEDS: SENNOSIDES 8.8 MG/5 ML SYRUP GT SCH (21:48)
[2023-06-10] MEDS: carBAMazepine 100 MG/5 ML UNIT-DOSE CUP GT SCH (05:50)
[2023-06-10 09:11] LABS: BASO % 0.1 % (0-2.0); EOS % 0.1 % (0-4.5); HEMATOCRIT 34.8 % (35.4-49); HEMOGLOBIN 11.7 GM/dL (11.7-16.9); LYMPH % 27.8 % (8-40); MCH 32.1 pg (25.7-33.7); MCHC 33.7 g/dl (32.0-35.9); MEAN CELL VOLUME 95.1 fl (80-96); MEAN PLT VOLUME 7.3 fl (7.5-11.1); MONO % 5.8 % (3.8-10.2); NEUT % 66.2 % (42.8-82.8); PLATELET COUNT 280 10^3/uL (134-434); RBC 3.66 M/mm3 (4.00-5.60); RDW 14.8 % (11.9-15.9); WHITE BLOOD COUNT 2.9 K/mm3 (4.0-10.0)
[2023-06-10 09:29] LABS: POTASSIUM 4.2 mmol/L (3.5-5.1)
[2023-06-10 09:36] LABS: ALBUMIN 2.7 g/dl (3.4-5.0); CALCIUM 7.3 mg/dL (8.5-10.1); CREATININE 0.3 mg/dL (0.55-1.3); MAGNESIUM 2.5 mg/dL (1.8-2.4)
[2023-06-10 09:38] LABS: BILIRUBIN,TOTAL 0.4 mg/dL (0.2-1); TOT PROT 6.1 g/dl (6.4-8.2)
[2023-06-10 09:39] LABS: PHOSPHOROUS 2.2 mg/dL (2.5-4.9)
[2023-06-10] MEDS: DOCUSATE NA 100 MG/10 ML UNIT-DOSE CUPS GT SCH (09:59)
[2023-06-10] MEDS: NAPH,MB-DB/K PH,MBDB POWDER PACKET GT ONE ×2 (14:04→17:25)
[2023-06-10 16:25] LABS: POTASSIUM 4.1 mmol/L (3.5-5.1)
[2023-06-10 16:27] LABS: BLOOD UREA NITROGEN 23.9 mg/dL (7-18); CALCIUM 7.7 mg/dL (8.5-10.1)
[2023-06-10 16:30] LABS: CREATININE 0.4 mg/dL (0.55-1.3); PHOSPHOROUS 1.9 mg/dL (2.5-4.9)
[2023-06-11 08:34] LABS: POTASSIUM 4.2 mmol/L (3.5-5.1)
[2023-06-11 08:35] LABS: CALCIUM 7.3 mg/dL (8.5-10.1)
[2023-06-11 08:36] LABS: BLOOD UREA NITROGEN 23.1 mg/dL (7-18)
[2023-06-11 08:39] LABS: CREATININE 0.3 mg/dL (0.55-1.3); PHOSPHOROUS 1.4 mg/dL (2.5-4.9)
[2023-06-11] MEDS: NAPH,MB-DB/K PH,MBDB POWDER PACKET PO SCH (17:02)
[2023-06-11 17:06] LABS: PH,URINE 7.5 (5.0-8.0); URINE APPEARANCE Error; URINE BILIRUBIN NEGATIVE (NEGATIVE); URINE COLOR YELLOW; URINE GLUCOSE (UA) NEGATIVE (NEGATIVE); URINE KETONE NEGATIVE (NEGATIVE); URINE LEUK ESTERASE NEGATIVE (NEGATIVE); URINE NITRITE NEGATIVE (NEGATIVE); URINE PROTEIN NEGATIVE (NEGATIVE)
[2023-06-12 09:11] LABS: BASO % 0.2 % (0-2.0); EOS % 0.1 % (0-4.5); HEMOGLOBIN 11.8 GM/dL (11.7-16.9); LYMPH % 24.8 % (8-40); MCH 32.8 pg (25.7-33.7); MCHC 34.7 g/dl (32.0-35.9); MEAN CELL VOLUME 94.4 fl (80-96); MEAN PLT VOLUME 7.2 fl (7.5-11.1); MONO % 8.4 % (3.8-10.2); NEUT % 66.5 % (42.8-82.8); PLATELET COUNT 209 10^3/uL (134-434); RDW 14.6 % (11.9-15.9); WHITE BLOOD COUNT 2.4 K/mm3 (4.0-10.0)
[2023-06-12 09:20] LABS: POTASSIUM 3.7 mmol/L (3.5-5.1)
[2023-06-12 09:25] LABS: ALBUMIN 2.5 g/dl (3.4-5.0); BLOOD UREA NITROGEN 19.9 mg/dL (7-18); CALCIUM 7.7 mg/dL (8.5-10.1); MAGNESIUM 2.1 mg/dL (1.8-2.4)
[2023-06-12 09:28] LABS: CREATININE 0.3 mg/dL (0.55-1.3); PHOSPHOROUS 1.7 mg/dL (2.5-4.9)
[2023-06-12 09:30] LABS: BILIRUBIN,TOTAL 0.3 mg/dL (0.2-1)
[2023-06-12] MEDS: NAPH,MB-DB/K PH,MBDB POWDER PACKET PO ONE ×2 (13:59→14:23)
[2023-06-12 14:50] LABS: PH,URINE 7.5 (5.0-8.0); URINE APPEARANCE CLEAR; URINE BILIRUBIN NEGATIVE (NEGATIVE); URINE COLOR YELLOW; URINE GLUCOSE (UA) NEGATIVE (NEGATIVE); URINE KETONE NEGATIVE (NEGATIVE); URINE LEUK ESTERASE NEGATIVE (NEGATIVE); URINE NITRITE NEGATIVE (NEGATIVE); URINE PROTEIN NEGATIVE (NEGATIVE)
[2023-06-12] MEDS: CEFTRIAXONE 1 GM in DEXTROSE 5%-WATER - 50 ML IVPB SCH (18:40)
[2023-06-13 10:06] LABS: HEMATOCRIT 35.6 % (35.4-49); HEMOGLOBIN 12.1 GM/dL (11.7-16.9); MCH 32.2 pg (25.7-33.7); MCHC 33.8 g/dl (32.0-35.9); MEAN CELL VOLUME 95.2 fl (80-96); MEAN PLT VOLUME 7.3 fl (7.5-11.1); PLATELET COUNT 190 10^3/uL (134-434); RBC 3.74 M/mm3 (4.00-5.60); RDW 14.7 % (11.9-15.9); WHITE BLOOD COUNT 2.3 K/mm3 (4.0-10.0)
[2023-06-13 10:30] LABS: ALBUMIN 2.5 g/dl (3.4-5.0); BLOOD UREA NITROGEN 16.4 mg/dL (7-18); CALCIUM 8.2 mg/dL (8.5-10.1); MAGNESIUM 2.1 mg/dL (1.8-2.4)
[2023-06-13 10:33] LABS: PHOSPHOROUS 2.2 mg/dL (2.5-4.9)
[2023-06-13 10:34] LABS: CREATININE 0.2 mg/dL (0.55-1.3)
[2023-06-13 10:35] LABS: BILIRUBIN,TOTAL 0.2 mg/dL (0.2-1); TOT PROT 6.2 g/dl (6.4-8.2)
[2023-06-13] MEDS: AMINO ACIDS 4.25%/D5W 1,000 ML IV SCH (14:11)
[2023-06-13] MEDS: POTASSIUM PHOSPHATE 15 MM in SODIUM CHLORIDE 250 ML IVPB ONE (17:01)
[2023-06-13] MEDS: ASCORBIC ACID 250 MG TABLET (FP) PO SCH (18:38)
[2023-06-13] MEDS: MULTIVITAMINS (DAILY MVI) TABLET (FP) PO SCH (18:38)
[2023-06-14 10:17] LABS: HEMATOCRIT 33.6 % (35.4-49); HEMOGLOBIN 11.3 GM/dL (11.7-16.9); MCH 31.9 pg (25.7-33.7); MCHC 33.6 g/dl (32.0-35.9); MEAN PLT VOLUME 7.7 fl (7.5-11.1); PLATELET COUNT 181 10^3/uL (134-434); RBC 3.53 M/mm3 (4.00-5.60); RDW 14.6 % (11.9-15.9); WHITE BLOOD COUNT 2.9 K/mm3 (4.0-10.0)
[2023-06-14 11:22] LABS: CALCIUM 7.7 mg/dL (8.5-10.1)
[2023-06-14 11:23] LABS: ALBUMIN 2.4 g/dl (3.4-5.0); MAGNESIUM 2.1 mg/dL (1.8-2.4)
[2023-06-14 11:25] LABS: PHOSPHOROUS 2.7 mg/dL (2.5-4.9)
[2023-06-14 11:26] LABS: CREATININE 0.2 mg/dL (0.55-1.3)
[2023-06-14 11:27] LABS: BILIRUBIN,TOTAL 0.2 mg/dL (0.2-1); TOT PROT 5.8 g/dl (6.4-8.2)
[2023-06-14 14:17] VITALS: BP 93/58; PULSE 60; TEMP 97.5
== END 2023-06-14 18:15 | disposition home or self-care (01) | DRG 393 ==
LOC: JER 08:53 → JERBED 10:28 → J6S 18:12
PROVIDERS: ADMIT Internal Medicine; ATTEND Internal Medicine
DX: K63.89 Other specified diseases of intestine (principal); J18.9 Pneumonia, unspecified organism; R53.2 Functional quadriplegia; E87.1 Hypo-osmolality and hyponatremia; T17.890A Other foreign object in other parts of respiratory tract causing asphyxiation, initial encounter; F13.20 Sedative, hypnotic or anxiolytic dependence, uncomplicated; K56.7 Ileus, unspecified; M81.0 Age-related osteoporosis without current pathological fracture; G80.9 Cerebral palsy, unspecified; K21.00 Gastro-esophageal reflux disease with esophagitis, without bleeding; R13.10 Dysphagia, unspecified; E16.2 Hypoglycemia, unspecified; G40.909 Epilepsy, unspecified, not intractable, without status epilepticus; E83.39 Other disorders of phosphorus metabolism; K59.00 Constipation, unspecified; W44.F9XA Other object of natural or organic material, entering into or through a natural orifice, initial encounter; Y93.89 Activity, other specified; Y92.89 Other specified places as the place of occurrence of the external cause; Y99.8 Other external cause status; R74.01 Elevation of levels of liver transaminase levels; Z93.1 Gastrostomy status; R14.0 Abdominal distension (gaseous)
CPT/HCPCS: 36415; 71045-TC-FY; 74018-TC-FY; 74177-TC; 80048; 80053; 80156; 81003; 82962; 83605; 83690; 83735; 84100; 85025; 85027; 86850; 86900; 86901; 87040; 87899; 99285-25; J0131; J0475; Q9967

== ENCOUNTER 2023-09-12 00:26 | Inpatient (IN) | payer OTHER ==
[2023-09-12 00:54] VITALS: BMI 29.9
[2023-09-12 02:10] LABS: BASO % 0.3 % (0-2.0); EOS % 0.1 % (0-4.5); HEMATOCRIT 37.3 % (35.4-49); HEMOGLOBIN 13.2 GM/dL (11.7-16.9); LYMPH % 15.1 % (8-40); MCH 37.8 pg (25.7-33.7); MCHC 35.3 g/dl (32.0-35.9); MEAN CELL VOLUME 107.1 fl (80-96); MEAN PLT VOLUME 9.2 fl (7.5-11.1); MONO % 4.7 % (3.8-10.2); NEUT % 79.8 % (42.8-82.8); PLATELET COUNT 158 10^3/uL (134-434); RBC 3.48 M/mm3 (4.00-5.60); RDW 14.3 % (11.9-15.9); WHITE BLOOD COUNT 6.6 K/mm3 (4.0-10.0)
[2023-09-12 02:23] LABS: INR 1.08 (0.83-1.09); PROTHROMBIN TIME (PATIENT) 12.2 SEC (9.7-13.0)
[2023-09-12 02:25] LABS: ACTIVATED PTT 35.2 SECONDS (25.2-36.5)
[2023-09-12 02:27] LABS: VENOUS O2 SATURATION 63.4 % (70-80); VENOUS PCO2 47.2 mmHg (38-52); VENOUS PH 7.399 (7.310-7.410)
[2023-09-12 02:29] LABS: EPI CELLS 12 /uL (0-25.1); HYALINE CASTS 1 /uL (0-3.1); PH,URINE 7.5 (5.0-8.0); URINE APPEARANCE TURBID; URINE BACTERIA >9,000 /uL (0-1359); URINE BILIRUBIN NEGATIVE (NEGATIVE); URINE COLOR YELLOW; URINE GLUCOSE (UA) NEGATIVE (NEGATIVE); URINE KETONE NEGATIVE (NEGATIVE); URINE LEUK ESTERASE 2+ (NEGATIVE); URINE NITRITE POSITIVE (NEGATIVE); URINE PROTEIN TRACE (NEGATIVE); URINE RBC 14 /uL (0-23.9); URINE WBC 74 /uL (0-25.8)
[2023-09-12 02:36] LABS: POTASSIUM 4.6 mmol/L (3.5-5.1)
[2023-09-12 02:38] LABS: ALBUMIN 3.4 g/dl (3.4-5.0); BLOOD UREA NITROGEN 19.6 mg/dL (7-18); CALCIUM 8.6 mg/dL (8.5-10.1); MAGNESIUM 2.4 mg/dL (1.8-2.4)
[2023-09-12 02:41] LABS: CREATININE 0.2 mg/dL (0.55-1.3)
[2023-09-12 02:43] LABS: BILIRUBIN,TOTAL 0.6 mg/dL (0.2-1)
[2023-09-12] MEDS ORDERED: PANTOPRAZOLE SODIUM 40 MG VIAL ONE ×2 (02:56→09:15)
[2023-09-12] MEDS ORDERED: CEFTRIAXONE 1 GM/50 ML BAG ONE (02:56)
[2023-09-12] MEDS: PANTOPRAZOLE SODIUM 40 MG VIAL IVPUSH ONE (03:16)
[2023-09-12 03:22] LABS: ANISOCYTOSIS 1+; MACROCYTOSIS 0
[2023-09-12] MEDS: SODIUM CHLORIDE 0.9% 500 ML INFUS.BAG IV ONE (04:28)
[2023-09-12] MEDS ORDERED: PATIENT'S OWN MEDICATION (NON-FORMULARY) (Diazepam [Valtoco] 10 MG/0.1 ML Spray) IN PRN (08:35)
[2023-09-12] MEDS ORDERED: SIMETHICONE 40 MG/0.6 ML BOTTLE GT PRN (08:35)
[2023-09-12] MEDS ORDERED: ZINC OXIDE 20% TOPICAL OINTMENT 30 GM TUBE TP PRN (08:35)
[2023-09-12] MEDS: DEXTROSE 5%-LACTATED RINGERS 1,000 ML IV SCH ×2 (08:52→12:15)
[2023-09-12] MEDS ORDERED: BISACODYL 10 MG SUPP.RECT ONE (09:15)
[2023-09-12] MEDS ORDERED: PIPERACILLIN/TAZOB 3.375 GM 3.375 GM/50 ML BAG IVPB ONE (09:16)
[2023-09-12] MEDS: BISACODYL 10 MG SUPP.RECT PR SCH (09:27)
[2023-09-12] MEDS: PANTOPRAZOLE SODIUM 40 MG VIAL IVPUSH SCH (09:27)
[2023-09-12] MEDS: PIPERACILLIN/TAZOB 3.375 GM 3.375 GM in DEXTROSE 5%-WATER - 50 ML IVPB SCH (09:28)
[2023-09-12] MEDS: DOXAZOSIN MESYLATE 2 MG TABLET GT SCH (12:14)
[2023-09-12] MEDS ORDERED: TIZANIDINE HCL 2 MG GT SCH (14:00)
[2023-09-12] MEDS: CEFTRIAXONE 2 GM in DEXTROSE 5%-WATER 100 ML IVPB SCH (14:55)
[2023-09-12] MEDS: BACLOFEN 10 MG TABLET (FP) GT SCH (14:56)
[2023-09-12] MEDS: diazePAM 5 MG TABLET GT SCH (18:21)
[2023-09-12] MEDS: LACTOBACILLUS ACIDOPHILUS 1 TABLET GT SCH (18:22)
[2023-09-12] MEDS: carBAMazepine 100 MG/5 ML UNIT-DOSE CUP PO SCH (18:25)
[2023-09-12] MEDS: ACETAMINOPHEN 1000 MG/100 ML BAG IVPB ONE (22:17)
[2023-09-13] MEDS: carBAMazepine 100 MG/5 ML UNIT-DOSE CUP PO SCH (05:08)
[2023-09-13 08:27] LABS: MCH 37.9 pg (25.7-33.7); MCHC 35.3 g/dl (32.0-35.9); MEAN CELL VOLUME 107.5 fl (80-96); MEAN PLT VOLUME 7.5 fl (7.5-11.1); PLATELET COUNT 175 10^3/uL (134-434); RBC 3.16 M/mm3 (4.00-5.60); RDW 14.5 % (11.9-15.9); WHITE BLOOD COUNT 3.9 K/mm3 (4.0-10.0)
[2023-09-13 08:42] LABS: POTASSIUM 3.7 mmol/L (3.5-5.1)
[2023-09-13 08:44] LABS: CALCIUM 7.8 mg/dL (8.5-10.1); MAGNESIUM 2.6 mg/dL (1.8-2.4)
[2023-09-13 08:45] LABS: ALBUMIN 2.9 g/dl (3.4-5.0)
[2023-09-13 08:47] LABS: CREATININE 0.3 mg/dL (0.55-1.3); PHOSPHOROUS 3.4 mg/dL (2.5-4.9)
[2023-09-13 08:49] LABS: BILIRUBIN,TOTAL 0.4 mg/dL (0.2-1); TOT PROT 5.9 g/dl (6.4-8.2)
[2023-09-13] MEDS: PIPERACILLIN/TAZOB 3.375 GM 3.375 GM in DEXTROSE 5%-WATER - 50 ML IVPB SCH (11:12)
[2023-09-13] MEDS: ACETAMINOPHEN 1000 MG/100 ML BAG IVPB SCH (16:51)
[2023-09-14] MEDS: carBAMazepine 100 MG/5 ML UNIT-DOSE CUP GT SCH ×2 (05:55→17:55)
[2023-09-14 12:43] LABS: BASO % 0.1 % (0-2.0); EOS % 0.1 % (0-4.5); HEMATOCRIT 33.7 % (35.4-49); HEMOGLOBIN 11.5 GM/dL (11.7-16.9); LYMPH % 29.7 % (8-40); MCH 37.1 pg (25.7-33.7); MCHC 34.2 g/dl (32.0-35.9); MEAN CELL VOLUME 108.4 fl (80-96); MEAN PLT VOLUME 7.1 fl (7.5-11.1); MONO % 6.5 % (3.8-10.2); NEUT % 63.6 % (42.8-82.8); PLATELET COUNT 170 10^3/uL (134-434); RBC 3.11 M/mm3 (4.00-5.60); RDW 14.1 % (11.9-15.9)
[2023-09-14 13:12] LABS: POTASSIUM 3.9 mmol/L (3.5-5.1)
[2023-09-14 13:27] LABS: ALBUMIN 2.7 g/dl (3.4-5.0); BLOOD UREA NITROGEN 28.3 mg/dL (7-18); CALCIUM 7.6 mg/dL (8.5-10.1); MAGNESIUM 2.6 mg/dL (1.8-2.4)
[2023-09-14 13:31] LABS: CREATININE 0.3 mg/dL (0.55-1.3); PHOSPHOROUS 3.5 mg/dL (2.5-4.9)
[2023-09-14 13:33] LABS: BILIRUBIN,TOTAL 0.2 mg/dL (0.2-1); TOT PROT 5.2 g/dl (6.4-8.2)
[2023-09-15 07:27] LABS: BASO % 0.3 % (0-2.0); HEMATOCRIT 36.5 % (35.4-49); HEMOGLOBIN 12.7 GM/dL (11.7-16.9); LYMPH % 18.7 % (8-40); MCH 37.9 pg (25.7-33.7); MCHC 34.7 g/dl (32.0-35.9); MEAN PLT VOLUME 7.2 fl (7.5-11.1); MONO % 3.8 % (3.8-10.2); NEUT % 77.2 % (42.8-82.8); PLATELET COUNT 180 10^3/uL (134-434); RBC 3.35 M/mm3 (4.00-5.60); RDW 14.2 % (11.9-15.9); WHITE BLOOD COUNT 4.2 K/mm3 (4.0-10.0)
[2023-09-15 07:52] LABS: ALBUMIN 2.8 g/dl (3.4-5.0); BLOOD UREA NITROGEN 23.4 mg/dL (7-18); CALCIUM 7.4 mg/dL (8.5-10.1); MAGNESIUM 2.3 mg/dL (1.8-2.4)
[2023-09-15 07:54] LABS: CREATININE 0.3 mg/dL (0.55-1.3); PHOSPHOROUS 2.8 mg/dL (2.5-4.9)
[2023-09-15 07:56] LABS: BILIRUBIN,TOTAL 0.5 mg/dL (0.2-1)
[2023-09-15 07:58] LABS: TOT PROT 5.8 g/dl (6.4-8.2)
[2023-09-15 08:55] LABS: ANISOCYTOSIS 0; MACROCYTOSIS 2+
[2023-09-15] MEDS: DEXTROSE 5%-LACTATED RINGERS 1,000 ML IV SCH (14:39)
[2023-09-15] MEDS: PIPERACILLIN/TAZOB 2.25 GM 2.25 GM in DEXTROSE 5%-WATER - 50 ML IVPB SCH (17:35)
[2023-09-16 10:16] LABS: BASO % 0.2 % (0-2.0); EOS % 0.1 % (0-4.5); HEMATOCRIT 38.1 % (35.4-49); LYMPH % 23.9 % (8-40); MCHC 34.1 g/dl (32.0-35.9); MEAN CELL VOLUME 108.5 fl (80-96); MEAN PLT VOLUME 7.3 fl (7.5-11.1); MONO % 5.1 % (3.8-10.2); NEUT % 70.7 % (42.8-82.8); PLATELET COUNT 179 10^3/uL (134-434); RBC 3.51 M/mm3 (4.00-5.60); RDW 13.9 % (11.9-15.9); WHITE BLOOD COUNT 2.9 K/mm3 (4.0-10.0)
[2023-09-16 14:02] LABS: POTASSIUM 3.9 mmol/L (3.5-5.1)
[2023-09-16 14:05] LABS: CALCIUM 7.5 mg/dL (8.5-10.1)
[2023-09-16 14:06] LABS: ALBUMIN 3.1 g/dl (3.4-5.0); BLOOD UREA NITROGEN 23.3 mg/dL (7-18); MAGNESIUM 2.4 mg/dL (1.8-2.4)
[2023-09-16 14:08] LABS: CREATININE 0.3 mg/dL (0.55-1.3); PHOSPHOROUS 2.4 mg/dL (2.5-4.9)
[2023-09-16 14:10] LABS: TOT PROT 6.2 g/dl (6.4-8.2)
[2023-09-16 14:11] LABS: BILIRUBIN,TOTAL 0.4 mg/dL (0.2-1)
[2023-09-17 12:27] LABS: BASO % 0.2 % (0-2.0); EOS % 0.1 % (0-4.5); HEMATOCRIT 39.8 % (35.4-49); HEMOGLOBIN 13.7 GM/dL (11.7-16.9); LYMPH % 16.7 % (8-40); MCH 36.9 pg (25.7-33.7); MCHC 34.5 g/dl (32.0-35.9); MEAN PLT VOLUME 7.4 fl (7.5-11.1); MONO % 3.6 % (3.8-10.2); NEUT % 79.4 % (42.8-82.8); PLATELET COUNT 179 10^3/uL (134-434); RBC 3.72 M/mm3 (4.00-5.60); RDW 13.8 % (11.9-15.9); WHITE BLOOD COUNT 5.8 K/mm3 (4.0-10.0)
[2023-09-17 13:02] LABS: CHLORIDE 97 mmol/L (98-107); POTASSIUM 3.3 mmol/L (3.5-5.1); SODIUM 135 mmol/L (136-145)
[2023-09-17 13:07] LABS: ALBUMIN 3.5 g/dl (3.4-5.0); ANION GAP 8 mmol/L (4-13); BLOOD UREA NITROGEN 27.1 mg/dL (7-18); CALCIUM 8.3 mg/dL (8.5-10.1); CO2 31 mmol/L (21-32); MAGNESIUM 2.3 mg/dL (1.8-2.4)
[2023-09-17 13:10] LABS: CREATININE 0.4 mg/dL (0.55-1.3); PHOSPHOROUS 2.8 mg/dL (2.5-4.9); SGOT/AST 118 U/L (15-37); SGPT/ALT 119 U/L (13-61)
[2023-09-17 13:11] LABS: ALK PHOS 101 U/L (45-117); BILIRUBIN,TOTAL 0.6 mg/dL (0.2-1); TOT PROT 6.6 g/dl (6.4-8.2)
[2023-09-17 13:26] LABS: GLUCOSE,RANDOM 27 mg/dL (74-106)
[2023-09-17] MEDS: KETOROLAC TROMETHAMINE 10 MG TABLET PO ONE (18:53)
[2023-09-17] MEDS: POTASSIUM CHLORIDE ORAL LIQUID 20 MEQ/15 ML GT ONE (21:43)
[2023-09-17] MEDS: POTASSIUM CHLORIDE ORAL LIQUID 20 MEQ/15 ML PO ONE (23:30)
[2023-09-18 09:21] LABS: POTASSIUM 3.3 mmol/L (3.5-5.1)
[2023-09-18 09:23] LABS: BLOOD UREA NITROGEN 32.7 mg/dL (7-18)
[2023-09-18 09:26] LABS: CREATININE 0.3 mg/dL (0.55-1.3)
[2023-09-18] MEDS: POTASSIUM CHLORIDE TABS 20 MEQ TABLET.ER (FP) PO ONE (17:40)
[2023-09-18] MEDS: SENNOSIDES 8.8 MG/5 ML SYRUP GT SCH (22:02)
[2023-09-19] MEDS ORDERED: MULTIVITAMINS (DAILY MVI) TABLET (FP) PO SCH (10:00)
[2023-09-19] MEDS ORDERED: ASCORBIC ACID 500 MG/5 ML GT SCH (10:00)
[2023-09-19] MEDS: ASCORBIC ACID 250 MG TABLET (FP) GT SCH (11:10)
[2023-09-19] MEDS: ASCORBIC ACID 500 MG/5 ML UNIT DOSE CUP GT SCH (11:10)
[2023-09-19] MEDS: SCOPOLAMINE HYDROBROMIDE 1 PATCH PATCH.TD72 TD SCH (11:11)
[2023-09-19] MEDS: DOCUSATE NA 100 MG/10 ML UNIT-DOSE CUPS GT SCH (11:15)
[2023-09-19] MEDS: MULTIVIT-MINERALS ORAL LIQUID GT SCH (11:15)
[2023-09-20] MEDS: BACITRACIN ZINC 15 GM TUBE TOPICAL OINTMENT TP SCH (10:25)
[2023-09-20] MEDS: ACETAMINOPHEN 650 MG/20.3 ML ORAL SOLUTION (CUPS) PO PRN (19:40)
[2023-09-21 14:42] VITALS: BP 90/61; PULSE 102; RESP 20; TEMP 98.1
== END 2023-09-21 17:16 | DRG 177 ==
LOC: JER 00:26 → JERBED 00:56 → J7W 10:37
PROVIDERS: ADMIT Internal Medicine; ATTEND Nurse Practitioner Family
DX: J69.0 Pneumonitis due to inhalation of food and vomit (principal); E43 Unspecified severe protein-calorie malnutrition; J96.01 Acute respiratory failure with hypoxia; R53.2 Functional quadriplegia; N39.0 Urinary tract infection, site not specified; E87.1 Hypo-osmolality and hyponatremia; J90 Pleural effusion, not elsewhere classified; K56.7 Ileus, unspecified; R64 Cachexia; F73 Profound intellectual disabilities; G12.9 Spinal muscular atrophy, unspecified; K92.0 Hematemesis; G40.909 Epilepsy, unspecified, not intractable, without status epilepticus; K22.4 Dyskinesia of esophagus; G80.8 Other cerebral palsy; K63.89 Other specified diseases of intestine; K21.9 Gastro-esophageal reflux disease without esophagitis; Z68.23 Body mass index [BMI] 23.0-23.9, adult; E87.8 Other disorders of electrolyte and fluid balance, not elsewhere classified; R94.5 Abnormal results of liver function studies; B95.2 Enterococcus as the cause of diseases classified elsewhere; Z93.1 Gastrostomy status
CPT/HCPCS: 0241U-QW; 36415; 71045-TC-FY; 71250-TC; 74177-TC; 80048; 80053; 80156; 81003; 82272; 82607; 82746; 82803; 82962; 83605; 83690; 83735; 84100; 84484; 85025; 85027; 85610; 85730; 87040; 87086; 87186; 87635; 93005; 93010; 94761; 97162-GP; 99285-25; J0131; J0475; Q9967

== ENCOUNTER 2023-09-23 14:01 | Emergency (ER) | payer OTHER ==
[2023-09-23 14:16] VITALS: BMI 29.9
[2023-09-23] MEDS ORDERED: diazePAM CARPU-JECT 10 MG/2 ML DISP.SYRIN ONE (15:15)
[2023-09-23] MEDS: diazePAM CARPU-JECT 10 MG/2 ML DISP.SYRIN IVPUSH ONE (15:18)
[2023-09-23 15:31] LABS: EPI CELLS 9 /uL (0-25.1); HYALINE CASTS 0 /uL (0-3.1); PH,URINE 8.5 (5.0-8.0); URINE APPEARANCE CLEAR; URINE BACTERIA 18 /uL (0-1359); URINE BILIRUBIN NEGATIVE (NEGATIVE); URINE COLOR DK YELLOW; URINE GLUCOSE (UA) NEGATIVE (NEGATIVE); URINE KETONE NEGATIVE (NEGATIVE); URINE LEUK ESTERASE NEGATIVE (NEGATIVE); URINE NITRITE NEGATIVE (NEGATIVE); URINE PROTEIN 2+ (NEGATIVE); URINE RBC 120 /uL (0-23.9); URINE WBC 7 /uL (0-25.8)
[2023-09-23 16:07] LABS: BASO % 0.1 % (0-2.0); EOS % 0.1 % (0-4.5); HEMATOCRIT 36.1 % (35.4-49); HEMOGLOBIN 12.2 GM/dL (11.7-16.9); LYMPH % 21.6 % (8-40); MCH 36.5 pg (25.7-33.7); MCHC 33.9 g/dl (32.0-35.9); MEAN CELL VOLUME 107.6 fl (80-96); MEAN PLT VOLUME 7.8 fl (7.5-11.1); MONO % 9.3 % (3.8-10.2); NEUT % 68.9 % (42.8-82.8); PLATELET COUNT 93 10^3/uL (134-434); RBC 3.35 M/mm3 (4.00-5.60); RDW 13.3 % (11.9-15.9); WHITE BLOOD COUNT 2.6 K/mm3 (4.0-10.0)
[2023-09-23 16:17] LABS: POTASSIUM 4.5 mmol/L (3.5-5.1)
[2023-09-23 16:18] LABS: CALCIUM 8.7 mg/dL (8.5-10.1)
[2023-09-23 16:19] LABS: BLOOD UREA NITROGEN 21.9 mg/dL (7-18)
[2023-09-23 16:22] LABS: CREATININE 0.2 mg/dL (0.55-1.3)
[2023-09-23 16:23] LABS: ALBUMIN 2.8 g/dl (3.4-5.0)
[2023-09-23 16:24] LABS: BILIRUBIN,TOTAL 0.6 mg/dL (0.2-1)
[2023-09-23 17:03] LABS: ANISOCYTOSIS 2+; MACROCYTOSIS 2+
[2023-09-23 17:52] VITALS: TEMP 99.3
[2023-09-23 21:58] VITALS: BP 104/79; PULSE 110; RESP 18
== END 2023-09-23 21:58 ==
LOC: JER 14:01
PROC: 3E033GC Introduction of Other Therapeutic Substance into Peripheral Vein, Percutaneous Approach (ICD-10-PCS; principal; 2023-09-23)
DX: R41.82 Altered mental status, unspecified (principal); R06.02 Shortness of breath; R09.02 Hypoxemia; Z20.822 Contact with and (suspected) exposure to COVID-19
CPT/HCPCS: 0241U-QW; 36415; 71045-TC-FY; 80053; 81003; 85025; 87040; 87086; 99284-25

== ENCOUNTER 2023-11-08 04:24 | Emergency (ER) | payer OTHER ==
[2023-11-08 04:34] VITALS: BP 101/62; PULSE 110; RESP 16; TEMP 98.1; BMI 22.8
[2023-11-08] MEDS: AZITHROMYCIN IVPB 500 MG in DEXTROSE 5%-WATER - 250 ML IVPB ONE (07:37)
== END 2023-11-08 07:15 | disposition expired ==
LOC: JER 04:24
DX: S00.212A Abrasion of left eyelid and periocular area, initial encounter (principal); S00.81XA Abrasion of other part of head, initial encounter; I46.9 Cardiac arrest, cause unspecified; W06.XXXA Fall from bed, initial encounter
CPT/HCPCS: 70450-TC; 72125-TC; 99285-25